=== PATIENT | female | born 1935 | race Caucasian/White ===

== ENCOUNTER 2016-05-31 05:04 | Inpatient (IN) | payer OTHER ==
[2016-05-11 15:13] VITALS: BMI 39.0
--- NOTE | 2016-05-11 15:44 | PAT Medication Instructions ---
Service Date May 11, 2016. Current Home Medication List Allopurinol (Zyloprim), 300 MG PO NOON Ascorbic Acid (Ascorbic Acid), 500 MG PO NOON Aspirin (Aspirin Chewable), 81 MG PO NOON Atenolol (Tenormin), 50 MG PO NOON Celecoxib (CeleBREX), 200 MG PO NOON Cyanocobalamin (Vitamin B12 100 Mcg), 100 MCG PO NOON Diltiazem Hcl Coated Beads (Cardizem Cd), 240 MG PO NOON Furosemide (Furosemide), 40 MG PO NOON Glimepiride (Amaryl), 1 MG PO NOON Ketoconazole (Topical) (Nizoral), 1 APPLN TOP UD PRN for PRN Levothyroxine Sodium (Synthroid), 150 MCG PO NOON Losartan Potassium (Cozaar), 100 MG PO NOON Potassium Chloride (Micro-K Ext Rel), 20 MEQ PO NOON Vitamin E (Vitamin E 400 Iu), 400 INTER.UNIT PO NOON Medication Instructions For Your Scheduled Surgery - Hold the following medications 2 weeks prior to surgery: Vitamin E (Vitamin E 400 Iu), 400 INTER.UNIT PO NOON - Hold the following medications 5 days prior to surgery per surgeon instructions: Celecoxib (CeleBREX), 200 MG PO NOON - Hold the following medications 24 hours prior to surgery: Ketoconazole (Topical) (Nizoral), 1 APPLN TOP UD PRN for PRN - Take the following medications the morning of surgery with a sip of water ( only if surgery is scheduled for after 10:00AM: Diltiazem Hcl Coated Beads (Cardizem Cd), 240 MG PO NOON Levothyroxine Sodium (Synthroid), 150 MCG PO NOON Atenolol (Tenormin), 50 MG PO NOON Allopurinol (Zyloprim), 300 MG PO NOON Aspirin (Aspirin Chewable), 81 MG PO NOON - Take the following medications as scheduled the afternoon/night before surgery : Losartan Potassium (Cozaar), 100 MG PO NOON Potassium Chloride (Micro-K Ext Rel), 20 MEQ PO NOON Glimepiride (Amaryl), 1 MG PO NOON Furosemide (Furosemide), 40 MG PO NOON Cyanocobalamin (Vitamin B12 100 Mcg), 100 MCG PO NOON Ascorbic Acid (Ascorbic Acid), 500 MG PO NOON If you have any questions please call us at [phone] or [phone] ( Bertha) or [phone]
[2016-05-11 16:11] LABS: BASO % 0.6 %; BASO ABS # 0.04 K/uL (0-0.2); COMPLETE YES; IG% 0.1 %; LYMPH % 26.5 %; LYMPH ABS # 1.91 K/uL (1.2-3.4); MEAN CELL VOLUME 89.7 fL (80-100); MEAN CORPUSCULAR HEMOGLOBIN 29.4 pg (25-34); MEAN CORPUSCULAR HGB CONC 32.8 g/dl (32-36); MONO % 7.5 %; NEUT % 61.3 %; PLATELET COUNT 306 K/uL (130-400); RED BLOOD COUNT 4.35 M/uL (4.2-5.4); WHITE BLOOD COUNT 7.21 K/uL (4.8-10.8)
[2016-05-11 16:20] LABS: URINE APPEARANCE CLEAR (CLEAR); URINE BILIRUBIN NEG (NEG); URINE COLOR YELLOW; URINE EPITHELIAL CELL AUTO >30 /lpf (0-5); URINE NITRITE NEG (NEG); URINE PH 6.5 (4.5-7.5); URINE SPECIFIC GRAVITY 1.008 (1.000-1.030); UROBILINOGEN NEG (NEG)
[2016-05-11 16:21] LABS: MANUAL MICROSCOPIC REQUIRED? NO; PROTHROMBIN TIME (PATIENT) 10.3 SECONDS (9.0-12.0); REVIEW REQ? YES
[2016-05-11 16:46] LABS: BUN/CREATININE RATIO 18.2 (10-20); CALCIUM 8.5 mg/dl (8.5-10.1); CREATININE 1.2 mg/dl (0.60-1.20); POTASSIUM 4.1 mmol/L (3.5-5.1)
--- NOTE | 2016-05-15 17:26 | HISTORY & PHYSICAL EXAMINATION ---
DATE OF ADMISSION: 06/07/2016 CHIEF COMPLAINT: Right knee pain. HISTORY OF PRESENT ILLNESS: This 80-year-old white female presents to the office for evaluation of her right knee. She has had right knee pain for several years. She has been doing viscosupplementation injections with moderate improvement in her discomfort. Over the last several months they have stopped working as well. She has also tried oral anti-inflammatories as well as activity modification without success. No specific injury. Pain is primarily anterior and medial, but also posterior. It is worse with weightbearing. It is affecting her ADLs. X-rays have been obtained. She elects to proceed with right total knee arthroplasty in hopes of alleviating her pain. PAST MEDICAL HISTORY: Significant for hypertension, diabetes, hypothyroidism, rheumatoid arthritis, GERD, hiatal hernia, obesity, kidney stones, and history of thyroid cancer. PREVIOUS SURGERIES: Thyroidectomy for thyroid cancer, hysterectomy, cholecystectomy, carpal tunnel release, and knee arthroscopy. ALLERGIES: KNOWN ALLERGIES TO AMPICILLIN, WHICH CAUSES DIARRHEA AND YEAST INFECTIONS. CURRENT MEDICATIONS: Celebrex 200 mg daily, vitamin B12 1000 mcg daily, glimepiride 1 mg p.o. daily, Synthroid 150 mcg p.o. daily, ketaconazole topical 2% cream applied daily, potassium 10 mEq p.o. b.i.d., aspirin 81 mg daily, Cozaar 100 mg p.o. daily, vitamin E 400 units daily, allopurinol 300 mg p.o. daily, furosemide 20 mg p.o. b.i.d., atenolol 50 mg p.o. daily, diltiazem 240 mg p.o. daily. SOCIAL HISTORY: The patient is . Retired. No tobacco use, no ETOH use. FAMILY HISTORY: Significant for diabetes, otherwise unremarkable. REVIEW OF SYSTEMS: Significant for above stated conditions, otherwise unremarkable. PHYSICAL EXAMINATION: GENERAL: Well-developed, well-nourished elderly white female in no acute distress. Sitting on a chair. Alert and oriented. SKIN: Warm and dry with good turgor. No rashes or lesions. No ecchymosis or erythema. HEENT: Normocephalic, atraumatic. Eyes, PERRLA, EOMI. Nares patent bilaterally without turbinate enlargement. Oropharynx without erythema or exudate. No lesions noted. Uvula midline. Oral mucosa moist. Poor dentition. Multiple missing teeth. Fillings are noted. Ears, right TM was occluded with cerumen. Left TM is intact with good light reflex. HEART: RRR. No MGR. LUNGS: Clear to auscultation bilaterally. No crackles, rhonchi or wheezing. Good air movement. ABDOMEN: Obese. Bowel sounds present x4, soft, nontender. No organomegaly. MUSCULOSKELETAL: Right knee has no obvious asymmetry or deformity. She has no intraarticular effusion. There is focal discomfort with palpation over the medial joint line as well as the anterior joint line. No significant pain laterally. She does have discomfort in the popliteal fossa. Small Morelos cyst is palpable. She lacks just a few degrees of terminal extension. Flexion to greater than 100 degrees. No crepitus is palpable. Stable collateral ligaments. Strength is 5/5 for resisted flexion and extension. No defect in the patellar tendon or quadriceps tendon. Ambulatory with a mild limp. NEUROLOGIC: Gross sensation is intact across the lower extremities by soft touch. Peripheral pulses are 2+. Cranial nerves II through XII are intact. DATA: Radiographic images previously obtained show a varus stance. She has tricompartmental osteoarthritis with joint space narrowing, subchondral sclerosis, and periarticular osteophytes. IMPRESSION: Right knee degenerative joint disease. PLAN: Informed written consent was obtained to proceed with right total knee arthroplasty. Postoperative prescriptions for Percocet and Coumadin will be provided at discharge from the hospital. Preoperative lab work, EKG, and chest x-ray have been ordered. Medical clearance has been requested from Dr. Valles. Anticipate discharge to home with 2 weeks of home health services.
[~2016-05-31] VITALS: Ht 157.5 cm; Wt 96.6 kg
[2016-05-31] VITALS (9 sets, daily range): BP systolic 120–184; BP diastolic 66–83; PULSE 52–93; TEMP 36.5–36.9; O2SAT 92–99; Ht 157.5 cm; Wt 96.6 kg
[~2016-05-31 05:04] MED LIST: ALLO300T2 PO; ASCO500T16 PO; ASPCH81X PO; ATEN50TA PO; CLB/200 PO; CYAN100T6 PO; DILT240C57 PO; GLIM1TAB PO; KETO2SHA5 TOP; LOSA1TAB38 PO; LSX20 PO; POTA10CA28 PO; SYN150 PO; VITA400C3 PO
[2016-05-31] MEDS ORDERED: LACTATED RINGER'S 1000ML 1,000 ML IV SCH (06:00)
[2016-05-31] MEDS ORDERED: TRANEXAMIC ACID INJ 1,000 MG in SODIUM CHLORIDE 0.9% 100ML 100 ML IV SCH ×2 (06:00→14:30)
[2016-05-31] MEDS ORDERED: CEFAZOLIN 2000 MG/60 ML D5W 60 ML IV SCH (06:00)
[2016-05-31] MEDS ORDERED: LACTATED RINGER'S 1000ML IV SCH (06:00)
[2016-05-31] MEDS ORDERED: ROPIVACAINE 5MG/ML 30 ML 150 MG, BUPIVACAINE/EPINEPHR 0.5% MPF 30 ML, KETOROLAC TROMETH... INFIL SCH ×7 (06:00)
--- NOTE | 2016-05-31 06:25 | History & Physical Bridge Note ---
H&P Re-Evaluation Bridge Note: I have examined the patient, reviewed the History & Physical and in the interval since the performance of the History & Physical I have noted the following changes of clinical significance: No changes noted
[2016-05-31] MEDS ORDERED: BUPIVACAINE 0.25% 30 ML VIAL ONE (06:33)
[2016-05-31] MEDS ORDERED: BUPIVACAINE 0.5 % 5 MG/1 ML PF 10ML VIAL ONE (06:33)
[2016-05-31] MEDS ORDERED: ORTHO JOINT ANESTHETIC ONE (06:36)
[2016-05-31] MEDS ORDERED: POVIDONE-IODINE OP SOLN 30 ML BTL ONE (06:37)
[2016-05-31] MEDS ORDERED: MIDAZOLAM HCL 1 MG/ML 2ML VIAL ONE ×3 (06:38→07:01)
[2016-05-31] MEDS ORDERED: FENTANYL CITRATE INJ 50 MCG/1 ML 2 ML VIAL ONE (06:38)
[2016-05-31] MEDS ORDERED: PROPOFOL IV EMULSION 10 MG/ML 20 ML VIAL IV ONE (07:57)
[2016-05-31] MEDS ORDERED: ONDANSETRON INJ 2 MG/ML 2 ML VIAL IV PRN ×2 (08:00→08:30)
[2016-05-31] MEDS ORDERED: EpHEDrine SULFATE INJ 50 MG/ML AMP IV PRN (08:00)
[2016-05-31] MEDS ORDERED: ATROPINE SULFATE 0.1 MG/ML 5ML SYR IV PRN (08:00)
[2016-05-31] MEDS ORDERED: FENTANYL CITRATE INJ 50 MCG/1 ML 2 ML VIAL IV PRN (08:00)
--- NOTE | 2016-05-31 08:15 | [facility] Post Operative Brief Note ---
Immediate Operative Summary Operative Date May 31, 2016. Pre-Operative Diagnosis Right knee degenerative joint disease Post-Operative Diagnosis Right knee degenerative joint disease. Procedure(s) Performed Right knee total arthroplasty Surgeon Dr. Jeevan Lowe [employer] Surgeon(s) Rick Mendoza PA-C Estimated Blood Loss 50ML Findings severe djd/varus deformity Fluids (cc crystalloids) 1250cc Specimens A: Right knee bone and tissue Drains none Anesthesia spinal/block Complication(s) None Disposition Recovery Room / PACU
[2016-05-31] MEDS ORDERED: DiphenhydrAMINE HCL 50 MG/ML VIAL IV PRN (08:30)
[2016-05-31] MEDS ORDERED: METOCLOPRAMIDE HCL INJ 5 MG/ML 2 ML VIAL IV PRN (08:30)
[2016-05-31] MEDS ORDERED: ACETAMINOPHEN IV 100 ML IV PRN (08:30)
[2016-05-31] MEDS ORDERED: MAGNESIUM HYDROXIDE SUSP 30 ML UDC PO PRN (08:30)
[2016-05-31] MEDS ORDERED: ACETAMINOPHEN 325 MG TAB PO PRN (08:30)
[2016-05-31] MEDS ORDERED: OXYCODONE HCL IR 5 MG TAB (IMMEDIATE RELEASE) PO PRN (08:30)
[2016-05-31] MEDS ORDERED: ALUMINUM/MAGNESIUM/SIMETH (MAALOX MAX) 30 ML UDC PO PRN (08:30)
[2016-05-31] MEDS ORDERED: BISACODYL 10 MG SUPP PR PRN (08:30)
[2016-05-31] MEDS ORDERED: MoRPHine SULFATE 2 MG/ML CARP IV PRN (08:30)
--- NOTE | 2016-05-31 08:31 | Medical Student: [facility] ---
Immediate Operative Summary Operative Date May 31, 2016. Pre-Operative Diagnosis Degenerative Joint Disease of Right Knee Post-Operative Diagnosis Degenerative Joint Disease of Right Knee Procedure(s) Performed Right Total Knee Arthroplasty Surgeon Dr. Lowe Commercial [employer] Surgeon(s) Jeremy Mendoza PA-C Estimated Blood Loss 50cc Findings Osteoarthritic changes of the right knee, varus deformity Specimens None Complication(s) None Disposition Recovery Room / PACU
--- NOTE | 2016-05-31 08:44 | OPERATIVE REPORT ---
DATE OF OPERATION: 05/31/2016 PREOPERATIVE DIAGNOSIS: Osteoarthritis right knee with varus deformity. POSTOPERATIVE DIAGNOSIS: Same. PROCEDURE: Cemented right total knee replacement. SURGEON: Dr. Lowe. MEDICAL EXAMINER: Jeremy Mendoza PA-C., med student [employer]. SUMMARY OF IMPLANTS: Size 2.5 right posterior cruciate substituting femur, size 2.5 rotating tibial tray, oval domed 3 pegged patella size 35, tibial insert size 2.5, 12.5 mm thick, 2 bags of Palacos G cement. ESTIMATED BLOOD LOSS: 50 mL. ESTIMATED FLUID: 1250 mL IV. OPERATION AND FINDINGS: PROCEDURE: The patient appropriately identified, site verified, consent verified, 2 grams of Ancef confirmed as being given. The right lower extremity was prepped and draped in usual routine fashion. An anterior approach to the knee was then made. A parapatellar arthrotomy was performed. Synovectomy completed. Soft tissue release performed medially. Osteophytes resected. Distal femur entered and resected 12 mm, proximal tibia subluxated. All remaining menisci were removed. The tibia was resected 4 mm. It should be mentioned that there was grade 4 disease in the complete medical compartment and the trochlea of the femur. The patella had grade 2-3 changes in the lateral compartment and grade 1-2 changes. Once the soft tissue correction was made and the distal femoral and proximal tibial cuts made the extension gap was excellent. The femur was sized to a 2.5 as well as the tibia. A 2.5 cutting block was then placed on the femur and the anterior and posterior condylar and chamfer cuts. The flexion gap was checked, it was excellent. The box cut was then made and the size 2.5 femur fit well. The tibia was then broached and reamed to a 2.5 and trial spacer with 10 and 12.5 was made. The 12.5 eliminated some mid range flexion instability so that was elected. It did not alter the extension. The patella was sized to a 35, resected leaving 15 mm. Drill holes were made and trial seated, it tracked well. All remaining trial implants were then removed. The wound was irrigated with Pulsavac with Betadine with Pulsavac. Orthomix then injected and the permanent cemented into position. After 12 minutes, the tourniquet deflated. After 14 minutes the knee flexed. Minor cement removal took place. The wound was irrigated again with Betadine and Pulsavac and then the permanent spacer seated, the knee reduced and closed with #1 Ethibond, #1 Vicryl, 2-0 Vicryl and stainless steel clips. Appropriate dressing was applied. The patient transferred to recovery room in satisfactory condition having tolerated the procedure well. DVT prophylaxis per protocol. I attest to the content of the Intraoperative Record and any orders documented therein. Any exceptio ns are noted below.
--- NOTE | 2016-05-31 08:57 | Anesthesiology Progress Note ---
Anesthesia Post Op Note Date & Time May 31, 2016 at 08:57 Vital Signs Pain Intensity: 0 Vital Signs Past 12 Hours Date Time Temp Pulse Resp B/P Pulse Ox O2 Delivery O2 Flow Rate FiO2 05/31/16 08:42 61 19 05/31/16 08:42 61 19 92 05/31/16 08:38 127/63 05/31/16 08:37 61 18 93 05/31/16 08:37 60 18 05/31/16 08:33 129/60 05/31/16 08:32 59 18 95 05/31/16 08:32 59 18 05/31/16 08:28 127/57 05/31/16 08:27 66 21 05/31/16 08:27 66 21 95 05/31/16 08:27 36.7 67 12 115/58 95 Nasal Cannula 2 05/31/16 05:46 36.9 56 20 184/81 93 Room Air Notes Mental Status: alert / awake / arousable, participated in evaluation Pt Amnestic to Procedure: Yes Nausea / Vomiting: adequately controlled Pain: adequately controlled Airway Patency, RR, SpO2: stable & adequate BP & HR: stable & adequate Hydration State: stable & adequate Neuraxial Anesthesia: was administered, sensory block is resolving Anesthetic Complications: no major complications apparent
[2016-05-31] MEDS ORDERED: FUROSEMIDE 40 MG TAB PO SCH (09:00)
[2016-05-31] MEDS ORDERED: LOSARTAN POTASSIUM 50 MG TAB PO SCH (09:00)
[2016-05-31] MEDS: DILTIAZEM HCL 240 MG CAPCR PO SCH (09:00)
[2016-05-31] MEDS: DOCUSATE SODIUM 100 MG CAP PO SCH ×2 (09:00→21:00)
--- NOTE | 2016-05-31 09:00 | DIAGNOSTIC IMAGING REPORT ---
TWO VIEWS RIGHT KNEE CLINICAL HISTORY: Postoperative examination. FINDINGS: AP and crosstable lateral portable views of the right knee are obtained. A right knee arthroplasty is in near anatomic alignment. There has been undersurface remodeling of the patella. There is a longitudinal lucency seen in the distal femoral metaphysis only on the frontal view. There are expected postoperative changes around the knee including skin clips, soft tissue edema, and subcutaneous gas. IMPRESSION: 1. Expected postoperative changes status post right knee arthroplasty as above. 2. There is a questionable lucency in the distal femoral metaphysis, only seen on the frontal view. This is indeterminant, and a nondistracted fracture is not excluded. Electronically signed by: Moshe William M.D. 05/31/2016 8:59 AM Dictated Date/Time: 05/31/2016 8:58 AM
[2016-05-31] MEDS ORDERED: GLUCOSE 10 TABS/TUBE PO PRN (10:30)
[2016-05-31] MEDS ORDERED: DEXTROSE 50% 50 ML SYR IV PRN (10:30)
[2016-05-31] MEDS ORDERED: GLUCAGON FOR INJ 1 MG VIAL SQ PRN (10:30)
[2016-05-31] MEDS ORDERED: GLUCOSE 40% GEL 15 GM TUBE PO PRN (10:30)
[2016-05-31] MEDS ORDERED: MoRPHine SULFATE 4 MG/ML 1 ML CARP\\VIAL IV PRN (10:45)
[2016-05-31] MEDS: SODIUM CHLORIDE 0.9% 1000ML 1,000 ML IV SCH ×2 (11:14→19:03)
--- NOTE | 2016-05-31 11:18 | PROGRESS NOTE ---
DATE: 05/31/2016 SUBJECTIVE: Postop right total knee replacement. The patient is resting comfortably in bed. Denies chest pain, shortness of breath, fever, chills, headache, nausea or vomiting. OBJECTIVE: Vital signs are stable. She is afebrile. Neurovascular check reveals intact functioning of the peroneal and femoral nerves, still has a little bit of weakness. Dressing clean, dry and intact. X-RAYS: Two obliques did not reveal any hardware complication; however, radiologist questioning a lucency in the distal metaphyseal femur which cannot exclude any fracture. I think that this is air based on the location of the suprapatellar pouch air. There were no untoward issues during the procedure and there was no excessive force applied to implanting the materials. ASSESSMENT AND PLAN: Status post right total knee replacement. Continue with care pathway. If any issues arise, she will repeat x-rays, but I do not expect them to based on what is seen on the present films.
[2016-05-31] MEDS: PANTOprazole SOD 40 MG TAB PO SCH (11:19)
[2016-05-31] MEDS: ALLOPURINOL 300 MG TAB PO SCH (11:19)
[2016-05-31] MEDS: LEVOTHYROXINE 150 MCG TAB PO SCH (11:19)
[2016-05-31] MEDS: MULTIVITAMIN TAB PO SCH (11:20)
[2016-05-31] MEDS: POTASSIUM CHLORIDE 20 MEQ TABCR PO SCH (11:20)
[2016-05-31] MEDS: KETOROLAC TROMETHAMINE 15 MG/ML VIAL IV. SCH ×2 (11:20→19:03)
[2016-05-31] MEDS ORDERED: HydrALAZINE HCL 20 MG/ML VIAL IV. PRN (12:15)
--- NOTE | 2016-05-31 12:34 | Medical Consult ---
Consultation Date of Consultation: May 31, 2016. Attending Physician: Jeevan Lowe M.D. Reason for Consultation: Medical management History of Present Illness This is a 80 y/o female with a history of anemia, CKD stage III, DM II, gout, HTN, and h/o thyroid cancer s/p thyroidectomy who presents s/p right TKA with Dr. Lowe on 05/31 for medical management. The patient reports feeling well post operatively. She currently denies any pain and states that her legs are still numb. She was able to eat without any difficulties. She has not yet urinated, passed gas, or had a bowel movement. The patient denies fevers, chills, sweats, chest pain, palpitations, claudication, cough, wheezing, shortness of breath, nausea, vomiting, abdominal pain, dysuria, hematuria, urinary retention, paralysis, and weakness. Past Medical/Surgical History Medical Problems: (1) Shortness of breath Status: Acute Family History Diabetes mellitus Gallbladder disease Heart disease Hypertension Kidney disease Kidney stones Social History Smoking Status: Never Smoker Smokeless Tobacco Use: No Alcohol Use: none Marital Status: Housing Status: lives with significant other Occupation Status: retired Allergies Coded Allergies: Amlodipine (Verified Allergy, Unknown, per PCP note , 05/31/16) Hydrochlorothiazide (Verified Allergy, Unknown, per PCP note , 05/31/16) Moxifloxacin (Verified Allergy, Unknown, per PCP note , 05/31/16) Erythromycin (Verified Adverse Reaction, Mild, YEAST INFECTION, 05/31/16) Current Inpatient Medications Current Inpatient Medications Medications (Trade) Dose Ordered Sig/Munira Route Start Time Stop Time Status Last Admin Dose Admin Lactated Ringer's 1,000 ml @ 60 mls/hr [id number] IV 05/31/16 06:00 05/31/16 22:39 Cefazolin Sodium 60 ml @ 100 mls/hr PREOP IV 05/31/16 06:00 05/31/16 18:00 Lactated Ringer's (Lr 1000ml) 1,000 ml @ 15 mls/hr Q24H IV 05/31/16 06:00 06/01/16 05:59 05/31/16 06:30 15 MLS/HR Fentanyl Citrate (Fentanyl Inj) 25 mcg Q5M PRN IV 05/31/16 08:00 05/31/16 13:00 Ondansetron HCl (Zofran Inj) 4 mg ONE PRN IV 05/31/16 08:00 05/31/16 13:00 Ephedrine Sulfate (EpHEDrine SULFATE INJ) 5 mg Q5M PRN IV 05/31/16 08:00 05/31/16 13:00 Atropine Sulfate 0.5 mg 0.5 mg Q1M PRN IV 05/31/16 08:00 05/31/16 13:00 Sodium Chloride 1,000 ml @ 100 mls/hr Q10H IV 05/31/16 08:27 06/01/16 08:26 05/31/16 11:14 100 MLS/HR Cefazolin Sodium/ Dextrose (Ancef Iv/D5 50ml) 60 ml @ 100 mls/hr Q8H IV 05/31/16 14:00 05/31/16 22:35 Ketorolac Tromethamine (Toradol Inj) 15 mg Q6H IV. 05/31/16 12:00 06/01/16 06:01 05/31/16 11:20 15 MG Oxycodone HCl (Roxicodone Immediate Rel Tab) 1 TABLET FOR PAIN RATING... Q4H PRN PO 05/31/16 08:30 06/14/16 08:29 Morphine Sulfate (MoRPHine SULFATE INJ) 2 mg Q1H PRN IV 05/31/16 08:30 06/14/16 08:29 Acetaminophen (Tylenol Tab) 650 mg Q6H PRN PO 05/31/16 08:30 06/30/16 08:29 Magnesium Hydroxide (Milk Of Magnesia Susp) 30 ml Q6H PRN PO 05/31/16 08:30 06/30/16 08:29 Bisacodyl (Dulcolax Supp) 10 mg DAILY PRN UT 05/31/16 08:30 06/30/16 08:29 Docusate Sodium (coLACE CAP) 100 mg BID PO 05/31/16 09:00 06/30/16 08:59 Diphenhydramine HCl (Benadryl Inj) 25 mg Q8H PRN IV 05/31/16 08:30 06/30/16 08:29 Al Hydrox/Mg Hydrox/Simethicone (Maalox Max Susp) 15 ml Q4H PRN PO 05/31/16 08:30 06/30/16 08:29 Multivitamins (Multivitamin Tab) 1 tab QAM PO 05/31/16 09:00 06/30/16 08:59 05/31/16 11:20 1 TAB Ondansetron HCl (Zofran Inj) 4 mg Q6H PRN IV 05/31/16 08:30 06/30/16 08:29 Metoclopramide HCl (Reglan Inj) 10 mg Q6H PRN IV 05/31/16 08:30 06/30/16 08:29 Ferrous Gluconate (Ferrous Gluconate Tab) 324 mg TIDM PO 05/31/16 12:30 06/30/16 12:29 Pantoprazole Sodium 40 mg 40 mg QAM PO 05/31/16 09:00 06/30/16 08:59 05/31/16 11:19 40 MG Tranexamic Acid 1000 mg/Sodium Chloride 110 ml @ 660 mls/hr Q6H IV 05/31/16 14:30 05/31/16 14:39 Dexamethasone Sodium Phosphate/ Syringe (Decadron Inj/ Syringe) 2.5 ml @ 1 mls/min 0730 IV 06/01/16 07:30 06/01/16 10:00 Allopurinol (Zyloprim Tab) 300 mg DAILY PO 05/31/16 09:00 06/30/16 08:59 05/31/16 11:19 300 MG Aspirin (Ecotrin Tab) 81 mg DAILY PO 06/01/16 09:00 07/01/16 08:59 Atenolol (Tenormin Tab) 50 mg DAILY PO 05/31/16 09:00 06/30/16 08:59 Diltiazem HCl (Cardizem Cd Cap) 240 mg DAILY PO 05/31/16 09:00 06/30/16 08:59 Furosemide (Lasix Tab) 40 mg DAILY PO 05/31/16 09:00 06/30/16 08:59 05/31/16 11:20 40 MG Levothyroxine Sodium (Synthroid Tab) 150 mcg DAILYBB PO 05/31/16 09:00 06/30/16 08:59 05/31/16 11:19 150 MCG Losartan Potassium (coZAAR TAB) 100 mg DAILY PO 05/31/16 09:00 06/30/16 08:59 05/31/16 11:21 100 MG Potassium Chloride 20 meq 20 meq DAILY PO 05/31/16 09:00 06/30/16 08:59 05/31/16 11:20 20 MEQ Acetaminophen (Ofirmev Iv) 100 ml @ 400 mls/hr Q8H PRN IV 05/31/16 08:30 06/01/16 09:00 Insulin Aspart (novoLOG ASPART) SLIDING SCALE G... ACHS SC 05/31/16 12:00 06/30/16 11:59 Glucose (Glucose 40% Gel) 15-30 GRAMS 15 GRAMS... UD PRN PO 05/31/16 10:30 06/30/16 10:29 Glucose (Glucose Chew Tab) 4-8 Tablets 4 Tabl... UD PRN PO 05/31/16 10:30 06/30/16 10:29 Dextrose (Dextrose 50% 50ML Syringe) 25-50ML OF 50% DW IV FOR... UD PRN IV 05/31/16 10:30 06/30/16 10:29 Glucagon (Glucagon Inj) 1 mg UD PRN SQ 05/31/16 10:30 06/30/16 10:29 Morphine Sulfate (MoRPHine SULFATE INJ) 4 mg Q1H PRN IV 05/31/16 10:45 06/14/16 10:44 Review of Systems See HPI for pertinent positives and negatives. All other systems reviewed and negative. Physical Exam Date Time Temp Pulse Resp B/P Pulse Ox O2 Delivery O2 Flow Rate FiO2 05/31/16 11:30 76 16 120/66 97 Nasal Cannula 2.0 05/31/16 10:30 58 16 134/81 99 Nasal Cannula 2.0 05/31/16 10:00 52 16 157/83 96 Nasal Cannula 2.0 05/31/16 09:30 36.5 61 16 139/74 98 Ambu-Bag 2.0 05/31/16 09:30 36.5 62 16 139/74 98 Nasal Cannula 2.0 05/31/16 09:30 98 Nasal Cannula 2.0 05/31/16 09:30 Room Air 05/31/16 09:15 69 19 95 05/31/16 09:15 66 19 05/31/16 09:13 150/78 05/31/16 09:10 58 15 93 05/31/16 09:10 58 15 05/31/16 09:08 149/71 05/31/16 09:05 65 19 93 05/31/16 09:05 65 19 05/31/16 09:04 60 18 95 05/31/16 09:04 58 18 05/31/16 09:03 133/70 05/31/16 09:00 36.9 05/31/16 08:59 62 21 92 05/31/16 08:59 59 21 05/31/16 08:58 141/72 05/31/16 08:54 63 18 05/31/16 08:54 65 18 95 05/31/16 08:53 59 19 05/31/16 08:53 56 19 139/66 94 05/31/16 08:48 62 17 05/31/16 08:48 60 17 126/66 93 05/31/16 08:43 65 19 05/31/16 08:43 66 19 133/66 92 05/31/16 08:42 61 19 05/31/16 08:42 61 19 92 05/31/16 08:38 127/63 05/31/16 08:37 61 18 93 05/31/16 08:37 60 18 05/31/16 08:33 129/60 05/31/16 08:32 59 18 95 05/31/16 08:32 59 18 05/31/16 08:28 127/57 05/31/16 08:27 66 21 05/31/16 08:27 66 21 95 05/31/16 08:27 36.7 67 12 115/58 95 Nasal Cannula 2 05/31/16 05:46 36.9 56 20 184/81 93 Room Air General Appearance: WD/WN, no apparent distress Head: normocephalic, atraumatic Eyes: normal inspection, PERRL, EOMI ENT: normal ENT inspection, hearing grossly normal, pharynx normal Neck: supple, no JVD, trachea midline Respiratory/Chest: normal breath sounds, no respiratory distress, + crackles ( mild crackles in bases bilaterally) Cardiovascular: regular rate, rhythm, no gallop, no murmur Abdomen/GI: normal bowel sounds, non tender, soft Extremities/Musculoskelatal: normal inspection, no calf tenderness, normal capillary refill, no pedal edema Neurologic/Psych: alert, normal mood/affect, oriented x 3 Skin: normal color, warm/dry, no rash Laboratory Results Last 24 Hours Test 05/31/16 05:45 05/31/16 08:37 05/31/16 12:01 Bedside Glucose 145 mg/dl 133 mg/dl 361 mg/dl Assessment & Plan 80 y/o female with a history of CKD stage III, DM II, gout, HTN, and h/o thyroid cancer s/p thyroidectomy who presents s/p right TKA with Dr. Lowe on 05/31 for medical management. -Pain management, DVT prophylaxis, and PT/OT as per primary team CKD stage III--stable. Baseline creatinine around 1.2 -Will check PRP, continue to monitor Diabetes mellitus type 2--Last HgbA1c checked 01/03/16 was 6.2 -Hold glimepiride -Insulin sliding scale -Check BSGs q ac and qhs -Recheck HgbA1c Gout -Continue allopurinol 300 mg PO qd HTN--stable -Continue atenolol 50 mg PO qd. Pt has been bradycardic with HR in 50s, will continue to monitor. Hold atenolol if SBP <90 or HR <60 -Continue diltiazem 240 mg PO qd -Hold losartan until renal function checked/stable -Hold Lasix while on IVF -Cover with hydralazine 10 mg IV q6h prn SBP >180 Iatrogenic hypothyroidism secondary to thyroidectomy and h/o thyroid cancer -Continue Synthroid 150 mcg PO qd Code Status -Level I, FULL RESUSCITATION STATUS Thank you for this consultation. We will continue to follow. Attending Attestation: Pt seen/examined, chart reviewed, care plan d/w SARAH Wei. I agree with the bailey components of her consult documentation. 80yo female with h/o anemia, CKD stage III, DM II, gout, HTN, and h/o thyroid cancer s/p thyroidectomy who presented today for elective right TKR. I saw her post-op on the ortho floor and she apparently had nausea w/ emesis after lunch but was able to tolerate dinner tonight w/o incident. Denied any sob, chest pain or abd pain since her surgery. PMH, PSH, allergies, meds, sochx, famhx, ros - reviewed VSS, afebrile gen - obese, nad mouth - MMM neck - no JVD heart - RRR, s1, s2 lungs - CTA b/l abd - soft, NT, ND, BS+ ext - right knee wrapped in large DORYS; pulses 2+ b/l feet FSBS -- variable since surgery - 150-360 range A/P: 1. T2DM - agree w/ novolog sliding scale; use correction factor of 25 with carb ratio of 8. She is receiving steroids; may need to titrate the novolog and/or add lantus. 2. HTN - agree w/ holding ARB and diuretic; repeat BMP am. 3. hypothyroidism - cont synthroid. 4. CKD 3 - repeat BMP in am for stability. DVT proph, pain control - per yasmeen GARZA MD
[2016-05-31 13:05] LABS: BASO % 0.2 %; BASO ABS # 0.02 K/uL (0-0.2); COMPLETE YES; EOS % 0.2 %; HEMATOCRIT 36.7 % (37-47); IG% 0.3 %; LYMPH % 5.8 %; LYMPH ABS # 0.68 K/uL (1.2-3.4); MEAN CELL VOLUME 87.8 fL (80-100); MEAN CORPUSCULAR HEMOGLOBIN 28.7 pg (25-34); MEAN CORPUSCULAR HGB CONC 32.7 g/dl (32-36); MONO % 3.6 %; NEUT % 89.9 %; PLATELET COUNT 270 K/uL (130-400); RED BLOOD COUNT 4.18 M/uL (4.2-5.4); WHITE BLOOD COUNT 11.79 K/uL (4.8-10.8)
[2016-05-31] MEDS: FERROUS GLUCONATE 324 MG TAB PO SCH ×2 (13:05→17:19)
[2016-05-31] MEDS: INSULIN ASPART 100 UNITS/ML 3 ML PEN SC SCH ×3 (13:09→21:36)
[2016-05-31 13:27] LABS: BUN/CREATININE RATIO 16.4 (10-20); CALCIUM 8.1 mg/dl (8.5-10.1); CREATININE 1.2 mg/dl (0.60-1.20); ESTIMATED AVERAGE GLUCOSE 126 mg/dl; HA1C FLAG Normal (Normal); POTASSIUM 3.5 mmol/L (3.5-5.1)
[2016-05-31] MEDS: CEFAZOLIN IV 2,000 MG in DEXTROSE 5% 50ML 50 ML IV SCH ×2 (14:01→21:38)
[2016-05-31] MEDS ORDERED: WARFARIN SOD 5 MG TAB PO SCH (16:00)
[2016-05-31] MEDS ORDERED: NURSING VERBAL MED ORDER ONE (23:30)
[2016-06-01] MEDS: KETOROLAC TROMETHAMINE 15 MG/ML VIAL IV. SCH ×2 (00:45→05:38)
[2016-06-01 03:20] VITALS: BP 123/68; PULSE 74; TEMP 36.8; O2SAT 97
[2016-06-01] MEDS: LEVOTHYROXINE 150 MCG TAB PO SCH (05:37)
--- NOTE | 2016-06-01 07:05 | PROGRESS NOTE ---
DATE: 06/01/2016 Postop check status post right total knee replacement. At this point in time, the patient has no significant complaints of pain. She notes no nausea, vomiting, chest pain, shortness of breath, fever, chills or headache. OBJECTIVE: VITAL SIGNS: Stable. She is afebrile. ABDOMEN: Soft, nontender. EXTREMITIES: Calves nontender. Neurovascular check, femoral sciatic nerve bilaterally normal. Weightbears on the right leg with no significant pain. A.m. labs are pending. ASSESSMENT: Overall, doing well. We will discharge today after PT/OT. Coumadin per nomogram today. Discharge on 4 mg Coumadin if INR less than 1.8. Check INR on Sunday. She is desiring home health and home PT.
[2016-06-01 07:08] LABS: HEMATOCRIT 35.2 % (37-47); MEAN CELL VOLUME 88.4 fL (80-100); MEAN CORPUSCULAR HEMOGLOBIN 29.1 pg (25-34); PLATELET COUNT 282 K/uL (130-400); RED BLOOD COUNT 3.98 M/uL (4.2-5.4)
[2016-06-01 07:15] VITALS: BP 184/77; PULSE 62; TEMP 36.4; O2SAT 98
[2016-06-01 07:27] LABS: PROTHROMBIN TIME (PATIENT) 11.1 SECONDS (9.0-12.0)
[2016-06-01] MEDS ORDERED: DEXAMETHASONE INJ 10 MG in SYRINGE 0 ML IV SCH (07:30)
[2016-06-01 07:38] LABS: BUN/CREATININE RATIO 19.6 (10-20); CALCIUM 7.8 mg/dl (8.5-10.1); CREATININE 1.2 mg/dl (0.60-1.20); POTASSIUM 3.4 mmol/L (3.5-5.1)
--- NOTE | 2016-06-01 07:45 | DISCHARGE SUMMARY ---
CHIEF COMPLAINT: Right knee pain. HISTORY OF PRESENT ILLNESS: A 80-year-old female admitted for elective right total knee replacement. At this point in time, she has done extremely well and is desiring to go home so she can sleep better. She notes no chest pain, shortness of breath, fever or chills. She is weightbearing with pain. PAST MEDICAL HISTORY: Remarkable for hypertension, diabetes, hypothyroidism, rheumatoid arthritis, GERD, hiatal hernia, obesity, kidney stones, and history of thyroid cancer. PAST SURGICAL HISTORY: Include thyroidectomy for thyroid cancer, hysterectomy, cholecystectomy, carpal tunnel release and knee arthroscopies. ALLERGIES: AMPICILLIN, WHICH CAUSES DIARRHEA AND YEAST INFECTIONS. PREADMISSION MEDICATIONS: Include Celebrex, vitamin D, glimepiride, Synthroid, ketaconazole cream, potassium, aspirin, Cozaar, allopurinol, furosemide, atenolol, and diltiazem. She will continue all her medications and add Coumadin 4 mg daily to keep INR 1.8-2.2. SOCIAL HISTORY: Reveals she is , retired. No tobacco or alcohol use. PHYSICAL EXAMINATION: Reveals no major discomfort, can do a straight leg raise, can weightbear to leg with no femur pain. Dressing clean, dry and intact and will be changed later today. LABORATORY DATA: A.m. labs are pending. ASSESSMENT: Doing well and discharged to home today after physical therapy, occupational therapy. Coumadin 4 mg today unless nomogram indicates otherwise. If INR is less than 1.8, discharge on 4 mg Coumadin. Check INR on Sunday.
[2016-06-01] MEDS ORDERED: POTASSIUM CHLORIDE 20 MEQ TABCR PO ONE (08:30)
[2016-06-01] MEDS ORDERED: WARF2TAB PO (08:36)
[2016-06-01] MEDS ORDERED: OXYC-57 PO (08:36)
--- NOTE | 2016-06-01 08:37 | Discharge Instructions ---
Discharge Instructions Admission Reason for Admission: Right Knee Degenerative Joint Disease Discharge Discharge Diagnosis / Problem: Right knee s/p total knee replacement Discharge Goals Goal(s): Decrease discomfort, Improve function, Increase independence Activity Recommendations Activity Limitations: as noted below Lifting Limitations: gradually increase as tolerated Exercise/Sports Limitations: until after follow-up appointment Shower/Bathe: keep incision dry Driving or Machine Use: No driving until cleared by Dr. Lowe Weightbearing Status: Right weightbearing (as tolerated) . Instructions / Follow-Up Instructions / Follow-Up New Medicine: * You will likely be taking one or more of these medications: 1. Percocet - Take, as directed, when you need it, every four to six hours to control your pain. 2. Iron Sulfate - Take three times each day for the month after surgery to help you replace the blood lost during surgery. 3. Coumadin - Thins your blood to lessen the chance of forming a blood clot. The dose of this is different for each person and is based on your blood tests that are done twice a week. * The most common side effects of pain medicine and iron are nausea and constipation. If nausea or constipation is too much of a problem or if you have any questions about your new medicines or doses, call [facility] at . We will try to help you manage these issues. VERY IMPORTANT TO READ AND REVIEW" Blood Clots and Blood Thinning Medicine: * You are given Coumadin during the immediate post-operative period to lessen the risk of blood clots forming in your legs and/or lungs. Coumadin is usually given for six weeks after surgery. * The prescription is for 2 mg tablets. At discharge, you should understand your dose and take it all at the same time every day, preferably after dinner. * You need to get your blood checked 1 - 2 times per week for six weeks or as directed. * If your dose needs to change, we will call you. Do not take your medication on the day of the blood test until we call you. Pain: * The immediate post-operative period after knee replacement surgery is often quite painful. * You are given a prescription for pain medicine. You should take it, as directed, when you need it, especially before physical therapy and before going to bed. Pain that interferes with sleep is very common and can last several months. * You will likely need pain medicine for the first four to six weeks. It will not stop all of the pain. The pain will lessen and as you feel better, you may change to milder pain medicine such as Tylenol. * The most common side effects of pain medicine are nausea and constipation, so don't take more than you need. Physical Therapy: * You will have physical therapy two or three times each week for four to six weeks after your surgery in order to regain your knee range of motion and to retrain your knee to work properly. * It is just as important to make sure you are getting your knee perfectly straight as it is to regain your knee bend. * Taking a pain pill an hour before therapy can help you have a more productive and comfortable therapy session if needed. Home Exercise: * You were shown a series of exercises (heel props, heel slides, etc.) in the hospital. Do these exercises three to four times each day including the exercises you were shown in physical therapy. Walking: * Get up and walk several times each day. For the first four weeks, try not to stand or walk for more than one hour at a time. If you do stand or walk for more than one hour, you will not hurt anything, but your knee and leg will likely swell. * As you feel comfortable, you may change from the walker or crutches to a cane and then to independent walking. SELF CARE INSTRUCTIONS AFTER TOTAL KNEE REPLACEMENT A. You may need to continue a physical therapy program after discharge from the hospital. There are several options available to you. Your doctor will assist you in selecting the best one for you. 1. An out-patient facility 2 to 3 times a week for therapy or home therapy. 2. Continue working on all exercises taught to you in the hospital. Your goals should be to increase bending of your knee to 90 degrees and beyond and to fully straighten your knee. B. You may progress at your own pace from walking with a walker or crutches to a cane; then to no assistive devices. C. Make walking a part of your daily routine. Be up as much as comfortable with rest periods throughout the day. Rest with leg elevation is very important. Use the ice wrap frequently for the first 3-4 weeks. D. There are no restrictions on activities. You may ride in a car, shop, participate in revenue accountant and all social activities. E. Wear the long elastic stockings (ANTHONY hose) 20 hours a day for six weeks after surgery. They can be removed several times a day for laundering and for a shower. F. Do not place a pillow behind your knee when resting. A pillow at your ankle is okay. VERY IMPORTANT TO READ AND REVIEW A. Take Coumadin, Aspirin or Lovenox (blood thinning medications) as directed by your doctor. If on Coumadin, have a pro-time (blood test) drawn according to your doctor's instructions. This will tell the doctor how well the Coumadin is thinning your blood. 1. YOU WILL BE GIVEN AN ORDER AT DISCHARGE FOR PT/INR (BLOOD WORK). PLEASE HAVE THIS DONE INSTRUCTED. PLEASE CALL OUR OFFICE AFTER YOUR BLOODWORK IS COMPLETE SO WE CAN TRACK YOUR RESULTS. IF YOU ARE GOING TO OUTPATIENT PHYSICAL THERAPY, YOU WILL NEED TO GO TO OUTPATIENT TESTING TO HAVE IT DRAWN. B. There are a few signs you need to watch for after you are home. Call [facility] if you notice any of the followin. Increased severe knee pain. Some pain is expected especially when you exercise. 2. Increased swelling in your leg or knee; pain or swelling of the calf muscle in either lower leg. 3. Any fluid drainage from the incision. 4. Shortness of breath or chest pain. C. Please call [facility] at if you have any concerns or questions about your operation or recovery. The doctor or his nurse will return your call promptly. D. You must take antibiotics before dental work, bladder, bowel or other surgery. Call the office to obtain a prescription at least 2 days prior to your appointment. * CALL IF INCREASED PAIN, REDNESS, DRAINAGE OR FEVER GREATER THAT 101. * Sutures should be removed 12-14 days after surgery unless you are on chronic steriods, then it will be 14-18 days after surgery. Call your doctor if: * Temperature above 101 degrees F. * Pain not relieved by pain medicine ordered. * Increased drainage or redness from incision. * Notify your doctor with any questions or concerns. Current Hospital Diet Patient's current hospital diet: Diabetes Type 2 Diet Discharge Diet Recommended Diet: Diabetes Type 2 Diet Procedures Procedures Performed: Right knee total arthroplasty Pending Studies Studies pending at discharge: no Medical Emergencies . Who to Call and When: Medical Emergencies: If at any time you feel your situation is an emergency, please call 911 immediately. . Non-Emergent Contact Non-Emergency issues call your: Primary Care Provider, Surgeon Call Non-Emergent contact if: temperature is above 100.5, wound has increased drainage, wound has increased redness, wound has increased pain, you have any medication questions . "Provider Documentation" section prepared by Jeremy Mendoza PA-C. VTE Core Measure Inpt VTE Proph given/why not?: Warfarin (Coumadin), Howard Gutierrez, SCD's [place] Drug Monitoring Program Search Results: no issues identified
--- NOTE | 2016-06-01 08:41 | Orthopedic Progress Note ---
Orthopedic Progress Note Date of Service Jun 01, 2016. Subjective Post OP Day: 1 Reports: feeling well, Denies: SOB, calf pain, chest pain, complaints, light headedness, nausea / vomiting Additional Notes: states she did not sleep well due to interruptions. Objective wound looks very good. Minimal drainage overnight. Date Time Temp Pulse Resp B/P Pulse Ox O2 Delivery O2 Flow Rate FiO2 06/01/16 07:20 Room Air 06/01/16 07:15 36.4 62 16 184/77 98 Room Air 06/01/16 03:20 36.8 74 18 123/68 97 Room Air 06/01/16 00:50 Room Air 05/31/16 22:58 36.5 80 16 153/75 93 Room Air 05/31/16 18:58 36.8 93 16 161/82 92 Room Air 05/31/16 17:30 Room Air 05/31/16 15:05 36.8 79 16 164/77 94 Room Air 05/31/16 12:30 69 16 145/73 96 Room Air 05/31/16 11:30 76 16 120/66 97 Nasal Cannula 2.0 05/31/16 10:30 58 16 134/81 99 Nasal Cannula 2.0 05/31/16 10:00 52 16 157/83 96 Nasal Cannula 2.0 05/31/16 09:30 36.5 61 16 139/74 98 Ambu-Bag 2.0 05/31/16 09:30 36.5 62 16 139/74 98 Nasal Cannula 2.0 05/31/16 09:30 98 Nasal Cannula 2.0 05/31/16 09:30 Room Air 05/31/16 09:15 69 19 95 05/31/16 09:15 66 19 05/31/16 09:13 150/78 05/31/16 09:10 58 15 93 05/31/16 09:10 58 15 05/31/16 09:08 149/71 05/31/16 09:05 65 19 93 05/31/16 09:05 65 19 05/31/16 09:04 60 18 95 05/31/16 09:04 58 18 05/31/16 09:03 133/70 05/31/16 09:00 36.9 05/31/16 08:59 62 21 92 05/31/16 08:59 59 21 05/31/16 08:58 141/72 05/31/16 08:54 63 18 05/31/16 08:54 65 18 95 05/31/16 08:53 59 19 05/31/16 08:53 56 19 139/66 94 05/31/16 08:48 62 17 05/31/16 08:48 60 17 126/66 93 05/31/16 08:43 65 19 05/31/16 08:43 66 19 133/66 92 05/31/16 08:42 61 19 05/31/16 08:42 61 19 92 Laboratory Results 24 Hours: Test 05/31/16 12:52 06/01/16 06:30 White Blood Count 11.79 K/uL Red Blood Count 4.18 M/uL Hemoglobin 12.0 g/dL 11.6 g/dL Hematocrit 36.7 % 35.2 % Mean Corpuscular Volume 87.8 fL Mean Corpuscular Hemoglobin 28.7 pg Mean Corpuscular Hemoglobin Concent 32.7 g/dl Platelet Count 270 K/uL Mean Platelet Volume 9.0 fL Neutrophils (%) (Auto) 89.9 % Lymphocytes (%) (Auto) 5.8 % Monocytes (%) (Auto) 3.6 % Eosinophils (%) (Auto) 0.2 % Basophils (%) (Auto) 0.2 % Neutrophils # (Auto) 10.60 K/uL Lymphocytes # (Auto) 0.68 K/uL Monocytes # (Auto) 0.43 K/uL Eosinophils # (Auto) 0.02 K/uL Basophils # (Auto) 0.02 K/uL Prothromb Time International Ratio 1.0 Prothrombin Time 11.1 SECONDS Assessment & Plan Assessment: Right knee s/p TKA, post op day 1 Plan: Dressing changed today-wound looks very good PT/OT today D/C to home today with home health Labs are stable coumadin per nomogram today. She will receive dose today prior to D/C continue on coumadin 4mg daily over the weekend and recheck on Sunday Discharge Planning Discharge Planning: home with home health DVT Prophylaxis: TEDs, SCDs, Coumadin
[2016-06-01] MEDS ORDERED: ASPIRIN 81 MG ECTAB PO SCH (09:00)
--- NOTE | 2016-06-01 09:04 | OPERATIVE REPORT ---
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 POSTOPERATIVE DIAGNOSIS: Right knee same. PROCEDURE: Right knee total knee arthroplasty using DePuy implants. SURGEON: Dr. Lowe. HOUSE MOVER: Jeremy Mendoza PA-C. HISTORY OF PRESENT ILLNESS: This 80-year-old white female presented to the office with complaints of intractable right knee pain. She had tried conservative care measures including viscosupplementation without success. She elected to proceed with surgical intervention after being educated about potential risks and outcomes. OPERATION AND FINDINGS: The patient was administered spinal anesthetic and then taken to the operating room where she was given sedation. She was prepped and draped in the usual sterile fashion. Please see Dr. Lowe's operative report for specifics of the procedure. I was present for the entire case from initial patient positioning through final wound closure. Assistance was provided in tissue retraction, hemostasis, trial implant placement, final implant placement, and final wound closure. The patient was taken to the recovery room in satisfactory condition. IMPLANTS: Size 2.5 right femoral implant, size 2.5 rotating tibial tray, size 2.5 tibial spacer 12.5 mm thick, and size 35 3-pegged oval dome patella. I attest to the content of the Intraoperative Record and any orders documented therein. Any exceptio ns are noted below.
[2016-06-01] MEDS: DOCUSATE SODIUM 100 MG CAP PO SCH (09:14)
[2016-06-01] MEDS: FERROUS GLUCONATE 324 MG TAB PO SCH ×2 (09:14→12:28)
[2016-06-01] MEDS: ALLOPURINOL 300 MG TAB PO SCH (09:14)
[2016-06-01] MEDS: PANTOprazole SOD 40 MG TAB PO SCH (09:15)
[2016-06-01] MEDS: DILTIAZEM HCL 240 MG CAPCR PO SCH (09:15)
[2016-06-01] MEDS: MULTIVITAMIN TAB PO SCH (09:16)
[2016-06-01] MEDS: INSULIN ASPART 100 UNITS/ML 3 ML PEN SC SCH ×2 (09:28→12:00)
[2016-06-01] MEDS: POTASSIUM CHLORIDE 20 MEQ TABCR PO SCH (09:38)
[2016-06-01] MEDS ORDERED: DEXAMETHASONE 4 MG TAB PO ONE (09:39)
[2016-06-01 09:45] VITALS: BP 114/80
[2016-06-01] MEDS ORDERED: WARFARIN SOD 5 MG TAB PO SCH (10:00)
--- NOTE | 2016-06-01 10:09 | Hospitalist Progress Note ---
Hospitalist Progress Note Date of Service Jun 01, 2016. (Kortney Wei ., PA-C) Subjective Pt evaluation today including: conversation w/ patient, physical exam, chart review, lab review, review of inpatient medication list Pain: Controlled with oral meds PO Intake: Tolerating PO diet Voiding: no voiding problems Patient reports feeling well. She states that her right knee pain is well controlled with oral pain medication. She has been tolerating a PO diet well. She did have one episode of nausea/vomiting yesterday after lunch, but she has not had any more symptoms since then and was able to eat her dinner and breakfast this morning without difficulty. She is urinating without difficulty. She has not passed any gas, but she did have a bowel movement yesterday. The patient denies fevers, chills, sweats, chest pain, palpitations , claudication, cough, wheezing, shortness of breath, nausea, vomiting, abdominal pain, dysuria, hematuria, urinary retention, paralysis, weakness, numbness and tingling. Additional Comments: See HPI for pertinent positives and negatives. All other systems reviewed and negative. (Kortney Wei ., PA-C) Objective Vital Signs Date Time Temp Pulse Resp B/P Pulse Ox O2 Delivery O2 Flow Rate FiO2 06/01/16 07:20 Room Air 06/01/16 07:15 36.4 62 16 184/77 98 Room Air 06/01/16 03:20 36.8 74 18 123/68 97 Room Air 06/01/16 00:50 Room Air 05/31/16 22:58 36.5 80 16 153/75 93 Room Air 05/31/16 18:58 36.8 93 16 161/82 92 Room Air 05/31/16 17:30 Room Air 05/31/16 15:05 36.8 79 16 164/77 94 Room Air 05/31/16 12:30 69 16 145/73 96 Room Air 05/31/16 11:30 76 16 120/66 97 Nasal Cannula 2.0 05/31/16 10:30 58 16 134/81 99 Nasal Cannula 2.0 (Kortney Wei ., PA-C) Physical Exam General Appearance: WD/WN, no apparent distress, + obese Eyes: normal inspection, PERRL, EOMI ENT: normal ENT inspection, hearing grossly normal, pharynx normal Neck: supple, no JVD, trachea midline Respiratory/Chest: lungs clear, normal breath sounds, no respiratory distress, + decreased breath sounds Cardiovascular: regular rate, rhythm, no gallop, + systolic murmur Abdomen: normal bowel sounds, non tender, soft Extremities: non-tender, normal inspection (RLE wrapped), no pedal edema Neurologic/Psychiatric: alert, normal mood/affect, oriented x 3 Skin: normal color, warm/dry, no rash (Kortney Wei ., LEWIS) Laboratory Results Last 24 Hours Test 05/31/16 12:01 05/31/16 12:52 05/31/16 16:48 05/31/16 20:46 Bedside Glucose 361 mg/dl 128 mg/dl 180 mg/dl White Blood Count 11.79 K/uL Red Blood Count 4.18 M/uL Hemoglobin 12.0 g/dL Hematocrit 36.7 % Mean Corpuscular Volume 87.8 fL Mean Corpuscular Hemoglobin 28.7 pg Mean Corpuscular Hemoglobin Concent 32.7 g/dl Platelet Count 270 K/uL Mean Platelet Volume 9.0 fL Neutrophils (%) (Auto) 89.9 % Lymphocytes (%) (Auto) 5.8 % Monocytes (%) (Auto) 3.6 % Eosinophils (%) (Auto) 0.2 % Basophils (%) (Auto) 0.2 % Neutrophils # (Auto) 10.60 K/uL Lymphocytes # (Auto) 0.68 K/uL Monocytes # (Auto) 0.43 K/uL Eosinophils # (Auto) 0.02 K/uL Basophils # (Auto) 0.02 K/uL RDW Standard Deviation 48.4 fL RDW Coefficient of Variation 15.1 % Immature Granulocyte % (Auto) 0.3 % Immature Granulocyte # (Auto) 0.04 K/uL Sodium Level 142 mmol/L Potassium Level 3.5 mmol/L Chloride Level 109 mmol/L Carbon Dioxide Level 23 mmol/L Anion Gap 10.0 mmol/L Blood Urea Nitrogen 20 mg/dl Creatinine 1.20 mg/dl Est Creatinine Clear Calc Drug Dose 41.9 ml/min Estimated GFR () 50.1 Estimated GFR (Non- 43.3 BUN/Creatinine Ratio 16.4 Random Glucose 214 mg/dl Estimated Average Glucose 126 mg/dl Hemoglobin A1c 6.0 % Calcium Level 8.1 mg/dl Test 06/01/16 06:30 06/01/16 08:19 White Blood Count 11.90 K/uL Red Blood Count 3.98 M/uL Hemoglobin 11.6 g/dL Hematocrit 35.2 % Mean Corpuscular Volume 88.4 fL Mean Corpuscular Hemoglobin 29.1 pg Mean Corpuscular Hemoglobin Concent 33.0 g/dl RDW Standard Deviation 48.2 fL RDW Coefficient of Variation 14.9 % Platelet Count 282 K/uL Mean Platelet Volume 10.0 fL Prothrombin Time 11.1 SECONDS Prothromb Time International Ratio 1.0 Sodium Level 145 mmol/L Potassium Level 3.4 mmol/L Chloride Level 109 mmol/L Carbon Dioxide Level 27 mmol/L Anion Gap 9.0 mmol/L Blood Urea Nitrogen 23 mg/dl Creatinine 1.20 mg/dl Est Creatinine Clear Calc Drug Dose 41.9 ml/min Estimated GFR () 50.1 Estimated GFR (Non- 43.3 BUN/Creatinine Ratio 19.6 Random Glucose 138 mg/dl Calcium Level 7.8 mg/dl Bedside Glucose 148 mg/dl (Kortney Wei ., PA-C) Assessment and Plan 80 y/o female with a history of CKD stage III, DM II, gout, HTN, and h/o thyroid cancer s/p thyroidectomy who presents s/p right TKA with Dr. Lowe on 05/31 for medical management. -Pain management, DVT prophylaxis, and PT/OT as per primary team CKD stage III--stable. Baseline creatinine around 1.2 -Creatinine at baseline at 1.2 Diabetes mellitus type 2--Last HgbA1c checked 01/03/16 was 6.2 -Hold glimepiride, may resume upon discharge -Insulin sliding scale -Check BSGs q ac and qhs -Rechecked HgbA1c on 05/31 was 6.0 Gout -Continue allopurinol 300 mg PO qd HTN--stable -Continue atenolol 50 mg PO qd. Pt has been bradycardic with HR in 50s, will continue to monitor. Hold atenolol if SBP <90 or HR <60 -Continue diltiazem 240 mg PO qd -Resume losartan as renal function stable -Resume Lasix as no longer on IVF -Cover with hydralazine 10 mg IV q6h prn SBP >180 Iatrogenic hypothyroidism secondary to thyroidectomy and h/o thyroid cancer -Continue Synthroid 150 mcg PO qd Code Status -Level I, FULL RESUSCITATION STATUS Pt. is stable from a medical standpoint, we will sign off. Clear for discharge as per primary team. (Kortney Wei ., PA-C) Attending Attestation: Pt seen/examined, chart reviewed, care plan d/w PA Kortney Wei. I agree with the bailey components of her documentation. +BM yesterday no nausea/emesis today right knee pain controlled denies sob/armijo VSS, o2 sats nl gen - nad heart - RRR lungs - CTA b/l abd - soft, NT, ND, BS+ ext - no edema either ankle labs - Cr 1.2 hb 11.6 A/P: 1. CKD stage 3 - Cr at baseline/stable. 2. HTN - controlled; resume all outpatient meds. 3. T2DM - controlled; resume oral agents. 4. nausea post-op - 2nd to anesthesia/narcs - resolved. 5. mild acute blood loss anemia - stable, mild. ok for d/c from medical standpoint Cesar REAL MD (Art Real MD)
[2016-06-01 11:19] VITALS: BP 145/72; PULSE 56; TEMP 37; O2SAT 96
--- NOTE | 2016-06-01 13:36 | Anesthesiology Progress Note ---
Anesthesia Post Op Note Date & Time Jun 01, 2016 at 13:35 Vital Signs Vital Signs Past 12 Hours Date Time Temp Pulse Resp B/P Pulse Ox O2 Delivery O2 Flow Rate FiO2 06/01/16 11:19 37.0 56 16 145/72 96 Room Air 06/01/16 10:44 36.4 62 16 98 Room Air 06/01/16 09:45 114/80 06/01/16 07:20 Room Air 06/01/16 07:15 36.4 62 16 184/77 98 Room Air 06/01/16 03:20 36.8 74 18 123/68 97 Room Air Notes Mental Status: alert / awake / arousable, participated in evaluation Pt Amnestic to Procedure: Yes Nausea / Vomiting: adequately controlled Pain: adequately controlled Airway Patency, RR, SpO2: stable & adequate BP & HR: stable & adequate Hydration State: stable & adequate Neuraxial Anesthesia: was administered, sensory block resolved Anesthetic Complications: no major complications apparent
== END 2016-06-01 13:43 | disposition home health service (06) | DRG 470 ==
LOC: ENRESERVTM → ENRESERVDT → C.ACU 05:04 → C.3E 06:10
PROVIDERS: ADMIT Physical Medicine & Rehabilitation Sports Medicine; ATTEND Physical Medicine & Rehabilitation Sports Medicine
PROC: 0SRC0J9 Replacement of Right Knee Joint with Synthetic Substitute, Cemented, Open Approach (ICD-10-PCS; principal; 2016-05-31 07:00)
DX: M17.11 Unilateral primary osteoarthritis, right knee (principal); D62 Acute posthemorrhagic anemia; M06.9 Rheumatoid arthritis, unspecified; E66.9 Obesity, unspecified; K44.9 Diaphragmatic hernia without obstruction or gangrene; N18.3 Chronic kidney disease, stage 3 (moderate); M10.9 Gout, unspecified; K21.9 Gastro-esophageal reflux disease without esophagitis; E11.22 Type 2 diabetes mellitus with diabetic chronic kidney disease; I12.9 Hypertensive chronic kidney disease with stage 1 through stage 4 chronic kidney disease, or unspecified chronic kidney disease; R00.1 Bradycardia, unspecified; E89.0 Postprocedural hypothyroidism; M21.161 Varus deformity, not elsewhere classified, right knee; R91.1 Solitary pulmonary nodule; R11.0 Nausea; Z87.442 Personal history of urinary calculi; Z68.39 Body mass index [BMI] 39.0-39.9, adult; Z79.82 Long term (current) use of aspirin; Z85.850 Personal history of malignant neoplasm of thyroid; Z79.1 Long term (current) use of non-steroidal anti-inflammatories (NSAID); Z79.899 Other long term (current) drug therapy; Z79.84 Long term (current) use of oral hypoglycemic drugs

== ENCOUNTER → 2016-07-07 | Outpatient (CLI) | payer OTHER ==
[~2016-07-07] MED LIST changes: -CLB/200 PO; +OXYC-57 PO; +WARF2TAB PO
[2016-07-07 12:14] LABS: ESTIMATED AVERAGE GLUCOSE 126 mg/dl; HA1C FLAG Normal (Normal)
[2016-07-07 12:18] LABS: ALT/SGPT 20 U/L (12-78); AST/SGOT 12 U/L (15-37); BLOOD UREA NITROGEN 15 mg/dl (7-18); BUN/CREATININE RATIO 12.8 (10-20); CARBON DIOXIDE 29 mmol/L (21-32); CHLORIDE 106 mmol/L (98-107); GLUCOSE 170 mg/dl (70-99); POTASSIUM 3.9 mmol/L (3.5-5.1); SODIUM 143 mmol/L (136-145)
[2016-07-07 12:29] LABS: ALKALINE PHOSPHATASE 89 U/L (45-117); CHOLESTEROL 144 mg/dl (0-200); HDL CHOLESTEROL 36 mg/dl; LDL CHOLESTEROL CALCULATED 72 mg/dl; TRIGLYCERIDES 180 mg/dl (0-150); VERY LOW DENSITY LIPOPROT CALC 36 mg/dl
== END | disposition home or self-care (01) ==
LOC: C.LABBFT 09:26
PROVIDERS: ATTEND Internal Medicine
DX: E11.29 Type 2 diabetes mellitus with other diabetic kidney complication (principal); E03.9 Hypothyroidism, unspecified; M17.11 Unilateral primary osteoarthritis, right knee; Z96.651 Presence of right artificial knee joint; Z79.01 Long term (current) use of anticoagulants

== ENCOUNTER → 2016-07-10 | Outpatient (CLI) | payer OTHER | END | disposition home or self-care (01) | LOC: C.RDSM 13:45 | PROVIDERS: ATTEND Physical Medicine & Rehabilitation Sports Medicine | DX: M25.561 Pain in right knee (principal) ==

== ENCOUNTER → 2016-07-19 | Outpatient (CLI) | payer OTHER ==
[~2016-07-19] MED LIST changes: +CLB/200 PO; +CMD/25 PO; +CRFUDL PO; +PANT1TAB48 PO; +TRAM-10 PO; +WARF2TAB8 PO; +WARF4TAB8 PO
[2016-07-19 13:10] LABS: RATIO 8.1 mcg/mg (0-30.0)
== END | disposition home or self-care (01) ==
LOC: C.LABSPEC 11:57
PROVIDERS: ATTEND Internal Medicine
DX: E11.29 Type 2 diabetes mellitus with other diabetic kidney complication (principal)

== ENCOUNTER → 2016-09-20 | Outpatient (CLI) | payer OTHER ==
--- NOTE | 2016-09-20 13:11 | MAMMOGRAPHY REPORT ---
BILATERAL DIGITAL SCREENING MAMMOGRAM WITH CAD: 09/20/2016 CLINICAL HISTORY: Routine screening. Patient has no complaints. TECHNIQUE: CC and MLO, with repeat left CC and bilateral MLO views were obtained. Current study was also evaluated with a Computer Aided Detection (CAD) system. COMPARISON: Comparison is made to exams dated: 09/16/2015 mammogram, 09/10/2014 mammogram, 09/09/2013 ma mmogram, 09/02/2012 mammogram, 06/17/2012 ultrasound, and 06/17/2012 mammogram - [facility] ter. BREAST COMPOSITION: There are scattered areas of fibroglandular density in both breasts. FINDINGS: There are benign-appearing calcifications in the right breast. Stable nodularity in the ri ght upper outer quadrant. No suspicious mass, architectural distortion or cluster of microcalcificat ions is seen. IMPRESSION: ACR BI-RADS CATEGORY 1: NEGATIVE There is no mammographic evidence of malignancy. A 1 year screening mammogram is recommended. The pa tient will receive written notification of the results. Approximately 10% of breast cancers are not detected with mammography. A negative mammographic report should not delay biopsy if a clinically suggestive mass is present. Leda Bolton M.D. ay/:09/20/2016 08:06:21 Auto Locator: Risa MICHAELR, M, [facility] letter sent: Normal 1/2 BI-RADS Code: ACR BI-RADS Category 1: Negative
== END | disposition home or self-care (01) ==
LOC: C.MAMM 07:38
PROVIDERS: ATTEND Obstetrics & Gynecology
DX: Z12.31 Encounter for screening mammogram for malignant neoplasm of breast (principal)

== ENCOUNTER → 2016-10-09 | Outpatient (CLI) | payer OTHER | END | disposition home or self-care (01) | LOC: C.RDSM 13:50 | PROVIDERS: ATTEND Physical Medicine & Rehabilitation Sports Medicine | DX: Z47.1 Aftercare following joint replacement surgery (principal); Z96.651 Presence of right artificial knee joint ==

== ENCOUNTER → 2017-01-08 | Outpatient (CLI) | payer OTHER ==
[~2017-01-08] MED LIST changes: -CLB/200 PO; -CMD/25 PO; -CRFUDL PO; -OXYC-57 PO; -PANT1TAB48 PO; -TRAM-10 PO; -WARF2TAB PO; -WARF2TAB8 PO; -WARF4TAB8 PO
== END | disposition home or self-care (01) ==
LOC: C.RDSM 15:15
PROVIDERS: ATTEND Physical Medicine & Rehabilitation Sports Medicine
DX: Z96.651 Presence of right artificial knee joint (principal)

== ENCOUNTER → 2017-01-22 | Outpatient (CLI) | payer OTHER ==
--- NOTE | 2017-01-22 10:28 | DIAGNOSTIC IMAGING REPORT ---
CHEST 2 VIEWS ROUTINE CLINICAL HISTORY: Preoperative chest COMPARISON STUDY: 06/15/2015 FINDINGS: The cardiac and mediastinal contours remain stable. There is stable prominence of the right pulmonary artery. There is no failure. There is no focal pulmonary consolidation. There are no pleural effusions. Degenerative changes are present within the dorsal spine.[ IMPRESSION: No active disease in the chest. Electronically signed by: Jus Rosales M.D. 01/22/2017 10:26 AM Dictated Date/Time: 01/22/2017 10:25 AM
== END | disposition home or self-care (01) ==
LOC: C.RDSM 12:49
PROVIDERS: ATTEND Physician Assistant
DX: Z01.818 Encounter for other preprocedural examination (principal)

== ENCOUNTER → 2017-02-01 | Outpatient (CLI) | payer OTHER ==
[~2017-02-01] MED LIST changes: +CLB/200 PO
[2017-02-01 12:32] LABS: BASO % 0.5 %; BASO ABS # 0.03 K/uL (0-0.2); COMPLETE YES; EOS % 5.4 %; HEMATOCRIT 40.1 % (37-47); IG% 0.2 %; LYMPH % 24.1 %; LYMPH ABS # 1.43 K/uL (1.2-3.4); MEAN CELL VOLUME 89.9 fL (80-100); MEAN CORPUSCULAR HEMOGLOBIN 28.9 pg (25-34); MEAN CORPUSCULAR HGB CONC 32.2 g/dl (32-36); MEAN PLATELET VOLUME 10.6 fL (7.4-10.4); MONO % 6.4 %; NEUT % 63.4 %; PLATELET COUNT 311 K/uL (130-400); RED BLOOD COUNT 4.46 M/uL (4.2-5.4); WHITE BLOOD COUNT 5.93 K/uL (4.8-10.8)
[2017-02-01 12:33] LABS: URINE APPEARANCE CLEAR (CLEAR); URINE BILIRUBIN NEG (NEG); URINE COLOR YELLOW; URINE EPITHELIAL CELL AUTO >30 /lpf (0-5); URINE NITRITE NEG (NEG); URINE PH 5.5 (4.5-7.5); URINE SPECIFIC GRAVITY 1.017 (1.000-1.030); UROBILINOGEN NEG (NEG)
[2017-02-01 12:36] LABS: MANUAL MICROSCOPIC REQUIRED? NO; REVIEW REQ? NO
[2017-02-01 12:46] LABS: PARTIAL THROMBOPLASTIN RATIO 1.1; PROTHROMBIN TIME (PATIENT) 10.2 SECONDS (9.0-12.0)
[2017-02-01 12:46] LABS: ESTIMATED AVERAGE GLUCOSE 126 mg/dl; HA1C FLAG Normal (Normal)
[2017-02-01 12:52] LABS: BLOOD UREA NITROGEN 18 mg/dl (7-18); CALCIUM 8.6 mg/dl (8.5-10.1); CARBON DIOXIDE 24 mmol/L (21-32); CHLORIDE 109 mmol/L (98-107); CREATININE 1.11 mg/dl (0.60-1.20); GLUCOSE 141 mg/dl (70-99); POTASSIUM 3.5 mmol/L (3.5-5.1); SODIUM 141 mmol/L (136-145)
[2017-02-01 13:03] LABS: ALB/GLOB RATIO 0.9 (0.9-2); ALKALINE PHOSPHATASE 88 U/L (45-117); ALT/SGPT 19 U/L (12-78); AST/SGOT 17 U/L (15-37); CHOLESTEROL 147 mg/dl (0-200); CHOLESTEROL/HDL RATIO 3.8; HDL CHOLESTEROL 39 mg/dl; LDL CHOLESTEROL CALCULATED 65 mg/dl; THYROID STIMULATING HORMONE 0.449 uIu/ml (0.300-4.500); TRIGLYCERIDES 215 mg/dl (0-150); VERY LOW DENSITY LIPOPROT CALC 43 mg/dl
== END | disposition home or self-care (01) ==
LOC: C.LABBFT 08:11
PROVIDERS: ATTEND Internal Medicine
DX: Z01.818 Encounter for other preprocedural examination (principal); M17.12 Unilateral primary osteoarthritis, left knee; E11.29 Type 2 diabetes mellitus with other diabetic kidney complication

== ENCOUNTER 2017-02-28 06:05 | Inpatient (IN) | payer OTHER ==
--- NOTE | 2017-01-26 18:34 | HISTORY & PHYSICAL EXAMINATION ---
DATE OF ADMISSION: 02/28/2017 PREOPERATIVE HISTORY AND PHYSICAL CHIEF COMPLAINT: Left knee pain. HISTORY OF PRESENT ILLNESS: This 81-year-old white female presents to the office with complaints of left knee pain that has been ongoing for over a year. Pain has become worse with time. She previously had a right total knee arthroplasty 05/31/2016 with good results. She has had no issues with that knee. She elects to proceed with the same on her left in hopes of alleviating her discomfort. Pain is worse with weightbearing. It is affecting her ADLs. She notes most pain medially, but there is also pain laterally. No specific injury. She has tried activity modification as well as oral anti-inflammatories and use of a cane without success. PAST MEDICAL HISTORY: Significant for hypertension, diabetes, hypothyroidism, rheumatoid arthritis, GERD, hiatal hernia, obesity, kidney stones, and history of thyroid cancer. PREVIOUS SURGERIES: Thyroidectomy for her thyroid cancer, hysterectomy, cholecystectomy, carpal tunnel release, knee arthroscopy, and a right total knee arthroplasty 05/31/2016. ALLERGIES: KNOWN ALLERGY TO AMPICILLIN, WHICH CAUSES DIARRHEA AND YEAST INFECTIONS. CURRENT MEDICATIONS: Celebrex 200 mg daily, vitamin B12 1000 mcg daily, aspirin 81 mg p.o. daily, allopurinol 300 mg p.o. daily, Cozaar 100 mg p.o. daily, diltiazem 240 mg extended release p.o. daily, furosemide 20 mg p.o. b.i.d., glimepiride 1 mg p.o. daily, ketaconazole topical 2% cream applied daily p.r.n., Synthroid 150 mcg p.o. daily, potassium 10 mEq p.o. b.i.d., vitamin C daily, and vitamin E daily. SOCIAL HISTORY: The patient is retired. No tobacco use, no ETOH use. The patient is . FAMILY HISTORY: Significant for diabetes, otherwise unremarkable. REVIEW OF SYSTEMS: Significant for above-stated conditions, otherwise unremarkable. PHYSICAL EXAMINATION: GENERAL: Well-developed, well-nourished elderly white female in no acute distress. Sitting in a chair. Alert and oriented. Obese. SKIN: Warm and dry with good turgor. No rashes or lesions. No ecchymosis or erythema. HEENT: Normocephalic, atraumatic. Eyes: PERRLA, EOMI. NOSE: Nares patent bilaterally without turbinate enlargement. MOUTH: Oropharynx without erythema or exudate. No lesions noted. Uvula midline. Oral mucosa moist. Poor dentition. Multiple missing teeth. Fillings are noted. HEART: RRR. No MGR. LUNGS: Clear to auscultation bilaterally. No crackles, rhonchi or wheezing. Good air movement. ABDOMEN: Obese. Bowel sounds present x4, soft, nontender. No organomegaly. No masses. MUSCULOSKELETAL: Left knee has no obvious asymmetry or deformity. She is ambulatory with a mild limp. Slight varus stance. She has focal discomfort with palpation over the medial joint line. There is lateral joint line discomfort as well. No pain with palpation in the popliteal fossa. She lacks just a few degrees of terminal extension. Flexion to greater than 100 degrees. No crepitus with motion. No defect in the patellar tendon or quadriceps tendon. Stable collateral ligaments. Strength is 5/5 for resisted flexion and extension. NEUROLOGIC: Gross sensation is intact across the lower extremities by soft touch. Peripheral pulses are 2+. DATA: Radiographic images previously obtained show a varus stance. There is tricompartmental arthritis with significant patellofemoral narrowing. Periarticular osteophytes, subchondral sclerosis, and joint space narrowing are all present. IMPRESSION: Left knee end-stage degenerative joint disease. PLAN: Informed written consent has been obtained to proceed with left total knee arthroplasty. Postoperative prescriptions for Percocet and Coumadin will be provided at discharge from the hospital. She intends to do home health for 2 weeks and then outpatient PT. Preoperative lab work has been ordered. EKG is up to date from her previous surgery. New chest x-ray was obtained today. Medical clearance has been requested from Dr. Valles. The patient already has a walker.
[2017-01-30 14:08] VITALS: BMI 35.0
[~2017-02-28] VITALS: Ht 157.5 cm; Wt 88.6 kg
[2017-02-28] VITALS (8 sets, daily range): BP systolic 130–197; BP diastolic 67–89; PULSE 58–72; TEMP 36.5–36.8; O2SAT 91–98; Ht 157.5 cm; Wt 88.6 kg
[~2017-02-28 06:05] MED LIST changes: +CEFAZOLIN 2000MG IV PUSH 10 ML IV SCH; +LACTATED RINGER'S 1000ML 1,000 ML IV SCH; +LACTATED RINGER'S 1000ML 500 ML IV ONE; +LACTATED RINGER'S 1000ML IV SCH; +ROPIVACAINE 5MG/ML 30 ML 150 MG, BUPIVACAINE/EPINEPHR 0.5% MPF 30 ML, KETOROLAC TROMETH... INFIL SCH; +TRANEXAMIC ACID INJ 1,000 MG in SYRINGE 0 ML IV SCH
[2017-02-28] MEDS ORDERED: BUPIVACAINE 0.5 % 5 MG/1 ML PF 10ML VIAL ONE (06:28)
[2017-02-28] MEDS ORDERED: BUPIVACAINE 0.25% 30 ML VIAL ONE (06:29)
--- NOTE | 2017-02-28 06:36 | History & Physical Bridge Note ---
H&P Re-Evaluation Bridge Note: I have examined the patient, reviewed the History & Physical and in the interval since the performance of the History & Physical I have noted the following changes of clinical significance:consent reviewed. No changes noted
[2017-02-28] MEDS ORDERED: MIDAZOLAM HCL 1 MG/ML 2ML VIAL ONE ×3 (07:26→09:31)
[2017-02-28] MEDS ORDERED: PROPOFOL IV EMULSION 10 MG/ML 20 ML VIAL IV ONE ×2 (07:26→09:53)
[2017-02-28] MEDS ORDERED: LIDOCAINE HCL 2% 2 ML VIAL (20MG/ML) ONE (07:26)
[2017-02-28] MEDS ORDERED: ATROPINE SULFATE 0.1 MG/ML 5ML SYR IV PRN (07:45)
[2017-02-28] MEDS ORDERED: PHENYLEPHRINE 100MCG/ML 5ML SYR IV PRN (07:45)
[2017-02-28] MEDS ORDERED: EpHEDrine SULFATE INJ 50 MG/ML AMP IV PRN (07:45)
[2017-02-28] MEDS ORDERED: HYDROmorphone INJ 1 MG/ML SYR IV PRN (07:45)
[2017-02-28] MEDS ORDERED: LABETALOL HCL IV 5 MG/ML 20ML IV PRN (07:45)
[2017-02-28] MEDS ORDERED: FENTANYL CITRATE INJ 50 MCG/1 ML 2 ML VIAL IV PRN (07:45)
[2017-02-28] MEDS ORDERED: ONDANSETRON INJ 2 MG/ML 2 ML VIAL IV PRN ×2 (07:45→10:30)
[2017-02-28] MEDS ORDERED: FENTANYL CITRATE INJ 50 MCG/1 ML 2 ML VIAL ONE (08:12)
[2017-02-28] MEDS ORDERED: POVIDONE-IODINE OP SOLN 30 ML BTL ONE (08:37)
[2017-02-28] MEDS ORDERED: ORTHO JOINT ANESTHETIC ONE (08:37)
--- NOTE | 2017-02-28 10:18 | [facility] Post Operative Brief Note ---
Immediate Operative Summary Operative Date Feb 28, 2017. Pre-Operative Diagnosis Left Knee End-Stage Degnerative Joint Disease Post-Operative Diagnosis Left Knee End-Stage Degnerative Joint Disease Procedure(s) Performed Left Total Knee Arthroplasty Surgeon Dr. Lowe Pinmaker Surgeon(s) SARAH Berg Estimated Blood Loss 75 ml Findings tricompartmental djd Fluids (cc crystalloids) 1500cc Specimens A. Left Knee Bone and Tissue Drains none Anesthesia spinal/block Complication(s) None Disposition Recovery Room / PACU
[2017-02-28] MEDS ORDERED: ALUMINUM/MAGNESIUM/SIMETH (MAALOX MAX) 30 ML UDC PO PRN (10:30)
[2017-02-28] MEDS ORDERED: BISACODYL 10 MG SUPP PR PRN (10:30)
[2017-02-28] MEDS ORDERED: ACETAMINOPHEN 325 MG TAB PO PRN (10:30)
[2017-02-28] MEDS ORDERED: DiphenhydrAMINE HCL 50 MG/ML VIAL IV PRN (10:30)
[2017-02-28] MEDS ORDERED: OXYCODONE HCL IR 5 MG TAB (IMMEDIATE RELEASE) PO PRN (10:30)
[2017-02-28] MEDS ORDERED: ACETAMINOPHEN IV 100 ML IV PRN (10:30)
[2017-02-28] MEDS ORDERED: MAGNESIUM HYDROXIDE SUSP 30 ML UDC PO PRN (10:30)
[2017-02-28] MEDS ORDERED: MoRPHine SULFATE 2 MG/ML CARP IV PRN (10:30)
[2017-02-28] MEDS ORDERED: METOCLOPRAMIDE HCL INJ 5 MG/ML 2 ML VIAL IV PRN (10:30)
--- NOTE | 2017-02-28 10:46 | OPERATIVE REPORT ---
DATE OF OPERATION: 02/28/2017 SURGEON: Dr. Lowe. BELLY DANCER: Jeremy Mendoza PA-C. No resident or fellow available. PREOPERATIVE DIAGNOSIS: Osteoarthritis left knee, varus deformity. POSTOPERATIVE DIAGNOSIS: Same. OPERATION PERFORMED: Cemented left total knee replacement. PERIOPERATIVE SITUATION: Medically cleared female with intractable knee pain, had her right knee done several years ago, wants to proceed with this one. At this point in time, was advised concerning all the risks and complications, see consent. PROCEDURE: The patient was properly identified, site verified, consent verified, antibiotic confirmed as being given. The left lower extremity was prepped and draped in usual routine fashion. Tourniquet inflated to 300 mmHg after exsanguination of limb with a rubber Esmarch bandage for a total of approximately 47 minutes. Midline exposure utilized. Parapatellar arthrotomy performed. Synovectomy completed. Extensor mechanism rebalanced. Osteophytes resected. Distal femur then entered and resected 12 mm, proximal tibia resected 4 mm, the extension gap was excellent. Femur was sized to 2.5, appropriate cutting block applied, the anterior and posterior condylar and chamfer cuts made. Flexion gap was excellent. The posterior Orthomix was then injected, 2 syringes full in the posterior capsule. Box cut was then made and a 2.5 trial fit well. Tibia was then broached and reamed to 2.5. Spacers with 12.5 provided the most mid range flexion stability without loss of extension. The patella was sized to a 35, it was resected leaving 14 mm and appropriate trial holes seated and trial placed and it tracked well. All implants were then removed. The wound was irrigated with Betadine, Pulsavac, injected with Orthomix, and the permanent cemented implants placed, and after 12 minutes, the tourniquet deflated. After 14 minutes, the knee flexed. Minor cement removal was required. The knee was then irrigated with Betadine and Pulsavac. Permanent liner seated. The knee reduced and closed with #1 Ethibond, #1 Vicryl, 2-0 Vicryl and stainless steel clips. The patient tolerated the procedure well, was transferred to the recovery room in satisfactory condition. DVT prophylaxis per protocol. SUMMARY OF IMPLANTS: Size 2.5 posterior cruciate substituting femur, size 2.5 rotating tibial keel tray, oval domed 3 pegged patella size 35, tibial insert 2.5 size 12.5 mm thick, posterior cruciate substituting rotating platform. Two bags of Palacos G cement. ESTIMATED BLOOD LOSS: 75 mL CRYSTALLOID: 1500 mL I attest to the content of the Intraoperative Record and any orders documented therein. Any exception s are noted below.
--- NOTE | 2017-02-28 11:02 | DIAGNOSTIC IMAGING REPORT ---
L KNEE 2 VIEWS ROUTINE CLINICAL HISTORY: Degenerative arthritis. Postsurgical study. COMPARISON: 01/08/2017 DISCUSSION: There are postsurgical changes of a total left knee arthroplasty and patellar resurfacing. Overlying skin river are evident. The femoral tibial components appear well seated. There is air within the soft tissues consistent with history of recent surgery. IMPRESSION: Postsurgical changes of a total left knee arthroplasty. Electronically signed by: Jus Rosales M.D. 02/28/2017 11:00 AM Dictated Date/Time: 02/28/2017 10:59 AM
--- NOTE | 2017-02-28 11:57 | Anesthesiology Progress Note ---
Anesthesia Post Op Note Date & Time Feb 28, 2017 at 11:56 Vital Signs Pain Intensity: 0 Vital Signs Past 12 Hours Date Time Temp Pulse Resp B/P (MAP) Pulse Ox O2 Delivery O2 Flow Rate FiO2 02/28/17 11:46 125/61 02/28/17 11:44 57 15 92 02/28/17 11:44 54 15 02/28/17 11:41 129/67 02/28/17 11:39 59 15 92 02/28/17 11:39 61 15 02/28/17 11:36 135/69 02/28/17 11:34 55 15 02/28/17 11:34 55 15 92 02/28/17 11:31 142/65 02/28/17 11:29 56 13 02/28/17 11:29 55 13 93 02/28/17 11:25 143/67 02/28/17 11:24 63 17 02/28/17 11:24 63 17 95 02/28/17 11:21 141/60 02/28/17 11:19 57 14 91 02/28/17 11:19 57 14 02/28/17 11:18 36.6 62 16 141/60 (90) 94 Room Air 2 Nasal Cannula 02/28/17 11:15 118/70 02/28/17 11:14 58 17 93 02/28/17 11:14 58 17 02/28/17 11:13 59 15 93 02/28/17 11:13 61 15 02/28/17 11:11 130/78 02/28/17 11:08 61 16 94 02/28/17 11:08 59 16 02/28/17 11:07 60 16 02/28/17 11:07 60 16 93 02/28/17 11:06 126/59 02/28/17 11:02 63 20 02/28/17 11:02 62 20 92 02/28/17 11:01 127/71 02/28/17 10:57 55 15 02/28/17 10:57 57 15 93 02/28/17 10:56 124/66 02/28/17 10:52 56 19 02/28/17 10:52 57 19 94 02/28/17 10:51 131/59 02/28/17 10:47 55 16 02/28/17 10:47 55 16 96 02/28/17 10:46 61 19 92 02/28/17 10:46 62 19 02/28/17 10:45 128/63 02/28/17 10:41 62 20 02/28/17 10:41 62 20 91 02/28/17 10:40 122/47 02/28/17 10:37 36.6 63 21 123/46 91 Room Air 02/28/17 10:36 63 11 105/51 94 02/28/17 10:36 61 11 02/28/17 10:31 64 17 02/28/17 10:31 64 17 93 02/28/17 10:27 123/46 02/28/17 10:26 65 19 02/28/17 10:26 66 19 91 02/28/17 06:41 36.7 65 18 197/76 (116) 98 Room Air Notes Mental Status: alert / awake / arousable, participated in evaluation Pt Amnestic to Procedure: Yes Nausea / Vomiting: adequately controlled Pain: adequately controlled Airway Patency, RR, SpO2: stable & adequate BP & HR: stable & adequate Hydration State: stable & adequate Neuraxial Anesthesia: was administered, sensory block is resolving Anesthetic Complications: no major complications apparent Doing well. Pain controlled. VSS.
[2017-02-28] MEDS ORDERED: MoRPHine SULFATE 4 MG/ML 1 ML CARP\\VIAL IV PRN (13:00)
[2017-02-28] MEDS ORDERED: SODIUM CHLORIDE 0.9% 1000ML 1,000 ML IV SCH (13:00)
[2017-02-28] MEDS ORDERED: DEXTROSE 50% 50 ML SYR IV PRN (13:15)
[2017-02-28] MEDS ORDERED: GLUCAGON FOR INJ 1 MG VIAL SQ PRN (13:15)
[2017-02-28] MEDS ORDERED: GLUCOSE 40% GEL 15 GM TUBE PO PRN (13:15)
[2017-02-28] MEDS ORDERED: GLUCOSE 10 TABS/TUBE PO PRN (13:15)
--- NOTE | 2017-02-28 13:35 | PROGRESS NOTE ---
DATE: 02/28/2017 Postop left total knee replacement is doing well with no major issues. Denies chest pain, shortness of breath, fever, chills, nausea, vomiting or headache. Neurovascular check is wearing off from the spinal. Wound dressing clean, dry and intact. Postop x-rays look excellent. ASSESSMENT: Doing well. Continue care pathway. Follow up daily. Coumadin this evening per nomogram.
[2017-02-28] MEDS ORDERED: TRAM-10 PO (13:37)
[2017-02-28] MEDS ORDERED: WARF2TAB PO (13:37)
[2017-02-28] MEDS: KETOROLAC TROMETHAMINE 15 MG/ML VIAL IV. SCH ×2 (14:07→20:42)
[2017-02-28 14:48] LABS: PROTHROMBIN TIME (PATIENT) 10.4 SECONDS (9.0-12.0)
[2017-02-28] MEDS ORDERED: TRANEXAMIC ACID INJ 1,000 MG in SODIUM CHLORIDE 0.9% 100ML 100 ML IV SCH (16:00)
[2017-02-28] MEDS ORDERED: WARFARIN SOD 5 MG TAB PO SCH (16:00)
[2017-02-28] MEDS: LEVOTHYROXINE 150 MCG TAB PO SCH (16:45)
[2017-02-28] MEDS: LOSARTAN POTASSIUM 50 MG TAB PO SCH (16:46)
[2017-02-28] MEDS: FERROUS GLUCONATE 324 MG TAB PO SCH (17:31)
[2017-02-28] MEDS: CEFAZOLIN IV 2,000 MG in SYRINGE 0 ML IV SCH (17:33)
[2017-02-28] MEDS: INSULIN ASPART 100 UNITS/ML 3 ML PEN SC SCH ×2 (17:43→20:46)
[2017-02-28] MEDS: DOCUSATE SODIUM 100 MG CAP PO SCH (20:42)
[2017-03-01] MEDS: CEFAZOLIN IV 2,000 MG in SYRINGE 0 ML IV SCH (02:05)
[2017-03-01] MEDS: KETOROLAC TROMETHAMINE 15 MG/ML VIAL IV. SCH ×2 (02:05→08:50)
[2017-03-01 03:38] VITALS: BP 133/78; PULSE 67; TEMP 36.4; O2SAT 94
[2017-03-01] MEDS: LEVOTHYROXINE 150 MCG TAB PO SCH (05:56)
--- NOTE | 2017-03-01 06:47 | PROGRESS NOTE ---
DATE: 03/01/2017 SUBJECTIVE: Postop day #1 status post left total knee replacement. She is doing well. She denies chest pain, shortness of breath, fever, chills, nausea, vomiting or headache. OBJECTIVE: Vital signs are stable. She is afebrile. Neurovascular check femoral sciatic nerve is normal. Can do a straight leg raise. Her pain is well managed. Calves are nontender. Abdomen soft, nontender. LABORATORY WORK: Pending. ASSESSMENT: Doing well, will discharge later today after PT, OT. Discharge on 4 mg Coumadin if INR is less than 1.5, discharge on 2 mg if INR is greater than 1.5. Check INR on Sunday.
--- NOTE | 2017-03-01 06:57 | DISCHARGE SUMMARY ---
CHIEF COMPLAINT: Left knee pain. HISTORY OF PRESENT ILLNESS: A 81-year-old female underwent elective left total knee replacement. She has done well. She has no major issues. At this point in time is requesting to be discharged. PAST MEDICAL HISTORY: Remarkable for hypertension, diabetes, hypothyroidism, rheumatoid arthritis, GERD, hiatal hernia, obesity, kidney stones and history of thyroid cancer. PAST SURGICAL HISTORY: Include thyroidectomy for thyroid cancer, hysterectomy, cholecystectomy, carpal tunnel release, knee arthroscopy and right total knee replacement in May 2016. ALLERGIES: AMPICILLIN WHICH CAUSES DIARRHEA AND YEAST INFECTIONS. PREADMISSION MEDICATIONS: Includes Celebrex, vitamin B12, baby aspirin, allopurinol, Cozaar, diltiazem, furosemide, glimepiride, ketaconazole topical cream, Synthroid, potassium, vitamin C and vitamin E. She will continue all of her medications with the exception of the Celebrex. She will stop that when she is on Coumadin. For her pain, prescription for pain medication, see script. SOCIAL HISTORY: Reveals that she is retired. No tobacco or alcohol use. She is . REVIEW OF SYSTEMS: At this time is as noted above or noncontributory. FAMILY HISTORY: Remarkable for diabetes. ASSESSMENT: Overall, doing well status post left total knee replacement. PLAN: Is to discharge after PT, OT today. Home health. She is requesting that her blood work be done at an outside lab not by [facility]. She will go to [facility] for that.
[2017-03-01] MEDS: DEXAMETHASONE INJ 10 MG in SYRINGE 0 ML IV ONE ×2 (07:12→08:48)
[2017-03-01 07:19] LABS: HEMATOCRIT 35.2 % (37-47); MEAN CELL VOLUME 89.1 fL (80-100); MEAN CORPUSCULAR HEMOGLOBIN 28.4 pg (25-34); MEAN CORPUSCULAR HGB CONC 31.8 g/dl (32-36); PLATELET COUNT 274 K/uL (130-400); RED BLOOD COUNT 3.95 M/uL (4.2-5.4); WHITE BLOOD COUNT 13.36 K/uL (4.8-10.8)
[2017-03-01 07:20] VITALS: BP 148/82; PULSE 59; TEMP 36.6; O2SAT 94
[2017-03-01 07:29] LABS: PROTHROMBIN TIME (PATIENT) 10.7 SECONDS (9.0-12.0)
[2017-03-01 07:46] LABS: BUN/CREATININE RATIO 16.3 (10-20); CALCIUM 7.8 mg/dl (8.5-10.1); CREATININE 1.18 mg/dl (0.60-1.20); POTASSIUM 3.6 mmol/L (3.5-5.1)
--- NOTE | 2017-03-01 08:35 | Discharge Instructions ---
Discharge Instructions Date of Service Feb 28, 2017. Admission Reason for Admission: Left Knee Degenerative Joint Disease Discharge Discharge Diagnosis / Problem: left knee s/p total knee replacement Discharge Goals Goal(s): Decrease discomfort, Improve function, Increase independence Activity Recommendations Activity Limitations: as noted below Lifting Limitations: gradually increase as tolerated Exercise/Sports Limitations: until after follow-up appointment Shower/Bathe: keep incision dry Driving or Machine Use: No driving until cleared by Dr. Lowe Weightbearing Status: Left weightbearing (as tolerated) . Instructions / Follow-Up Instructions / Follow-Up New Medicine: * You will likely be taking one or more of these medications: 1. Tramadol - Take, as directed, when you need it, every six hours to control your pain. 2. Coumadin - Thins your blood to lessen the chance of forming a blood clot. The dose of this is different for each person and is based on your blood tests that are done twice a week. * The most common side effects of pain medicine and iron are nausea and constipation. If nausea or constipation is too much of a problem or if you have any questions about your new medicines or doses, call [facility] at . We will try to help you manage these issues. VERY IMPORTANT TO READ AND REVIEW" Blood Clots and Blood Thinning Medicine: * You are given Coumadin during the immediate post-operative period to lessen the risk of blood clots forming in your legs and/or lungs. Coumadin is usually given for six weeks after surgery. * The prescription is for 2 mg tablets. At discharge, you should understand your dose and take it all at the same time every day, preferably after dinner. * You need to get your blood checked 1 - 2 times per week for six weeks or as directed. * If your dose needs to change, we will call you. Do not take your medication on the day of the blood test until we call you. Pain: * The immediate post-operative period after knee replacement surgery is often quite painful. * You are given a prescription for pain medicine. You should take it, as directed, when you need it, especially before physical therapy and before going to bed. Pain that interferes with sleep is very common and can last several months. * You will likely need pain medicine for the first four to six weeks. It will not stop all of the pain. The pain will lessen and as you feel better, you may change to milder pain medicine such as Tylenol. * The most common side effects of pain medicine are nausea and constipation, so don't take more than you need. Physical Therapy: * You will have physical therapy two or three times each week for four to six weeks after your surgery in order to regain your knee range of motion and to retrain your knee to work properly. * It is just as important to make sure you are getting your knee perfectly straight as it is to regain your knee bend. * Taking a pain pill an hour before therapy can help you have a more productive and comfortable therapy session if needed. Home Exercise: * You were shown a series of exercises (heel props, heel slides, etc.) in the hospital. Do these exercises three to four times each day including the exercises you were shown in physical therapy. Walking: * Get up and walk several times each day. For the first four weeks, try not to stand or walk for more than one hour at a time. If you do stand or walk for more than one hour, you will not hurt anything, but your knee and leg will likely swell. * As you feel comfortable, you may change from the walker or crutches to a cane and then to independent walking. SELF CARE INSTRUCTIONS AFTER TOTAL KNEE REPLACEMENT A. You may need to continue a physical therapy program after discharge from the hospital. There are several options available to you. Your doctor will assist you in selecting the best one for you. 1. An out-patient facility 2 to 3 times a week for therapy or home therapy. 2. Continue working on all exercises taught to you in the hospital. Your goals should be to increase bending of your knee to 90 degrees and beyond and to fully straighten your knee. B. You may progress at your own pace from walking with a walker or crutches to a cane; then to no assistive devices. C. Make walking a part of your daily routine. Be up as much as comfortable with rest periods throughout the day. Rest with leg elevation is very important. Use the ice wrap frequently for the first 3-4 weeks. D. There are no restrictions on activities. You may ride in a car, shop, participate in sanforizing machine operator and all social activities. E. Wear the long elastic stockings (ANTHONY hose) 20 hours a day for six weeks after surgery. They can be removed several times a day for laundering and for a shower. F. Do not place a pillow behind your knee when resting. A pillow at your ankle is okay. VERY IMPORTANT TO READ AND REVIEW A. Take Coumadin, Aspirin or Lovenox (blood thinning medications) as directed by your doctor. If on Coumadin, have a pro-time (blood test) drawn according to your doctor's instructions. This will tell the doctor how well the Coumadin is thinning your blood. 1. YOU WILL BE GIVEN AN ORDER AT DISCHARGE FOR PT/INR (BLOOD WORK). PLEASE HAVE THIS DONE INSTRUCTED. PLEASE CALL OUR OFFICE AFTER YOUR BLOODWORK IS COMPLETE SO WE CAN TRACK YOUR RESULTS. IF YOU ARE GOING TO OUTPATIENT PHYSICAL THERAPY, YOU WILL NEED TO GO TO OUTPATIENT TESTING TO HAVE IT DRAWN. B. There are a few signs you need to watch for after you are home. Call [facility] if you notice any of the followin. Increased severe knee pain. Some pain is expected especially when you exercise. 2. Increased swelling in your leg or knee; pain or swelling of the calf muscle in either lower leg. 3. Any fluid drainage from the incision. 4. Shortness of breath or chest pain. C. Please call [facility] at if you have any concerns or questions about your operation or recovery. The doctor or his nurse will return your call promptly. D. You must take antibiotics before dental work, bladder, bowel or other surgery. Call the office to obtain a prescription at least 2 days prior to your appointment. * CALL IF INCREASED PAIN, REDNESS, DRAINAGE OR FEVER GREATER THAT 101. * Sutures should be removed 12-14 days after surgery unless you are on chronic steriods, then it will be 14-18 days after surgery. Call your doctor if: * Temperature above 101 degrees F. * Pain not relieved by pain medicine ordered. * Increased drainage or redness from incision. * Notify your doctor with any questions or concerns. Current Hospital Diet Patient's current hospital diet: Diabetes Type 2 Diet Discharge Diet Recommended Diet: Diabetes Type 2 Diet Procedures Procedures Performed: Left Total Knee Arthroplasty Pending Studies Studies pending at discharge: no Laboratory Results Hemoglobin A1c Test 02/01/17 08:22 Range/Units Estimated Average Glucose 126 mg/dl Hemoglobin A1c 6.0 H 4.5-5.6 % Lipid Panel Test 02/01/17 08:22 Range/Units Triglycerides Level 215 H 0-150 mg/dl Cholesterol Level 147 0-200 mg/dl HDL Cholesterol 39 mg/dl Cholesterol/HDL Ratio 3.8 LDL Cholesterol, Calculated 65 mg/dl Medical Emergencies . Who to Call and When: Medical Emergencies: If at any time you feel your situation is an emergency, please call 911 immediately. . Non-Emergent Contact Non-Emergency issues call your: Primary Care Provider, Surgeon Call Non-Emergent contact if: temperature is above 101, wound has increased drainage, wound has increased redness, wound has increased pain, you have any medication questions . "Provider Documentation" section prepared by Jeremy Mendoza PA-C. . VTE Core Measure Inpt VTE Proph given/why not?: Warfarin (Coumadin), T.E.DAnish Stockings, SCD's [place] Drug Monitoring Program Search Results: no issues identified
[2017-03-01] MEDS: DOCUSATE SODIUM 100 MG CAP PO SCH (08:50)
[2017-03-01] MEDS: FERROUS GLUCONATE 324 MG TAB PO SCH (08:51)
[2017-03-01] MEDS: LOSARTAN POTASSIUM 50 MG TAB PO SCH (08:52)
[2017-03-01] MEDS: INSULIN ASPART 100 UNITS/ML 3 ML PEN SC SCH (08:57)
[2017-03-01] MEDS ORDERED: PANTOprazole SOD 40 MG TAB PO SCH (09:00)
[2017-03-01] MEDS ORDERED: FUROSEMIDE 20 MG TAB PO SCH (09:00)
[2017-03-01] MEDS ORDERED: DILTIAZEM HCL 240 MG CAPCR PO SCH (09:00)
[2017-03-01] MEDS ORDERED: POTASSIUM CHLORIDE 10 MEQ TABCR PO SCH (09:00)
[2017-03-01] MEDS ORDERED: MULTIVITAMIN TAB PO SCH (09:00)
--- NOTE | 2017-03-01 09:02 | Anesthesiology Progress Note ---
Anesthesia Post Op Note Date & Time Mar 01, 2017 at 09:01 Vital Signs Pain Intensity: 0.0 Vital Signs Past 12 Hours Date Time Temp Pulse Resp B/P (MAP) Pulse Ox O2 Delivery O2 Flow Rate FiO2 03/01/17 07:20 36.6 59 16 148/82 (104) 94 Room Air 03/01/17 03:38 36.4 67 18 133/78 (96) 94 Room Air 02/28/17 22:43 36.8 60 16 130/67 (88) 94 Room Air Notes Mental Status: alert / awake / arousable, participated in evaluation Pt Amnestic to Procedure: Yes Nausea / Vomiting: adequately controlled Pain: adequately controlled Airway Patency, RR, SpO2: stable & adequate BP & HR: stable & adequate Hydration State: stable & adequate Neuraxial Anesthesia: sensory block resolved Anesthetic Complications: no major complications apparent
[2017-03-01] MEDS ORDERED: WARFARIN SOD 5 MG TAB PO SCH (10:00)
[2017-03-01 10:42] VITALS: BP 148/82; PULSE 59; TEMP 36.6; O2SAT 94
[2017-03-01] MEDS ORDERED: ASPIRIN 81 MG CHEW PO SCH (12:00)
[2017-03-01] MEDS ORDERED: ALLOPURINOL 300 MG TAB PO SCH (12:00)
--- NOTE | 2017-03-01 13:54 | [facility] Operative Report ---
Operative Report Operative Date Feb 28, 2017. Pre-Operative Diagnosis Left Knee End-Stage Degnerative Joint Disease Post-Operative Diagnosis Left Knee End-Stage Degnerative Joint Disease Procedure(s) Performed Left Total Knee Arthroplasty Surgeon Dr. Lowe Practice Coordinator Surgeon(s) SARAH Mackenzie Estimated Blood Loss 75 ml Findings Left knee DJD Fluids 1500cc Specimens A. Left Knee Bone and Tissue Drains none Anesthesia spinal/block Complication(s) None Disposition Recovery Room / PACU Indications This 81 year old white female presented to the office with complaints of Left knee pain that persisted despite activity modification, use of oral pain medication, and physical therapy. She had a previous Right knee TKA and did well with that. She elected to proceed with the same on the left knee. Preop imaging has been obtained. Description of Procedure Patient was administered a regional block and then taken to the operating room where she was given sedation. She was prepped and draped in usual sterile fashion. Please see Dr. Lowe's operative report for specifics of the procedure. I was present for the entire case from initial patient positioning through final wound closure. Assistance was provided in tissue traction, hemostasis, trial implant placement, final implant placement, and final wound closure. Patient was taken to the recovery room in satisfactory condition. I attest to the content of the Intraoperative Record and any orders documented therein. Any exceptions are noted below.
== END 2017-03-01 12:58 | disposition home health service (06) | DRG 470 ==
LOC: C.ACU 06:05 → C.3E 06:30 → ENRESERV 11:55
PROVIDERS: ADMIT Physical Medicine & Rehabilitation Sports Medicine; ATTEND Physical Medicine & Rehabilitation Sports Medicine
PROC: 0SRU0J9 Replacement of Left Knee Joint, Femoral Surface with Synthetic Substitute, Cemented, Open Approach (ICD-10-PCS; principal; 2017-02-28 09:00)
DX: M17.12 Unilateral primary osteoarthritis, left knee (principal); I10 Essential (primary) hypertension; E11.9 Type 2 diabetes mellitus without complications; E03.9 Hypothyroidism, unspecified; K21.9 Gastro-esophageal reflux disease without esophagitis; Z96.651 Presence of right artificial knee joint; Z79.82 Long term (current) use of aspirin; Z85.850 Personal history of malignant neoplasm of thyroid; Z90.710 Acquired absence of both cervix and uterus; Z90.49 Acquired absence of other specified parts of digestive tract

== ENCOUNTER 2017-03-15 13:38 | Inpatient (IN) | payer OTHER ==
[2017-03-15] VITALS (12 sets, daily range): BP systolic 115–153; BP diastolic 57–84; PULSE 59–64; TEMP 36.3–37; O2SAT 95–98; Ht 157.5 cm; Wt 88.0 kg
[~2017-03-15] VITALS: Ht 157.5 cm; Wt 88.0 kg
[~2017-03-15 13:38] MED LIST changes: -CEFAZOLIN 2000MG IV PUSH 10 ML IV SCH; -CLB/200 PO; -LACTATED RINGER'S 1000ML 1,000 ML IV SCH; -LACTATED RINGER'S 1000ML 500 ML IV ONE; -LACTATED RINGER'S 1000ML IV SCH; -ROPIVACAINE 5MG/ML 30 ML 150 MG, BUPIVACAINE/EPINEPHR 0.5% MPF 30 ML, KETOROLAC TROMETH... INFIL SCH; +TRAM-10 PO; -TRANEXAMIC ACID INJ 1,000 MG in SYRINGE 0 ML IV SCH; +WARF2TAB PO
[2017-03-15] MEDS ORDERED: SODIUM CHLORIDE 0.9% 500ML 500 ML IV STA (13:59)
--- NOTE | 2017-03-15 14:00 | EMERGENCY ROOM VISIT NOTE ---
History Report prepared by Jazmyn: Henry Phillips Under the Supervision of: Dr. Moshe Teresa M.D. First contact with patient: 13:48 Chief Complaint: SHORTNESS OF BREATH Stated Complaint: HARD TIME BREATHING-REFERRED BY History of Present Illness The patient is a 81 year old female who presents to the Emergency Room with complaints of shortness of breath for the last 2 days. The shortness of breath is exertional. She also has noticed some palpitations. No chest pain. No cough or congestion, no fever. The patient did have left knee surgery, her left knee was replaced, 15 days ago. Today at orthopedics, she mentioned the shortness of breath and was referred here. The left knee was felt to be healing well and without infection. The river were removed today. Of note, the patient is on Coumadin. She has been on this since the knee surgery. The patient states that she has noticed some black stools for about 2 weeks, she thought this was from the Colace though that she has been taking. She has not had any abdominal pain, vomiting or diarrhea. Source of History: patient Onset: 2 days ago Position: other (Respiratory system) Symptom Intensity: moderate Quality: other (Shortness of breath) Timing: worsening Modifying Factors (Worsening): exertion Associated Symptoms: + melena, No fevers, No cough, No vomiting, No abdominal pain, No diarrhea Note: She has been having some heart palpitations. Review of Systems See HPI for pertinent positives & negatives. A total of 10 systems reviewed and were otherwise negative. 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 (14) Thyroid cancer Surgical Problems: (1) History of cholecystectomy (2) History of hysterectomy Family History Diabetes mellitus Gallbladder disease Heart disease Hypertension Kidney disease Kidney stones Social History Smoking Status: Never Smoker Alcohol Use: occasionally Marital Status: Housing Status: lives with significant other Occupation Status: retired Current/Historical Medications Scheduled Allopurinol (Zyloprim), 300 MG PO NOON Ascorbic Acid (Ascorbic Acid), 500 MG PO NOON Aspirin (Aspirin Chewable), 81 MG PO NOON Atenolol (Tenormin), 50 MG PO NOON Cyanocobalamin (Vitamin B12 100 Mcg), 100 MCG PO NOON Diltiazem Hcl Coated Beads (Cardizem Cd), 240 MG PO NOON Furosemide (Furosemide), 40 MG PO NOON Glimepiride (Amaryl), 1 MG PO NOON Levothyroxine Sodium (Synthroid), 150 MCG PO NOON Losartan Potassium (Cozaar), 100 MG PO NOON Potassium Chloride (Micro-K Ext Rel), 20 MEQ PO NOON Vitamin E (Vitamin E 400 Iu), 400 INTER.UNIT PO NOON Warfarin Sod (Jantoven), 4 MG PO Q2D Warfarin Sod (Jantoven), 2 MG PO Q2D Scheduled PRN Ketoconazole (Topical) (Nizoral), 1 APPLN TOP UD PRN for PRN Tramadol (Ultram), 1-2 TAB PO Q6 PRN for Pain Allergies Coded Allergies: Amlodipine (Verified Allergy, Unknown, per PCP note , 03/15/17) Ampicillin (Verified Allergy, Unknown, UNKNOWN, 03/15/17) Hydrochlorothiazide (Verified Allergy, Unknown, per PCP note , 03/15/17) Moxifloxacin (Verified Allergy, Unknown, per PCP note , 03/15/17) Erythromycin (Verified Adverse Reaction, Mild, YEAST INFECTION, 03/15/17) Physical Exam Vital Signs Date Time Temp Pulse Resp B/P (MAP) Pulse Ox O2 Delivery O2 Flow Rate FiO2 03/15/17 15:03 65 03/15/17 14:48 66 20 121/54 95 Room Air 03/15/17 14:16 Room Air 03/15/17 14:16 Room Air 03/15/17 13:45 36.4 73 22 137/62 99 Room Air Physical Exam GENERAL: Patient is in no acute distress. HEENT: No acute trauma, normocephalic atraumatic, mucous membranes moist, no nasal congestion, no scleral icterus. NECK: No stridor, no adenopathy, no meningismus, trachea is midline. LUNGS: Clear to auscultation bilaterally, no wheeze, no rhonchi, breath sounds equal. HEART: Without murmurs gallops or rubs, regular rate and rhythm. ABDOMEN: Soft, nontender, bowel sounds positive, no hernias, no peritonitis. EXTREMITIES: The left knee looks to be healing well. The wound is without signs of infection. Steri-Strips are in place. There is some mild edema of the left leg compared to the right. NEUROLOGIC: Oriented x 3, no acute motor or sensory deficits, no focal weakness. SKIN: No rash, no jaundice, no diaphoresis. Slightly pale. Rectal: Black stool, heme positive. Medical Decision & Procedures ER Provider Diagnostic Interpretation: Radiology results as stated below per my review and radiologist interpretation: CHEST ONE VIEW PORTABLE CLINICAL HISTORY: 81 years-old Female presenting with EVALUATE RESPIRATORY DISTRESS.DYSPNEA. TECHNIQUE: Portable upright AP view of the chest was obtained. COMPARISON: 01/22/2017. FINDINGS: Cardiomediastinal silhouette normal. Linear opacity in the left base. Lungs and pleural spaces otherwise clear. Degenerative changes of the thoracic spine. Upper abdomen normal. IMPRESSION: 1. Minimal left basilar atelectasis or scarring. Otherwise no acute cardiopulmonary disease. Electronically signed by: Anam Ma M.D. 03/15/2017 2:40 PM Dictated Date/Time: 03/15/2017 2:37 PM Laboratory Results 03/15/17 14:16 Red Blood Count 2.93, Mean Corpuscular Volume 90.8, Mean Corpuscular Hemoglobin 28.3, Mean Corpuscular Hemoglobin Concent 31.2, Mean Platelet Volume 8.6, Neutrophils (%) (Auto) 79.7, Lymphocytes (%) (Auto) 15.0, Monocytes (%) (Auto) 3.8, Eosinophils (%) (Auto) 0.8, Basophils (%) (Auto) 0.2, Neutrophils # (Auto) 10.60, Lymphocytes # (Auto) 2.00, Monocytes # (Auto) 0.50, Eosinophils # (Auto) 0.11, Basophils # (Auto) 0.03 03/15/17 14:16 Test 03/15/17 14:16 White Blood Count 13.31 K/uL (4.8-10.8) Red Blood Count 2.93 M/uL (4.2-5.4) Hemoglobin 8.3 g/dL (12.0-16.0) Hematocrit 26.6 % (37-47) Mean Corpuscular Volume 90.8 fL (80-100) Mean Corpuscular Hemoglobin 28.3 pg (25-34) Mean Corpuscular Hemoglobin Concent 31.2 g/dl (32-36) Platelet Count 310 K/uL (130-400) Mean Platelet Volume 8.6 fL (7.4-10.4) Neutrophils (%) (Auto) 79.7 % Lymphocytes (%) (Auto) 15.0 % Monocytes (%) (Auto) 3.8 % Eosinophils (%) (Auto) 0.8 % Basophils (%) (Auto) 0.2 % Neutrophils # (Auto) 10.60 K/uL (1.4-6.5) Lymphocytes # (Auto) 2.00 K/uL (1.2-3.4) Monocytes # (Auto) 0.50 K/uL (0.11-0.59) Eosinophils # (Auto) 0.11 K/uL (0-0.5) Basophils # (Auto) 0.03 K/uL (0-0.2) RDW Standard Deviation 50.9 fL (36.4-46.3) RDW Coefficient of Variation 16.1 % (11.5-14.5) Immature Granulocyte % (Auto) 0.5 % Immature Granulocyte # (Auto) 0.07 K/uL (0.00-0.02) Prothrombin Time 33.4 SECONDS (9.0-12.0) Prothromb Time International Ratio 3.0 (0.9-1.1) Activated Partial Thromboplast Time 46.5 SECONDS (21.0-31.0) Partial Thromboplastin Ratio 1.8 Anion Gap 7.0 mmol/L (3-11) Est Creatinine Clear Calc Drug Dose 37.6 ml/min Estimated GFR () 47.4 Estimated GFR (Non- 40.9 BUN/Creatinine Ratio 33.7 (10-20) Calcium Level 8.5 mg/dl (8.5-10.1) Magnesium Level 2.0 mg/dl (1.8-2.4) Total Bilirubin 0.7 mg/dl (0.2-1) Aspartate Amino Transf (AST/SGOT) 15 U/L (15-37) Alanine Aminotransferase (ALT/SGPT) 23 U/L (12-78) Alkaline Phosphatase 78 U/L (45-117) Troponin I < 0.015 ng/ml (0-0.045) Total Protein 6.4 gm/dl (6.4-8.2) Albumin 3.0 gm/dl (3.4-5.0) Globulin 3.4 gm/dl (2.5-4.0) Albumin/Globulin Ratio 0.9 (0.9-2) Thyroid Stimulating Hormone (TSH) 10.800 uIu/ml (0.300-4.500) Free Thyroxine 1.04 ng/dl (0.80-1.60) Laboratory results reviewed by me. Medications Administered Medications (Trade) Dose Ordered Sig/Munira Route Start Time Stop Time Status Last Admin Dose Admin Sodium Chloride 500 ml @ 999 mls/hr Q31M STAT IV 03/15/17 13:59 03/15/17 14:29 DC 03/15/17 15:09 999 MLS/HR Pantoprazole Sodium 80 mg/ Dextrose 120 ml @ 480 mls/hr 1415 ONCE IV 03/15/17 14:15 03/15/17 14:29 DC 03/15/17 14:46 480 MLS/HR Pantoprazole Sodium 40 mg/ Dextrose 100 ml @ 20 mls/hr Q5H IV 03/15/17 14:30 03/15/17 19:29 03/15/17 14:25 20 MLS/HR Phytonadione 5 mg/ Sodium Chloride 50.5 ml @ 101 mls/hr ONE ONCE IV 03/15/17 15:15 03/15/17 15:44 DC 03/15/17 15:18 101 MLS/HR ECG Indication: SOB/dyspnea Rate (beats per minute): 72 Rhythm: sinus rhythm Findings: 1st degree AV block, no acute ischemic change, no ectopy, other (Old inferior infarct, LVH) ED Course 1348: The patient was evaluated in room B11B. A complete history and physical exam was performed. 1359: Ordered Sodium Chloride 500 ml @ 99 mls/hr IV 1415: Ordered Pantoprazole Sodium 80 mg/Dextrose 120 ml @ 480 mls/hr IV 1430: Ordered Pantoprazole Sodium 40 mg/Dextrose 100 ml @ 20 mls/hr IV 1506: Upon reexamination the patient is resting. I discussed results and treatment plan with the patient. She verbalizes agreement and understanding. I spoke with Dr. Peñaloza of the [facility] [place]. We discussed the patient's results and findings. The patient will be evaluated by him for further management. 1515: Ordered Phytonadione 5 mg/Sodium Chloride 50.5 ml @ 101 mls/hr Protocol IV Medical Decision Differential diagnosis includes but is not limited to dysrhythmia, anemia, GI bleeding, coagulopathy, PE, electrolyte imbalance, pneumonia, CHF or ND. There is a mild leukocytosis, this could be consistent with infection or possibly just the stress of her current situation. She is anemic with a hemoglobin around 8. Rectal exam shows black stool that is heme positive. There is no significant electrolyte abnormality, kidney failure or hepatitis. INR is elevated consistent with her Coumadin use, the INR value is 3. Thyroid testing suggests the use of thyroid medications. Chest film does not show pneumonia or CHF. There is no pneumothorax. EKG shows a sinus rhythm, no acute ischemia. Cardiac enzyme testing times one is not consistent with acute cardiac injury. Urinalysis does not suggest infection. Given the anemia and black heme positive stool, given her dyspnea, given the coagulopathy, admission/observation was warranted. The patient was given an IV Protonix bolus and then placed an IV Protonix drip. She received IV vitamin K and was given IV saline. A type and screen was ordered. The patient requires hospitalization. She is short of breath because of her anemia. She is anticoagulated and suffering from a GI bleed. The GI bleed is likely upper. I spoke to the patient and to the case management assistant. The on-call hospitalist was consulted. Medication Reconcilliation Current Medication List: was personally reviewed by me Blood Pressure Screening Patient's blood pressure: Elevated blood pressure Blood pressure disposition: Elevated BP felt to be situational Consults Time Called: 1500 Consulting Physician: Dr. Peñaloza - [facility] [place] Returned Call: [phone] Discussed the patient's case. The patient will be evaluated for further management. Impression Primary Impression: SOB (shortness of breath) Additional Impressions: Anemia GI bleed Supratherapeutic INR Critical Care I have personally spent greater than 30 minutes of critical care time in the direct management of this patient. This includes bedside care, interpretation of diagnostic studies and testing, discussion with consultants, the patient, and family members, and other required patient management activities. This 30 minutes is in excess of all separately billable procedures. Scribe Attestation The scribe's documentation has been prepared under my direction and personally reviewed by me in its entirety. I confirm that the note above accurately reflects all work, treatment, procedures, and medical decision making performed by me. Departure Information Dispostion Being Evaluated By Hospitalist Referrals Nile Valles M.D. (PCP) Patient Instructions My [facility] Problem Qualifiers
[2017-03-15] MEDS ORDERED: PANTOprazole INJ 80 MG in DEXTROSE 5% 100ML IV ONE (14:15)
[2017-03-15 14:26] LABS: BASO % 0.2 %; BASO ABS # 0.03 K/uL (0-0.2); EOS % 0.8 %; HEMATOCRIT 26.6 % (37-47); IG% 0.5 %; MEAN CELL VOLUME 90.8 fL (80-100); MEAN CORPUSCULAR HEMOGLOBIN 28.3 pg (25-34); MEAN CORPUSCULAR HGB CONC 31.2 g/dl (32-36); MEAN PLATELET VOLUME 8.6 fL (7.4-10.4); MONO % 3.8 %; NEUT % 79.7 %; PLATELET COUNT 310 K/uL (130-400); RED BLOOD COUNT 2.93 M/uL (4.2-5.4); WHITE BLOOD COUNT 13.31 K/uL (4.8-10.8)
[2017-03-15] MEDS ORDERED: PANTOprazole INJ 40 MG in DEXTROSE 5% 100ML IV SCH (14:30)
[2017-03-15 14:42] LABS: PARTIAL THROMBOPLASTIN RATIO 1.8; PROTHROMBIN TIME (PATIENT) 33.4 SECONDS (9.0-12.0)
--- NOTE | 2017-03-15 14:42 | DIAGNOSTIC IMAGING REPORT ---
CHEST ONE VIEW PORTABLE CLINICAL HISTORY: 81 years-old Female presenting with EVALUATE RESPIRATORY DISTRESS.DYSPNEA. TECHNIQUE: Portable upright AP view of the chest was obtained. COMPARISON: 01/22/2017. FINDINGS: Cardiomediastinal silhouette normal. Linear opacity in the left base. Lungs and pleural spaces otherwise clear. Degenerative changes of the thoracic spine. Upper abdomen normal. IMPRESSION: 1. Minimal left basilar atelectasis or scarring. Otherwise no acute cardiopulmonary disease. Electronically signed by: Anam Ma M.D. 03/15/2017 2:40 PM Dictated Date/Time: 03/15/2017 2:37 PM
[2017-03-15 14:44] LABS: ALT/SGPT 23 U/L (12-78); AST/SGOT 15 U/L (15-37); BLOOD UREA NITROGEN 42 mg/dl (7-18); BUN/CREATININE RATIO 33.7 (10-20); CALCIUM 8.5 mg/dl (8.5-10.1); CARBON DIOXIDE 25 mmol/L (21-32); CHLORIDE 107 mmol/L (98-107); CREATININE 1.25 mg/dl (0.60-1.20); GLUCOSE 123 mg/dl (70-99); POTASSIUM 3.5 mmol/L (3.5-5.1); SODIUM 139 mmol/L (136-145)
[2017-03-15 14:50] LABS: COMPLETE YES
[2017-03-15 14:55] LABS: ALB/GLOB RATIO 0.9 (0.9-2); ALKALINE PHOSPHATASE 78 U/L (45-117)
[2017-03-15] MEDS ORDERED: WARF2TAB8 PO (15:01)
[2017-03-15] MEDS ORDERED: WARF4TAB8 PO (15:01)
[2017-03-15] MEDS ORDERED: PHYTONADIONE INJ 5 MG in SODIUM CHLORIDE 0.9% 50ML 50 ML IV ONE (15:15)
[2017-03-15] MEDS ORDERED: TRAMADOL HCL 50 MG TAB PO PRN (15:30)
[2017-03-15] MEDS ORDERED: ONDANSETRON INJ 2 MG/ML 2 ML VIAL IV PRN (15:30)
[2017-03-15] MEDS ORDERED: GLUCAGON FOR INJ 1 MG VIAL SQ PRN (15:45)
[2017-03-15] MEDS ORDERED: GLUCOSE 40% GEL 15 GM TUBE PO PRN (15:45)
[2017-03-15] MEDS ORDERED: DEXTROSE 50% 50 ML SYR IV PRN (15:45)
[2017-03-15] MEDS ORDERED: GLUCOSE 10 TABS/TUBE PO PRN (15:45)
--- NOTE | 2017-03-15 16:01 | History and Physical ---
History & Physical Date & Time of Service: Mar 15, 2017 at 15:36 Chief Complaint: Hard Time Breathing-Referred By Primary Care Physician: Nile Valles M.D. History of Present Illness Source: patient 81 y/o F Hx DM, HTN, gout, RA, hypothyroidism. Pt underwent a TKR 02/28 and was placed on Coumadin for DVT prophylaxis following. She describes developing dark stool a few days after but did not address this as she attributed the change in her bowels to initiation of colace. Over the past 2 days she has developed exertional dyspnea and lightheadedness and presented to the hospital therefore. Initial labs conformed a Hb of 8, down from 12.9 prior to her surgery. She denies any abdominal pain. She dose develop nausea when she takes pain medication, namely Tramadol. She has not had any CP and denies palpitations. Past Medical/Surgical History 1) HTN 2) RA 3) Gout 4) DM 5) Obesity 6) Thyroid CA 7) Renal calculi 8) DJD 9) Hypothyroidism Surgical Problems: 1) History of cholecystectomy 2) History of hysterectomy 3) TKR 01/30/17 Family History Diabetes mellitus Gallbladder disease Heart disease Hypertension Kidney disease Kidney stones Social History Smoking Status: Never Smoker Marital Status: Housing status: lives with family Occupational Status: retired Immunizations History of Tetanus Vaccine?: Yes History of Pneumococcal: Yes History of Hepatitis B Vaccine: No Multi-Drug Resistant Organisms History of MDRO: No Allergies Coded Allergies: Amlodipine (Verified Allergy, Unknown, per PCP note , 03/15/17) Ampicillin (Verified Allergy, Unknown, UNKNOWN, 03/15/17) Hydrochlorothiazide (Verified Allergy, Unknown, per PCP note , 03/15/17) Moxifloxacin (Verified Allergy, Unknown, per PCP note , 03/15/17) Erythromycin (Verified Adverse Reaction, Mild, YEAST INFECTION, 03/15/17) Home Medications Scheduled Allopurinol (Zyloprim), 300 MG PO NOON Ascorbic Acid (Ascorbic Acid), 500 MG PO NOON Aspirin (Aspirin Chewable), 81 MG PO NOON Atenolol (Tenormin), 50 MG PO NOON Cyanocobalamin (Vitamin B12 100 Mcg), 100 MCG PO NOON Diltiazem Hcl Coated Beads (Cardizem Cd), 240 MG PO NOON Furosemide (Furosemide), 40 MG PO NOON Glimepiride (Amaryl), 1 MG PO NOON Levothyroxine Sodium (Synthroid), 150 MCG PO NOON Losartan Potassium (Cozaar), 100 MG PO NOON Potassium Chloride (Micro-K Ext Rel), 20 MEQ PO NOON Vitamin E (Vitamin E 400 Iu), 400 INTER.UNIT PO NOON Warfarin Sod (Jantoven), 4 MG PO Q2D Warfarin Sod (Jantoven), 2 MG PO Q2D Scheduled PRN Ketoconazole (Topical) (Nizoral), 1 APPLN TOP UD PRN for PRN Tramadol (Ultram), 1-2 TAB PO Q6 PRN for Pain Review of Systems Constitutional: No fever, No chills, No sweats Eyes: No worsening of vision ENT: No hearing loss, No unusual epistaxis, No nasal symptoms Respiratory: + problem reported (exertional dyspnea), No cough, No wheezing Cardiovascular: No chest pain, No orthopnea, No PND Abdomen: No pain, No vomiting Musculoskeletal: No joint pain Genitourinary - Female: No dysuria, No hematuria Neurologic: + problem reported (lightheadedness reported), No memory loss, No weakness Psychiatric: No depression symptoms Endocrine: + fatigue Integumentary: No rash Allergic / Immunologic: No environmental allergies Physical Exam Vital Signs Date Time Temp Pulse Resp B/P (MAP) Pulse Ox O2 Delivery O2 Flow Rate FiO2 03/15/17 15:03 65 03/15/17 14:16 Room Air 03/15/17 14:16 Room Air 03/15/17 13:45 36.4 73 22 137/62 99 Room Air General Appearance: WD/WN, no apparent distress Head: normocephalic Eyes: normal inspection ENT: normal ENT inspection, pharynx normal Neck: supple, no JVD Respiratory/Chest: chest non-tender, lungs clear, normal breath sounds Cardiovascular: regular rate, rhythm, no edema, no gallop Abdomen/GI: normal bowel sounds, non tender, soft Back: normal inspection, no CVA tenderness Extremities/Musculoskelatal: normal inspection, no calf tenderness, normal capillary refill, no pedal edema, normal range of motion Neurologic/Psych: continuous wave operator II-XII nml as tested, no motor/sensory deficits, normal mood/affect, normal reflexes, oriented x 3 Skin: normal color, warm/dry Diagnostics Laboratory Results Results Past 24 Hours Test 03/15/17 14:16 Range/Units White Blood Count 13.31 4.8-10.8 K/uL Red Blood Count 2.93 4.2-5.4 M/uL Hemoglobin 8.3 12.0-16.0 g/dL Hematocrit 26.6 37-47 % Mean Corpuscular Volume 90.8 80-100 fL Mean Corpuscular Hemoglobin 28.3 25-34 pg Mean Corpuscular Hemoglobin Concent 31.2 32-36 g/dl Platelet Count 310 130-400 K/uL Mean Platelet Volume 8.6 7.4-10.4 fL Neutrophils (%) (Auto) 79.7 % Lymphocytes (%) (Auto) 15.0 % Monocytes (%) (Auto) 3.8 % Eosinophils (%) (Auto) 0.8 % Basophils (%) (Auto) 0.2 % Neutrophils # (Auto) 10.60 1.4-6.5 K/uL Lymphocytes # (Auto) 2.00 1.2-3.4 K/uL Monocytes # (Auto) 0.50 0.11-0.59 K/uL Eosinophils # (Auto) 0.11 0-0.5 K/uL Basophils # (Auto) 0.03 0-0.2 K/uL RDW Standard Deviation 50.9 36.4-46.3 fL RDW Coefficient of Variation 16.1 11.5-14.5 % Immature Granulocyte % (Auto) 0.5 % Immature Granulocyte # (Auto) 0.07 0.00-0.02 K/uL Prothrombin Time 33.4 9.0-12.0 SECONDS Prothromb Time International Ratio 3.0 0.9-1.1 Activated Partial Thromboplast Time 46.5 21.0-31.0 SECONDS Partial Thromboplastin Ratio 1.8 Sodium Level 139 136-145 mmol/L Potassium Level 3.5 3.5-5.1 mmol/L Chloride Level 107 98-107 mmol/L Carbon Dioxide Level 25 21-32 mmol/L Anion Gap 7.0 3-11 mmol/L Blood Urea Nitrogen 42 7-18 mg/dl Creatinine 1.25 0.60-1.20 mg/dl Est Creatinine Clear Calc Drug Dose 37.6 ml/min Estimated GFR () 47.4 Estimated GFR (Non- 40.9 BUN/Creatinine Ratio 33.7 10-20 Random Glucose 123 70-99 mg/dl Calcium Level 8.5 8.5-10.1 mg/dl Magnesium Level 2.0 1.8-2.4 mg/dl Total Bilirubin 0.7 0.2-1 mg/dl Aspartate Amino Transf (AST/SGOT) 15 15-37 U/L Alanine Aminotransferase (ALT/SGPT) 23 12-78 U/L Alkaline Phosphatase 78 45-117 U/L Troponin I < 0.015 0-0.045 ng/ml Total Protein 6.4 6.4-8.2 gm/dl Albumin 3.0 3.4-5.0 gm/dl Globulin 3.4 2.5-4.0 gm/dl Albumin/Globulin Ratio 0.9 0.9-2 Thyroid Stimulating Hormone (TSH) 10.800 0.300-4.500 uIu/ml Free Thyroxine 1.04 0.80-1.60 ng/dl Impression Assessment and Plan 81 y/o F Hx DM, HTN, gout, RA, hypothyroidism. Pt underwent a TKR 02/28 and was placed on Coumadin for DVT prophylaxis following. She describes developing dark stool a few days after but did not address this as she attributed the change in her bowels to initiation of Colace. Over the past 2 days she has developed exertional dyspnea and lightheadedness and presented to the hospital therefore. Initial labs conformed a Hb of 8, down from 12.9 prior to her surgery. She denies any abdominal pain. She dose develop nausea when she takes pain medication, namely Tramadol. She has not had any CP and denies palpitations. 1) GI bleed - likely upper - placed on PPi drip - Hb will be trended - GI consult requested. She is symptomatic and the bleed is ongoing so that we have opted to transfuse in the interim. Pt is NPO aside from essential meds. She was provided with vitamin K in the ER due to her elevated INR. 2) DM - placed on a SS Q6H - oral meds held 3) Hypothyroidism - TSH is elevated - T4 within normal limits - would recheck in outpt setting 4) Gout - cont Allopurinol 5) HTN - cont ARB - Lasix is held pending AM reevaluation Full code SCDs - total time for this admit including review of labs, meds, imaging - discussion with pt and ER attending 35 min Level of Care Med/Surg Resuscitation Status FULL RESUSCITATION VTE Prophylaxis VTE Risk Assessment Done? Y/N: Yes Risk Level: Moderate
[2017-03-15 16:11] LABS: URINE APPEARANCE CLEAR (CLEAR); URINE BILIRUBIN NEG (NEG); URINE COLOR YELLOW; URINE EPITHELIAL CELL AUTO >30 /lpf (0-5); URINE NITRITE NEG (NEG); URINE PH 5.5 (4.5-7.5); URINE SPECIFIC GRAVITY 1.013 (1.000-1.030); UROBILINOGEN NEG (NEG); ZZUR CULT IF INDIC CLEAN CATCH NO
[2017-03-15 16:14] LABS: MANUAL MICROSCOPIC REQUIRED? NO; REVIEW REQ? NO
--- NOTE | 2017-03-15 17:29 | ORTHOPEDIC CONSULTATION ---
DATE OF CONSULTATION: 03/15/2017 SUBJECTIVE: The patient well known to me from recent left total knee replacement. Was seen in the office earlier today and was complaining of feeling fatigued. She denied any chest pain. She denied any coughing up blood. Remotely, did recognize that she had darker stools but attributed that to the Colace. In the office, her vital signs were stable, her oxygenation was good. We contacted her primary care physician to assess her; he was not available, so patient was sent to the ER. ER workup was remarkable for tarry stools, anemia. At this point in time, she is admitted for GI bleed. Her Coumadin was reversed. I asked that we do not forget about DVT risk in an acute patient postop knee replacement. She will need mechanical devices and then reinstitute somatic coagulation of choice whether it is subQ heparin, whatever they feel is most appropriate, which she could be discharged on. She will need DVT prophylaxis for at least an additional 4 weeks. She is 2 weeks postop. Mobilize to tolerance. Orders placed for mechanical devices and for PT. Keep clean, dry dressing on the wound.
[2017-03-15] MEDS ORDERED: NSS + 20MEQ KCL 1000ML 1,000 ML IV SCH (17:30)
[2017-03-15] MEDS: INSULIN ASPART 100 UNITS/ML 3 ML PEN SC SCH (18:35)
[2017-03-15] MEDS: PANTOprazole INJ 40 MG in DEXTROSE 5% 100ML IV SCH (19:56)
[2017-03-15] MEDS ORDERED: FUROSEMIDE INJ 20 MG in SYRINGE 0 ML IV SCH (20:30)
[2017-03-16] MEDS: PANTOprazole INJ 40 MG in DEXTROSE 5% 100ML IV SCH ×5 (00:02→20:18)
[2017-03-16 00:48] VITALS: BP 138/65; PULSE 64; TEMP 36.8; O2SAT 94
[2017-03-16] MEDS: LEVOTHYROXINE 150 MCG TAB PO SCH (05:45)
[2017-03-16] MEDS: INSULIN ASPART 100 UNITS/ML 3 ML PEN SC SCH ×5 (05:53→21:00)
[2017-03-16 07:01] LABS: BUN/CREATININE RATIO 28.3 (10-20); CALCIUM 7.9 mg/dl (8.5-10.1); CREATININE 1.3 mg/dl (0.60-1.20); MAGNESIUM 1.9 mg/dl (1.8-2.4); POTASSIUM 3.1 mmol/L (3.5-5.1)
--- NOTE | 2017-03-16 07:26 | PROGRESS NOTE ---
DATE: 03/16/2017 SUBJECTIVE: The patient did well overnight. Denies any chest pain, shortness of breath, fever, chills, nausea, vomiting or headache. She states she had 1 bowel movement which was dark. This is the first time she has gone since yesterday. OBJECTIVE: VITAL SIGNS: Stable. Pulse is in the 60s, BP 130/60 range, temperature is 36.8. Calves are nontender. Wound is clean and dry. For some reason, ABD pads were removed. There were reapplied. SCD stockings not in place. I have reemphasized the need for those. ASSESSMENT: Status post total knee replacement a little over 2 weeks ago and has apparent upper gastrointestinal bleed, is now stable. Her Coumadin has been stopped. She needs to have compressive devices applied. She is to continue to wear [place] TEDs and when appropriate will be placed on a prophylatic DVT dose based on findings at the time of EGD if she has that. She cannot take aspirin at this point in time, would suggest subcutaneous heparin or Lovenox low dose. Discharge plans per medicine. At this point in time, the patient is hemodynamically stable.
[2017-03-16 08:00] VITALS: O2SAT 94
[2017-03-16 08:04] VITALS: BP 135/73; PULSE 60; TEMP 36.9; O2SAT 96
[2017-03-16] MEDS ORDERED: POTASSIUM CHLORIDE PWD 20 MEQ PACK PO SCH (09:00)
--- NOTE | 2017-03-16 09:26 | Gastrointestinal Consultation ---
Gastrointestinal Consultation Date of Consultation: Mar 16, 2017 Attending Physician: Dr. Peñaloza Consulting Physician: Minna Gee PA-C Reason for Consultation: Anemia, melena, possible UGI bleed History of Present Illness Patient is a 81 year old female with a past medical history of diabetes mellitus 2, HTN, gout, RA, hypothyroidism & DJD. The patient underwent a total knee replacement on 02/[address] Lowe. Postoperatively, she was on Coumadin. She reports she was recovering well from her knee replacement, however she noticed she developed dark stools. She reports she tried to ignore this and blamed it on being constipated. She then reports she started to feel unwell. She reports that developed shortness of breath and was feeling dizzy. She decided to present to the ER. Her labs on admission indicated a hemoglobin of 8. Her baseline preoperatively was 12.9. She reports a history of GERD, but reports that she only takes Maalox occasionally as her symptoms are sporadic. She reports daily baby Aspirin use, but denies other NSAID use. She denies epigastric pain, heartburn, acid reflux, nausea or vomiting. She reports that she has not had a bowel movement since yesterday. She reports that yesterday there was dark stools. Her INR was supratherapeutic. A repeat is pending. Hemoglobin is 10 this morning. Past Medical/Surgical History Medical Problems: (1) Anemia Status: Acute (2) Shortness of breath Status: Acute (3) SOB (shortness of breath) Status: Acute (4) Supratherapeutic INR Status: Acute Past Medical History: HTN, gout, DM2, Obesity, thyroid cancer, kidney stones, DJD, hypothyroidism Past Surgical History: cholecystectomy, hysterectomy, TKR Family History Diabetes mellitus Gallbladder disease Heart disease Hypertension Kidney disease Kidney stones Social History Smoking Status: Never Smoker Alcohol Use: occasionally Marital Status: Housing Status: lives with significant other Occupation Status: retired Allergies Coded Allergies: Amlodipine (Verified Allergy, Unknown, per PCP note , 03/15/17) Ampicillin (Verified Allergy, Unknown, UNKNOWN, 03/15/17) Hydrochlorothiazide (Verified Allergy, Unknown, per PCP note , 03/15/17) Moxifloxacin (Verified Allergy, Unknown, per PCP note , 03/15/17) Erythromycin (Verified Adverse Reaction, Mild, YEAST INFECTION, 03/15/17) Current Medications Home Meds and Scripts Medications Dose Route/Sig Max Daily Dose Days Date Category Jantoven (Warfarin Sodium) 2 Mg Tab 2 Mg PO Q2D 03/15/17 Reported Jantoven (Warfarin Sodium) 4 Mg Tab 4 Mg PO Q2D 03/15/17 Reported Ultram (Tramadol HCl) 50 Mg Tab 1-2 Tab PO Q6 PRN 02/28/17 Rx Nizoral (Ketoconazole (Topical)) 2 % Sha 1 Appln TOP UD PRN 30 05/11/16 Reported Synthroid (Levothyroxine Sodium) 150 Mcg Tab 150 Mcg PO NOON 12/20/15 Reported Vitamin B12 100 Mcg (Cyanocobalamin) 100 Mcg Tab 100 Mcg PO NOON 06/15/15 Reported Furosemide 20 Mg Tab 40 Mg PO NOON 06/15/15 Reported Amaryl (Glimepiride) 1 Mg Tab 1 Mg PO NOON 06/15/15 Reported Zyloprim (Allopurinol) 300 Mg Tab 300 Mg PO NOON 09/27/13 Reported Aspirin Chewable (Aspirin) 81 Mg Chew 81 Mg PO NOON 09/27/13 Reported Tenormin (Atenolol) 50 Mg Tab 50 Mg PO NOON 09/27/13 Reported Cardizem Cd (Diltiazem Hcl Coated Beads) 240 Mg Cap 240 Mg PO NOON 09/27/13 Reported Cozaar (Losartan Potassium) 100 Mg Tab 100 Mg PO NOON 09/27/13 Reported Vitamin E 400 Iu (Vitamin E) 400 Unit Cap 400 Inter.unit PO NOON 09/27/13 Reported Ascorbic Acid 500 Mg Tab 500 Mg PO NOON 09/27/13 Reported Micro-K Ext Rel (Potassium Chloride) 10 Meq Capcr 20 Meq PO NOON 09/27/13 Reported Review of Systems Constitutional: No problem reported Eyes: No problem reported Respiratory: + dyspnea on exertion Cardiac: No chest pain Abdomen: No pain, No nausea, No vomiting, No diarrhea, No constipation Musculoskeletal: No joint pain Psych: No problem reported Skin: No problem reported Physical Exam Date Time Temp Pulse Resp B/P (MAP) Pulse Ox O2 Delivery O2 Flow Rate FiO2 03/16/17 08:04 36.9 60 18 135/73 (93) 96 Room Air 03/16/17 00:48 36.8 64 18 138/65 94 03/16/17 00:00 Room Air 03/15/17 23:25 36.8 60 14 131/61 97 03/15/17 22:25 36.7 63 14 132/57 95 03/15/17 21:55 37.0 63 16 117/58 98 03/15/17 21:25 36.3 63 16 132/72 96 03/15/17 21:10 36.6 61 14 122/84 96 03/15/17 20:54 36.8 61 18 122/73 96 03/15/17 19:05 36.6 64 18 130/71 97 03/15/17 18:30 Room Air 03/15/17 18:05 36.6 62 18 153/77 96 03/15/17 17:25 36.7 59 18 115/70 95 03/15/17 17:15 Room Air 03/15/17 16:47 36.8 63 20 136/66 96 0.0 03/15/17 16:31 36.8 61 20 124/60 96 0.0 03/15/17 16:18 36.8 61 20 134/64 98 03/15/17 15:30 63 144/66 98 Room Air 03/15/17 15:03 65 03/15/17 14:48 66 20 121/54 95 Room Air 03/15/17 14:16 Room Air 03/15/17 14:16 Room Air 03/15/17 13:45 36.4 73 22 137/62 99 Room Air General Appearance: WD/WN, no apparent distress Eyes: normal inspection, PERRL Respiratory/Chest: lungs clear, normal breath sounds Cardiovascular: regular rate, rhythm Abdomen: normal bowel sounds, non tender, soft Extremities: non-tender Neurologic/Psych: alert, oriented x 3 Skin: normal color Laboratory Results Last 24 Hours Test 03/15/17 14:16 03/15/17 15:50 03/15/17 18:09 03/15/17 20:11 White Blood Count 13.31 K/uL Red Blood Count 2.93 M/uL Hemoglobin 8.3 g/dL Hematocrit 26.6 % Mean Corpuscular Volume 90.8 fL Mean Corpuscular Hemoglobin 28.3 pg Mean Corpuscular Hemoglobin Concent 31.2 g/dl Platelet Count 310 K/uL Mean Platelet Volume 8.6 fL Neutrophils (%) (Auto) 79.7 % Lymphocytes (%) (Auto) 15.0 % Monocytes (%) (Auto) 3.8 % Eosinophils (%) (Auto) 0.8 % Basophils (%) (Auto) 0.2 % Neutrophils # (Auto) 10.60 K/uL Lymphocytes # (Auto) 2.00 K/uL Monocytes # (Auto) 0.50 K/uL Eosinophils # (Auto) 0.11 K/uL Basophils # (Auto) 0.03 K/uL RDW Standard Deviation 50.9 fL RDW Coefficient of Variation 16.1 % Immature Granulocyte % (Auto) 0.5 % Immature Granulocyte # (Auto) 0.07 K/uL Prothrombin Time 33.4 SECONDS Prothromb Time International Ratio 3.0 Activated Partial Thromboplast Time 46.5 SECONDS Partial Thromboplastin Ratio 1.8 Sodium Level 139 mmol/L Potassium Level 3.5 mmol/L Chloride Level 107 mmol/L Carbon Dioxide Level 25 mmol/L Anion Gap 7.0 mmol/L Blood Urea Nitrogen 42 mg/dl Creatinine 1.25 mg/dl Est Creatinine Clear Calc Drug Dose 37.6 ml/min Estimated GFR () 47.4 Estimated GFR (Non- 40.9 BUN/Creatinine Ratio 33.7 Random Glucose 123 mg/dl Calcium Level 8.5 mg/dl Magnesium Level 2.0 mg/dl Total Bilirubin 0.7 mg/dl Aspartate Amino Transf (AST/SGOT) 15 U/L Alanine Aminotransferase (ALT/SGPT) 23 U/L Alkaline Phosphatase 78 U/L Troponin I < 0.015 ng/ml Total Protein 6.4 gm/dl Albumin 3.0 gm/dl Globulin 3.4 gm/dl Albumin/Globulin Ratio 0.9 Thyroid Stimulating Hormone (TSH) 10.800 uIu/ml Free Thyroxine 1.04 ng/dl Urine Color YELLOW Urine Appearance CLEAR Urine pH 5.5 Urine Specific [facility] 1.013 Urine Protein NEG Urine Glucose (UA) NEG Urine Ketones NEG Urine Occult Blood NEG Urine Nitrite NEG Urine Bilirubin NEG Urine Urobilinogen NEG Urine Leukocyte Esterase SMALL Urine WBC (Auto) 1-5 /hpf Urine RBC (Auto) 0-4 /hpf Urine Hyaline Casts (Auto) 1-5 /lpf Urine Epithelial Cells (Auto) >30 /lpf Urine Bacteria (Auto) NEG Bedside Glucose 136 mg/dl 132 mg/dl Test 03/15/17 23:59 03/16/17 01:04 03/16/17 05:52 03/16/17 06:00 Bedside Glucose 125 mg/dl 144 mg/dl Hemoglobin 9.8 g/dL 10.0 g/dL Sodium Level 143 mmol/L Potassium Level 3.1 mmol/L Chloride Level 108 mmol/L Carbon Dioxide Level 25 mmol/L Anion Gap 9.0 mmol/L Blood Urea Nitrogen 37 mg/dl Creatinine 1.30 mg/dl Est Creatinine Clear Calc Drug Dose 36.2 ml/min Estimated GFR () 45.2 Estimated GFR (Non- 39.0 BUN/Creatinine Ratio 28.3 Random Glucose 138 mg/dl Calcium Level 7.9 mg/dl Magnesium Level 1.9 mg/dl Test 03/16/17 08:47 Impression Patient is a 81 year old female with melena & anemia after recent TKR after which she was anticoagulated with Coumadin. Plan 1) NPO for EGD today for further evaluation. Repeat INR is pending. 2) Continue Protonix drip at present. 3) Continue to monitor H/H and monitor for signs of further bleeding. 4) Supportive care per primary team. Thank you for allowing us to participate in the care of this patient. If you should have any further questions or concerns, do not hesitate to contact us. Agree with CHEKO Mcguire as above Abd: Soft, NT, ND, +BS Proceed with EGD now Continue current therapy
[2017-03-16 10:00] LABS: INR 1.2 (0.9-1.1); PROTHROMBIN TIME (PATIENT) 12.7 SECONDS (9.0-12.0)
[2017-03-16] MEDS ORDERED: MoRPHine SULFATE 2 MG/ML CARP IV ONE (11:45)
[2017-03-16] MEDS ORDERED: KETOROLAC TROMETHAMINE 15 MG/ML VIAL IV. ONE (11:45)
[2017-03-16 13:20] VITALS: BP 135/73; TEMP 36.9; O2SAT 96
[2017-03-16] MEDS ORDERED: LIDOCAINE HCL 2% 2 ML VIAL (20MG/ML) ONE (14:51)
[2017-03-16] MEDS ORDERED: PROPOFOL IV EMULSION 10 MG/ML 20 ML VIAL IV ONE (14:51)
[2017-03-16] MEDS ORDERED: MIDAZOLAM HCL 1 MG/ML 2ML VIAL ONE (14:51)
--- NOTE | 2017-03-16 15:25 | GI REPORT ---
Procedure Date: 03/16/2017 2:26 PM Procedure: Upper GI endoscopy Indications: Melena Medicines: Monitored Anesthesia Care Complications: No immediate complications. Estimated Blood Loss: Estimated blood loss: none. Procedure: Pre-Anesthesia Assessment: - Prior to the procedure, a History and Physical was performed, and patient medications and allergies were reviewed. The patient's tolerance of previous anesthesia was also reviewed. The risks and benefits of the procedure and the sedation options and risks were discussed with the patient. All questions were answered, and informed consent was obtained. Prior Anticoagulants: The patient last took aspirin 1 day and Coumadin (warfarin) 2 days prior to the procedure. ASA Grade Assessment: III - A patient with severe systemic disease. After reviewing the risks and benefits, the patient was deemed in satisfactory condition to undergo the procedure. After obtaining informed consent, the endoscope was passed under direct vision. Throughout the procedure, the patient's blood pressure, pulse, and oxygen saturations were monitored continuously. The Scope was introduced through the mouth, and advanced to the second part of duodenum. The upper GI endoscopy was accomplished without difficulty. The patient tolerated the procedure well. Findings: A non-obstructing Schatzki ring (acquired) was found at the gastroesophageal junction. A small hiatus hernia was present. Four non-bleeding cratered gastric ulcers with a visible vessel were found in the gastric antrum. The largest lesion was 8 mm in largest dimension. Area was successfully injected with 2 mL of a 1:10,000 solution of epinephrine for improved access (by lifting the lesion prior to destruction). Fulguration to ablate the lesion to prevent bleeding by heater probe was successful. The examined duodenum was normal. Impression: - Non-obstructing Schatzki ring. - Small hiatus hernia. - Non-bleeding gastric ulcers with a visible vessel. Injected. Treated with a heater probe. - Normal examined duodenum. - No specimens collected. Recommendation: - Return patient to [facility] for [facility] care. - Advance diet as tolerated. - Give Protonix (pantoprazole): initiate therapy with 80 mg IV bolus, then 8 mg/hr IV by continuous infusion for 3 days. Jama Carlisle DO 03/16/2017 3:24:57 PM This report has been signed electronically. Note Initiated On: 03/16/2017 2:26 PM I attest to the content of the Intraoperative Record and orders documented therein, exceptions below
--- NOTE | 2017-03-16 15:47 | Progress Note ---
Subjective Date of Service: Mar 16, 2017. Subjective Pt evaluation today including: conversation w/ patient, physical exam, lab review, conversation w/ merchandising consultant, review of inpatient medication list Pain: mild pain in knee PO Intake: NPO for EGD Voiding: no voiding problems patient feeling well except for some knee pain, relieved with Toradol she wanted to eat, knew she had to wait for EGD reviewed labs, Hb stable at 10 after transfusion EGD showed ring, shallow based gastric ulcers, one with vessel that was visible injected and heat probe applied appreciate GI recommendations Problem List Medical Problems: (1) Anemia Status: Acute (2) Shortness of breath Status: Acute (3) SOB (shortness of breath) Status: Acute (4) Supratherapeutic INR Status: Acute Review of Systems Constitutional: + weakness, + fatigue Musculoskeletal: + joint pain (knee) All Other Systems: Reviewed and Negative Medications Current Inpatient Medications Medications (Trade) Dose Ordered Sig/Munira Route Start Time Stop Time Status Last Admin Dose Admin Allopurinol (Zyloprim Tab) 300 mg Q24H PO 03/16/17 12:00 04/15/17 11:59 Atenolol (Tenormin Tab) 50 mg Q24H PO 03/16/17 12:00 04/15/17 11:59 Diltiazem HCl (Cardizem Cd Cap) 240 mg Q24H PO 03/16/17 12:00 04/15/17 11:59 Levothyroxine Sodium (Synthroid Tab) 150 mcg DAILYBB PO 03/16/17 06:30 04/15/17 06:59 03/16/17 05:45 150 MCG Losartan Potassium (coZAAR TAB) 100 mg Q24H PO 03/16/17 12:00 04/15/17 11:59 Tramadol HCl (Ultram Tab) 50 mg Q6H PRN PO 03/15/17 15:30 04/14/17 15:29 Ondansetron HCl (Zofran Inj) 4 mg Q6H PRN IV 03/15/17 15:30 04/14/17 15:29 Insulin Aspart (novoLOG ASPART) SLIDING SCALE G... Q6 SC 03/15/17 18:00 04/14/17 17:59 Glucose (Glucose 40% Gel) 15-30 GRAMS 15 GRAMS... UD PRN PO 03/15/17 15:45 04/14/17 15:44 Glucose (Glucose Chew Tab) 4-8 Tablets 4 Tabl... UD PRN PO 03/15/17 15:45 04/14/17 15:44 Dextrose (Dextrose 50% 50ML Syringe) 25-50ML OF 50% DW IV FOR... UD PRN IV 03/15/17 15:45 04/14/17 15:44 Glucagon (Glucagon Inj) 1 mg UD PRN SQ 03/15/17 15:45 04/14/17 15:44 Pantoprazole Sodium 40 mg/ Dextrose 100 ml @ 20 mls/hr Q5H IV 03/15/17 19:30 04/14/17 19:29 03/16/17 10:54 20 MLS/HR Objective Vital Signs Date Time Temp Pulse Resp B/P (MAP) Pulse Ox O2 Delivery O2 Flow Rate FiO2 03/16/17 15:30 69 20 149/79 (102) 98 Room Air 03/16/17 15:14 66 20 111/75 (87) 96 Room Air 03/16/17 13:52 37.3 71 20 142/70 (94) 95 Room Air 03/16/17 13:20 36.9 18 135/73 96 Room Air 0.0 03/16/17 08:04 36.9 60 18 135/73 (93) 96 Room Air 03/16/17 08:00 94 Room Air 0.0 03/16/17 00:48 36.8 64 18 138/65 94 03/16/17 00:00 Room Air 03/15/17 23:25 36.8 60 14 131/61 97 03/15/17 22:25 36.7 63 14 132/57 95 03/15/17 21:55 37.0 63 16 117/58 98 03/15/17 21:25 36.3 63 16 132/72 96 03/15/17 21:10 36.6 61 14 122/84 96 03/15/17 20:54 36.8 61 18 122/73 96 03/15/17 19:05 36.6 64 18 130/71 97 03/15/17 18:30 Room Air 03/15/17 18:05 36.6 62 18 153/77 96 03/15/17 17:25 36.7 59 18 115/70 95 03/15/17 17:15 Room Air 03/15/17 16:47 36.8 63 20 136/66 96 0.0 03/15/17 16:31 36.8 61 20 124/60 96 0.0 03/15/17 16:18 36.8 61 20 134/64 98 Physical Exam General Appearance: WD/WN, no apparent distress Eyes: normal inspection, EOMI, sclerae normal ENT: normal ENT inspection, hearing grossly normal, pharynx normal Neck: supple, no adenopathy, no JVD, trachea midline Respiratory/Chest: chest non-tender, lungs clear, normal breath sounds, no respiratory distress, no accessory muscle use Cardiovascular: regular rate, rhythm, no edema, no gallop, no JVD, no murmur Abdomen: normal bowel sounds, non tender, soft, no organomegaly Extremities: normal range of motion, non-tender, normal inspection, no pedal edema, no calf tenderness, pelvis stable 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, no motor/sensory deficits, alert, normal mood/affect, oriented x 3 Skin: normal color, warm/dry, no rash Lymphatic: no adenopathy Laboratory Results Last 24 Hours Test 03/15/17 15:50 03/15/17 18:09 03/15/17 20:11 03/15/17 23:59 Urine Color YELLOW Urine Appearance CLEAR Urine pH 5.5 Urine Specific [place] 1.013 Urine Protein NEG Urine Glucose (UA) NEG Urine Ketones NEG Urine Occult Blood NEG Urine Nitrite NEG Urine Bilirubin NEG Urine Urobilinogen NEG Urine Leukocyte Esterase SMALL Urine WBC (Auto) 1-5 /hpf Urine RBC (Auto) 0-4 /hpf Urine Hyaline Casts (Auto) 1-5 /lpf Urine Epithelial Cells (Auto) >30 /lpf Urine Bacteria (Auto) NEG Bedside Glucose 136 mg/dl 132 mg/dl 125 mg/dl Test 03/16/17 01:04 03/16/17 05:52 03/16/17 06:00 03/16/17 09:42 Hemoglobin 9.8 g/dL 10.0 g/dL Bedside Glucose 144 mg/dl Sodium Level 143 mmol/L Potassium Level 3.1 mmol/L Chloride Level 108 mmol/L Carbon Dioxide Level 25 mmol/L Anion Gap 9.0 mmol/L Blood Urea Nitrogen 37 mg/dl Creatinine 1.30 mg/dl Est Creatinine Clear Calc Drug Dose 36.2 ml/min Estimated GFR () 45.2 Estimated GFR (Non- 39.0 BUN/Creatinine Ratio 28.3 Random Glucose 138 mg/dl Calcium Level 7.9 mg/dl Magnesium Level 1.9 mg/dl Prothrombin Time 12.7 SECONDS Prothromb Time International Ratio 1.2 Test 03/16/17 11:52 Bedside Glucose 136 mg/dl Assessment and Plan 81 y/o F Hx DM, HTN, gout, RA, hypothyroidism. Pt underwent a TKR 02/28 and was placed on Coumadin for DVT prophylaxis following. She describes developing dark stool a few days after but did not address this as she attributed the change in her bowels to initiation of Colace. Over the past 2 days she has developed exertional dyspnea and lightheadedness and presented to the hospital therefore. Initial labs conformed a Hb of 8, down from 12.9 prior to her surgery. She denies any abdominal pain. She dose develop nausea when she takes pain medication, namely Tramadol. She has not had any CP and denies palpitations. 1) GI bleed with blood loss anemia transfused two units, Hb up to 10, feeling better, more energy, not dizzy EGD today showed gastric ulcers, shallow, no bleeding, one with visible vessel that was treated with heat probe Protonix drip for three days clear liquids tonight 2) DM - placed on a SS Q6H - sugars stable, hold oral meds until discharge 3) Hypothyroidism - TSH is elevated - T4 within normal limits - would recheck in outpt setting 4) Gout - cont Allopurinol 5) HTN - cont ARB - Lasix is held pending AM reevaluation 6) Recent TKA: Toradol for pain, worked well no further Coumadin for DVT prophylaxis Full code SCDs
--- NOTE | 2017-03-16 16:07 | Anesthesiology Progress Note ---
Anesthesia Post Op Note Date & Time Mar 16, 2017 at 16:07 Vital Signs Pain Intensity: 0 Vital Signs Past 12 Hours Date Time Temp Pulse Resp B/P (MAP) Pulse Ox O2 Delivery O2 Flow Rate FiO2 03/16/17 15:45 72 20 153/84 (107) 94 Room Air 03/16/17 15:30 69 20 149/79 (102) 98 Room Air 03/16/17 15:14 66 20 111/75 (87) 96 Room Air 03/16/17 13:52 37.3 71 20 142/70 (94) 95 Room Air 03/16/17 13:20 36.9 18 135/73 96 Room Air 0.0 03/16/17 08:04 36.9 60 18 135/73 (93) 96 Room Air 03/16/17 08:00 94 Room Air 0.0 Notes Mental Status: alert / awake / arousable, participated in evaluation Pt Amnestic to Procedure: Yes Nausea / Vomiting: adequately controlled Pain: adequately controlled Airway Patency, RR, SpO2: stable & adequate BP & HR: stable & adequate Hydration State: stable & adequate Anesthetic Complications: no major complications apparent
[2017-03-16 16:44] VITALS: BP 156/77; PULSE 65; TEMP 36.5; O2SAT 96
[2017-03-16] MEDS: ALLOPURINOL 300 MG TAB PO SCH (20:16)
[2017-03-16] MEDS: LOSARTAN POTASSIUM 50 MG TAB PO SCH (20:16)
[2017-03-16] MEDS: DILTIAZEM HCL 240 MG CAPCR PO SCH (20:17)
[2017-03-16] MEDS ORDERED: NURSING VERBAL MED ORDER ONE (20:45)
[2017-03-16 23:52] VITALS: BP 144/67; PULSE 69; TEMP 36.9; O2SAT 96
[2017-03-17] MEDS: PANTOprazole INJ 40 MG in DEXTROSE 5% 100ML IV SCH ×5 (01:34→20:39)
[2017-03-17] MEDS: LEVOTHYROXINE 150 MCG TAB PO SCH (06:28)
[2017-03-17 07:50] VITALS: BP 152/74; PULSE 59; TEMP 36.5; O2SAT 94
[2017-03-17] MEDS: INSULIN ASPART 100 UNITS/ML 3 ML PEN SC SCH ×4 (09:08→20:37)
[2017-03-17] MEDS: SUCRALFATE 1 GM/10 ML UDC PO SCH ×4 (09:08→20:37)
--- NOTE | 2017-03-17 10:05 | PROGRESS NOTE ---
DATE: 03/17/2017 The patient is doing reasonably well. She has had no further episodes of melena. Underwent procedure yesterday, found gastric ulcers. Likely based on NSAID use in the past. At this point in time she remains without any official oral or parenteral anticoagulation.She anticoagulation. is up and ambulatory well. She is wearing her stockings. She has SCDs ordered at present. They need to be applied as ordered. Calves are nontender. Wound clean and dry. ASSESSMENT: Doing well from an orthopedic perspective. Continue mobilization, DVT, PE prophylaxis for another 2-3 weeks per medicine's choice based on medical comorbidity of ulcer disease. Follow up with me already arranged from previous office visit on the day of admission when she was sent to the Emergency Department from our office based on her complaints. RED
[2017-03-17 10:49] LABS: HEMATOCRIT 31.6 % (37-47)
[2017-03-17] MEDS ORDERED: NURSING VERBAL MED ORDER ONE (11:00)
[2017-03-17 11:10] LABS: BUN/CREATININE RATIO 17.7 (10-20); CALCIUM 7.5 mg/dl (8.5-10.1); CREATININE 1.15 mg/dl (0.60-1.20)
--- NOTE | 2017-03-17 11:25 | Gastroenterology Progress Note ---
Progress Note Date of Service: Mar 17, 2017 Subjective Pt evaluation today including: conversation w/ patient, physical exam 81 year old female patient with comorbids of HTN, RA, Gout, DM, obesity, s/p TKR last month, takes daily NSAIDs and Coumadin for DVT prophylaxis, admitted with GIB, s/p EGD, found to have PUD with visible vessel treated with cautary. Today feels fine, no abdominal pain, hematemesis or rectal bleeding. Review of Systems Constitutional: No fever, No chills Respiratory: No cough, No sputum Cardiac: No chest pain, No orthopnea Abdomen: No pain, No nausea, No vomiting, No diarrhea Medications Current Inpatient Medications Medications (Trade) Dose Ordered Sig/Munira Route Start Time Stop Time Status Last Admin Dose Admin Allopurinol (Zyloprim Tab) 300 mg Q24H PO 03/16/17 12:00 04/15/17 11:59 03/16/17 20:16 300 MG Atenolol (Tenormin Tab) 50 mg Q24H PO 03/16/17 12:00 04/15/17 11:59 03/16/17 20:16 50 MG Diltiazem HCl (Cardizem Cd Cap) 240 mg Q24H PO 03/16/17 12:00 04/15/17 11:59 03/16/17 20:17 240 MG Levothyroxine Sodium (Synthroid Tab) 150 mcg DAILYBB PO 03/16/17 06:30 04/15/17 06:59 03/17/17 06:28 150 MCG Losartan Potassium (coZAAR TAB) 100 mg Q24H PO 03/16/17 12:00 04/15/17 11:59 03/16/17 20:16 100 MG Tramadol HCl (Ultram Tab) 50 mg Q6H PRN PO 03/15/17 15:30 04/14/17 15:29 Ondansetron HCl (Zofran Inj) 4 mg Q6H PRN IV 03/15/17 15:30 04/14/17 15:29 Glucose (Glucose 40% Gel) 15-30 GRAMS 15 GRAMS... UD PRN PO 03/15/17 15:45 04/14/17 15:44 Glucose (Glucose Chew Tab) 4-8 Tablets 4 Tabl... UD PRN PO 03/15/17 15:45 04/14/17 15:44 Dextrose (Dextrose 50% 50ML Syringe) 25-50ML OF 50% DW IV FOR... UD PRN IV 03/15/17 15:45 04/14/17 15:44 Glucagon (Glucagon Inj) 1 mg UD PRN SQ 03/15/17 15:45 04/14/17 15:44 Pantoprazole Sodium 40 mg/ Dextrose 100 ml @ 20 mls/hr Q5H IV 03/15/17 19:30 04/14/17 19:29 03/17/17 11:02 20 MLS/HR Insulin Aspart (novoLOG ASPART) SLIDING SCALE G... ACHS SC 03/16/17 21:00 04/15/17 20:59 Sucralfate (Carafate Susp) 1 gm QID PO 03/17/17 09:00 04/16/17 08:59 03/17/17 09:08 1 GM Polyethylene (Miralax Powder Packet) 17 gm QAM PO 03/18/17 09:00 04/17/17 08:59 Polyethylene (Miralax Powder Packet) 17 gm 1130 ONCE PO 03/17/17 11:30 03/17/17 11:31 Objective Vital Signs Date Time Temp Pulse Resp B/P (MAP) Pulse Ox O2 Delivery O2 Flow Rate FiO2 03/17/17 08:30 Room Air 0.0 03/17/17 07:50 36.5 59 16 152/74 (100) 94 Room Air 03/17/17 00:00 Room Air 03/16/17 23:52 36.9 69 16 144/67 (92) 96 Room Air 03/16/17 16:44 36.5 65 18 156/77 (103) 96 Room Air 03/16/17 15:45 72 20 153/84 (107) 94 Room Air 03/16/17 15:40 Room Air 03/16/17 15:30 69 20 149/79 (102) 98 Room Air 03/16/17 15:14 66 20 111/75 (87) 96 Room Air 03/16/17 13:52 37.3 71 20 142/70 (94) 95 Room Air 03/16/17 13:20 36.9 18 135/73 96 Room Air 0.0 Physical Exam General Appearance: no apparent distress Eyes: PERRL Neck: supple, trachea midline Respiratory/Chest: chest non-tender, lungs clear Cardiovascular: regular rate, rhythm, no edema Abdomen: normal bowel sounds, non tender, soft Skin: no rash Laboratory Results Last 24 Hours Test 03/16/17 11:52 03/16/17 17:12 03/16/17 20:24 03/17/17 07:26 Bedside Glucose 136 mg/dl 121 mg/dl 103 mg/dl 110 mg/dl Test 03/17/17 10:34 Hemoglobin 10.0 g/dL Hematocrit 31.6 % Sodium Level 143 mmol/L Potassium Level 3.0 mmol/L Chloride Level 110 mmol/L Carbon Dioxide Level 25 mmol/L Anion Gap 8.0 mmol/L Blood Urea Nitrogen 20 mg/dl Creatinine 1.15 mg/dl Est Creatinine Clear Calc Drug Dose 40.9 ml/min Estimated GFR () 52.4 Estimated GFR (Non- 45.2 BUN/Creatinine Ratio 17.7 Random Glucose 104 mg/dl Calcium Level 7.5 mg/dl Assessment and Plan Patient with PUD likely secondary to NSAIDs, s/p GI bleeding in the setting of Coumadin use. Bleeding controlled with endoscopy. H/H stable today. No signs of rebleeding. Recommendations: Advance diet as tolerated. Continue PPI drip to complete 3 days then change to PO BID for 3 months. Avoid NSAIDs. Needs repeat EGD in 3 months to check for healing of the ulcer. No contraindication from GI point to resume AC tomorrow if patient takes PPI as instructed and avoids NSAIDs but will defer decision to primary team and consider risk of bleeding Vs benefit of AC. Please recall GI if any evidence of rebleeding or any concerns.
[2017-03-17] MEDS ORDERED: POLYETHYLENE (MIRALAX) 17 GM PACK PO ONE (11:30)
--- NOTE | 2017-03-17 12:23 | Hospitalist Progress Note ---
Hospitalist Progress Note Date of Service Mar 17, 2017. Subjective Pt evaluation today including: conversation w/ patient, conversation w/ family , physical exam, lab review, review of studies, review of inpatient medication list Voiding: no voiding problems Patient sitting up in bed, feeling well. Tolerated full lunch. +dark BM this AM. Discussed anticoagulation w/ patient- would like to discuss w/ Dr. Vargas first. Patient denies any fever, chills, sweats, lightheadedness, dizziness, vision changes, CP, palpitations, edema, SOB, wheezing, cough, abdominal pain, nausea, vomiting, diarrhea, urinary symptoms, melena, numbness/tingling, weakness, muscle/joint pain, anxiety/depression, active bleeding, or new skin discoloration/changes. Medications Current Inpatient Medications Medications (Trade) Dose Ordered Sig/Munira Route Start Time Stop Time Status Last Admin Dose Admin Allopurinol (Zyloprim Tab) 300 mg Q24H PO 03/16/17 12:00 04/15/17 11:59 03/16/17 20:16 300 MG Atenolol (Tenormin Tab) 50 mg Q24H PO 03/16/17 12:00 04/15/17 11:59 03/16/17 20:16 50 MG Diltiazem HCl (Cardizem Cd Cap) 240 mg Q24H PO 03/16/17 12:00 04/15/17 11:59 03/16/17 20:17 240 MG Levothyroxine Sodium (Synthroid Tab) 150 mcg DAILYBB PO 03/16/17 06:30 04/15/17 06:59 03/17/17 06:28 150 MCG Losartan Potassium (coZAAR TAB) 100 mg Q24H PO 03/16/17 12:00 04/15/17 11:59 03/16/17 20:16 100 MG Tramadol HCl (Ultram Tab) 50 mg Q6H PRN PO 03/15/17 15:30 04/14/17 15:29 Ondansetron HCl (Zofran Inj) 4 mg Q6H PRN IV 03/15/17 15:30 04/14/17 15:29 Glucose (Glucose 40% Gel) 15-30 GRAMS 15 GRAMS... UD PRN PO 03/15/17 15:45 04/14/17 15:44 Glucose (Glucose Chew Tab) 4-8 Tablets 4 Tabl... UD PRN PO 03/15/17 15:45 04/14/17 15:44 Dextrose (Dextrose 50% 50ML Syringe) 25-50ML OF 50% DW IV FOR... UD PRN IV 03/15/17 15:45 04/14/17 15:44 Glucagon (Glucagon Inj) 1 mg UD PRN SQ 03/15/17 15:45 04/14/17 15:44 Pantoprazole Sodium 40 mg/ Dextrose 100 ml @ 20 mls/hr Q5H IV 03/15/17 19:30 04/14/17 19:29 03/17/17 11:02 20 MLS/HR Insulin Aspart (novoLOG ASPART) SLIDING SCALE G... ACHS SC 03/16/17 21:00 04/15/17 20:59 Sucralfate (Carafate Susp) 1 gm QID PO 03/17/17 09:00 04/16/17 08:59 03/17/17 09:08 1 GM Polyethylene (Miralax Powder Packet) 17 gm QAM PO 03/18/17 09:00 04/17/17 08:59 Potassium Chloride (Klor-Con Tab) 40 meq ONE PO 03/17/17 11:45 04/16/17 11:44 UNV Objective Vital Signs Date Time Temp Pulse Resp B/P (MAP) Pulse Ox O2 Delivery O2 Flow Rate FiO2 03/17/17 08:30 Room Air 0.0 03/17/17 07:50 36.5 59 16 152/74 (100) 94 Room Air 03/17/17 00:00 Room Air 03/16/17 23:52 36.9 69 16 144/67 (92) 96 Room Air 03/16/17 16:44 36.5 65 18 156/77 (103) 96 Room Air 03/16/17 15:45 72 20 153/84 (107) 94 Room Air 03/16/17 15:40 Room Air 03/16/17 15:30 69 20 149/79 (102) 98 Room Air 03/16/17 15:14 66 20 111/75 (87) 96 Room Air 03/16/17 13:52 37.3 71 20 142/70 (94) 95 Room Air 03/16/17 13:20 36.9 18 135/73 96 Room Air 0.0 Physical Exam General Appearance: no apparent distress Eyes: normal inspection, PERRL ENT: hearing grossly normal Neck: supple Respiratory/Chest: lungs clear, no respiratory distress, no accessory muscle use Cardiovascular: regular rate, rhythm, + systolic murmur Abdomen: normal bowel sounds, non tender, soft Extremities: no pedal edema, no calf tenderness Neurologic/Psychiatric: alert, normal mood/affect, oriented x 3 Skin: normal color, warm/dry, no rash Laboratory Results Last 24 Hours Test 03/16/17 11:52 03/16/17 17:12 03/16/17 20:24 03/17/17 07:26 Bedside Glucose 136 mg/dl 121 mg/dl 103 mg/dl 110 mg/dl Test 03/17/17 10:34 Hemoglobin 10.0 g/dL Hematocrit 31.6 % Sodium Level 143 mmol/L Potassium Level 3.0 mmol/L Chloride Level 110 mmol/L Carbon Dioxide Level 25 mmol/L Anion Gap 8.0 mmol/L Blood Urea Nitrogen 20 mg/dl Creatinine 1.15 mg/dl Est Creatinine Clear Calc Drug Dose 40.9 ml/min Estimated GFR () 52.4 Estimated GFR (Non- 45.2 BUN/Creatinine Ratio 17.7 Random Glucose 104 mg/dl Calcium Level 7.5 mg/dl Assessment and Plan 81 y/o F Hx DM, HTN, gout, RA, hypothyroidism. Pt underwent a TKR 02/28 and was placed on Coumadin for DVT prophylaxis following. She describes developing dark stool a few days after but did not address this as she attributed the change in her bowels to initiation of Colace. Over the past 2 days she has developed exertional dyspnea and lightheadedness and presented to the hospital therefore. Initial labs conformed a Hb of 8, down from 12.9 prior to her surgery. She denies any abdominal pain. She dose develop nausea when she takes pain medication, namely Tramadol. She has not had any CP and denies palpitations. GI bleed w/ acute blood loss anemia- transfused 2 u PRBC on 03/15: - IV Protonix gtt x3 days, then PO BID x3 months + Carafate QID - Advance diet as tolerated - H&H- STABLE- continue to follow - Warfarin held - GI consulted, appreciate recommendations -- EGD on 03/16- gastric ulcers, shallow, no bleeding, one with visible vessel that was treated with heat probe -- Repeat EGD in 3 months -- Avoid NSAID use Hypokalemia: Replace w/ 40 mEq KCL supplement, follow PRP and replace PRN T2DM: - Hold Glimepiride 1 mg afternoon while inpatient - BSG ACHS and ISS Hypothyroidism- TSH is elevated, T4 within normal limits: - Continue Synthroid 150 mcg daily - Recommend outpatient f/u Gout: Allopurinol 300 mg daily HTN: Atenolol 50 mg daily, Diltazem 240 mg daily, Losartan 100 mg daily L TKA on 02/[address] Lowe: - Tramadol PRN - Outpatient ortho f/u as scheduled - Warfarin for DVT prophylaxis held- recommending possibly another 2-3 weeks of treatment DVT prophylaxis: SCDs Code Status: LEVEL I, FULL Dispo: Discharge to home once medically stable- PT consulted
[2017-03-17] MEDS ORDERED: POTASSIUM CHLORIDE 20 MEQ TABCR PO ONE (12:45)
[2017-03-17 13:05] VITALS: BP 127/66; PULSE 68
[2017-03-17] MEDS: DILTIAZEM HCL 240 MG CAPCR PO SCH (13:12)
[2017-03-17] MEDS: LOSARTAN POTASSIUM 50 MG TAB PO SCH (13:12)
[2017-03-17] MEDS: ALLOPURINOL 300 MG TAB PO SCH (13:13)
[2017-03-17 15:12] VITALS: BP 137/70; PULSE 64; TEMP 36.4; O2SAT 94
[2017-03-17 16:00] VITALS: O2SAT 94
[2017-03-17 23:36] VITALS: BP 117/61; PULSE 67; TEMP 36.5; O2SAT 97
[2017-03-18] VITALS: O2SAT 94
[2017-03-18] MEDS: INSULIN ASPART 100 UNITS/ML 3 ML PEN SC SCH ×2 (06:30→11:00)
[2017-03-18] MEDS: LEVOTHYROXINE 150 MCG TAB PO SCH (06:51)
[2017-03-18] MEDS: PANTOprazole INJ 40 MG in DEXTROSE 5% 100ML IV SCH (06:53)
[2017-03-18 07:21] VITALS: BP 130/66; PULSE 55; TEMP 37; O2SAT 98
[2017-03-18] MEDS: SUCRALFATE 1 GM/10 ML UDC PO SCH (07:41)
[2017-03-18 08:00] VITALS: O2SAT 94
[2017-03-18 08:30] LABS: HEMATOCRIT 32.1 % (37-47)
[2017-03-18] MEDS ORDERED: POLYETHYLENE (MIRALAX) 17 GM PACK PO SCH (09:00)
[2017-03-18] MEDS ORDERED: PANT1TAB3 PO (09:03)
[2017-03-18] MEDS ORDERED: CMD/25 PO (09:03)
[2017-03-18 09:04] LABS: CALCIUM 7.6 mg/dl (8.5-10.1); CREATININE 1.16 mg/dl (0.60-1.20); POTASSIUM 3.2 mmol/L (3.5-5.1)
--- NOTE | 2017-03-18 09:19 | Discharge Summary ---
Discharge Summary Date of Service Mar 18, 2017. Discharge Summary Admission Date: Mar 15, 2017 at 15:24 Discharge Date: Mar 18, 2017 Discharge Disposition: Home Principal Diagnosis: Gastric ulcer, GI bleed Problems/Secondary Diagnoses: GI bleed w/ acute blood loss anemia- transfused 2 u PRBC on 03/15 Hypokalemia T2DM Hypothyroidism Gout HTN L TKA on 02/[address] Lowe Immunizations: History of Tetanus Vaccine?: Yes History of Pneumococcal: Yes History of Hepatitis B Vaccine: No Procedures: CHEST ONE VIEW PORTABLE CLINICAL HISTORY: 81 years-old Female presenting with EVALUATE RESPIRATORY DISTRESS.DYSPNEA. TECHNIQUE: Portable upright AP view of the chest was obtained. COMPARISON: 01/22/2017. FINDINGS: Cardiomediastinal silhouette normal. Linear opacity in the left base. Lungs and pleural spaces otherwise clear. Degenerative changes of the thoracic spine. Upper abdomen normal. IMPRESSION: 1. Minimal left basilar atelectasis or scarring. Otherwise no acute cardiopulmonary disease. Electronically signed by: Anam Ma M.D. 03/15/2017 2:40 PM Dictated Date/Time: 03/15/2017 2:37 PM The status of this report is Signed. Draft = Not yet reviewed or approved by Radiologist. Signed = Reviewed and approved by Radiologist. EGD: Findings: A non-obstructing Schatzki ring (acquired) was found at the gastroesophageal junction. A small hiatus hernia was present. Four non-bleeding cratered gastric ulcers with a visible vessel were found in the gastric antrum. The largest lesion was 8 mm in largest dimension. Area was successfully injected with 2 mL of a 1:10,000 solution of epinephrine for improved access (by lifting the lesion prior to destruction). Fulguration to ablate the lesion to prevent bleeding by heater probe was successful. The examined duodenum was normal. Impression: - Non-obstructing Schatzki ring. - Small hiatus hernia. - Non-bleeding gastric ulcers with a visible vessel. Injected. Treated with a heater probe. - Normal examined duodenum. - No specimens collected. Recommendation: - [facility]. - Advance diet as tolerated. - Give Protonix (pantoprazole): initiate therapy with 80 mg IV bolus, then 8 mg/hr IV by continuous infusion for 3 days. Consultations: GI Orthopedics Medication Reconciliation New Medications: Pantoprazole (Protonix) 40 Mg Tab 1 TAB PO BID for 90 Days, #180 TAB 3 Refills Warfarin Sod (Coumadin) 2.5 Mg Tab 1 TAB PO DAILY for 30 Days, #30 TAB 3 Refills Continued Medications: Allopurinol (Zyloprim) 300 Mg Tab 300 MG PO NOON, TAB Ascorbic Acid (Ascorbic Acid) 500 Mg Tab 500 MG PO NOON, TAB Atenolol (Tenormin) 50 Mg Tab 50 MG PO NOON, TAB Cyanocobalamin (Vitamin B12 100 Mcg) 100 Mcg Tab 100 MCG PO NOON Diltiazem Hcl Coated Beads (Cardizem Cd) 240 Mg Cap 240 MG PO NOON, CAP Furosemide (Furosemide) 20 Mg Tab 40 MG PO NOON Glimepiride (Amaryl) 1 Mg Tab 1 MG PO NOON Ketoconazole (Topical) (Nizoral) 2 % Sha 1 APPLN TOP UD PRN for PRN for 30 Days, #120 ML 1 Refill Levothyroxine Sodium (Synthroid) 150 Mcg Tab 150 MCG PO NOON Losartan Potassium (Cozaar) 100 Mg Tab 100 MG PO NOON, TAB Potassium Chloride (Micro-K Ext Rel) 10 Meq Capcr 20 MEQ PO NOON, CAP Tramadol (Ultram) 50 Mg Tab 1-2 TAB PO Q6 PRN for Pain, #24 TAB Vitamin E (Vitamin E 400 Iu) 400 Unit Cap 400 INTER.UNIT PO NOON, CAP Discontinued Medications: Aspirin (Aspirin Chewable) 81 Mg Chew 81 MG PO NOON, TAB Warfarin Sod (Jantoven) 4 Mg Tab 4 MG PO Q2D, TAB Warfarin Sod (Jantoven) 2 Mg Tab 2 MG PO Q2D, TAB Referrals At Discharge Follow up Referrals: Family Practice Referral - Within 1-2 Weeks with Nile Valles M.D. Engineer Exhauster Referral - Within a Month with Jama Carlisle D.O. Discharge Exam Review of Systems: Constitutional: No fever, No chills, No sweats, No weakness, No fatigue Respiratory: No cough, No shortness of breath, No hemoptysis Cardiovascular: No chest pain, No edema, No palpitations Abdomen: No pain, No nausea, No vomiting, No diarrhea, No constipation Musculoskeletal: No joint pain, No muscle pain, No swelling, No calf pain Genitourinary - Female: No dysuria, No hematuria Neurologic: No weakness, No numbness/tingling Psychiatric: No depression symptoms, No anxiety Endocrine: No fatigue Hematologic / Lymphatic: No abnormal bleeding/bruising, No clotting problems , No swollen lymph nodes Integumentary: No rash, No itch, No new/changing skin lesions Physical Exam: General Appearance: no apparent distress Eyes: normal inspection, PERRL ENT: hearing grossly normal Neck: supple Respiratory/Chest: lungs clear, no respiratory distress, no accessory muscle use Cardiovascular: regular rate, rhythm Abdomen / GI: normal bowel sounds, non tender, soft Extremities: no calf tenderness, no pedal edema Neurologic/Psychiatric: alert, normal mood/affect, oriented x 3 Skin: normal color, warm/dry, no rash Hospital Course Admission H&P: 81 y/o F Hx DM, HTN, gout, RA, hypothyroidism. Pt underwent a TKR 02/28 and was placed on Coumadin for DVT prophylaxis following. She describes developing dark stool a few days after but did not address this as she attributed the change in her bowels to initiation of colace. Over the past 2 days she has developed exertional dyspnea and lightheadedness and presented to the hospital therefore. Initial labs conformed a Hb of 8, down from 12.9 prior to her surgery. She denies any abdominal pain. She dose develop nausea when she takes pain medication, namely Tramadol. She has not had any CP and denies palpitations. Physical Exam Vital Signs Date Time Temp Pulse Resp B/P (MAP) Pulse Ox O2 Delivery O2 Flow Rate FiO2 03/15/17 15:03 65 03/15/17 14:16 Room Air 03/15/17 14:16 Room Air 03/15/17 13:45 36.4 73 22 137/62 99 Room Air General Appearance: WD/WN, no apparent distress Head: normocephalic Eyes: normal inspection ENT: normal ENT inspection, pharynx normal Neck: supple, no JVD Respiratory/Chest: chest non-tender, lungs clear, normal breath sounds Cardiovascular: regular rate, rhythm, no edema, no gallop Abdomen/GI: normal bowel sounds, non tender, soft Back: normal inspection, no CVA tenderness Extremities/Musculoskelatal: normal inspection, no calf tenderness, normal capillary refill, no pedal edema, normal range of motion Neurologic/Psych: coning machine operator II-XII nml as tested, no motor/sensory deficits, normal mood/affect, normal reflexes, oriented x 3 Skin: normal color, warm/dry Hospital Course: GI bleed w/ acute blood loss anemia- transfused 2 u PRBC on 03/15: - IV Protonix gtt x3 days + Carafate QID, then PO BID x3 months - Advance diet as tolerated- tolerating full diet - H&H- STABLE - Warfarin held- discussed risk/benefits w/ patient, resume at discharge w/ INR check on 03/22 - GI consulted, appreciate recommendations -- EGD on 03/16- gastric ulcers, shallow, no bleeding, one with visible vessel that was treated with heat probe -- Repeat EGD in 3 months -- Avoid NSAID use Hypokalemia: Replace w/ 40 mEq KCL supplement, follow PRP and replace PRN T2DM: - Hold Glimepiride 1 mg afternoon while inpatient- resume at discharge - BSG ACHS and ISS Hypothyroidism- TSH is elevated, T4 within normal limits: - Continue Synthroid 150 mcg daily - Recommend outpatient f/u Gout: Allopurinol 300 mg daily HTN: Atenolol 50 mg daily, Diltazem 240 mg daily, Losartan 100 mg daily L TKA on 02/[address] Lowe: - Tramadol PRN - Outpatient ortho f/u as scheduled - Warfarin for DVT prophylaxis held- recommending another 2-3 weeks of treatment at discharge DVT prophylaxis: SCDs Code Status: LEVEL I, FULL Dispo: Discharge to home Total Time Spent: Greater than 30 minutes This includes examination of the patient, discharge planning, medication reconciliation, and communication with other providers. Discharge Instructions Please refer to the electronic Patient Visit Report (Discharge Instructions) for additional information. Follow-Up Please follow-up with your PCP within 5-7 days Please follow-up with GI within 1-2 months Follow-up with ortho as instructed/scheduled Please follow-up/keep all of your subspecialty appointments Additional Copies To Nile Valles M.D.
--- NOTE | 2017-03-18 09:20 | Discharge Instructions ---
Discharge Instructions Date of Service Mar 18, 2017. Admission Reason for Admission: Gi Bleed Discharge Discharge Diagnosis / Problem: Gastric ulcer, GI bleed Discharge Goals Goal(s): Decrease discomfort, Improve function, Improve disease control, Diagnostic testing, Therapeutic intervention, Prevent Disease Progression Activity Recommendations Activity Limitations: resume your previous activity . Instructions / Follow-Up Instructions / Follow-Up Gastric ulcer, GI bleed: Protonix 40 mg twice daily x3 months AVOID NSAIDs- ex: Aspirin, Motrin, Naprosyn, Ibuprofen GI is recommending a repeat EGD in 3 months Resume Warfarin 2.5 mg daily on 03/19 Get INR checked on 03/22 Watch for signs/symptoms of bleeding- lightheadedness/dizziness, fatigue, weakness, paleness, shortness of breath, palpitations, bright red/dark stools If you experience any of these symptoms, please seek medical attention KAREN FOLLOW-UPS: Please follow-up with your PCP within 5-7 days Please follow-up with GI within 1-2 month Follow-up with Ortho as instructed Please follow-up/keep all of your subspecialty appointments Current Hospital Diet Patient's current hospital diet: Diabetes Type 2 Diet Discharge Diet Recommended Diet: Diabetes Type 2 Diet Procedures Procedures Performed: EGD, HEMOSTASIS Pending Studies Studies pending at discharge: no Laboratory Results Hemoglobin A1c Test 02/01/17 08:22 Range/Units Estimated Average Glucose 126 mg/dl Hemoglobin A1c 6.0 H 4.5-5.6 % Lipid Panel Test 02/01/17 08:22 Range/Units Triglycerides Level 215 H 0-150 mg/dl Cholesterol Level 147 0-200 mg/dl HDL Cholesterol 39 mg/dl Cholesterol/HDL Ratio 3.8 LDL Cholesterol, Calculated 65 mg/dl Medical Emergencies . Who to Call and When: Medical Emergencies: If at any time you feel your situation is an emergency, please call 911 immediately. . Non-Emergent Contact Non-Emergency issues call your: Primary Care Provider . . "Provider Documentation" section prepared by Stephanie Lange. . VTE Core Measure Inpt VTE Proph given/why not?: Howard Gutierrez, NA's
[2017-03-18] MEDS ORDERED: POTASSIUM CHLORIDE 20 MEQ TABCR PO ONE (09:45)
[2017-03-18] MEDS ORDERED: CRFUDL PO (11:27)
[2017-03-18] MEDS: DILTIAZEM HCL 240 MG CAPCR PO SCH (11:39)
[2017-03-18] MEDS: ALLOPURINOL 300 MG TAB PO SCH (11:40)
[2017-03-18] MEDS: LOSARTAN POTASSIUM 50 MG TAB PO SCH (11:40)
[2017-03-18 11:48] VITALS: BP 130/66; PULSE 55; TEMP 37; O2SAT 94
--- NOTE | 2017-03-20 12:14 | EDITING REQUIRED CODING QUERY ---
CODING QUERY To promote full compliance with coding requirements relating to patient care, provider participation is requested in all cases of commercial plumber uncertainty. Please assist us with the question(s) below: Coding Question(s): There is documentation of GI Bleeding in the setting of Coumadin use. Please clarify below, in your clinical opinion. ( ) GI Bleeding was likely due to the Coumadin use (x ) GI Bleeding was not likely due to the Coumadin use Physician's Response(s): Thank you Cynthia Rees Principal Diagnosis: "_that condition established after study, to be chiefly responsible for occasioning the admission of the patient to the hospital for care." Co-Existing Principal Diagnosis: "_when two or more diagnoses equally meet the criteria for principal diagnosis as determined by the circumstances of admission, diagnostic work up, and/or therapy provided, and the Alphabetic Index, Tabular List, or another coding guideline does not provide sequencing direction, any one of the diagnoses may be sequenced first." "When the physician has documented what appears to be a current diagnosis in the body of the record, but has not included the diagnosis in the final diagnostic statement, the physician should be asked whether the diagnosis should be added." ([facility] 2 QTR90. p3-4)
--- NOTE | 2017-03-20 12:20 | EDITING REQUIRED CODING QUERY ---
CODING QUERY To promote full compliance with coding requirements relating to patient care, provider participation is requested in all cases of packager hand uncertainty. Please assist us with the question(s) below: Coding Question(s): There is documentation of Gastric Ulcers and GI Bleeding. The patient was admitted 03/15/17 and had an EGD on 03/16/17 with documentation of non-bleeding ulcers with visible vessel. Injected. Treated with heater probe. Please clarify below, in your clinical opinion, regarding the likely source site of the GI Bleeding. (x ) GI Bleeding was likely from the Gastric Ulcers ( ) GI Bleeding was from unknown likely source Physician's Response(s): Thank you Cynthia Rees Principal Diagnosis: "_that condition established after study, to be chiefly responsible for occasioning the admission of the patient to the hospital for care." Co-Existing Principal Diagnosis: "_when two or more diagnoses equally meet the criteria for principal diagnosis as determined by the circumstances of admission, diagnostic work up, and/or therapy provided, and the Alphabetic Index, Tabular List, or another coding guideline does not provide sequencing direction, any one of the diagnoses may be sequenced first." "When the physician has documented what appears to be a current diagnosis in the body of the record, but has not included the diagnosis in the final diagnostic statement, the physician should be asked whether the diagnosis should be added." ([facility] 2 QTR90. p3-4)
== END 2017-03-18 13:45 | disposition home or self-care (01) | DRG 811 ==
LOC: C.EDB 13:40 → C.MS2W 15:24 → ENRESERV 15:57
PROVIDERS: ADMIT Internal Medicine; ATTEND Internal Medicine
PROC: 0W3P8ZZ Control Bleeding in Gastrointestinal Tract, Via Natural or Artificial Opening Endoscopic (ICD-10-PCS; principal; 2017-03-16 13:41)
DX: D62 Acute posthemorrhagic anemia (principal); K25.4 Chronic or unspecified gastric ulcer with hemorrhage; T39.395A Adverse effect of other nonsteroidal anti-inflammatory drugs [NSAID], initial encounter; R79.1 Abnormal coagulation profile; E87.6 Hypokalemia; K22.2 Esophageal obstruction; K44.9 Diaphragmatic hernia without obstruction or gangrene; M10.9 Gout, unspecified; E11.9 Type 2 diabetes mellitus without complications; E89.0 Postprocedural hypothyroidism; I10 Essential (primary) hypertension; E66.9 Obesity, unspecified; Z79.899 Other long term (current) drug therapy; Z79.01 Long term (current) use of anticoagulants; Z79.84 Long term (current) use of oral hypoglycemic drugs; Z79.82 Long term (current) use of aspirin; Z96.652 Presence of left artificial knee joint; Z85.850 Personal history of malignant neoplasm of thyroid; Z68.35 Body mass index [BMI] 35.0-35.9, adult; Z83.3 Family history of diabetes mellitus; Z82.49 Family history of ischemic heart disease and other diseases of the circulatory system; Z84.1 Family history of disorders of kidney and ureter

== ENCOUNTER → 2017-03-22 | Outpatient (CLI) | payer OTHER ==
[~2017-03-22] MED LIST changes: -ASPCH81X PO; +CMD/25 PO; +CRFUDL PO; +PANT1TAB48 PO; -WARF2TAB PO
[2017-03-22 12:15] LABS: MEAN CELL VOLUME 95.1 fL (80-100); MEAN CORPUSCULAR HEMOGLOBIN 29.3 pg (25-34); MEAN CORPUSCULAR HGB CONC 30.9 g/dl (32-36); MEAN PLATELET VOLUME 9.7 fL (7.4-10.4); PLATELET COUNT 367 K/uL (130-400); RED BLOOD COUNT 3.68 M/uL (4.2-5.4); WHITE BLOOD COUNT 6.37 K/uL (4.8-10.8)
[2017-03-22 12:33] LABS: BLOOD UREA NITROGEN 18 mg/dl (7-18); BUN/CREATININE RATIO 13.2 (10-20); CALCIUM 8.2 mg/dl (8.5-10.1); CARBON DIOXIDE 25 mmol/L (21-32); CHLORIDE 108 mmol/L (98-107); CREATININE 1.33 mg/dl (0.60-1.20); GLUCOSE 133 mg/dl (70-99); POTASSIUM 3.8 mmol/L (3.5-5.1); SODIUM 138 mmol/L (136-145)
== END | disposition home or self-care (01) ==
LOC: C.LABBFT 09:03
PROVIDERS: ATTEND Internal Medicine
DX: D50.0 Iron deficiency anemia secondary to blood loss (chronic) (principal); K92.2 Gastrointestinal hemorrhage, unspecified

== ENCOUNTER → 2017-04-23 | Outpatient (CLI) | payer OTHER ==
[~2017-04-23] MED LIST changes: +PANT1TAB3 PO; -PANT1TAB48 PO
== END | disposition home or self-care (01) ==
LOC: C.RDSM 10:00
PROVIDERS: ATTEND Physical Medicine & Rehabilitation Sports Medicine
DX: Z47.1 Aftercare following joint replacement surgery (principal); Z96.652 Presence of left artificial knee joint; Z96.651 Presence of right artificial knee joint

== ENCOUNTER → 2017-05-15 | Day surgery (SDC) | payer OTHER ==
[2017-04-27 10:10] VITALS: BMI 36.0
[~2017-05-15] VITALS: Ht 160 cm; Wt 93.6 kg
[~2017-05-15] MED LIST changes: -CMD/25 PO; -CRFUDL PO; +LIDOCAINE HCL 2% 2 ML VIAL (20MG/ML) ONE; +PROPOFOL IV EMULSION 10 MG/ML 20 ML VIAL IV ONE; +SODIUM CHLORIDE 0.9% 500ML 500 ML IV ONE; -TRAM-10 PO
[2017-05-15 10:56] VITALS: Ht 160 cm; Wt 93.6 kg
--- NOTE | 2017-05-15 11:10 | Endo History and Physical ---
History & Physical Date of Service: May 15, 2017. Chief Complaint: GASTRIC ULCER Referring Physician: DR. FAGAN History of Present Illness 81 yo CF who presents for colonoscopy secondary to gastric ulcer. Past Surgical History Hx Cardiac Surgery: No Hx Internal Defibrillator: No Hx Pacemaker: No Hx Abdominal Surgery: Yes (HYSTERECTOMY, LY) Hx of Implantable Prosthesis: No Hx Post-Op Nausea and Vomiting: No Hx Cancer Surgery: Yes (TOTAL THYROIDECTOMY, SKIN REMOVAL) Hx Thoracic Surgery: No Hx Orthopedic: Yes (RT/LEFT TKA) Hx Urinary Tract Surgery: No Family History None Social History Smoking Status: Never Smoker Hx Substance Use: No Hx Alcohol Use: No Allergies Coded Allergies: Amlodipine (Verified Allergy, Unknown, per PCP note , 04/27/17) Ampicillin (Verified Allergy, Unknown, UNKNOWN, 04/27/17) Hydrochlorothiazide (Verified Allergy, Unknown, per PCP note , 04/27/17) Moxifloxacin (Verified Allergy, Unknown, per PCP note , 04/27/17) Erythromycin (Verified Adverse Reaction, Mild, YEAST INFECTION, 04/27/17) Current Medications Reported Home Medications Medications Dose Route/Sig Max Daily Dose Days Date Category Protonix (Pantoprazole) 40 Mg Tab 1 Tab PO BID 90 03/18/17 Rx Nizoral (Ketoconazole (Topical)) 2 % Sha 1 Appln TOP UD PRN 30 05/11/16 Reported Synthroid (Levothyroxine Sodium) 150 Mcg Tab 150 Mcg PO NOON 12/20/15 Reported Vitamin B12 100 Mcg (Cyanocobalamin) 100 Mcg Tab 100 Mcg PO NOON 06/15/15 Reported Furosemide 20 Mg Tab 40 Mg PO NOON 06/15/15 Reported Amaryl (Glimepiride) 1 Mg Tab 1 Mg PO NOON 06/15/15 Reported Zyloprim (Allopurinol) 300 Mg Tab 300 Mg PO NOON 09/27/13 Reported Tenormin (Atenolol) 50 Mg Tab 50 Mg PO NOON 09/27/13 Reported Cardizem Cd (Diltiazem Hcl Coated Beads) 240 Mg Cap 240 Mg PO NOON 09/27/13 Reported Cozaar (Losartan Potassium) 100 Mg Tab 100 Mg PO NOON 09/27/13 Reported Vitamin E 400 Iu (Vitamin E) 400 Unit Cap 400 Inter.unit PO NOON 09/27/13 Reported Ascorbic Acid 500 Mg Tab 500 Mg PO NOON 09/27/13 Reported Micro-K Ext Rel (Potassium Chloride) 10 Meq Capcr 20 Meq PO NOON 09/27/13 Reported Vital Signs Weight (Kilograms): 93.64 Height (Feet): 5 Height (Inches): 3 Physical Exam General Appearance: WD/WN, no apparent distress Respiratory/Chest: Auscultation: breath sounds normal Cardiovascular: Heart Auscultation: RRR Abdomen: Bowel Sounds: normal Inspection & Palpation: soft, non-distended, no tenderness, guarding & rebound Assessment and Plan Assessment: 81 yo CF who presents for EGD secondary to gastric ulcer. Plan: Proceed with EGD.
--- NOTE | 2017-05-15 12:07 | Discharge Instructions ---
Endoscopy Patient Instructions Date / Procedure(s) Performed May 15, 2017. EGD Allergy Information Coded Allergies: Amlodipine (Verified Allergy, Unknown, per PCP note , 04/27/17) Ampicillin (Verified Allergy, Unknown, UNKNOWN, 04/27/17) Hydrochlorothiazide (Verified Allergy, Unknown, per PCP note , 04/27/17) Moxifloxacin (Verified Allergy, Unknown, per PCP note , 04/27/17) Erythromycin (Verified Adverse Reaction, Mild, YEAST INFECTION, 04/27/17) Discharge Date / Findings May 15, 2017. Schatzki's Ring s/p dilation and biopsies Hiatal hernia Medication Instructions OK to resume all medications today as prescribed Reported Home Medications Medications Dose Route/Sig Max Daily Dose Days Date Category Protonix (Pantoprazole) 40 Mg Tab 1 Tab PO BID 90 03/18/17 Rx Nizoral (Ketoconazole (Topical)) 2 % Sha 1 Appln TOP UD PRN 30 05/11/16 Reported Synthroid (Levothyroxine Sodium) 150 Mcg Tab 150 Mcg PO NOON 12/20/15 Reported Vitamin B12 100 Mcg (Cyanocobalamin) 100 Mcg Tab 100 Mcg PO NOON 06/15/15 Reported Furosemide 20 Mg Tab 40 Mg PO NOON 06/15/15 Reported Amaryl (Glimepiride) 1 Mg Tab 1 Mg PO NOON 06/15/15 Reported Zyloprim (Allopurinol) 300 Mg Tab 300 Mg PO NOON 09/27/13 Reported Tenormin (Atenolol) 50 Mg Tab 50 Mg PO NOON 09/27/13 Reported Cardizem Cd (Diltiazem Hcl Coated Beads) 240 Mg Cap 240 Mg PO NOON 09/27/13 Reported Cozaar (Losartan Potassium) 100 Mg Tab 100 Mg PO NOON 09/27/13 Reported Vitamin E 400 Iu (Vitamin E) 400 Unit Cap 400 Inter.unit PO NOON 09/27/13 Reported Ascorbic Acid 500 Mg Tab 500 Mg PO NOON 09/27/13 Reported Micro-K Ext Rel (Potassium Chloride) 10 Meq Capcr 20 Meq PO NOON 09/27/13 Reported Provider Instructions Activity Restrictions - No exercising or heavy lifting for 24 hours. - Do not drink alcohol the day of the procedure. - Do not drive a car or operate machinery until the day after the procedure. - Do not make any important decisions or sign important papers in 24 hours after the procedure. Following Day: - Return to full activity which may include returning to work/school. Diet Start your diet with liquids and light foods (jello, soup, juice, toast). Then eat your usual diet if not nauseated. Treatment For Common After Affects For mild abdominal pain, bloating, or excessive gas: - Rest - Eat lightly - Lie on right side Follow-Up Information Follow-up with DR. FAGAN as scheduled Anesthesia Information What You Should Know You have had a procedure that required some medicine to reduce anxiety and discomfort. This treatment is called moderate sedation. After receiving the treatment, you may be sleepy, but you will be able to breathe on your own. The effects of the treatment may last for several hours. Follow these instructions along with Activity/Diet recommendations noted above: * Do NOT do anything where dizziness or clumsiness would be dangerous. * Rest quietly at home today, then you can be up and about tomorrow. * Have a responsible person stay with you the rest of today. * You may have had an I.V. today. If so, you may take the dressing off later today. Recommendations Call your doctor if: * Trouble breathing * Continuous vomiting for more than 24 hours * Temperature above 101 degrees * Severe abdominal pain or bloating * Pain not relieved by pain medicine ordered * There is increased drainage or redness from any incision * A large amount of rectal bleeding greater than 2-3 tablespoons. (If you had a polyp/s removed or have hemorrhoids, a small amount of blood - from the rectum is to be expected.) * You have any unanswered questions or concerns. IN THE EVENT OF A SERIOUS EMERGENCY, GO TO THE NEAREST EMERGENCY ROOM Your discharge instructions were prepared by provider Jama Carlisle. Patient Instructions Signature Page Mallika Weaver Patient (or Guardian) Signature/Date: I have read and understand the instructions given to me by my caregivers. Caregiver/RN/Doctor Signature/Date: The above-named patient and/or guardian has received patient instructions on this date. + Original Patient Signature Page (only) stays with chart. Please make copy for patient.
[2017-05-15 12:36] VITALS: BP 146/79; PULSE 59; O2SAT 97
--- NOTE | 2017-05-15 12:42 | GI REPORT ---
Procedure Date: 05/15/2017 11:34 AM Procedure: Upper GI endoscopy Indications: Follow-up of acute gastric ulcer Medicines: Monitored Anesthesia Care Complications: No immediate complications. Estimated Blood Loss: Estimated blood loss: none. Procedure: Pre-Anesthesia Assessment: - Prior to the procedure, a History and Physical was performed, and patient medications and allergies were reviewed. The patient's tolerance of previous anesthesia was also reviewed. The risks and benefits of the procedure and the sedation options and risks were discussed with the patient. All questions were answered, and informed consent was obtained. Prior Anticoagulants: The patient has taken no previous anticoagulant or antiplatelet agents. ASA Grade Assessment: III - A patient with severe systemic disease. After reviewing the risks and benefits, the patient was deemed in satisfactory condition to undergo the procedure. After obtaining informed consent, the endoscope was passed under direct vision. Throughout the procedure, the patient's blood pressure, pulse, and oxygen saturations were monitored continuously. The On-site loaner was introduced through the mouth, and advanced to the second part of duodenum. The upper GI endoscopy was accomplished without difficulty. The patient tolerated the procedure well. Findings: A mild Schatzki ring (acquired) was found at the gastroesophageal junction. A TTS dilator was passed through the scope. Dilation with a 15-16.5-18 mm balloon dilator was performed to 18 mm. The dilation site was examined and showed no change. Biopsies were taken with a cold forceps for histology. A small hiatal hernia was present. The examined duodenum was normal. Impression: - Mild Schatzki ring. Dilated. Biopsied. - Small hiatal hernia. - Normal examined duodenum. Recommendation: - Resume previous diet. - Continue present medications, but decrease Protonix to 40mg by mouth each morning 1/2 hour prior to breakfast. - Await pathology results. - Return to primary care physician as previously scheduled. Jama Carlisle DO 05/15/2017 12:41:26 PM This report has been signed electronically. Note Initiated On: 05/15/2017 11:34 AM I attest to the content of the Intraoperative Record and orders documented therein, exceptions below
--- NOTE | 2017-05-15 12:54 | Anesthesiology Progress Note ---
Anesthesia Post Op Note Date & Time May 15, 2017 at 12:54 Vital Signs Pain Intensity: 0 Vital Signs Past 12 Hours Date Time Temp Pulse Resp B/P (MAP) Pulse Ox O2 Delivery O2 Flow Rate FiO2 05/15/17 12:36 59 20 146/79 (101) 97 Room Air 05/15/17 12:23 56 20 138/80 (99) 96 Room Air 05/15/17 12:08 65 20 133/74 (93) 95 Room Air 05/15/17 11:08 36.7 67 18 177/94 (121) 95 Room Air Notes Mental Status: alert / awake / arousable, participated in evaluation Pt Amnestic to Procedure: Yes Nausea / Vomiting: adequately controlled Pain: adequately controlled Airway Patency, RR, SpO2: stable & adequate BP & HR: stable & adequate Hydration State: stable & adequate Anesthetic Complications: no major complications apparent
== END | disposition home or self-care (01) ==
LOC: C.GI 10:30
PROVIDERS: ATTEND Internal Medicine
DX: K25.9 Gastric ulcer, unspecified as acute or chronic, without hemorrhage or perforation (principal); Z79.899 Other long term (current) drug therapy; K22.2 Esophageal obstruction; K44.9 Diaphragmatic hernia without obstruction or gangrene

== ENCOUNTER 2022-10-03 07:11 | Observation (INO) ==
--- NOTE | 2022-10-03 07:28 | Emergency Department Note ---
Impression & Plan Acute right-sided muscle weakness, TIA (transient ischemic attack), Hypokalemia ED Provider Note NAME: BENSON LAGUNAS AGE: 86 SEX: F : 1935 ARRIVES VIA: Walk-In INFORMANT: Patient ED PROVIDER(S): Dr. Randolph Woodard CHIEF COMPLAINT: Right-sided weakness HPI: Patient is an 86-year-old female with a past medical history of diabetes, gastritis and hypertension who presents to the ER for right arm and leg weakness. This started this morning when she woke up around 615. It lasted for 30 to 45 minutes. Has completely resolved. She notes she feels a little nauseated. She went to bed last night around 10 PM and had no complaints at that time. She currently denies any headache or change in vision. No chest pain or shortness of breath. No vomiting or diarrhea but does have some nausea. No dysuria, urgency, or frequency. No other exacerbating or remitting factors. PAST MEDICAL HISTORY:See Below PAST SURGICAL HISTORY:See Below FAMILY HISTORY:See Below SOCIAL HISTORY:See Below HOME MEDICATIONS:See Below ALLERGIES:See Below VITALS:See Below PHYSICAL EXAMINATION: GENERAL: Sitting up in bed, alert, well appearing, well nourished, no distress, non-toxic EYE EXAM: normal conjunctiva. PERRL and EOM's intact. OROPHARYNX: no exudate, no erythema, lips, buccal mucosa, and tongue normal and mucous membranes are moist NECK: supple, no nuchal rigidity, no adenopathy, non-tender LUNGS: Clear to auscultation. Normal chest wall mechanics HEART: no murmurs, S1 normal and S2 normal ABDOMEN: abdomen soft, non-tender, normo-active bowel sounds, no masses, no rebound or guarding. UPPER EXTREMITIES: upper extremities are grossly normal. LOWER EXTREMITIES: No pitting edema. NEURO EXAM: Normal sensorium, cranial nerves II-XII intact, normal speech, no weakness of arms, no weakness of legs. No drift. Finger to nose intact. Gross sensation intact. MEDICAL DECISION MAKING: Patient is an 86-year-old female who presents ER for right-sided weakness which is resolved upon presentation. IV was established blood work was obtained. External records reviewed. Labs show no significant leukocytosis or anemia. INR unremarkable. BMP with mild hypokalemia 3.2. LFTs bilirubin was unremarkable. Troponin was negative. COVID-negative. CT as well as angios of the head and neck were remarkable for left NESS severe stenosis versus occlusion. This was discussed with Elviasofi roberts and they elected to see the patient. Upon their evaluation they noted no additional changes in management other than admission, aspirin, Plavix, Lipitor and fluids. Patient was updated in regards to her findings. Again she was back to her baseline. She was admitted for further work-up and management. No other additional interventions at this time. Triage Nursing notes reviewed. Limited review of prior medical records performed Vital Signs: reviewed and remarkable for no significant abnormalities Differential diagnosis: Differential Diagnosis includes but is not limited to ischemic Stroke, hemorrhagic stroke, bells palsy, mass, neoplasm, migraine headache, seizure, subarachnoid hemorrhage, TIA, and transient global amnesia. ER treatment provided: See below Diagnostics interpreted by me include EKG and cardiac monitoring as listed below: -Cardiac Monitoring: An order was placed for continuous cardiac monitoring. The monitor shows a rate of 80 with sinus rhythm. -ECG: Sinus bradycardia rate of 54 Normal axis No PVCs QTc 428 -Laboratory studies:Interpreted by me as stated above in MDM and shown below. Imaging studies: Xrays: As interpreted by me: Portable AP upright 1 view of the chest shows no new infiltrate CTs show: CTs of the head and neck as described above Consultation(s): Discussed with Elvia roberts who evaluated the patient as well as the hospitalist Dr. Art Tovar for further evaluation management treatment Procedures:none Critical Care: None Past Med/Surg History Medical History (Updated 10/03/22 @ 12:33 by Randolph Woodard DO) Anemia Diabetes mellitus, type 2 Difficulty swallowing Glaucoma Gout History of anesthesia reaction difficulty waking History of esophageal dilatation History of kidney stones History of radioactive iodine thyroid ablation 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 Hypertension Hypothyroidism Left knee DJD Left-sided chest wall pain Osteoporosis Schatzki's ring Thyroid cancer diagnosed 2000--sx/radioactive iodine tx Uncontrolled type II diabetes mellitus Surgical History (Updated 07/27/22 @ 09:57 by Bess Heredia) H/O hand surgery History of arthroscopy of right knee History of carpal tunnel surgery of left wrist History of cholecystectomy History of colonoscopy History of dilation and curettage History of esophagogastroduodenoscopy (EGD) History of lymph node excision right side of neck d/t TB (1953) History of thyroidectomy History of tonsillectomy History of total abdominal hysterectomy and bilateral salpingo-oophorectomy History of total left knee replacement (TKR) History of total right knee replacement (TKR) History of wisdom tooth extraction Status post biopsy of thyroid gland malignant Family History (Updated 07/27/22 @ 09:58 by Bess Heredia) Mother Rheumatoid arthritis Type 2 diabetes mellitus Hypertension Father Type 2 diabetes mellitus Hypertension Brother Venous embolism and thrombosis of deep vessels of lower extremity Other No family history of adverse response to anesthesia Denies family history of Ovarian cancer Prostate cancer Myocardial infarction Breast cancer Colorectal cancer Social History (Updated 07/27/22 @ 09:59 by Bess Heredia) Smoking Status: Never smoker Second Hand Exposure: No; Do You Dip or Chew Tobacco: No; Hx Alcohol Use: No Hx Substance Use: No Preferred Language: Croatian Communication Ability: Effective Visual Impairment: No Limitations Hearing Ability: Normal Upset Operator Required: No Beliefs That Will Affect Care: None marital status: Current Living Situation: Spouse and Family current occupational status: retired 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 Feels Safe at Home: Yes Childhood Exposure to Second-Hand Smoke: Yes Diet: diabetic caffeine: Yes (Iced Tea ) Dental Care, Regularly: Yes Physical Activity Frequency: Does not Exercise Seatbelt Use: always Sunscreen Use: No Assistive Devices: Denture - Lower and Glasses Allergies Allergies Allergy/AdvReac Type Severity Reaction Status Date / Time hydrochlorothiazide Allergy Unknown Unknown Verified 10/03/22 09:38 ampicillin AdvReac Intermediate UTIs Verified 10/03/22 09:38 amlodipine AdvReac Mild Cough Verified 10/03/22 09:38 erythromycin base AdvReac Mild YEAST Verified 10/03/22 09:38 INFECTION moxifloxacin AdvReac Mild sick to Verified 10/03/22 09:38 stomach Home Meds Home Medications Medication Instructions Recorded Confirmed cyanocobalamin (vitamin B-12) 100 100 mcg PO QDL 02/08/18 10/03/22 mcg tablet (Vitamin B-12) ascorbic acid (vitamin C) 500 mg 500 mg PO QDL 11/19/18 10/03/22 tablet blood-glucose meter (Moxieuch #1 ea 11/19/18 09/28/22 UltraMini kit) lancets 33 gauge (OneTouch Delica #100 ea 11/19/18 09/28/22 Lancets) meclizine 12.5 mg tablet 12.5 mg PO Q6H PRN Dizziness #30 11/19/18 10/03/22 tabs vitamin E (dl, acetate) 180 mg 400 units PO QDL 11/19/18 10/03/22 (400 unit) capsule cholecalciferol (vitamin D3) 25 25 mcg PO QDL 08/26/21 10/03/22 mcg (1,000 unit) capsule (Vitamin D3) esomeprazole magnesium 20 mg 20 mg PO QDL PRN Heartburn 08/26/21 10/03/22 capsule,delayed release Previous Rx's Medication Instructions Recorded levothyroxine 150 mcg tablet 150 mcg PO QDL #90 tabs 12/20/21 insulin glargine 100 unit/mL (3 30 unit (0.3 mL) subcut QAM #18 mL 02/08/22 mL) subcutaneous pen (Lantus Solostar U-100 Insulin) diltiazem HCl 240 mg 240 mg PO QDL #90 caps 03/06/22 capsule,extended release 24 hr losartan 100 mg tablet 100 mg PO QDL #90 tabs 03/06/22 blood sugar diagnostic #100 ea 03/29/22 potassium chloride 10 mEq 20 meq PO BID #360 tabs 07/27/22 tablet,extended release allopurinol 300 mg tablet 300 mg PO QDL #90 tabs 08/31/22 atenolol 50 mg tablet 50 mg PO QDL #90 tabs 08/31/22 furosemide 20 mg tablet 40 mg PO QDB #180 tabs 09/13/22 pen needle, diabetic 32 gauge x #100 ea 09/14/22" (BD Ultra-Fine Anais Pen Needle) Results & Data (ED) Vital Signs Vital Signs - 24 hr 10/03/22 07:13 10/03/22 07:39 10/03/22 08:15 Temperature 36.8 C Temperature Source Temporal Artery Scan Pulse Rate 60 61 Pulse Rate [Apical] 59 L Respiratory Rate 20 18 Respiratory Effort / Characteristics Non-Labored Spontaneous Non-Labored Respiratory Depth Normal Normal Respiratory Pattern Regular Regular Blood Pressure 187/91 H Blood Pressure [Left Arm] 221/87 H Blood Pressure Mean 123 Blood Pressure Mean [Left Arm] 131 Blood Pressure Position Sitting Pulse Oximetry 96 96 Oxygen Delivery Method Room Air Room Air Sepsis Recent Fever Within 48 Hours No Sepsis New/Unexplained Change in Mental Status No Sepsis Action Taken by Nursing No Action Required 10/03/22 08:44 Temperature Temperature Source Pulse Rate Pulse Rate [Apical] Respiratory Rate Respiratory Effort / Characteristics Respiratory Depth Respiratory Pattern Blood Pressure Blood Pressure [Left Arm] 163/95 H Blood Pressure Mean Blood Pressure Mean [Left Arm] 117 Blood Pressure Position Pulse Oximetry Oxygen Delivery Method Sepsis Recent Fever Within 48 Hours Sepsis New/Unexplained Change in Mental Status Sepsis Action Taken by Nursing Laboratory Data 10/03/22 07:35 10/03/22 07:35 Lab Results 10/03/22 10/03/22 10/03/22 Range/Units 07:26 07:35 07:35 WBC 7.39 (4.8-10.8) K/ul RBC 4.53 (4.20-5.40) M/uL Hgb 13.2 (12.0-16.0) g/dl Hct 39.7 (37.0-47.0) % MCV 87.6 (80.0-100.0) fL MCH 29.1 (25.0-34.0) pg MCHC 33.2 (32.0-36.0) g/dL RDW Std Deviation 46.8 H (36.4-46.3) fL RDW Coeff of Jaja 14.7 H (11.5-14.5) % Plt Count 298 (130-400) K/uL MPV 10.3 (9.4-12.4) fL Immature Gran % (Auto) 0.4 % Neut % (Auto) 56.3 % Lymph % (Auto) 31.0 % Sharp % (Auto) 7.7 % Eos % (Auto) 3.9 % Baso % (Auto) 0.7 % Neut # (Auto) 4.16 (1.40-6.50) K/uL Lymph # (Auto) 2.29 (1.2-3.4) K/uL Sharp # (Auto) 0.57 (0.11-0.59) K/uL Eos # (Auto) 0.29 (0-0.50) K/uL Baso # (Auto) 0.05 (0-0.2) K/uL Immature Gran # (Auto) 0.03 (0.01-0.20) K/uL PT 10.7 (9.0-12.0) Seconds INR 1.0 (0.9-1.1) APTT 25.7 (21.0-31.0) Seconds PTT Ratio 0.9 Sodium (136-145) mmol/L Potassium (3.5-5.1) mmol/L Chloride (98-107) mmol/L Carbon Dioxide (21-32) mmol/L Anion Gap (3-11) BUN (6-23) mg/dl Creatinine (0.6-1.2) mg/dl Est Cr Clr Drug Dosing ml/min Est GFR ( Amer) ml/min Est GFR (Non-Af Amer) ml/min BUN/Creatinine Ratio (10-20) Glucose (70-99(Fasting)) mg/dl POC Glucose 166 H (70-99) mg/dl Calcium (8.6-10.3) mg/dl Magnesium (1.7-2.4) mg/dl Total Bilirubin (0.2-1.0) mg/dl AST (13-39) U/L ALT (7-52) U/L Alkaline Phosphatase (34-104) U/L Troponin I High Sens (0-14) pg/ml Total Protein (6.0-8.3) gm/dl Albumin (3.4-5.0) gm/dl Globulin (2.5-4.0) gm/dl Albumin/Globulin Ratio (0.9-2) SARS-CoV-2, RNA, NAAT (NEGATIVE) 10/03/22 10/03/22 Range/Units 07:35 08:45 WBC (4.8-10.8) K/ul RBC (4.20-5.40) M/uL Hgb (12.0-16.0) g/dl Hct (37.0-47.0) % MCV (80.0-100.0) fL MCH (25.0-34.0) pg MCHC (32.0-36.0) g/dL RDW Std Deviation (36.4-46.3) fL RDW Coeff of Jaja (11.5-14.5) % Plt Count (130-400) K/uL MPV (9.4-12.4) fL Immature Gran % (Auto) % Neut % (Auto) % Lymph % (Auto) % Sharp % (Auto) % Eos % (Auto) % Baso % (Auto) % Neut # (Auto) (1.40-6.50) K/uL Lymph # (Auto) (1.2-3.4) K/uL Sharp # (Auto) (0.11-0.59) K/uL Eos # (Auto) (0-0.50) K/uL Baso # (Auto) (0-0.2) K/uL Immature Gran # (Auto) (0.01-0.20) K/uL PT (9.0-12.0) Seconds INR (0.9-1.1) APTT (21.0-31.0) Seconds PTT Ratio Sodium 139 (136-145) mmol/L Potassium 3.2 L (3.5-5.1) mmol/L Chloride 106 (98-107) mmol/L Carbon Dioxide 25 (21-32) mmol/L Anion Gap 8 (3-11) BUN 24 H (6-23) mg/dl Creatinine 1.06 (0.6-1.2) mg/dl Est Cr Clr Drug Dosing 43.8 ml/min Est GFR ( Amer) 55.8 ml/min Est GFR (Non-Af Amer) 48.2 ml/min BUN/Creatinine Ratio 22.6 H (10-20) Glucose 160 H (70-99(Fasting)) mg/dl POC Glucose (70-99) mg/dl Calcium 8.8 (8.6-10.3) mg/dl Magnesium 1.7 (1.7-2.4) mg/dl Total Bilirubin 1.1 H (0.2-1.0) mg/dl AST 15 (13-39) U/L ALT 11 (7-52) U/L Alkaline Phosphatase 77 (34-104) U/L Troponin I High Sens 9.5 (0-14) pg/ml Total Protein 6.6 (6.0-8.3) gm/dl Albumin 3.7 (3.4-5.0) gm/dl Globulin 2.9 (2.5-4.0) gm/dl Albumin/Globulin Ratio 1.3 (0.9-2) SARS-CoV-2, RNA, NAAT NEGATIVE (NEGATIVE) Administered Medications Discontinued Medications Aspirin (Aspirin Chew 324 Mg) 81 mg PO NOW STA Stop: 10/03/22 09:26 Last Admin: 10/03/22 09:31 Dose: 81 mg Documented By: MEHNAZ Clopidogrel Bisulfate (Clopidogrel Bisulfate 300 Mg Tab) 300 mg PO NOW STA Stop: 10/03/22 09:26 Last Admin: 10/03/22 09:31 Dose: 300 mg Documented By: MEHNAZ Ioversol (Optiray 320 125ml) 120 ml IV ONCE ONE Stop: 10/03/22 07:59 Last Admin: 10/03/22 07:51 Dose: 120 ml Documented By: IFRAH Ondansetron HCl (Ondansetron Inj 2 Mg/Ml 2 Ml Vial) 4 mg IV NOW STA Stop: 10/03/22 07:44 Last Admin: 10/03/22 07:46 Dose: 4 mg Documented By: MEHNAZ Imaging Data Radiologist's Impression: Chest X-Ray 10/03/22 07:25 XR chest 1V portable CLINICAL HISTORY: neuro deficit, acute stroke suspected COMPARISON STUDY: Chest radiograph April 05, 2021. Chest CT June 15, 2015. FINDINGS: No pneumothorax or pleural effusion is present. There is no consolidation. No evidence for pulmonary edema. Right hilar prominence is unchanged and due to pulmonary vessels. Cardiomediastinal silhouette is stable. IMPRESSION: No acute cardiopulmonary findings. No change in appearance of the chest. ACT 112: Negative or not required by law. Electronically signed by: Doni Danielson M.D. 10/03/2022 7:[address] 10/03/22 07:25 CT OF THE HEAD WITHOUT CONTRAST CLINICAL HISTORY: neuro deficit, acute stroke suspected . Right-sided weakness. COMPARISON STUDY: Head CT April 15, 2010. TECHNIQUE: Helical axial images of the head were obtained without IV contrast. A utomated exposure control was utilized for the study. A dose lowering technique was utilized adhering to the principles of ALARA. FINDINGS: No acute intracranial hemorrhage, midline shift or mass effect is present. The ventricular system is unremarkable. Basal cisterns are patent. There are no extra axial collections. A subtle 5 mm round extra-axial hyperde nsity along the right aspect of the falx on axial image 13 of 28 favors a small meningioma. There is an additional 1.1 cm partially calcified superior parafalcine meningioma. White matter hypodensity suggests small vessel disease. IMPRESSION: 1. No acute intracranial findings. 2. Two small parafalcine meningiomas. ACT 112: Negative or not required by law. Electronically signed by: Doni Danielson M.D. 10/03/2022 8:20 AM Head CTA 10/03/22 07:25 CT ANGIOGRAM OF THE BRAIN CLINICAL HISTORY: Neurological deficit. Stroke like symptoms. COMPARISON STUDY: Unenhanced CT of the brain performed concurrently on 10/03/2022. TECHNIQUE: Unenhanced axial CT scan of the brain is performed. Subsequently, following the IV administration of 120 cc of Optiray 320, CT angiogram of the brain was performed from the skull base to the vertex. Images are reviewed in the axial, sagittal, and coronal planes. 3-D MIPS images are created and assessed. IV contrast was administered without complication. A dose lowering technique was utilized adhering to the principles of ALARA. FINDINGS: Brain parenchyma: There is age-related involutional change noting mild to moderate subcortical and periventricular microangiopathic disease. There is no evidence of hemorrhage, mass effect, or acute territorial ischemia noting angiographic phase technique. A 12 mm calcified meningioma is seen along the midline falx at the vertex. No additional enhancing lesion is suggested On the angiogram phase images. No extra-axial fluid collection is seen. Peng-white matter differentiation is preserved. Ventricles, sulci, and cisterns: Prominent secondary to involutional change. CT angiogram of the brain: There is atherosclerotic calcification of the cavernous carotid and vertebral arteries. The internal carotid arteries are widely patent, as are the anterior and middle cerebral arteries. The vertebrobasilar system and posterior cerebral arteries are widely patent. The left vertebral artery is dominant. 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 Question focal high-grade stenosis versus focal vessel occlusion of the distal left anterior cerebral artery on axial image #168. No aneurysm is seen. Dural sinuses: Clear as visualized. Orbits: The bony orbits are intact. The orbital contents are normal as visualized. Sinuses and mastoids: The visualized paranasal sinuses are clear. The mastoid air cells are well pneumatized. Calvarium: The skeletal structures are osteopenic. The calvarium appears intact. IMPRESSION: 1. There is no evidence of hemorrhage, mass effect, or acute territorial ischemia noting angiographic phase technique. 2. Question severe focal stenosis versus cut off of the distal left anterior cerebral artery. Correlate clinically. 3. 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 ACT 112: Negative or not required by law. Electronically signed by: Moshe William M.D. 10/03/2022 8:10 AM Neck CTA 10/03/22 07:25 CT ANGIOGRAPHY OF THE NECK WITH CONTRAST CLINICAL HISTORY: neuro deficit, acute stroke suspected COMPARISON STUDY: No previous studies for comparison. Technique: CT angiography of the carotid and vertebral arteries was obtained usi ng Optiray and 3D reconstruction on an independent workstation. NASCET criteria was utilized. Automated exposure control was utilized for the study. A dose lowering technique was utilized adhering to the principles of ALARA. CT DOSE: 986.97 mGy.cm Findings: Visualized portions of the lung apices are unremarkable. There is no cervical lymphadenopathy. No cervical spine fracture is present. Linear right upper lobe density favors atelectasis or scarring. The bilateral common carotid, cervical internal carotid and vertebral arteries are patent. There is moderate atherosclerotic plaque within the proximal left internal carotid artery without stenosis. There is no stenosis or dissection within these vessels. The left vertebral artery is dominant. No aneurysm within the neck. Please note that the CTA of the head will be reported separately. IMPRESSION: 1. Moderate atherosclerotic plaque within the proximal left internal carotid artery without stenosis. 2. No stenoses or dissection within the bilateral common carotid, cervical internal carotid or vertebral arteries. ACT 112: Negative or not required by law. Electronically signed by: Doni Danielson M.D. 10/03/2022 8:28 AM Discharge Plan Visit Data Chief Complaint: Stroke/CVA Symptoms Stated Complaint: FELT LIKE HAVING STROKE,RT SIDE-COULDN'T MOVE ED Provider: Randolph Woodard Discharge Problem: Acute right-sided muscle weakness, TIA (transient ischemic attack), Hypokalemia Patient Disposition: Admitted As Inpatient Discharge Instructions Interventions: ED Discharge Assessment Last Done: 10/03/22 11:15
[2022-10-03] MEDS ORDERED: ONDANSETRON INJ 2 MG/ML 2 ML VIAL IV STA (07:43)
--- NOTE | 2022-10-03 07:52 | XRay Report ---
XR chest 1V portable CLINICAL HISTORY: neuro deficit, acute stroke suspected COMPARISON STUDY: Chest radiograph April 05, 2021. Chest CT June 15, 2015. FINDINGS: No pneumothorax or pleural effusion is present. There is no consolidation. No evidence for pulmonary edema. Right hilar prominence is unchanged and due to pulmonary vessels. Cardiomediastinal silhouette is stable. IMPRESSION: No acute cardiopulmonary findings. No change in appearance of the chest. ACT 112: Negative or not required by law. Electronically signed by: Doni Danielson M.D. 10/03/2022 7:51 AM
[2022-10-03] MEDS ORDERED: OPTIRAY 320 125ml IV ONE (07:58)
[2022-10-03 08:04] LABS: Basophils # (auto) 0.05 K/uL (0-0.2); Basophils % (auto) 0.7 %; Eosinophils # (auto) 0.29 K/uL (0-0.50); Eosinophils % (auto) 3.9 %; Hematocrit (blood only) 39.7 % (37.0-47.0); Hemoglobin 13.2 g/dl (12.0-16.0); Immature Granulocytes # (auto) 0.03 K/uL (0.01-0.20); Immature Granulocytes % (auto) 0.4 %; Lymphocytes # (auto) 2.29 K/uL (1.2-3.4); Mean Corpuscular Hemoglobin 29.1 pg (25.0-34.0); Mean Corpuscular Hgb Conc 33.2 g/dL (32.0-36.0); Mean Corpuscular Volume 87.6 fL (80.0-100.0); Mean Platelet Volume 10.3 fL (9.4-12.4); Monocytes # (auto) 0.57 K/uL (0.11-0.59); Monocytes % (auto) 7.7 %; Neutrophils # (auto) 4.16 K/uL (1.40-6.50); Neutrophils % (auto) 56.3 %; Platelet Count 298 K/uL (130-400); RDW Coefficient of Variation 14.7 % (11.5-14.5); RDW Standard Deviation 46.8 fL (36.4-46.3); Red Blood Count 4.53 M/uL (4.20-5.40); White Blood Count 7.39 K/ul (4.8-10.8)
--- NOTE | 2022-10-03 08:13 | CT Scan Report ---
CT ANGIOGRAM OF THE BRAIN CLINICAL HISTORY: Neurological deficit. Stroke like symptoms. COMPARISON STUDY: Unenhanced CT of the brain performed concurrently on 10/03/2022. TECHNIQUE: Unenhanced axial CT scan of the brain is performed. Subsequently, following the IV adminis tration of 120 cc of Optiray 320, CT angiogram of the brain was performed from the skull base to the vertex. Images are reviewed in the axial, sagittal, and coronal planes. 3-D MIPS images are created a nd assessed. IV contrast was administered without complication. A dose lowering technique was utiliz ed adhering to the principles of ALARA. FINDINGS: Brain parenchyma: There is age-related involutional change noting mild to moderate subcortical and pe riventricular microangiopathic disease. There is no evidence of hemorrhage, mass effect, or acute ter ritorial ischemia noting angiographic phase technique. A 12 mm calcified meningioma is seen along the midline falx at the vertex. No additional enhancing lesion is suggested On the angiogram phase image s. No extra-axial fluid collection is seen. Peng-white matter differentiation is preserved. Ventricles, sulci, and cisterns: Prominent secondary to involutional change. CT angiogram of the brain: There is atherosclerotic calcification of the cavernous carotid and verteb ral arteries. The internal carotid arteries are widely patent, as are the anterior and middle cerebra l arteries. The vertebrobasilar system and posterior cerebral arteries are widely patent. The left ve rtebral artery is dominant. 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 Question focal high-grade stenosis versus focal vessel occlusion of the distal left ant erior cerebral artery on axial image #168. No aneurysm is seen. Dural sinuses: Clear as visualized. Orbits: The bony orbits are intact. The orbital contents are normal as visualized. Sinuses and mastoids: The visualized paranasal sinuses are clear. The mastoid air cells are well pneu matized. Calvarium: The skeletal structures are osteopenic. The calvarium appears intact. IMPRESSION: 1. There is no evidence of hemorrhage, mass effect, or acute territorial ischemia noting angiographic phase technique. 2. Question severe focal stenosis versus cut off of the distal left anterior cerebral artery. Correla te clinically. 3. 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 ACT 112: Negative or not required by law. Electronically signed by: Moshe William M.D. 10/03/2022 8:10 AM
[2022-10-03 08:15] LABS: Albumin Globulin Ratio 1.3 (0.9-2); Albumin Level 3.7 gm/dl (3.4-5.0); BUN Creatinine Ratio 22.6 (10-20); Bilirubin,Total 1.1 mg/dl (0.2-1.0); Calcium 8.8 mg/dl (8.6-10.3); Creatinine Clr Calc Pharmacy 43.8 ml/min; Est GFR (African American) 55.8 ml/min; Est GFR (Non-African American) 48.2 ml/min; Globulin 2.9 gm/dl (2.5-4.0); Magnesium 1.7 mg/dl (1.7-2.4); Potassium 3.2 mmol/L (3.5-5.1); Total Protein 6.6 gm/dl (6.0-8.3)
[2022-10-03 08:19] LABS: Troponin I High Sensitivity 9.5 pg/ml (0-14)
--- NOTE | 2022-10-03 08:22 | CT Scan Report ---
CT OF THE HEAD WITHOUT CONTRAST CLINICAL HISTORY: neuro deficit, acute stroke suspected . Right-sided weakness. COMPARISON STUDY: Head CT April 15, 2010. TECHNIQUE: Helical axial images of the head were obtained without IV contrast. Automated exposure con trol was utilized for the study. A dose lowering technique was utilized adhering to the principles o f ALARA. FINDINGS: No acute intracranial hemorrhage, midline shift or mass effect is present. The ventricular system is unremarkable. Basal cisterns are patent. There are no extra axial collections. A subtle 5 m m round extra-axial hyperdensity along the right aspect of the falx on axial image 13 of 28 favors a small meningioma. There is an additional 1.1 cm partially calcified superior parafalcine meningioma. White matter hypodensity suggests small vessel disease. IMPRESSION: 1. No acute intracranial findings. 2. Two small parafalcine meningiomas. ACT 112: Negative or not required by law. Electronically signed by: Doni Danielson M.D. 10/03/2022 8:20 AM
[2022-10-03 08:23] LABS: Partial Thromboplastin Ratio 0.9; Partial Thromboplastin Time 25.7 Seconds (21.0-31.0); Prothrombin Time 10.7 Seconds (9.0-12.0)
--- NOTE | 2022-10-03 08:30 | CT Scan Report ---
CT ANGIOGRAPHY OF THE NECK WITH CONTRAST CLINICAL HISTORY: neuro deficit, acute stroke suspected COMPARISON STUDY: No previous studies for comparison. Technique: CT angiography of the carotid and vertebral arteries was obtained using Optiray and 3D rec onstruction on an independent workstation. NASCET criteria was utilized. Automated exposure control was utilized for the study. A dose lowering technique was utilized adhering to the principles of ALA RA. CT DOSE: 986.97 mGy.cm Findings: Visualized portions of the lung apices are unremarkable. There is no cervical lymphadenopat hy. No cervical spine fracture is present. Linear right upper lobe density favors atelectasis or scar ring. The bilateral common carotid, cervical internal carotid and vertebral arteries are patent. Ther e is moderate atherosclerotic plaque within the proximal left internal carotid artery without stenosi s. There is no stenosis or dissection within these vessels. The left vertebral artery is dominant. No aneurysm within the neck. Please note that the CTA of the head will be reported separately. IMPRESSION: 1. Moderate atherosclerotic plaque within the proximal left internal carotid artery without stenosis. 2. No stenoses or dissection within the bilateral common carotid, cervical internal carotid or verteb ral arteries. ACT 112: Negative or not required by law. Electronically signed by: Doni Danielson M.D. 10/03/2022 8:28 AM
[2022-10-03] MEDS ORDERED: CLOPIDOGREL BISULFATE 300 MG TAB PO STA (09:25)
[2022-10-03] MEDS ORDERED: ASPIRIN CHEW 324 MG PO STA (09:25)
--- NOTE | 2022-10-03 10:33 | History & Physical Report ---
Date of Service October 03, 2022 Assessment & Plan (1) Stroke-like symptoms: Plan: Symptoms now completely resolved TTE Brain MRI w/wo IV contrast due to mass seen on CT (suspected to be meningioma) If no stroke on Brain MRI will continue on her usual anti-hypertensives otherwise allow permissive hypertension Lipid panel and HbA1C with AM labs ASA 81mg PO daily + clopidogrel 75mg PO daily Consult neurology (2) Controlled type 2 diabetes mellitus with insulin therapy: Plan: HbA1C 7.7 in July, repeat with AM labs Continue Lantus 30 units QAM Novolog based on basal dosing: --Goal BSG Range: Low 110 mg/dL, High 140 mg/dL --Correction Factor: 25 mg/dL/unit --Carbohydrate ratio = 9 g/unit --BSGs ACHS if eating, q6h if npo Plan VTE Prophylaxis - deferred on admission pending further workup Diet - heart healthy, T2DM Disposition - observation to med/tele Admission and Anticipated Discharge Date Admission Date: October 03, 2022 History of Present Illness Chief Complaint: Right sided weakness Primary Care Provider: ROYAL Davison Mallika Weaver is an 86 year old female who presents to the ER with right sided wea kness. She reports equal upper and lower extremity limb weakness when she woke up this morning around 6:30am. Symptoms lasted just less than an hour and are now completely resolved. No change in speech, vision or hearing. No facial droop noticed by family members. She went to the bathroom around 4am and felt fine at that time. No prior strokes. No atrial fibrillation. She does have diabetes and treated high blood pressure. Allergies Allergy/AdvReac Type Severity Reaction Status Date / Time hydrochlorothiazide Allergy Unknown Unknown Verified 10/03/22 09:38 ampicillin AdvReac Intermediate UTIs Verified 10/03/22 09:38 amlodipine AdvReac Mild Cough Verified 10/03/22 09:38 erythromycin base AdvReac Mild YEAST Verified 10/03/22 09:38 INFECTION moxifloxacin AdvReac Mild sick to Verified 10/03/22 09:38 stomach Home Medications Medication Instructions Recorded Confirmed Type cyanocobalamin (vitamin B-12) 100 100 mcg PO QDL 02/08/18 10/03/22 History mcg tablet (Vitamin B-12) ascorbic acid (vitamin C) 500 mg 500 mg PO QDL 11/19/18 10/03/22 History tablet blood-glucose meter (OneTouch #1 ea 11/19/18 09/28/22 History UltraMini kit) lancets 33 gauge (OneTouch Delica #100 ea 11/19/18 09/28/22 History Lancets) meclizine 12.5 mg tablet 12.5 mg PO Q6H PRN Dizziness #30 11/19/18 10/03/22 History tabs vitamin E (dl, acetate) 180 mg 400 units PO QDL 11/19/18 10/03/22 History (400 unit) capsule cholecalciferol (vitamin D3) 25 25 mcg PO QDL 08/26/21 10/03/22 History mcg (1,000 unit) capsule (Vitamin D3) esomeprazole magnesium 20 mg 20 mg PO QDL PRN Heartburn 08/26/21 10/03/22 History capsule,delayed release levothyroxine 150 mcg tablet 150 mcg PO QDL #90 tabs 12/20/21 10/03/22 Rx insulin glargine 100 unit/mL (3 30 unit (0.3 mL) subcut QAM #18 mL 02/08/22 10/03/22 Rx mL) subcutaneous pen (Lantus Solostar U-100 Insulin) diltiazem HCl 240 mg 240 mg PO QDL #90 caps 03/06/22 10/03/22 Rx capsule,extended release 24 hr losartan 100 mg tablet 100 mg PO QDL #90 tabs 03/06/22 10/03/22 Rx blood sugar diagnostic #100 ea 03/29/22 09/28/22 Rx potassium chloride 10 mEq 20 meq PO BID #360 tabs 07/27/22 10/03/22 Rx tablet,extended release allopurinol 300 mg tablet 300 mg PO QDL #90 tabs 08/31/22 10/03/22 Rx atenolol 50 mg tablet 50 mg PO QDL #90 tabs 08/31/22 10/03/22 Rx furosemide 20 mg tablet 40 mg PO QDB #180 tabs 09/13/22 10/03/22 Rx pen needle, diabetic 32 gauge x #100 ea 09/14/22 09/28/22 Rx 5/32" (BD Ultra-Fine Anais Pen Needle) Past Med/Surg History Medical History (Updated 10/03/22 @ 16:36 by Ruel Antunez MD) Anemia Diabetes mellitus, type 2 Difficulty swallowing Glaucoma Gout History of anesthesia reaction difficulty waking History of esophageal dilatation History of kidney stones History of radioactive iodine thyroid ablation 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 Hypertension Hypothyroidism Left knee DJD Left-sided chest wall pain Osteoporosis Schatzki's ring Thyroid cancer diagnosed 2000--sx/radioactive iodine tx Uncontrolled type II diabetes mellitus Surgical History (Updated 07/27/22 @ 09:57 by Bess Heredia) H/O hand surgery History of arthroscopy of right knee History of carpal tunnel surgery of left wrist History of cholecystectomy History of colonoscopy History of dilation and curettage History of esophagogastroduodenoscopy (EGD) History of lymph node excision right side of neck d/t TB (1953) History of thyroidectomy History of tonsillectomy History of total abdominal hysterectomy and bilateral salpingo-oophorectomy History of total left knee replacement (TKR) History of total right knee replacement (TKR) History of wisdom tooth extraction Status post biopsy of thyroid gland malignant Family History (Updated 07/27/22 @ 09:58 by Bess Heredia) Mother Rheumatoid arthritis Type 2 diabetes mellitus Hypertension Father Type 2 diabetes mellitus Hypertension Brother Venous embolism and thrombosis of deep vessels of lower extremity Other No family history of adverse response to anesthesia Denies family history of Ovarian cancer Prostate cancer Myocardial infarction Breast cancer Colorectal cancer Social History (Updated 07/27/22 @ 09:59 by Bess Heredia) Smoking Status: Never smoker Second Hand Exposure: No; Do You Dip or Chew Tobacco: No; Hx Alcohol Use: No Hx Substance Use: No Preferred Language: Turkish Communication Ability: Effective Visual Impairment: No Limitations Hearing Ability: Normal Learning And Development Specialist Required: No Beliefs That Will Affect Care: None marital status: Current Living Situation: Spouse and Family current occupational status: retired 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 Feels Safe at Home: Yes Childhood Exposure to Second-Hand Smoke: Yes Diet: diabetic caffeine: Yes (Iced Tea ) Dental Care, Regularly: Yes Physical Activity Frequency: Does not Exercise Seatbelt Use: always Sunscreen Use: No Assistive Devices: Denture - Lower and Glasses Review of Systems Review of Systems: All systems reviewed & are unremarkable except as noted in HPI & below Physical Exam Constitutional: WD/WN, vitals as above Eyes: PERRL, conjunctivae normal, anicteric sclerae ENMT: external ear and nose normal, oropharynx normal Respiratory: normal respiratory effort, lungs clear to auscultation Cardiovascular: RRR, no murmur, no edema Gastrointestinal (Abdomen): normal bowel sounds, soft, nontender, no hepatosplenomegaly Musculoskeletal: no cyanosis or clubbing, extremities motor strength 5/5 Skin: no rashes, warm and dry Neurologic: moves all extremities and awake; no focal motor deficits and not confused Speech / Cognition: normal speech Motor/Sensory: no tremor and no pronator drift Cranial Nerves: PERRL, EOM intact bilaterally, normal facial strength, tongue midline, able to rotate head bilaterally, able to elevate shoulders bilaterally, no nystagmus and symmetric palate elevation Coordination: normal [id number] test Psychiatric: A+Ox3, euthymic affect Results & Data Results & Data Vital Signs (Past 12 Hours) Vital Signs Temp Pulse Pulse Resp BP BP Pulse Ox 10/03/22 08:44 163/95 H 10/03/22 08:15 61 10/03/22 07:39 59 L 18 221/87 H 96 10/03/22 07:13 36.8 C 60 20 187/91 H 96 O2 Del Method 10/03/22 08:44 10/03/22 08:15 10/03/22 07:39 Room Air 10/03/22 07:13 Room Air Laboratory Results Abnormal lab results 10/03/22 10/03/22 10/03/22 Range/Units 07:26 07:35 07:35 RDW Std Deviation 46.8 H (36.4-46.3) fL RDW Coeff of Jaja 14.7 H (11.5-14.5) % Potassium 3.2 L (3.5-5.1) mmol/L BUN 24 H (6-23) mg/dl BUN/Creatinine Ratio 22.6 H (10-20) Glucose 160 H (70-99(Fasting)) mg/dl POC Glucose 166 H (70-99) mg/dl Total Bilirubin 1.1 H (0.2-1.0) mg/dl Diagnostic Findings CT OF THE HEAD WITHOUT CONTRAST CLINICAL HISTORY: neuro deficit, acute stroke suspected . Right-sided weakness. COMPARISON STUDY: Head CT April 15, 2010. TECHNIQUE: Helical axial images of the head were obtained without IV contrast. Automated exposure control was utilized for the study. A dose lowering technique was utilized adhering to the principles of ALARA. FINDINGS: No acute intracranial hemorrhage, midline shift or mass effect is present. The ventricular system is unremarkable. Basal cisterns are patent. There are no extra axial collections. A subtle 5 mm round extra-axial hyperdensity along the right aspect of the falx on axial image 13 of 28 favors a small meningioma. There is an additional 1.1 cm partially calcified superior parafalcine meningioma. White matter hypodensity suggests small vessel disease. IMPRESSION: 1. No acute intracranial findings. 2. Two small parafalcine meningiomas. Medications Administered ER Medications Given: Ondansetron 4mg IV Aspirin 81mg PO Clopidogrel 300mg ECG Rate (beats per minute): 54 Rhythm: sinus bradycardia Findings: + nonspecific-ST abn Comparison ECG Date: from (August 25, 2021) Change: no significant change Code Status & VTE Plan Code Status Full VTE Prophylaxis Plan VTE Prophylaxis will be ordered: No PG Care Time/CCT Total # of Minutes Spent Total Time Spent with Patient: Total time spent is greater than 50% in coordination of care (as documented) at patient's floor/unit and/or counseling patient: Coding Level of Care Code 46253 INT INP/OBS CARE 3/75MIN Diagnoses Stroke-like symptoms R29.90 Controlled type 2 diabetes mellitus with insulin therapy E11.9; Z79.4
--- NOTE | 2022-10-03 11:57 | XCELERA ---
[id number]
[2022-10-03] MEDS ORDERED: ACETAMINOPHEN 325 MG TAB PO PRN (12:03)
[2022-10-03] MEDS ORDERED: GLUCOSE 40% GEL 15 GM TUBE PO PRN (12:03)
[2022-10-03] MEDS ORDERED: DEXTROSE 50% 50 ML SYRINGE IV PRN (12:03)
[2022-10-03] MEDS ORDERED: ONDANSETRON INJ 2 MG/ML 2 ML VIAL IV PRN (12:03)
[2022-10-03] MEDS ORDERED: PHARMACIST DISCHARGE MED REC CONSULT PRN (12:03)
[2022-10-03] MEDS ORDERED: GLUCOSE 10 TAB/TUBE PO PRN (12:03)
[2022-10-03] MEDS ORDERED: CARBOHYDRATES FOR HYPOGLYCEMIA PO PRN (12:03)
[2022-10-03] MEDS ORDERED: GLUCAGON FOR INJ 1 MG VIAL SQ PRN (12:03)
[2022-10-03] MEDS ORDERED: PANTOprazole 40 MG TAB PO PRN (12:06)
[2022-10-03] MEDS ORDERED: ASPIRIN 81 MG ECTAB PO STA (12:10)
--- NOTE | 2022-10-03 12:27 | Electrocardiogram Report ---
Test Reason : Blood Pressure : / mmHG Vent. Rate : 054 BPM Atrial Rate : 054 BPM P-R Int : 274 ms QRS Dur : 072 ms QT Int : 452 ms P-R-T Axes : 088 -03 016 degrees QTc Int : 428 ms Sinus bradycardia with 1st degree A-V block Minimal voltage criteria for LVH, may be normal variant ( R in aVL ) Nonspecific ST and T wave abnormality Abnormal ECG When compared with ECG of 09-NOV-2020 20:34, QRS duration has decreased Confirmed by Jefe Sharif ([id number]) on 10/03/2022 12:26:56 PM Referred By: Confirmed By:Jefe Sharif
[2022-10-03] MEDS: LEVOTHYROXINE SODIUM 150 MCG TABLET PO SCH (12:52)
[2022-10-03] MEDS: allopurinoL 300 MG TAB PO SCH (12:52)
[2022-10-03] MEDS: POTASSIUM CHLORIDE CRTAB 20 MEQ TABCR PO SCH ×2 (12:52→20:36)
[2022-10-03] MEDS: INSULIN ASPART PER UNIT CHARGE SC SCH ×3 (12:57→20:34)
[2022-10-03] MEDS ORDERED: GADOBUTROL 65ML VIAL IV ONE (14:12)
--- NOTE | 2022-10-03 15:14 | Magnetic Resonance Report ---
MRI OF THE BRAIN COMBO CLINICAL HISTORY: Right-sided upper and lower extremity weakness. COMPARISON STUDY: CT of the brain dated 10/03/2022. TECHNIQUE: MRI of the brain was performed utilizing various T1 and T2-weighted sequences in the axial , sagittal, and coronal planes. Contrast-enhanced sequences were acquired following the administratio n of 9.5 cc of Gadavist. FINDINGS: Brain parenchyma: There is a small region of restricted diffusion identified in the parafalcine left frontal cortex as well as within the left anterior corpus callosum. This corresponds to a small left NESS territory infarct as suspected by CT. No additional foci of restricted diffusion are identified. A 12 mm enhancing meningioma is seen on the right aspect of the falx at the vertex. A second 7 mm men ingioma seen on the right anterior falx, and an 8 mm meningioma seen along the right frontal convexit y on image #45 over the high-resolution postcontrast series. There is no hemorrhage or mass effect. T here is age-related involutional change noting mild subcortical and periventricular microangiopathic disease. No extra-axial fluid collection is seen. The cerebellar tonsils are normal in configuration. Ventricles, sulci, and cisterns: Prominent secondary conclusions no change. Pituitary and sella: Unremarkable. Intracranial vasculature: Normal flow voids are maintained at the skull base. Orbits: The bony orbits are grossly intact. Orbital contents are normal in appearance. Sinuses and mastoids: There are trace mastoid effusions. The paranasal sinuses are clear. Calvarium: Unremarkable. Cervical cord: Partially visualized cervical spinal cord is normal in morphology and signal intensity . IMPRESSION: 1. Small acute to subacute left NESS territory infarct as above. This corresponds to the findings on jaycob mcbride's CT angiogram of the brain. 2. No additional foci of acute ischemia are identified. 3. There is no hemorrhage or mass effect. 4. There are 3 small meningiomas as above. ACT 112: Negative or not required by law. Electronically signed by: Moshe William M.D. 10/03/2022 3:13 PM
--- NOTE | 2022-10-03 16:09 | Neurology Consultation ---
Date of Consultation October 03, 2022 Assessment & Plan (1) Stroke with cerebral ischemia: Patient presents with R leg and arm weakness found to have a L frontal stroke likely secondary to large artery atherosclerotic disease from her carotid plaque. Agree with dual antiplatelet therapy, plavix 75mg daily and aspirin 81mg daily for 21 days, then plavix monotherapy. Lipitor 40mg daily. Would discharge with zio patch though cardioembolism is less likely. -- Aspirin and plavix for 21 days, then plavix 75mg monotherapy -- Lipitor 40mg daily -- Does not need permissive HTN -- Therapy evals -- Zio patch at discharge -- Neuro follow-up 6-8 weeks. Telehealth Consultation Telehealth Information Telehealth Information: I performed this visit using a real-time telehealth connection between my location and the patients location ([facility]). After connecting through interactive tele-video, patient was identified by name and date of and/or wristband check.Patient (or authorized healthcare site safety representative) was informed that this was a telemedicine visit and it was being conducted confidentially over secure lines. My office door was closed and no one else was present in the room with me.Patient (or authorized healthcare site safety representative) provided consent to proceed with the visit, expressed an understanding of privacy and security of the telemedicine visit, and gave permission to have a hospital site safety representative in the room in order to assist with the visit and to conduct portions of the visit, as needed. I informed the patient (or authorized healthcare site safety representative) that I reviewed their record and presented the opportunity for them to ask any questions regarding the visit today. The patient agreed to participate. History of Present Illness Reason for Consultation: R sided weakness Requesting Physician: Dr. Tovar Attending Physician: Art Tovar MD History of Present Illness Mallika Weaver is an 86 yo F presenting with R sided weakness noticed when she woke up this morning. The patient reports she had equal difficulty lifting the blankets off her arm and leg but was able to walk. Since arrival her weakness has resolved and she feels back to normal. She denies any history of stroke in the past. Has not been on antiplatelets over the past 5 years after a bleeding stomach ulcer. Otherwise denies any headache, vision changes and word finding difficulties. Allergies Allergy/AdvReac Type Severity Reaction Status Date / Time hydrochlorothiazide Allergy Unknown Unknown Verified 10/03/22 09:38 ampicillin AdvReac Intermediate UTIs Verified 10/03/22 09:38 amlodipine AdvReac Mild Cough Verified 10/03/22 09:38 erythromycin base AdvReac Mild YEAST Verified 10/03/22 09:38 INFECTION moxifloxacin AdvReac Mild sick to Verified 10/03/22 09:38 stomach Home Medications Medication Instructions Recorded Confirmed Type cyanocobalamin (vitamin B-12) 100 100 mcg PO QDL 02/08/18 10/03/22 History mcg tablet (Vitamin B-12) ascorbic acid (vitamin C) 500 mg 500 mg PO QDL 11/19/18 10/03/22 History tablet blood-glucose meter (PayoneerTouch #1 ea 11/19/18 09/28/22 History UltraMini kit) lancets 33 gauge (OneTouch Delica #100 ea 11/19/18 09/28/22 History Lancets) meclizine 12.5 mg tablet 12.5 mg PO Q6H PRN Dizziness #30 11/19/18 10/03/22 History tabs vitamin E (dl, acetate) 180 mg 400 units PO QDL 11/19/18 10/03/22 History (400 unit) capsule cholecalciferol (vitamin D3) 25 25 mcg PO QDL 08/26/21 10/03/22 History mcg (1,000 unit) capsule (Vitamin D3) esomeprazole magnesium 20 mg 20 mg PO QDL PRN Heartburn 08/26/21 10/03/22 History capsule,delayed release levothyroxine 150 mcg tablet 150 mcg PO QDL #90 tabs 12/20/21 10/03/22 Rx insulin glargine 100 unit/mL (3 30 unit (0.3 mL) subcut QAM #18 mL 02/08/22 10/03/22 Rx mL) subcutaneous pen (Lantus Solostar U-100 Insulin) diltiazem HCl 240 mg 240 mg PO QDL #90 caps 03/06/22 10/03/22 Rx capsule,extended release 24 hr losartan 100 mg tablet 100 mg PO QDL #90 tabs 03/06/22 10/03/22 Rx blood sugar diagnostic #100 ea 03/29/22 09/28/22 Rx potassium chloride 10 mEq 20 meq PO BID #360 tabs 07/27/22 10/03/22 Rx tablet,extended release allopurinol 300 mg tablet 300 mg PO QDL #90 tabs 08/31/22 10/03/22 Rx atenolol 50 mg tablet 50 mg PO QDL #90 tabs 08/31/22 10/03/22 Rx furosemide 20 mg tablet 40 mg PO QDB #180 tabs 09/13/22 10/03/22 Rx pen needle, diabetic 32 gauge x #100 ea 09/14/22 09/28/22 Rx 32" (BD Ultra-Fine Anais Pen Needle) Patient History Medical History (Updated 10/03/22 @ 16:36 by Ruel Antunez MD) Anemia Diabetes mellitus, type 2 Difficulty swallowing Glaucoma Gout History of anesthesia reaction difficulty waking History of esophageal dilatation History of kidney stones History of radioactive iodine thyroid ablation 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 Hypertension Hypothyroidism Left knee DJD Left-sided chest wall pain Osteoporosis Schatzki's ring Thyroid cancer diagnosed 2000--sx/radioactive iodine tx Uncontrolled type II diabetes mellitus Surgical History (Updated 07/27/22 @ 09:57 by Bess Heredia) H/O hand surgery History of arthroscopy of right knee History of carpal tunnel surgery of left wrist History of cholecystectomy History of colonoscopy History of dilation and curettage History of esophagogastroduodenoscopy (EGD) History of lymph node excision right side of neck d/t TB (1953) History of thyroidectomy History of tonsillectomy History of total abdominal hysterectomy and bilateral salpingo-oophorectomy History of total left knee replacement (TKR) History of total right knee replacement (TKR) History of wisdom tooth extraction Status post biopsy of thyroid gland malignant Family History (Updated 07/27/22 @ 09:58 by Bess Heredia) Mother Rheumatoid arthritis Type 2 diabetes mellitus Hypertension Father Type 2 diabetes mellitus Hypertension Brother Venous embolism and thrombosis of deep vessels of lower extremity Other No family history of adverse response to anesthesia Denies family history of Ovarian cancer Prostate cancer Myocardial infarction Breast cancer Colorectal cancer Social History (Updated 07/27/22 @ 09:59 by Bess Heredia) Smoking Status: Never smoker Second Hand Exposure: No; Do You Dip or Chew Tobacco: No; Hx Alcohol Use: No Hx Substance Use: No Preferred Language: Sinhala Communication Ability: Effective Visual Impairment: No Limitations Hearing Ability: Normal Carbon Sequestration Plant Operator Required: No Beliefs That Will Affect Care: None marital status: Current Living Situation: Spouse and Family current occupational status: retired 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 Oriented to person, place, and time. Fluent. Comprehension intact. Affect appropriate. Cranial Nerves: II: Reads NIHSS cards, pupils 3/3 to 2/2, rodriguez grossly intact. III/IV/: Versions intact without nystagmus, no gaze preference. V: Facial sensation symmetric to light touch VII: Facial expression symmetric Motor: Strength was symmetric and antigravity throughout. Pronator drift was absent. There were no abnormal movements. Coordination: Movements were non-ataxic Reflexes: Unable to assess over telemedicine Results & Data Vital Signs (Past 12 Hours) Vital Signs Temp Pulse Pulse Resp BP BP Pulse Ox 10/03/22 15:35 70 196/94 H 10/03/22 12:03 10/03/22 12:11 36.5 C 60 18 199/77 H 95 10/03/22 12:09 36.6 C 58 L 18 108/71 98 10/03/22 08:44 163/95 H 10/03/22 08:15 61 10/03/22 07:39 59 L 18 221/87 H 96 10/03/22 07:13 36.8 C 60 20 187/91 H 96 Pulse Ox O2 Del Method O2 Del Method O2 Flow Rate 10/03/22 15:35 10/03/22 12:03 95 Room Air 10/03/22 12:11 Room Air 10/03/22 12:09 Nasal Cannula 2 10/03/22 08:44 10/03/22 08:15 10/03/22 07:39 Room Air 10/03/22 07:13 Room Air Laboratory Results Abnormal lab results 10/03/22 10/03/22 10/03/22 Range/Units 07:26 07:35 07:35 RDW Std Deviation 46.8 H (36.4-46.3) fL RDW Coeff of Jaja 14.7 H (11.5-14.5) % Potassium 3.2 L (3.5-5.1) mmol/L BUN 24 H (6-23) mg/dl BUN/Creatinine Ratio 22.6 H (10-20) Glucose 160 H (70-99(Fasting)) mg/dl POC Glucose 166 H (70-99) mg/dl Total Bilirubin 1.1 H (0.2-1.0) mg/dl 10/03/22 10/03/22 Range/Units 12:04 16:20 RDW Std Deviation (36.4-46.3) fL RDW Coeff of Jaja (11.5-14.5) % Potassium (3.5-5.1) mmol/L BUN (6-23) mg/dl BUN/Creatinine Ratio (10-20) Glucose (70-99(Fasting)) mg/dl POC Glucose 162 H 141 H (70-99) mg/dl Total Bilirubin (0.2-1.0) mg/dl Diagnostic Findings MRI brain - small L frontal stroke CTA head and neck - L A2 stenosis, L ICA plaque, not flow limiting
[2022-10-03] MEDS: ATENOLOL 50 MG TABLET PO SCH (16:40)
[2022-10-03] MEDS: dilTIAZem HCL 240 MG CAPCR PO SCH (16:40)
[2022-10-03] MEDS ORDERED: ATORVASTATIN 40 MG TAB PO SCH (21:00)
[2022-10-03] MEDS ORDERED: POTASSIUM CHLORIDE CRTAB 20 MEQ TABCR PO STA (22:01)
[2022-10-04 06:42] LABS: Basophils # (auto) 0.05 K/uL (0-0.2); Basophils % (auto) 0.7 %; Eosinophils # (auto) 0.29 K/uL (0-0.50); Eosinophils % (auto) 4.1 %; Hematocrit (blood only) 38.7 % (37.0-47.0); Hemoglobin 12.5 g/dl (12.0-16.0); Immature Granulocytes # (auto) 0.02 K/uL (0.01-0.20); Immature Granulocytes % (auto) 0.3 %; Lymphocytes # (auto) 1.98 K/uL (1.2-3.4); Mean Corpuscular Hemoglobin 28.7 pg (25.0-34.0); Mean Corpuscular Hgb Conc 32.3 g/dL (32.0-36.0); Mean Platelet Volume 10.3 fL (9.4-12.4); Monocytes # (auto) 0.64 K/uL (0.11-0.59); Neutrophils % (auto) 57.9 %; Platelet Count 263 K/uL (130-400); RDW Coefficient of Variation 14.6 % (11.5-14.5); RDW Standard Deviation 47.3 fL (36.4-46.3); Red Blood Count 4.35 M/uL (4.20-5.40); White Blood Count 7.08 K/ul (4.8-10.8)
[2022-10-04 06:53] LABS: BUN Creatinine Ratio 19.8 (10-20); Calcium 8.7 mg/dl (8.6-10.3); Chol HDL Ratio 4.5 (0-5); Creatinine Clr Calc Pharmacy 43.1 ml/min; Est GFR (African American) 55.8 ml/min; Est GFR (Non-African American) 48.2 ml/min; Potassium 3.6 mmol/L (3.5-5.1)
[2022-10-04 07:08] LABS: Estimated Average Glucose 160 mg/dl; Hemoglobin A1C 7.2 % (4.5-5.6)
[2022-10-04] MEDS: POTASSIUM CHLORIDE CRTAB 20 MEQ TABCR PO SCH (08:26)
[2022-10-04] MEDS: INSULIN ASPART PER UNIT CHARGE SC SCH ×2 (08:33→11:57)
[2022-10-04] MEDS ORDERED: CLOPIDOGREL BISULFATE 75 MG TAB PO SCH (09:00)
[2022-10-04] MEDS ORDERED: LANTUS PER UNIT CHARGE SC SCH (09:00)
[2022-10-04] MEDS ORDERED: LOSARTAN POTASSIUM 50 MG TAB PO SCH (09:00)
[2022-10-04] MEDS ORDERED: ASPIRIN 81 MG ECTAB PO SCH (11:45)
[2022-10-04] MEDS: ATENOLOL 50 MG TABLET PO SCH (11:50)
[2022-10-04] MEDS: dilTIAZem HCL 240 MG CAPCR PO SCH (11:50)
[2022-10-04] MEDS: LEVOTHYROXINE SODIUM 150 MCG TABLET PO SCH (11:50)
[2022-10-04] MEDS: allopurinoL 300 MG TAB PO SCH (11:50)
--- NOTE | 2022-10-04 11:54 | Discharge Summary ---
Date of Service October 04, 2022 Admission HPI Per Admitting Provider Mallika Weaver is an 86 year old female who presents to the ER with right sided weakness. She reports equal upper and lower extremity limb weakness when she woke up this morning around 6:30am. Symptoms lasted just less than an hour and are now completely resolved. No change in speech, vision or hearing. No facial droop noticed by family members. She went to the bathroom around 4am and felt fine at that time. No prior strokes. No atrial fibrillation. She does have diabetes and treated high blood pressure. Principal Diagnosis Acute to subacute L CVA Discharge Exam GENERAL: 86 yo well-developed, well-nourished F. AAOx4. NAD. LUNGS: Clear to auscultation bilaterally w/o W/R/R. CARDIOVASCULAR: Regular rate and rhythm ABDOMEN: Soft, non-tender and non-distended. BS normoactive x 4 quad. EXTREMITIES: No edema. Non-tender. Peripheral pulses +2/4. NEUROLOGIC: No focal neurological deficits. CN II-XII grossly intact. Discharge Data Allergies Allergy/AdvReac Type Severity Reaction Status Date / Time hydrochlorothiazide Allergy Unknown Unknown Verified 10/03/22 09:38 ampicillin AdvReac Intermediate UTIs Verified 10/03/22 09:38 amlodipine AdvReac Mild Cough Verified 10/03/22 09:38 erythromycin base AdvReac Mild YEAST Verified 10/03/22 09:38 INFECTION moxifloxacin AdvReac Mild sick to Verified 10/03/22 09:38 stomach Consultations 10/03/22 09:32 ED Decision to Admit Stat 10/03/22 12:03 Consult Neurology Routine Ordered Studies Chest X-Ray 10/03/22 07:25 XR chest 1V portable CLINICAL HISTORY: neuro deficit, acute stroke suspected COMPARISON STUDY: Chest radiograph April 05, 2021. Chest CT June 15, 2015. FINDINGS: No pneumothorax or pleural effusion is present. There is no consolidation. No evidence for pulmonary edema. Right hilar prominence is unchanged and due to pulmonary vessels. Cardiomediastinal silhouette is stable. IMPRESSION: No acute cardiopulmonary findings. No change in appearance of the chest. ACT 112: Negative or not required by law. Electronically signed by: Doni Danielson M.D. 10/03/2022 7:[address] 10/03/22 07:25 CT OF THE HEAD WITHOUT CONTRAST CLINICAL HISTORY: neuro deficit, acute stroke suspected . Right-sided weakness. COMPARISON STUDY: Head CT April 15, 2010. TECHNIQUE: Helical axial images of the head were obtained without IV contrast. Automated exposure control was utilized for the study. A dose lowering technique was utilized adhering to the principles of ALARA. FINDINGS: No acute intracranial hemorrhage, midline shift or mass effect is present. The ventricular system is unremarkable. Basal cisterns are patent. There are no extra axial collections. A subtle 5 mm round extra-axial hyperdensity along the right aspect of the falx on axial image 13 of 28 favors a small meningioma. There is an additional 1.1 cm partially calcified superior parafalcine meningioma. White matter hypodensity suggests small vessel disease. IMPRESSION: 1. No acute intracranial findings. 2. Two small parafalcine meningiomas. ACT 112: Negative or not required by law. Electronically signed by: Doni Danielson M.D. 10/03/2022 8:20 AM Head CTA 10/03/22 07:25 CT ANGIOGRAM OF THE BRAIN CLINICAL HISTORY: Neurological deficit. Stroke like symptoms. COMPARISON STUDY: Unenhanced CT of the brain performed concurrently on 10/03/2022. TECHNIQUE: Unenhanced axial CT scan of the brain is performed. Subsequently, following the IV administration of 120 cc of Optiray 320, CT angiogram of the brain was performed from the skull base to the vertex. Images are reviewed in the axial, sagittal, and coronal planes. 3-D MIPS images are created and assessed. IV contrast was administered without complication. A dose lowering technique was utilized adhering to the principles of ALARA. FINDINGS: Brain parenchyma: There is age-related involutional change noting mild to moderate subcortical and periventricular microangiopathic disease. There is no evidence of hemorrhage, mass effect, or acute territorial ischemia noting angiographic phase technique. A 12 mm calcified meningioma is seen along the midline falx at the vertex. No additional enhancing lesion is suggested On the angiogram phase images. No extra-axial fluid collection is seen. Peng-white matter differentiation is preserved. Ventricles, sulci, and cisterns: Prominent secondary to involutional change. CT angiogram of the brain: There is atherosclerotic calcification of the cavernous carotid and vertebral arteries. The internal carotid arteries are widely patent, as are the anterior and middle cerebral arteries. The vertebrobasilar system and posterior cerebral arteries are widely patent. The left vertebral artery is dominant. 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 Question focal high-grade stenosis versus focal vessel occlusion of the distal left anterior cerebral artery on axial image #168. No aneurysm is seen. Dural sinuses: Clear as visualized. Orbits: The bony orbits are intact. The orbital contents are normal as visualized. Sinuses and mastoids: The visualized paranasal sinuses are clear. The mastoid air cells are well pneumatized. Calvarium: The skeletal structures are osteopenic. The calvarium appears intact. IMPRESSION: 1. There is no evidence of hemorrhage, mass effect, or acute territorial ischemia noting angiographic phase technique. 2. Question severe focal stenosis versus cut off of the distal left anterior cerebral artery. Correlate clinically 3. 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 ACT 112: Negative or not required by law. Electronically signed by: Moshe William M.D. 10/03/2022 8:10 AM Neck CTA 10/03/22 07:25 CT ANGIOGRAPHY OF THE NECK WITH CONTRAST CLINICAL HISTORY: neuro deficit, acute stroke suspected COMPARISON STUDY: No previous studies for comparison. Technique: CT angiography of the carotid and vertebral arteries was obtained using Optiray and 3D reconstruction on an independent workstation. NASCET criteria was utilized. Automated exposure control was utilized for the study. A dose lowering technique was utilized adhering to the principles of ALARA. CT DOSE: 986.97 mGy.cm Findings: Visualized portions of the lung apices are unremarkable. There is no cervical lymphadenopathy. No cervical spine fracture is present. Linear right upper lobe density favors atelectasis or scarring. The bilateral common carotid, cervical internal carotid and vertebral arteries are patent. There is moderate atherosclerotic plaque within the proximal left internal carotid artery without stenosis. There is no stenosis or dissection within these vessels. The left vertebral artery is dominant. No aneurysm within the neck. Please note that the CTA of the head will be reported separately. IMPRESSION: 1. Moderate atherosclerotic plaque within the proximal left internal carotid artery without stenosis. 2. No stenoses or dissection within the bilateral common carotid, cervical internal carotid or vertebral arteries. ACT 112: Negative or not required by law. Electronically signed by: Doni Danielson M.D. 10/03/2022 8:28 AM Brain MRI 10/03/22 10:38 MRI OF THE BRAIN COMBO CLINICAL HISTORY: Right-sided upper and lower extremity weakness. COMPARISON STUDY: CT of the brain dated 10/03/2022. TECHNIQUE: MRI of the brain was performed utilizing various T1 and T2-weighted sequences in the axial, sagittal, and coronal planes. Contrast-enhanced sequences were acquired following the administration of 9.5 cc of Gadavist. FINDINGS: Brain parenchyma: There is a small region of restricted diffusion identified in the parafalcine left frontal cortex as well as within the left anterior corpus callosum. This corresponds to a small left NESS territory infarct as suspected by CT. No additional foci of restricted diffusion are identified. A 12 mm enhancing meningioma is seen on the right aspect of the falx at the vertex. A second 7 mm meningioma seen on the right anterior falx, and an 8 mm meningioma seen along the right frontal convexity on image #45 over the high-resolution postcontrast series. There is no hemorrhage or mass effect. There is age-related involutional change noting mild subcortical and periventricular microangiopathic disease. No extra-axial fluid collection is seen. The cerebellar tonsils are normal in configuration. Ventricles, sulci, and cisterns: Prominent secondary conclusions no change. Pituitary and sella: Unremarkable. Intracranial vasculature: Normal flow voids are maintained at the skull base. Orbits: The bony orbits are grossly intact. Orbital contents are normal in appearance. Sinuses and mastoids: There are trace mastoid effusions. The paranasal sinuses are clear. Calvarium: Unremarkable. Cervical cord: Partially visualized cervical spinal cord is normal in morphology and signal intensity. IMPRESSION: 1. Small acute to subacute left NESS territory infarct as above. This corresponds to the findings on today's CT angiogram of the brain. 2. No additional foci of acute ischemia are identified. 3. There is no hemorrhage or mass effect. 4. There are 3 small meningiomas as above. ACT 112: Negative or not required by law. Electronically signed by: Moshe William M.D. 10/03/2022 3:13 PM Echocardiogram: 10/03/22 Left ventricular systolic function is normal. No regional wall motion abnormalities noted. There is mild concentric left ventricular hypertrophy. Ejection Fraction = 55-60% No significant valvular pathology. Injection fo contrast documented no interatrial shunt. No prior study for comparison. Hospital Course (1) Cerebrovascular accident (CVA): Acute to subacute L NESS territory infarct c/w symptoms - Brain MRI as above, 3 small meningiomas - No residual from cva, symptoms have resolved - Neuro consulted, appreciate assistance by Dr. Antunez - ASA 81mg + Plavix 75mg daily x 3 weeks, then Plavix as monotherapy - Lipitor 40mg daily - F/u with neuro in 6-8 weeks - MCOT recommended to exclude cardioembolic event as cva etiology - Echo without gross abnormalities, preserved LVEF - PT/OT evals completed - no acute needs and pt is safe to return home with her and son with whom she lives (2) Controlled type 2 diabetes mellitus with insulin therapy: Chronic/stable - HbA1C 7.7 in July, repeat this AM was 7.2% - Continue Lantus 30 units QAM - Novolog AC and HS ordered w/ CF: 25 mg/dL/unit and CR: 9 g/unit while in house - Of note, given her cva, pt would benefit from a diabetic med with proven CVD benefit such as GLP-1 agonist or SGLT2 inhibitor. - However, would defer initiation to pt's established pcp given their fam iliarity with risks/benefits plus knowledge of insurance coverage or need for prior auth (3) Hypertension: Chronic/stable - Continue Diltiazem, Losartan, and Atenolol (4) Hypothyroidism: Chronic/stable - H/o thyroid ca - Currently on Levothyroxine 150mcg daily Plan Patient is medically and hemodynamically stable for discharge. Will arrange for close f/u with neurology and cardiac event monitor upon d/c. Recommend PCP within 1 week of discharge. Above plan of care has been d/w Dr. Goff who is in agreement with aforementioned. Total Time Total Time Spent Total Time Spent (In Minutes): 35 minutes Discharge Plan Discharge Items Patient Disposition: Home - Self-Care Reason For Visit: STROKE-LIKE SYMPTOMS Discharge Diagnosis: stroke Activity: Resume your previous activity Non-emergency contact: Primary Care Provider and Neurologist Call non-emergency contact if: you have any medication questions and your symptoms worsen Follow-up/Referrals: Bertha Leigh CRNP [Primary Care Provider] - 10/09/22 2:00 pm Sammi Kim PA-C [Physician Biochemist] - 11/13/22 11:20 am Diet: Carb Consistent or DM2 and Heart Healthy Addtl Attending Provider Instructions: You were hospitalized due to stroke-like symptoms including weakness on your right side that thankfully has resolved. Your work up included a CT of your head which appeared abnormal and prompted an MRI of your brain. You were found to have had a stroke on the left side of your brain which was affecting the right side of your body. Thankfully, you do not seem to have suffered any permanent symptoms as a result of this stroke. However, for treatment moving forward, you were seen by a neurologist and it was recommended that you start taking Aspirin 81mg daily and Plavix 75mg daily. You will continue taking Aspirin daily for a total of 20 days and then you can stop. You will need to continue taking Plavix 75mg daily. You have also been started on Lipitor 40mg once a day at bedtime. It is recommended that you follow up with neurology in 6-8 weeks. A heart monitor is recommended to ensure that you did not suffer a stroke due to an abnormal heart rhythm. This will be arranged as an outpatient. It is recommended that you follow up with your family doctor within 1 week of discharge from the hospital or sooner if needed. If you have any questions or concerns after you leave the hospital, feel free to contact the nonemergency number listed on your discharge paperwork. In the event of a medical emergency, call 911. Pending Studies at Discharge: No Stand-Alone Forms: [facility], Smoking Cessation, Medications to Prevent Stroke Medications and DC Order Prescriptions: New atorvastatin 40 mg Tablet 40 mg PO HS Qty: 30 0RF clopidogrel 75 mg Tablet 75 mg PO QAM Qty: 30 0RF aspirin 81 mg Tablet,Delayed Release (Dr/Ec) 81 mg PO QAM Qty: 20 0RF Continued levothyroxine 150 mcg tablet 150 mcg PO QDL Qty: 90 3RF Rx Instructions: Take before breakfast insulin glargine [Lantus Solostar U-100 Insulin] 100 unit/mL (3 mL) insulin pen 30 unit subcut QAM Qty: 18 3RF losartan 100 mg tablet 100 mg PO QDL Qty: 90 3RF diltiazem HCl 240 mg capsule,extended release 24hr 240 mg PO QDL Qty: 90 3RF (DME) blood sugar diagnostic Strip See Dose Instructions .ROUTE .MEDSUPPLY Qty: 100 1RF Dose Instruction: As directed Rx Instructions: test once daily and PRN ( PACE ONLY ALLOWS 6 MOS ) allopurinol 300 mg tablet 300 mg PO QDL Qty: 90 3RF atenolol 50 mg tablet 50 mg PO QDL Qty: 90 3RF furosemide 20 mg tablet 40 mg PO QDB Qty: 180 3RF (DME) pen needle, diabetic [BD Ultra-Fine Anais Pen Needle] 32 gauge x 5/32" needle See Rx Instructions .ROUTE .MEDSUPPLY Qty: 100 3RF Rx Instructions: Inject insulin once daily as instructed (DME) lancets [OneTouch Delica Lancets] 33 gauge misc See Dose Instructions .ROUTE .MEDSUPPLY Qty: 100 Rx Instructions: As directed (DME) blood-glucose meter [[employer]uch UltraMini] kit See Dose Instructions .ROUTE .MEDSUPPLY Qty: 1 Patient Comments: Check blood sugar once daily Rx Instructions: As directed ascorbic acid (vitamin C) 500 mg tablet 500 mg PO QDL vitamin E (dl, acetate) 400 unit capsule 400 units PO QDL meclizine 12.5 mg tablet 12.5 mg PO Q6H PRN (Reason: Dizziness) Qty: 30 potassium chloride 10 mEq tablet extended release 20 meq PO BID Qty: 360 3RF cyanocobalamin (vitamin B-12) [Vitamin B-12] 100 mcg Tablet 100 mcg PO QDL esomeprazole magnesium 20 mg capsule,delayed release(DR/EC) 20 mg PO QDL PRN (Reason: Heartburn) cholecalciferol (vitamin D3) [Vitamin D3] 25 mcg (1,000 unit) Capsule 25 mcg PO QDL Discharge Orders: Discharge Order (Routine); Ordered 10/04/22 Ordered By: Micheline Yang/Other Patient Handouts: Discharge Instructions for Stroke Admission Data Admit Date/Time: 10/03/22 10:24 Attending Provider: Thom Goff Admit Provider: Art Tovar Primary Care Provider: Bertha Leigh Other Providers: Art Tovar Other Interventions: Discharge Summary Assessment (RN) Last Done: 10/04/22 13:59 Coding Level of Care Code 42457 INP/OBS DISCH >30 MIN Diagnoses Cerebrovascular accident (CVA) I63.9 Controlled type 2 diabetes mellitus with insulin therapy E11.9; Z79.4 Hypertension I10 Hypothyroidism E03.9
[2022-10-04] MEDS ORDERED: STROKE PATIENT DISCHARGE STA (13:57)
--- NOTE | 2022-10-04 14:07 | Pharmacy Report ---
- Date of Service October 04, 2022 - Pharmacy CVA/TIA Medication Review Medications to Prevent Stroke handout has been added to the patients discharge packet. Antiplatelet(s) * Aspirin and Plavix Cholesterol * High intensity statin: atorvastatin 40 mg daily DVT Prophylaxis * N/A Therapeutic Anticoagulation * No history of Afib/Aflutter noted Type 2 Diabetes * Patient has T2DM, but per Micheline Mahoney, a diabetes medication with proven CVD benefit will be deferred to their outpatient provider due to familiarity with risks/benefits of such therapies. "Medications to prevent stroke" handout has already been added to the patient's discharge packet, which instructs the patient to follow up with their outpatient provider to evaluate which diabetes medication with proven CVD benefit is best for them
--- NOTE | 2022-10-06 12:02 | Pharmacy Report ---
Pharmacist Stroke Counseling - Date of Service October 06, 2022 - Scope: Pharmacy has been consulted to provide medication discharge counseling for this patient admitted with [ischemic stroke] [hemorrhagic stroke] [transient ischemic attack] as per the Pharmacist Discharge Counseling for Stroke Patients Jamil bland - Medications on Discharge: Medication Instructions Recorded Confirmed cyanocobalamin (vitamin B-12) 100 100 mcg PO QDL 02/08/18 10/05/22 mcg tablet (Vitamin B-12) ascorbic acid (vitamin C) 500 mg 500 mg PO QDL 11/19/18 10/05/22 tablet blood-glucose meter (OneTouch #1 ea 11/19/18 10/05/22 UltraMini kit) lancets 33 gauge (OneTouch Delica #100 ea 11/19/18 10/05/22 Lancets) meclizine 12.5 mg tablet 12.5 mg PO Q6H PRN Dizziness #30 11/19/18 10/05/22 tabs vitamin E (dl, acetate) 180 mg 400 units PO QDL 11/19/18 10/05/22 (400 unit) capsule cholecalciferol (vitamin D3) 25 25 mcg PO QDL 08/26/21 10/05/22 mcg (1,000 unit) capsule (Vitamin D3) esomeprazole magnesium 20 mg 20 mg PO QDL PRN Heartburn 08/26/21 10/05/22 capsule,delayed release Medication Instructions Recorded levothyroxine 150 mcg tablet 150 mcg PO QDL #90 tabs 12/20/21 insulin glargine 100 unit/mL (3 30 unit (0.3 mL) subcut QAM #18 mL 02/08/22 mL) subcutaneous pen (Lantus Solostar U-100 Insulin) diltiazem HCl 240 mg 240 mg PO QDL #90 caps 03/06/22 capsule,extended release 24 hr losartan 100 mg tablet 100 mg PO QDL #90 tabs 03/06/22 blood sugar diagnostic #100 ea 03/29/22 potassium chloride 10 mEq 20 meq PO BID #360 tabs 07/27/22 tablet,extended release allopurinol 300 mg tablet 300 mg PO QDL #90 tabs 08/31/22 atenolol 50 mg tablet 50 mg PO QDL #90 tabs 08/31/22 furosemide 20 mg tablet 40 mg PO QDB #180 tabs 09/13/22 pen needle, diabetic 32 gauge x #100 ea 09/14/22" (BD Ultra-Fine Anais Pen Needle) aspirin 81 mg tablet,delayed 81 mg PO QAM #20 tabs 10/04/22 release atorvastatin 40 mg tablet 40 mg PO HS #30 tabs 10/04/22 clopidogrel 75 mg tablet 75 mg PO QAM #30 tabs 10/04/22 - Action: The above medications, specifically ones for stroke treatment/prophylaxis, have been reviewed in detail with the patient and/or patient manufacturer's representative(s) prior to discharge. This includes indication, common adverse reactions, drug interactions, and medication administration. Medication counseling has been employed using the teach-back method to ensure understanding. - Outcome: The patient and/or patient manufacturer's representative(s) have demonstrated understanding of the medications. Additional comments: Discussed with patient new medications on discharge. She is aware to only take aspirin 81 mg daily x 3 weeks then stop and that she should continue with plavix indefinitely unless otherwise directed. She reports no issues with obtaining new medications. Discussed potential drug interaction with home esomeprazole prn for heartburn and the new medication plavix. I told her that this combination may result in decreased effectiveness of plavix so its recommended using another medication called protonix. I recommended that she bring this up at her next d octors visit next week and that her provider can help assist with this change. No other pertinent positives on interview. Recommended she bring an updated medication list with her to her next doctors visit. Thank you for allowing pharmacy to be involved in the care of this patient. Please call [phone] with any additional questions
== END 2022-10-04 14:30 | disposition home or self-care (01) ==
LOC: ED 07:11 → 2N 07:11 → SUATTDRO 10:24 → 2N 11:15

== ENCOUNTER 2024-07-14 21:54 | Observation (INO) ==
[2024-07-14 23:10] LABS: Adenovirus PCR Not Detected (NotDetected); Bordetella parapertussis PCR Not Detected (NotDetected); Bordetella pertussis PCR Not Detected (NotDetected); Chlamydia pneumoniae PCR Not Detected (NotDetected); Coronavirus 229E PCR Not Detected (NotDetected); Coronavirus CoV-2 (COVID19)PCR Not Detected (NotDetected); Coronavirus HKU1 PCR Not Detected (NotDetected); Coronavirus NL63 PCR Not Detected (NotDetected); Coronavirus OC43PCR Not Detected (NotDetected); Human Metapneumovirus PCR Not Detected (NotDetected); Influenza A PCR Not Detected (NotDetected); Influenza B PCR Not Detected (NotDetected); Mycoplasma pneumoniae PCR Not Detected (NotDetected); Parainfluenza Virus 1 PCR Not Detected (NotDetected); Parainfluenza Virus 2 PCR Not Detected (NotDetected); Parainfluenza Virus 3 PCR Not Detected (NotDetected); Parainfluenza Virus 4 PCR Not Detected (NotDetected); Respiratory Syncytial VirusPCR DETECTED (NotDetected); Rhinovirus/Enterovirus PCR Not Detected (NotDetected)
[2024-07-14 23:16] LABS: Basophils # (auto) 0.03 K/uL (0.00-0.20); Basophils % (auto) 0.5 %; Eosinophils # (auto) 0.06 K/uL (0.00-0.50); Eosinophils % (auto) 0.9 %; Hematocrit (blood only) 40.3 % (37.0-47.0); Hemoglobin 13.1 g/dl (12.0-16.0); Immature Granulocytes # (auto) 0.02 K/uL (0.01-0.20); Immature Granulocytes % (auto) 0.3 %; Lymphocytes # (auto) 1.25 K/uL (1.20-3.40); Lymphocytes % (auto) 18.9 %; Mean Corpuscular Hemoglobin 28.8 pg (25.0-34.0); Mean Corpuscular Hgb Conc 32.5 g/dL (32.0-36.0); Mean Corpuscular Volume 88.6 fL (80.0-100.0); Mean Platelet Volume 10.5 fL (9.4-12.4); Monocytes % (auto) 12.1 %; Neutrophils # (auto) 4.47 K/uL (1.40-6.50); Neutrophils % (auto) 67.3 %; Platelet Count 265 K/uL (130-400); RDW Coefficient of Variation 14.8 % (11.5-14.5); RDW Standard Deviation 47.2 fL (36.4-46.3); Red Blood Count 4.55 M/uL (4.20-5.40); White Blood Count 6.63 K/ul (4.8-10.8)
[2024-07-14 23:22] LABS: Albumin Level 3.8 gm/dl (3.4-5.0); Bilirubin Direct 0.2 mg/dl (0-0.2); Bilirubin,Total 1.1 mg/dl (0.2-1.0); Calcium 8.5 mg/dl (8.6-10.3); Creatinine Clr Calc Pharmacy 39.2 ml/min; Magnesium 1.6 mg/dl (1.7-2.4); Potassium 3.4 mmol/L (3.5-5.1); Total Protein 6.9 gm/dl (6.0-8.3)
[2024-07-14 23:27] LABS: Troponin I High Sensitivity 18.9 pg/ml (0-14)
--- NOTE | 2024-07-14 23:32 | Emergency Department Note ---
History of Present Illness General Chief complaint: Cough Stated complaint: COUGH, R SIDE BACK PAIN Time Seen by Provider: 07/14/24 22:15 History of Present Illness This 88-year-old female with type 2 diabetes presents ER for flulike illness for the past few days. Patient has had subjective fever and chills but did not take her temperature. She laid in bed the majority of the day. Patient complains of cough, congestion and right upper back pain. Patient denies chest pain, abdominal pain, vomiting, diarrhea. Home Medications Medication Instructions Recorded Confirmed Type cyanocobalamin (vitamin B-12) 100 100 mcg PO QDL 02/08/18 07/14/24 History mcg tablet (Vitamin B-12) ascorbic acid (vitamin C) 500 mg 500 mg PO QDL 11/19/18 07/14/24 History tablet blood-glucose meter (App PressTouch #1 ea 11/19/18 04/14/24 History UltraMini kit) lancets 33 gauge (OneTouch Delica #100 ea 11/19/18 04/14/24 History Lancets) meclizine 12.5 mg tablet 12.5 mg PO Q6H PRN Dizziness #30 11/19/18 07/14/24 History tabs vitamin E (dl, acetate) 180 mg 400 units PO QDL 11/19/18 07/14/24 History (400 unit) capsule cholecalciferol (vitamin D3) 25 25 mcg PO QDL 08/26/21 07/14/24 History mcg (1,000 unit) capsule (Vitamin D3) potassium chloride 10 mEq 20 meq (2 x 10 mEq) PO DAILY #180 05/24/23 07/14/24 Rx tablet,extended release tabs allopurinol 300 mg tablet 300 mg PO QDL #90 tabs 08/17/23 07/14/24 Rx atenolol 50 mg tablet 50 mg PO QDL #90 tabs 08/17/23 07/14/24 Rx losartan 100 mg tablet 100 mg PO QDL #90 tabs 08/17/23 07/14/24 Rx furosemide 20 mg tablet 40 mg (2 x 20 mg) PO QDB #180 tabs 09/05/23 07/14/24 Rx atorvastatin 40 mg tablet 40 mg PO HS #90 tabs 10/09/23 07/14/24 Rx clopidogrel 75 mg tablet 75 mg PO QAM #90 tabs 10/09/23 07/14/24 Rx pen needle, diabetic 32 gauge x #100 ea 10/09/23 04/14/24 Rx 5/32" (BD Ultra-Fine Anais Pen Needle) famotidine 20 mg tablet 20 mg PO DAILY PRN heartburn #30 11/14/23 07/14/24 Rx tabs levothyroxine 150 mcg tablet 150 mcg PO DAILY #90 tabs 02/14/24 07/14/24 Rx blood sugar diagnostic #100 ea 03/18/24 04/14/24 Rx diltiazem HCl 240 mg 240 mg PO QDL #90 caps 05/14/24 07/14/24 Rx capsule,extended release 24 hr insulin glargine 100 unit/mL (3 40 - 55 unit subcut QAM 07/14/24 07/14/24 History mL) subcutaneous pen (Lantus Solostar U-100 Insulin) Allergies Allergy/AdvReac Type Severity Reaction Status Date / Time hydrochlorothiazide Allergy Unknown Unknown Verified 05/21/24 14:21 ampicillin AdvReac Intermediate UTIs Verified 05/21/24 14:21 amlodipine AdvReac Mild Cough Verified 05/21/24 14:21 erythromycin base AdvReac Mild YEAST Verified 05/21/24 14:21 INFECTION moxifloxacin AdvReac Mild sick to Verified 05/21/24 14:21 stomach Past Med/Surg History Problem List (Updated 07/14/24 @ 23:33 by Shanika Carranza PA-C) Hypomagnesemia (Acute) Hypokalemia (Acute) Elevated troponin (Acute) Respiratory syncytial virus (RSV) infection (Acute) COVID-19 History of CVA (cerebrovascular accident) Nephrolithiasis Right sided abdominal pain History of kidney stones Left-sided chest wall pain Controlled type 2 diabetes mellitus with insulin therapy Controlled type 2 diabetes mellitus with microalbuminuria Constipation Left sided abdominal pain History of kidney stones Heartburn Gastritis Dysphagia Vertigo (Acute) Abdominal pain (Acute) Flank pain (Acute) GI bleed Right knee DJD Hypothyroidism (Chronic) Hypertension (Chronic) Left knee DJD Medical History (Updated 07/14/24 @ 23:33 by Shanika Carranza PA-C) Uncontrolled type II diabetes mellitus 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 History of anesthesia reaction difficulty waking Gout History of esophageal dilatation Schatzki's ring Difficulty swallowing Diabetes mellitus, type 2 History of radioactive iodine thyroid ablation Glaucoma Osteoporosis Anemia Hypothyroidism Hypertension Surgical History History of cataract surgery H/O hand surgery History of carpal tunnel surgery of left wrist History of lymph node excision History of arthroscopy of right knee History of total right knee replacement (TKR) History of total left knee replacement (TKR) History of esophagogastroduodenoscopy (EGD) History of wisdom tooth extraction History of tonsillectomy Status post biopsy of thyroid gland History of colonoscopy History of dilation and curettage History of total abdominal hysterectomy and bilateral salpingo-oophorectomy History of thyroidectomy Family History Mother Rheumatoid arthritis Type 2 diabetes mellitus Hypertension Father Type 2 diabetes mellitus Hypertension Brother Venous embolism and thrombosis of deep vessels of lower extremity Other No family history of adverse response to anesthesia Denies family history of Ovarian cancer Prostate cancer Myocardial infarction Breast cancer Colorectal cancer Social History Smoking Status: Never smoker Second Hand Exposure: No; Do You Dip or Chew Tobacco: No; Hx Alcohol Use: No Hx Substance Use: No Preferred Language: Bur[place]ian Communication Ability: Effective Visual Impairment: No Limitations Hearing Ability: Normal Rig Superintendent Required: No Beliefs That Will Affect Care: None marital status: Current Living Situation: Spouse and Family current occupational status: retired 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 Feels Safe at Home: Yes Childhood Exposure to Second-Hand Smoke: Yes Diet: diabetic caffeine: Yes (Iced Tea ) Dental Care, Regularly: Yes Physical Activity Frequency: Does not Exercise Seatbelt Use: always Sunscreen Use: No Assistive Devices: Glasses Review of Systems A total of 10 systems reviewed and were otherwise negative Physical Exam Vital Signs Vital Signs - 24 hr 07/14/24 22:00 07/14/24 22:43 07/14/24 22:43 Temperature 37.2 C Temperature Source Oral Pulse Rate 70 Pulse Rate [Apical] 65 Pulse Rate [Exercises] Respiratory Rate 18 Respiratory Rate [Exercises] Respiratory Effort / Characteristics Non-Labored Spontaneous Respiratory Depth Normal Respiratory Pattern Regular Blood Pressure 194/89 H Blood Pressure [Left Arm] 197/99 H Blood Pressure Mean 124 Blood Pressure Mean [Left Arm] 131 Blood Pressure Position [Left Arm] Semi-fowlers Pulse Oximetry 94 95 92 Pulse Oximetry [Exercises] Oxygen Delivery Method Room Air Room Air Room Air Sepsis Recent Fever Within 48 Hours No Sepsis New/Unexplained Change in Mental Status No Sepsis Action Taken by Nursing No Action Required 07/14/24 22:47 07/14/24 23:12 07/14/24 23:45 Temperature Temperature Source Pulse Rate 64 Pulse Rate [Apical] 62 Pulse Rate [Exercises] 93 H Respiratory Rate 20 Respiratory Rate [Exercises] 18 Respiratory Effort / Characteristics Respiratory Depth Respiratory Pattern Blood Pressure Blood Pressure [Left Arm] 202/96 H Blood Pressure Mean Blood Pressure Mean [Left Arm] 131 Blood Pressure Position [Left Arm] Semi-fowlers Pulse Oximetry 91 Pulse Oximetry [Exercises] 89 L Oxygen Delivery Method Room Air Room Air Sepsis Recent Fever Within 48 Hours Sepsis New/Unexplained Change in Mental Status Sepsis Action Taken by Nursing VITALS: Vitals are noted on the nurse's note and reviewed by myself. Vital signs pulse ox 91% on room air. GENERAL: Pleasant female mildly ill-appearing, in no acute distress, nondiaphoretic, well-developed well-nourished. SKIN: The skin was without rashes, erythema, or bruising. There is no tenting of the skin. Capillary reflex less than 2 seconds. HEAD: Normocephalic atraumatic. EARS: External auditory canals clear EYES: Pupils equal round and reactive to light and accommodation. Conjunctivae without injection, sclerae without icterus. Extraocular movements intact. NOSE: Patent, no discharge. MOUTH: Mucous membranes moist. Pharynx without erythema or exudate. Uvula midline. Airway patent. Tongue does not deviate. NECK: Supple without nuchal rigidity. No lymphadenopathy. No thyromegaly. Cervical spine is nontender. No JVD. HEART: Regular rate and rhythm LUNGS: Mild diffuse end expiratory wheezes. No retractions or accessory muscle use. ABDOMEN: Positive bowel sounds x 4. Normal tympanic percussion. Soft, nontender, without masses or organomegaly. Foster sign negative. No guarding or rebound tenderness. No CVA tenderness MUSCULOSKELETAL: No muscle atrophy, erythema, noted. NEURO: Patient was alert and oriented to person place and time. Normal sensation to light and sharp touch. No focal neurological deficits. Course Administered Medications Magnesium Sulfate/Dextrose (Magnesium Sulfate / D5w) 1 gm in 100 mls @ 200 mls/hr IV Q30M ANGELLA Stop: 07/15/24 00:31 Last Admin: 07/15/24 00:21 Dose: 200 mls/hr Documented By: Infusion: 07/15/24 00:17 Dose: Infused Documented By: [facility] Admin: 07/14/24 23:47 Dose: 200 mls/hr Documented By: ANTONI Discontinued Medications Potassium Chloride (Potassium Chloride Crtab 20 Meq Tabcr) 40 meq PO NOW STA Stop: 07/14/24 23:33 Last Admin: 07/14/24 23:47 Dose: 40 meq Documented By: ANTONI Medical Decision Making Medical Records Attestation: I reviewed the patient's medical records. Home Medications Current Medication List: was personally reviewed by me Laboratory Data Attestation: I reviewed the patient's lab results. 07/14/24 22:34 07/14/24 22:34 Lab Results 07/14/24 07/14/24 07/14/24 Range/Units 22:10 22:34 23:52 WBC 6.63 (4.8-10.8) K/ul RBC 4.55 (4.20-5.40) M/uL Hgb 13.1 (12.0-16.0) g/dl Hct 40.3 (37.0-47.0) % MCV 88.6 (80.0-100.0) fL MCH 28.8 (25.0-34.0) pg MCHC 32.5 (32.0-36.0) g/dL RDW Std Deviation 47.2 H (36.4-46.3) fL RDW Coeff of [place] 14.8 H (11.5-14.5) % Plt Count 265 (130-400) K/uL MPV 10.5 (9.4-12.4) fL Immature Gran % (Auto) 0.3 % Neut % (Auto) 67.3 % Lymph % (Auto) 18.9 % [place] % (Auto) 12.1 % Eos % (Auto) 0.9 % Baso % (Auto) 0.5 % Neut # (Auto) 4.47 (1.40-6.50) K/uL Lymph # (Auto) 1.25 (1.20-3.40) K/uL [place] # (Auto) 0.80 H (0.11-0.59) K/uL Eos # (Auto) 0.06 (0.00-0.50) K/uL Baso # (Auto) 0.03 (0.00-0.20) K/uL Immature Gran # (Auto) 0.02 (0.01-0.20) K/uL Sodium 140 (136-145) mmol/L Potassium 3.4 L (3.5-5.1) mmol/L Chloride 103 (98-107) mmol/L Carbon Dioxide 28 (21-32) mmol/L Anion Gap 9 (3-11) BUN 17 (6-23) mg/dl Creatinine 1.13 (0.6-1.2) mg/dl Est Cr Clr Drug Dosing 39.2 ml/min eGFR 47.38 BUN/Creatinine Ratio 15.0 (10-20) Glucose 165 H (70-99(Fasting)) mg/dl Lactate 1.4 (0.4-2.0) mmol/L Calcium 8.5 L (8.6-10.3) mg/dl Magnesium 1.6 L (1.7-2.4) mg/dl Total Bilirubin 1.1 H (0.2-1.0) mg/dl Direct Bilirubin 0.2 (0-0.2) mg/dl AST 20 (13-39) U/L ALT 14 (7-52) U/L Alkaline Phosphatase 100 (34-104) U/L Troponin I High Sens 18.9 H (0-14) pg/ml Total Protein 6.9 (6.0-8.3) gm/dl Albumin 3.8 (3.4-5.0) gm/dl Procalcitonin 0.06 (0-0.5) ng/ml Urine Color Yellow Urine Appearance Clear (Clear) Urine pH 5.5 (4.5-7.5) Ur Specific [place] 1.020 (1.000-1.030) Urine Protein 3+ H (Negative) Urine Glucose (UA) Negative (Negative) Urine Ketones Trace H (Negative) Urine Blood Negative (Negative) Urine Nitrite Negative (Negative) Urine Bilirubin Negative (Negative) Urine Urobilinogen Negative (Negative) Ur Leukocyte Esterase 1+ H (Negative) Urine WBC (Auto) 0-5 (0-5) /hpf Urine RBC (Auto) 0-2 (0-2) /hpf U Hyaline Cast (Auto) 6-10 H (0-2) /lpf U Epithel Cells (Auto) 11-20 H (0-2) /hpf Urine Bacteria (Auto) None Seen (None Seen) Hyaline Casts Present A (None Presnt) /lpf Urine Mucus Present A (None Prsent) Adenovirus (PCR) Not Detected (NotDetected) B. pertussis DNA (PCR) Not Detected (NotDetected) B.parapertussis DNA PCR Not Detected (NotDetected) C. pneumoniae DNA (PCR) Not Detected (NotDetected) Coronavirus OC43 (PCR) Not Detected (NotDetected) Coronavirus HKU1 (PCR) Not Detected (NotDetected) Coronavirus 229E (PCR) Not Detected (NotDetected) SARS-CoV-2 (PCR) Not Detected (NotDetected) Coronavirus NL63 (PCR) Not Detected (NotDetected) Human Metapneumovir PCR Not Detected (NotDetected) Influenza Type A (PCR) Not Detected (NotDetected) Influenza Type B (PCR) Not Detected (NotDetected) M. pneumoniae (PCR) Not Detected (NotDetected) Parainfluenza 1 (PCR) Not Detected (NotDetected) Parainfluenza 2 (PCR) Not Detected (NotDetected) Parainfluenza 3 (PCR) Not Detected (NotDetected) Parainfluenza 4 (PCR) Not Detected (NotDetected) RSV (PCR) DETECTED A (NotDetected) Entero/Rhino (PCR) Not Detected (NotDetected) Imaging Data Attestation: I personally reviewed and interpreted this imaging study as follows: Radiologist's Impression: Chest X-Ray 07/14/24 22:08 Exam(s): XR CXR 1 VIEW EXAM: XR Chest, 1 View CLINICAL HISTORY: Reason for exam: cough, pain. TECHNIQUE: Frontal view of the chest. COMPARISON: October 03, 2022. FINDINGS: Lungs: Unremarkable. No acute infiltration, atelectasis or mass. Pleural space: Unremarkable. No pneumothorax or pleural fluid. Heart: Unremarkable. No cardiomegaly. Mediastinum: Unremarkable. Normal mediastinal contour. Bones/joints: No acute findings. IMPRESSION: No acute findings in the chest. Electronically signed by: Kirit Noel MD 07/15/24 00:02 AM [facility] Narrative Prior records/ancillary studies reviewed. Triage Nursing notes reviewed. Additional history obtained from family. The patient's history was concerning for fever. Differential diagnosis: Etiologies such as viral syndrome, otitis, pharyngitis, pneumonia, influenza, meningitis, urinary tract infection, sepsis, bacteremia, as well as others were entertained. Physical examination: As above ER treatment provided: An order was placed for continuous cardiac monitoring. The monitor shows a rate of 60-100 with a sinus rhythm per my interpretation. Nebulizer, magnesium On reassessment the patient felt better. Diagnostics interpreted by me: ECG: Ordered for weakness EKG: Normal sinus, first-degree block, no acute ST-T wave changes, rate of 66. Impression normal sinus rhythm first-degree AV block independently interpreted by myself The labs Independently Interpreted by myself revealed no worrisome leukocytosis, magnesium 1.6. Potassium 3.4. Troponin 18.9. Blood cultures pending Positive RSV Negative lactic Imaging studies: Imaging was reviewed and read by radiology Consultation: A consultation was placed with hospitalist. The case was discussed and diagnostics were reviewed. The patient was evaluated in the ER for further treatment. This appears to be consistent with RSV bronchitis. Patient's O2 sats were low. Walking pulse ox was 89. Troponin is slightly elevated. Repeat was ordered. Electrolytes were replaced. Medicine was consulted and the case was discussed. Patient will be admitted to the medical service. Patient is agreeable. By the evaluation outlined above emergent etiologies such as otitis, pharyngitis, pneumonia, meningitis, urinary tract infection, sepsis, bacteremia, as well as others were deemed relatively unlikely. The pt informed about the findings as listed above. All questions were answered and pleased with the treatment. The chart was completed utilizing [employer] Speech voice recognition software. Grammatical errors, random word insertions, pronoun errors, and incomplete sentences are an occassional consequence of this system due to software limitations, ambient noise, and hardware issues. Any formal questions or concerns about the content, text, or information contained within the body of this dictation should be directly addressed to the physician industrial hire sales assistant for clarification. Impression & Plan Respiratory syncytial virus (RSV) infection, Elevated troponin, Hypokalemia, Hypomagnesemia Discharge Plan Visit Data Chief Complaint: Cough Stated Complaint: COUGH, R SIDE BACK PAIN ED Provider: Olinda Daniels ED Midlevel Provider: Shanika Carranza Discharge Problem: Respiratory syncytial virus (RSV) infection, Elevated troponin, Hypokalemia, Hypomagnesemia Patient Disposition: Admitted As Inpatient Condition: Good Forms Stand Alone Forms: [facility] [employer] Prescriptions Prescriptions: No Action potassium chloride 10 mEq tablet extended release 20 meq PO DAILY Qty: 180 3RF losartan 100 mg tablet 100 mg PO QDL Qty: 90 3RF allopurinol 300 mg tablet 300 mg PO QDL Qty: 90 3RF atenolol 50 mg tablet 50 mg PO QDL Qty: 90 3RF furosemide 20 mg tablet 40 mg PO QDB Qty: 180 3RF (DME) pen needle, diabetic [BD Ultra-Fine Anais Pen Needle] 32 gauge x 5/32" needle See Rx Instructions .ROUTE .MEDSUPPLY Qty: 100 3RF Rx Instructions: Inject insulin once daily as instructed atorvastatin 40 mg tablet 40 mg PO HS Qty: 90 3RF clopidogrel 75 mg tablet 75 mg PO QAM Qty: 90 3RF famotidine 20 mg tablet 20 mg PO DAILY PRN (Reason: heartburn) Qty: 30 5RF levothyroxine 150 mcg tablet 150 mcg PO DAILY Qty: 90 3RF Rx Instructions: Take before breakfast (DME) blood sugar diagnostic Strip See Dose Instructions .ROUTE .MEDSUPPLY Qty: 100 1RF Dose Instruction: As directed Rx Instructions: test once daily and PRN ( PACE ONLY ALLOWS 6 MOS ) diltiazem HCl 240 mg capsule,extended release 24hr 240 mg PO QDL Qty: 90 3RF (DME) lancets [OneTouch Delica Lancets] 33 gauge misc See Dose Instructions .ROUTE .MEDSUPPLY Qty: 100 Rx Instructions: As directed (DME) blood-glucose meter [OneTouch UltraMini] kit See Dose Instructions .ROUTE .MEDSUPPLY Qty: 1 Patient Comments: Check blood sugar once daily Rx Instructions: As directed ascorbic acid (vitamin C) 500 mg tablet 500 mg PO QDL vitamin E (dl, acetate) 400 unit capsule 400 units PO QDL meclizine 12.5 mg tablet 12.5 mg PO Q6H PRN (Reason: Dizziness) Qty: 30 cyanocobalamin (vitamin B-12) [Vitamin B-12] 100 mcg Tablet 100 mcg PO QDL cholecalciferol (vitamin D3) [Vitamin D3] 25 mcg (1,000 unit) Capsule 25 mcg PO QDL insulin glargine [Lantus Solostar U-100 Insulin] 100 unit/mL (3 mL) insulin pen 40 - 55 unit subcut QAM Referrals Referrals: Bertha Leigh CRNP [Primary Care Provider] - Discharge Problem: Respiratory syncytial virus (RSV) infection Qualifiers: RSV infection type: acute bronchitis Qualified Code(s): J20.5 - Acute bronchitis due to respiratory syncytial virus
--- NOTE | 2024-07-14 23:45 | History & Physical Report ---
Date of Service July 14, 2024 Assessment & Plan (1) Respiratory syncytial virus (RSV) infection: (2) Elevated troponin: (3) Hypomagnesemia: (4) Hypokalemia: (5) History of CVA (cerebrovascular accident): (6) Controlled type 2 diabetes mellitus with insulin therapy: (7) Hypothyroidism: (8) Hypertension: Plan 88-year-old female with history of diabetes, hypertension, hypothyroidism presenting with several days of cough and nausea. Found to have RSV infection. Mildly elevated troponin #RSVpatient with borderline low oxygen levels at 91% on room air. No underlying lung disease. No use of home oxygen Admit to medical with telemetry Maintain isolation precautions Tylenol as needed for pain or fever Oxygen as needed Flutter valve and incentive spirometry as needed Tessalon as needed #Elevated troponin troponin = 18.9. Patient denies chest pain. No acute ischemic changes present on EKG. Do not strongly suspect ACS. Likely demand ischemia in setting of illness Continue to trend troponin Telemetry monitoring #Hypomagnesemiamagnesium = 1.6. Repletion begun in the ER with 2 g IV ordered Complete 2 g IV magnesium #HypokalemiaK = 3.4 Potassium given40 mEq in the ER BMP in the morning #History of stroke Continue Plavix 75 mg p.o. every morning Continue atorvastatin #Diabetes Patient is on 40 to 55 units of Lantus daily Lantus 15 units twice daily Insulin sliding scale Goal blood sugar [id number] #Gout Continue allopurinol #Hypertensionblood pressure elevated in the ER Continue atenolol 50 mg p.o. daily Continue diltiazem to 40 mg p.o. daily Continue losartan 100 mg p.o. daily Hydralazine 10 mg p.o. every 8 hours as needed #hyperlipidemia Continue atorvastatin #Hypothyroidism Continue Synthroid F/E/N -saline lock, electrolyte repletion as above, consistent carb diet as tolerated ProphylaxisLovenox Code DNR/DNI per discussion with patient Dispositionobservation to medical telemetry History of Present Illness Chief Complaint: Cough, SOB Primary Care Provider: ROYAL Davison Mallika Weaver is an 88-year-old female with history of diabetes, hypertension presenting with 3 days of cough, nausea, poor appetite and decreased oral intake. Symptoms have been ongoing for the last 3 days and has been progressively getting worse. She denies fever or chills. Has had dry cough as well as nausea with dry heaves. She has had some shortness of breath as well. Poor oral intake and decreased appetite. She denies chest pain or palpitations. Denies diarrhea. No sick contacts or recent travel In the ER patient is afebrile, markedly hypertensive otherwise stable. Oxygenation borderline low at 91% on room air. Patient does not use oxygen at home ER course: Magnesium Potassium Allergies Allergy/AdvReac Type Severity Reaction Status Date / Time hydrochlorothiazide Allergy Unknown Unknown Verified 05/21/24 14:21 ampicillin AdvReac Intermediate UTIs Verified 05/21/24 14:21 amlodipine AdvReac Mild Cough Verified 05/21/24 14:21 erythromycin base AdvReac Mild YEAST Verified 05/21/24 14:21 INFECTION moxifloxacin AdvReac Mild sick to Verified 05/21/24 14:21 stomach Home Medications Medication Instructions Recorded Confirmed Type cyanocobalamin (vitamin B-12) 100 100 mcg PO QDL 02/08/18 07/14/24 History mcg tablet (Vitamin B-12) ascorbic acid (vitamin C) 500 mg 500 mg PO QDL 11/19/18 07/14/24 History tablet blood-glucose meter (OneTouch #1 ea 11/19/18 04/14/24 History UltraMini kit) lancets 33 gauge (OneTouch Delica #100 ea 11/19/18 04/14/24 History Lancets) meclizine 12.5 mg tablet 12.5 mg PO Q6H PRN Dizziness #30 11/19/18 07/14/24 History tabs vitamin E (dl, acetate) 180 mg 400 units PO QDL 11/19/18 07/14/24 History (400 unit) capsule cholecalciferol (vitamin D3) 25 25 mcg PO QDL 08/26/21 07/14/24 History mcg (1,000 unit) capsule (Vitamin D3) potassium chloride 10 mEq 20 meq (2 x 10 mEq) PO DAILY #180 05/24/23 07/14/24 Rx tablet,extended release tabs allopurinol 300 mg tablet 300 mg PO QDL #90 tabs 08/17/23 07/14/24 Rx atenolol 50 mg tablet 50 mg PO QDL #90 tabs 08/17/23 07/14/24 Rx losartan 100 mg tablet 100 mg PO QDL #90 tabs 08/17/23 07/14/24 Rx furosemide 20 mg tablet 40 mg (2 x 20 mg) PO QDB #180 tabs 09/05/23 07/14/24 Rx atorvastatin 40 mg tablet 40 mg PO HS #90 tabs 10/09/23 07/14/24 Rx clopidogrel 75 mg tablet 75 mg PO QAM #90 tabs 10/09/23 07/14/24 Rx pen needle, diabetic 32 gauge x #100 ea 10/09/23 04/14/24 Rx 5/32" (BD Ultra-Fine Anais Pen Needle) famotidine 20 mg tablet 20 mg PO DAILY PRN heartburn #30 11/14/23 07/14/24 Rx tabs levothyroxine 150 mcg tablet 150 mcg PO DAILY #90 tabs 02/14/24 07/14/24 Rx blood sugar diagnostic #100 ea 03/18/24 04/14/24 Rx diltiazem HCl 240 mg 240 mg PO QDL #90 caps 05/14/24 07/14/24 Rx capsule,extended release 24 hr insulin glargine 100 unit/mL (3 40 - 55 unit subcut QAM 07/14/24 07/14/24 History mL) subcutaneous pen (Lantus Solostar U-100 Insulin) Past Med/Surg History Problem List Hypomagnesemia (Acute) Hypokalemia (Acute) Elevated troponin (Acute) Respiratory syncytial virus (RSV) infection (Acute) COVID-19 History of CVA (cerebrovascular accident) Nephrolithiasis Right sided abdominal pain History of kidney stones Left-sided chest wall pain Controlled type 2 diabetes mellitus with insulin therapy Controlled type 2 diabetes mellitus with microalbuminuria Constipation Left sided abdominal pain History of kidney stones Heartburn Gastritis Dysphagia Vertigo (Acute) Abdominal pain (Acute) Flank pain (Acute) GI bleed Right knee DJD Hypothyroidism (Chronic) Hypertension (Chronic) Left knee DJD Medical History Uncontrolled type II diabetes mellitus 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 History of anesthesia reaction difficulty waking Gout History of esophageal dilatation Schatzki's ring Difficulty swallowing Diabetes mellitus, type 2 History of radioactive iodine thyroid ablation Glaucoma Osteoporosis Anemia Hypothyroidism Hypertension Surgical History History of cataract surgery H/O hand surgery History of carpal tunnel surgery of left wrist History of lymph node excision right side of neck d/t TB (1953) History of arthroscopy of right knee History of total right knee replacement (TKR) History of total left knee replacement (TKR) History of esophagogastroduodenoscopy (EGD) History of wisdom tooth extraction History of tonsillectomy Status post biopsy of thyroid gland malignant History of colonoscopy History of dilation and curettage History of total abdominal hysterectomy and bilateral salpingo-oophorectomy History of thyroidectomy Family History Mother Rheumatoid arthritis Type 2 diabetes mellitus Hypertension Father Type 2 diabetes mellitus Hypertension Brother Venous embolism and thrombosis of deep vessels of lower extremity Other No family history of adverse response to anesthesia Denies family history of Ovarian cancer Prostate cancer Myocardial infarction Breast cancer Colorectal cancer Social History Smoking Status: Never smoker Second Hand Exposure: No; Do You Dip or Chew Tobacco: No; Hx Alcohol Use: No Hx Substance Use: No Preferred Language: Luxembourger Communication Ability: Effective Visual Impairment: No Limitations Hearing Ability: Normal Journeyman Pressman Required: No Beliefs That Will Affect Care: None marital status: Current Living Situation: Spouse and Family current occupational status: retired 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 Feels Safe at Home: Yes Childhood Exposure to Second-Hand Smoke: Yes Diet: diabetic caffeine: Yes (Iced Tea ) Dental Care, Regularly: Yes Physical Activity Frequency: Does not Exercise Seatbelt Use: always Sunscreen Use: No Assistive Devices: Glasses Review of Systems Review of Systems: All systems reviewed & are unremarkable except as noted in HPI & below Physical Exam Physical Exam: General: patient resting comfortably, NAD, non-toxic in appearance, AA&O x 4 Skin: warm, dry, intact, no rashes or lesions HEENT: NC/AT, PERRL, EOMI, anicteric sclera, conjunctiva without injection, external ear normal to inspection and nontender, nares patent, moist mucus membranes, dentition intact, no oropharyngeal lesions, neck supple, trachea midline, no LAD, no thyromegaly, no JVD Heart: +S1/S2, regular, no m/r/g Lungs: equal air entry bilaterally, no rales/rhonchi/wheezes Abd: +BS, soft, NT/ND, no masses/organomegaly/ascites Ext: warm, 2+ pulses in UE/LE bilaterally, no clubbing/cyanosis or edema Neuro: nonfocal, patient AA&O x 4, speech intact, no facial droop, moving all extremities on command with equal strength 5/5 Results & Data Results & Data Vital Signs (Past 12 Hours) Vital Signs Temp Pulse Pulse Resp BP BP Pulse Ox 07/14/24 23:12 62 20 202/96 H 91 07/14/24 22:47 64 07/14/24 22:43 65 18 197/99 H 92 07/14/24 22:43 95 07/14/24 22:00 37.2 C 70 194/89 H 94 O2 Del Method 07/14/24 23:12 Room Air 07/14/24 22:47 07/14/24 22:43 Room Air 07/14/24 22:43 Room Air 07/14/24 22:00 Room Air Laboratory Results Laboratory Results WBC 6.63 K/ul (4.8-10.8) 07/14/24 22:34 RBC 4.55 M/uL (4.20-5.40) 07/14/24 22:34 Hgb 13.1 g/dl (12.0-16.0) 07/14/24 22:34 Hct 40.3 % (37.0-47.0) 07/14/24 22:34 MCV 88.6 fL (80.0-100.0) 07/14/24 22:34 MCH 28.8 pg (25.0-34.0) 07/14/24 22:34 MCHC 32.5 g/dL (32.0-36.0) 07/14/24 22:34 RDW Std Deviation 47.2 fL (36.4-46.3) H 07/14/24 22:34 RDW Coeff of Jaja 14.8 % (11.5-14.5) H 07/14/24 22:34 Plt Count 265 K/uL (130-400) 07/14/24 22:34 MPV 10.5 fL (9.4-12.4) 07/14/24 22:34 Immature Gran % (Auto) 0.3 % 07/14/24 22:34 Neut % (Auto) 67.3 % 07/14/24 22:34 Lymph % (Auto) 18.9 % 07/14/24 22:34 Ritchie % (Auto) 12.1 % 07/14/24 22:34 Eos % (Auto) 0.9 % 07/14/24 22:34 Baso % (Auto) 0.5 % 07/14/24 22:34 Neut # (Auto) 4.47 K/uL (1.40-6.50) 07/14/24 22:34 Lymph # (Auto) 1.25 K/uL (1.20-3.40) 07/14/24 22:34 Ritchie # (Auto) 0.80 K/uL (0.11-0.59) H 07/14/24:34 Eos # (Auto) 0.06 K/uL (0.00-0.50) 07/14/24:34 Baso # (Auto) 0.03 K/uL (0.00-0.20) 07/14/24:34 Immature Gran # (Auto) 0.02 K/uL (0.01-0.20) 07/14/24 22:34 Sodium 140 mmol/L (136-145) 07/14/24 22:34 Potassium 3.4 mmol/L (3.5-5.1) L 07/14/24 22:34 Chloride 103 mmol/L (98-107) 07/14/24 22:34 Carbon Dioxide 28 mmol/L (21-32) 07/14/24 22:34 Anion Gap 9 (3-11) 07/14/24 22:34 BUN 17 mg/dl (6-23) 07/14/24: Creatinine 1.13 mg/dl (0.6-1.2) 07/14/24: Est Cr Clr Drug Dosing 39.2 ml/min 07/14/24 22:34 eGFR 47.38 07/14/24 22:34 BUN/Creatinine Ratio 15.0 (10-20) 07/14/24:34 Glucose 165 mg/dl (70-99(Fasting)) H 03/31/25 22:34 Lactate 1.4 mmol/L (0.4-2.0) 07/14/24 22:34 Calcium 8.5 mg/dl (8.6-10.3) L 07/14/24 22:34 Magnesium 1.6 mg/dl (1.7-2.4) L 07/14/24 22:34 Total Bilirubin 1.1 mg/dl (0.2-1.0) H 07/14/24 22:34 Direct Bilirubin 0.2 mg/dl (0-0.2) 07/14/24 22:34 AST 20 U/L (13-39) 07/14/24 22:34 ALT 14 U/L (7-52) 07/14/24 22:34 Alkaline Phosphatase 100 U/L (34-104) 07/14/24 22:34 Troponin I High Sens 18.9 pg/ml (0-14) H 07/14/24 22:34 Total Protein 6.9 gm/dl (6.0-8.3) 07/14/24 22:34 Albumin 3.8 gm/dl (3.4-5.0) 07/14/24 22:34 Procalcitonin 0.06 ng/ml (0-0.5) 07/14/24 22:34 Urine Color Yellow 07/14/24 23:52 Urine Appearance Clear (Clear) 07/14/24 23:52 Urine pH 5.5 (4.5-7.5) 07/14/24 23:52 Ur Specific Eugene 1.020 (1.000-1.030) 07/14/24 23:52 Urine Protein 3+ (Negative) H 07/14/24 23:52 Urine Glucose (UA) Negative (Negative) 07/14/24 23:52 Urine Ketones Trace (Negative) H 07/14/24 23:52 Urine Blood Negative (Negative) 07/14/24 23:52 Urine Nitrite Negative (Negative) 07/14/24 23:52 Urine Bilirubin Negative (Negative) 07/14/24 23:52 Urine Urobilinogen Negative (Negative) 07/14/24 23:52 Ur Leukocyte Esterase 1+ (Negative) H 07/14/24 23:52 Urine WBC (Auto) 0-5 /hpf (0-5) 07/14/24 23:52 Urine RBC (Auto) 0-2 /hpf (0-2) 07/14/24 23:52 U Hyaline Cast (Auto) 6-10 /lpf (0-2) H 07/14/24 23:52 U Epithel Cells (Auto) 11-20 /hpf (0-2) H 07/14/24 23:52 Urine Bacteria (Auto) None Seen (None Seen) 07/14/24 23:52 Hyaline Casts Present /lpf (None Presnt) A 07/14/24 23:52 Urine Mucus Present (None Prsent) A 07/14/24 23:52 Adenovirus (PCR) Not Detected (NotDetected) 07/14/24 22:10 B. pertussis DNA (PCR) Not Detected (NotDetected) 07/14/24 22:10 B.parapertussis DNA PCR Not Detected (NotDetected) 07/14/24 22:10 C. pneumoniae DNA (PCR) Not Detected (NotDetected) 07/14/24 22:10 Coronavirus OC43 (PCR) Not Detected (NotDetected) 07/14/24 22:10 Coronavirus HKU1 (PCR) Not Detected (NotDetected) 07/14/24 22:10 Coronavirus 229E (PCR) Not Detected (NotDetected) 07/14/24 22:10 SARS-CoV-2 (PCR) Not Detected (NotDetected) 07/14/24 22:10 Coronavirus NL63 (PCR) Not Detected (NotDetected) 07/14/24 22:10 Human Metapneumovir PCR Not Detected (NotDetected) 07/14/24 22:10 Influenza Type A (PCR) Not Detected (NotDetected) 07/14/24 22:10 Influenza Type B (PCR) Not Detected (NotDetected) 07/14/24 22:10 M. pneumoniae (PCR) Not Detected (NotDetected) 07/14/24 22:10 Parainfluenza 1 (PCR) Not Detected (NotDetected) 07/14/24 22:10 Parainfluenza 2 (PCR) Not Detected (NotDetected) 07/14/24 22:10 Parainfluenza 3 (PCR) Not Detected (NotDetected) 07/14/24 22:10 Parainfluenza 4 (PCR) Not Detected (NotDetected) 07/14/24 22:10 RSV (PCR) DETECTED (NotDetected) A 07/14/24 22:10 Entero/Rhino (PCR) Not Detected (NotDetected) 07/14/24 22:10 Impressions Chest X-Ray 07/14/24 22:08 Exam(s): XR CXR 1 VIEW EXAM: XR Chest, 1 View CLINICAL HISTORY: Reason for exam: cough, pain. TECHNIQUE: Frontal view of the chest. COMPARISON: October 03, 2022. FINDINGS: Lungs: Unremarkable. No acute infiltration, atelectasis or mass. Pleural space: Unremarkable. No pneumothorax or pleural fluid. Heart: Unremarkable. No cardiomegaly. Mediastinum: Unremarkable. Normal mediastinal contour. Bones/joints: No acute findings. IMPRESSION: No acute findings in the chest. Electronically signed by: Kirit Noel MD 07/15/24 00:02 AM PG Care Time/CCT Total # of Minutes Spent Total Time Spent with Patient: Total time spent is greater than 50% in coordination of care (as documented) at patient's floor/unit and/or counseling patient: Coding Level of Care Code 31830 INT INP/OBS CARE 3/75MIN Diagnoses Respiratory syncytial virus (RSV) infection J20.5 RSV infection type: acute bronchitis Elevated troponin R79.89 Hypomagnesemia E83.42 Hypokalemia E87.6 History of CVA (cerebrovascular accident) Z86.73 Controlled type 2 diabetes mellitus with insulin therapy E11.9; Z79.4 Hypothyroidism E03.9 Hypertension I10 (1) Respiratory syncytial virus (RSV) infection RSV infection type: acute bronchitis Qualified Code(s): J20.5 - Acute bronchitis due to respiratory syncytial virus
[2024-07-14] MEDS: MAGNESIUM SULFATE / D5W 1 GM/100 ML BAG IV SCH (23:47)
[2024-07-14] MEDS: POTASSIUM CHLORIDE CRTAB 20 MEQ TABCR PO STA (23:47)
--- NOTE | 2024-07-15 00:03 | XRay Report ---
Exam(s): XR CXR 1 VIEW EXAM: XR Chest, 1 View CLINICAL HISTORY: Reason for exam: cough, pain. TECHNIQUE: Frontal view of the chest. COMPARISON: October 03, 2022. FINDINGS: Lungs: Unremarkable. No acute infiltration, atelectasis or mass. Pleural space: Unremarkable. No pneumothorax or pleural fluid. Heart: Unremarkable. No cardiomegaly. Mediastinum: Unremarkable. Normal mediastinal contour. Bones/joints: No acute findings. IMPRESSION: No acute findings in the chest. Electronically signed by: Kirit Noel MD 07/15/24 00:02 AM
[2024-07-15 00:11] LABS: Appearance Urine Clear (Clear); Bacteria Urine Automated None Seen (None Seen); Bilirubin Urine Negative (Negative); Blood Urine Negative (Negative); Color Urine Yellow; Glucose Urine UA Negative (Negative); Hyaline Casts Urine Present /lpf (None Presnt); Ketones Urine Trace (Negative); Leukocyte Esterase Urine 1+ (Negative); Mucus Urine Present (None Prsent); Nitrite Urine Negative (Negative); Protein Urine 3+ (Negative); RBC Urine Automated 0-2 /hpf (0-2); Urobilinogen Urine Negative (Negative); WBC Urine Automated 0-5 /hpf (0-5); pH Urine 5.5 (4.5-7.5)
[2024-07-15] MEDS ORDERED: GLUCOSE 10 TAB/TUBE PO PRN ×2 (01:40→07:24)
[2024-07-15] MEDS ORDERED: GLUCOSE 40% GEL 15 GM TUBE PO PRN ×2 (01:40→07:24)
[2024-07-15] MEDS ORDERED: DEXTROSE 50% 50 ML SYRINGE IV PRN ×2 (01:40→07:24)
[2024-07-15] MEDS ORDERED: DOCUSATE SODIUM 100 MG CAP PO PRN (01:40)
[2024-07-15] MEDS ORDERED: CARBOHYDRATES FOR HYPOGLYCEMIA PO PRN ×2 (01:40→07:24)
[2024-07-15] MEDS ORDERED: GLUCAGON FOR INJ 1 MG VIAL SQ PRN ×2 (01:40→07:24)
[2024-07-15] MEDS ORDERED: ONDANSETRON INJ 2 MG/ML 2 ML VIAL IV PRN (01:40)
[2024-07-15] MEDS: ACETAMINOPHEN 325 MG TAB PO PRN (01:49)
[2024-07-15] MEDS: BENZONATATE 100 MG CAPSULE PO PRN (01:49)
[2024-07-15] MEDS: hydrALAZINE 10 MG TAB PO PRN (02:27)
[2024-07-15] MEDS: LEVOTHYROXINE SODIUM 150 MCG TABLET PO SCH (05:42)
[2024-07-15] MEDS ORDERED: methylPREDNISolone 10 mg/mL (For Ped Dose < 7mg) IV SCH (07:30)
[2024-07-15] MEDS ORDERED: INSULIN ASPART PER UNIT CHARGE SC SCH (07:30)
[2024-07-15] MEDS: FUROSEMIDE 40 MG TAB PO SCH (07:40)
[2024-07-15] MEDS: CLOPIDOGREL BISULFATE 75 MG TAB PO SCH (07:40)
[2024-07-15] MEDS: ENOXAPARIN INJ 40 MG/0.4 ML SYR SQ SCH (07:41)
[2024-07-15] MEDS: INSULIN ASPART PER UNIT CHARGE SC SCH (08:58)
[2024-07-15] MEDS: LANTUS PER UNIT CHARGE SQ SCH (08:59)
[2024-07-15] MEDS ORDERED: LANTUS PER UNIT CHARGE SQ SCH (09:00)
[2024-07-15] MEDS: methylPREDNISolone 40 MG in SYRINGE 0 ML IV SCH (09:00)
[2024-07-15 09:27] LABS: Hematocrit (blood only) 38.8 % (37.0-47.0); Hemoglobin 12.5 g/dl (12.0-16.0); Mean Corpuscular Hemoglobin 28.5 pg (25.0-34.0); Mean Corpuscular Hgb Conc 32.2 g/dL (32.0-36.0); Mean Corpuscular Volume 88.4 fL (80.0-100.0); Mean Platelet Volume 10.3 fL (9.4-12.4); Platelet Count 250 K/uL (130-400); RDW Coefficient of Variation 14.7 % (11.5-14.5); RDW Standard Deviation 47.4 fL (36.4-46.3); Red Blood Count 4.39 M/uL (4.20-5.40); White Blood Count 5.73 K/ul (4.8-10.8)
[2024-07-15 09:36] LABS: BUN Creatinine Ratio 16.4 (10-20); Calcium 8.3 mg/dl (8.6-10.3); Potassium 3.8 mmol/L (3.5-5.1)
--- NOTE | 2024-07-15 11:16 | Hospitalist Progress Note ---
Date of Service July 15, 2024 Assessment & Plan (1) Respiratory syncytial virus (RSV) infection: Plan: Viral illness present on admission. Parenteral steroid therapy has been ordered. Supportive care (2) Elevated troponin: Plan: Mild. No acute EKG changes. No chest pain. No evidence of acute coronary syndrome (3) Hypomagnesemia: Plan: Parenteral replacement. Serial labs (4) Hypokalemia: Plan: Oral replacement. Serial labs (5) Controlled type 2 diabetes mellitus with insulin therapy: Plan: ADA diet. Basal insulin therapy. Sliding scale coverage (6) Hypertension: Plan: Stable. Continue current medical management Plan Hopeful discharge back to home within the next day or 2 Admission and Anticipated Discharge Date Admission Date: July 14, 2024 Subjective Alert and oriented. No distress. She has an acute viral illness producing her current symptoms. She also is mildly hypokalemic and hypomagnesemic which are being corrected. Parenteral steroid therapy has been ordered along with physical therapy assessment. Steroid therapy is likely to increase her glucose levels because she is diabetic. Review of Systems 2 Review of Systems: Constitutional fever or chills. Malaise ENTno blurred vision, no double vision, no epistaxis, no sore throat Respiratoryno cough, no wheezing, no shortness of breath Cardiacno palpitations, no chest pain, no syncope Danie nausea, vomiting, diarrhea, melena, hematochezia GUno urinary retention, no urinary incontinence, no dysuria, no hematuria Musculoskeletalno joint pain, no muscle tenderness Skinno bruising, no rashes, no pruritus Neurono isolated weakness, no paresthesia. Generalized weakness Psychno depression, no anxiety Physical Exam 2 Physical Exam: General-alert and oriented x3. Generalized weakness. Intermittent fever and chills HEENT-head atraumatic and normocephalic, pupils equal and reactive to light, extraocular muscles intact Neck-no lymphadenopathy or thyromegaly, trachea midline Chest-clear to auscultation. No rales, wheezing or rhonchi Cardiac-regular rate and rhythm, normal S1 and S2 Abdomen-normal bowel sounds, no hepatosplenomegaly Extremities-no cyanosis, clubbing, or edema Neuro-cranial nerves II through XII intact, motor and sensory function within normal limits, strength symmetrical with generalized weakness, no focal deficits Psych-normal affect, normal mood Results & Data Results & Data Vital Signs (Past 12 Hours) Vital Signs Temp Pulse Pulse Pulse Pulse Resp Resp 07/15/24 07:30 36.6 C 69 18 07/15/24 07:30 07/15/24 03:41 36.8 C 62 18 07/15/24 01:33 64 07/15/24 01:30 36.8 C 86 20 07/15/24 01:30 36.8 C 86 20 07/15/24 00:23 61 16 07/14/24 23:45 93 H 18 BP Pulse Ox Pulse Ox O2 Del Method O2 Flow Rate 07/15/24 07:30 150/72 H 94 Room Air 07/15/24 07:30 Room Air 07/15/24 03:41 146/72 H 96 Nasal Cannula 2 07/15/24 01:33 07/15/24 01:30 200/74 H 95 Nasal Cannula 2 07/15/24 01:30 200/74 H 95 Nasal Cannula 2 07/15/24 00:23 178/96 H 91 Room Air 07/14/24 23:45 89 L Room Air Laboratory Results 07/15/24 08:49 07/15/24 08:49 PG Care Time/CCT Total # of Minutes Spent Total Time Spent with Patient: Total time spent is greater than 50% in coordination of care (as documented) at patient's floor/unit and/or counseling patient: Coding Level of Care Code 10197 SUB INP/OBS CARE 3/50MIN Diagnoses Respiratory syncytial virus (RSV) infection J20.5 RSV infection type: acute bronchitis Elevated troponin R79.89 Hypomagnesemia E83.42 Hypokalemia E87.6 Controlled type 2 diabetes mellitus with insulin therapy E11.9; Z79.4 Hypertension I10 (1) Respiratory syncytial virus (RSV) infection RSV infection type: acute bronchitis Qualified Code(s): J20.5 - Acute bronchitis due to respiratory syncytial virus
--- NOTE | 2024-07-15 11:27 | Electrocardiogram Report ---
Test Reason : Blood Pressure : */* mmHG Vent. Rate : 66 BPM Atrial Rate : 66 BPM P-R Int : 232 ms QRS Dur : 78 ms QT Int : 440 ms P-R-T Axes : 67 -4 11 degrees QTcB Int : 461 ms Sinus rhythm with 1st degree A-V block Otherwise normal ECG When compared with ECG of 03-Oct-2022 07:27, No significant change was found Confirmed by Ruel Nixon ([id number]) on 07/15/2024 11:27:34 AM Referred By: REFERRED SELF Confirmed By: Ruel Nixon
[2024-07-15] MEDS: dilTIAZem HCL 240 MG CAPCR PO SCH (12:09)
[2024-07-15] MEDS: LOSARTAN POTASSIUM 50 MG TAB PO SCH (12:09)
[2024-07-15] MEDS: ATENOLOL 50 MG TABLET PO SCH (12:09)
[2024-07-15] MEDS: allopurinoL 300 MG TAB PO SCH (12:09)
[2024-07-15] MEDS: ATORVASTATIN 40 MG TAB PO SCH (20:39)
[2024-07-16 07:25] LABS: Basophils # (auto) 0.01 K/uL (0.00-0.20); Basophils % (auto) 0.1 %; Hemoglobin 12.7 g/dl (12.0-16.0); Immature Granulocytes # (auto) 0.07 K/uL (0.01-0.20); Immature Granulocytes % (auto) 0.5 %; Mean Corpuscular Hemoglobin 28.4 pg (25.0-34.0); Mean Corpuscular Hgb Conc 31.8 g/dL (32.0-36.0); Mean Corpuscular Volume 89.5 fL (80.0-100.0); Mean Platelet Volume 10.3 fL (9.4-12.4); Monocytes # (auto) 0.25 K/uL (0.11-0.59); Monocytes % (auto) 1.8 %; Neutrophils # (auto) 12.28 K/uL (1.40-6.50); Neutrophils % (auto) 89.6 %; Platelet Count 244 K/uL (130-400); RDW Coefficient of Variation 14.7 % (11.5-14.5); RDW Standard Deviation 47.8 fL (36.4-46.3); Red Blood Count 4.47 M/uL (4.20-5.40); White Blood Count 13.71 K/ul (4.8-10.8)
[2024-07-16 07:40] VITALS: TEMP 97.7
[2024-07-16 07:43] LABS: BUN Creatinine Ratio 26.3 (10-20); Calcium 8.5 mg/dl (8.6-10.3); Creatinine Clr Calc Pharmacy 31.8 ml/min; Magnesium 2.3 mg/dl (1.7-2.4)
[2024-07-16] MEDS: hydrALAZINE HCL 25 MG TAB PO SCH (08:28)
[2024-07-16 11:37] VITALS: PULSE 62; RESP 16; O2SAT 93
--- NOTE | 2024-07-16 12:27 | Discharge Summary ---
Discharge Summary Date of Service July 16, 2024 Principal Dx & Hospital Course #1 = Principal Diagnosis (1) Respiratory syncytial virus (RSV) infection: Viral illness present on admission. Treated while hospitalized with parenteral steroid therapy. Supportive care (2) Elevated troponin: Mild. No acute EKG changes. No chest pain. No evidence of acute coronary syndrome (3) Hypomagnesemia: Corrected with parenteral replacement. Serial labs (4) Hypokalemia: Corrected with oral replacement. Serial labs (5) Controlled type 2 diabetes mellitus with insulin therapy: ADA diet. Basal insulin therapy. Sliding scale coverage parenteral steroid therapy caused transient hyperglycemia. Glucose levels will return to baseline since the parenteral steroids have now been discontinued. (6) Hypertension: Uncontrolled hypertension noted. Losartan has been discontinued and hydralazine started. She will continue with hydralazine at discharge. Plan Home today, July 16 Notes For Next Care Provider Medication Changes From Visit Losartan has been discontinued. Hydralazine has been started for better blood pressure control Admission HPI Per Admitting Provider Mallika Weaver is an 88-year-old female with history of diabetes, hypertension presenting with 3 days of cough, nausea, poor appetite and decreased oral intake. Symptoms have been ongoing for the last 3 days and has been progressively getting worse. She denies fever or chills. Has had dry cough as well as nausea with dry heaves. She has had some shortness of breath as well. Poor oral intake and decreased appetite. She denies chest pain or palpitations. Denies diarrhea. No sick contacts or recent travel In the ER patient is afebrile, markedly hypertensive otherwise stable. Oxygenation borderline low at 91% on room air. Patient does not use oxygen at home ER course: Magnesium Potassium Discharge Exam General-alert and oriented x3. Generalized weakness. Intermittent fever and chills HEENT-head atraumatic and normocephalic, pupils equal and reactive to light, extraocular muscles intact Neck-no lymphadenopathy or thyromegaly, trachea midline Chest-clear to auscultation. No rales, wheezing or rhonchi Cardiac-regular rate and rhythm, normal S1 and S2 Abdomen-normal bowel sounds, no hepatosplenomegaly Extremities-no cyanosis, clubbing, or edema Neuro-cranial nerves II through XII intact, motor and sensory function within normal limits, strength symmetrical with generalized weakness, no focal deficits Psych-normal affect, normal mood Discharge Plan Discharge Items Patient Disposition: Home - Self-Care Reason For Visit: COUGH, FLU-LIKE SYMPTOMS Discharge Diagnosis: Acute viral illness, hypokalemia, hypomagnesemia, uncontrolled hypertension Condition on Discharge: Good Activity: Resume your previous activity Non-emergency contact: Primary Care Provider Call non-emergency contact if: you have any medication questions Follow-up/Referrals: Bertha Leigh CRNP [Primary Care Provider] - Diet: Carb Consistent or DM2 Addtl Attending Provider Instructions: Stop losartan. Take hydralazine 25 mg 3 times a day for blood pressure control. A prescription has been sent to your pharmacy. Follow-up with primary care provider soon as possible to reevaluate blood pressure Pending Studies at Discharge: No Stand-Alone Forms: My [employer], Smoking Cessation Medications and DC Order Prescriptions: New hydralazine 25 mg Tablet 25 mg PO TID Qty: 90 0RF Continued potassium chloride 10 mEq tablet extended release 20 meq PO DAILY Qty: 180 3RF allopurinol 300 mg tablet 300 mg PO QDL Qty: 90 3RF atenolol 50 mg tablet 50 mg PO QDL Qty: 90 3RF furosemide 20 mg tablet 40 mg PO QDB Qty: 180 3RF (DME) pen needle, diabetic [BD Ultra-Fine Anais Pen Needle] 32 gauge x 5/32" needle See Rx Instructions .ROUTE .MEDSUPPLY Qty: 100 3RF Rx Instructions: Inject insulin once daily as instructed atorvastatin 40 mg tablet 40 mg PO HS Qty: 90 3RF clopidogrel 75 mg tablet 75 mg PO QAM Qty: 90 3RF famotidine 20 mg tablet 20 mg PO DAILY PRN (Reason: heartburn) Qty: 30 5RF levothyroxine 150 mcg tablet 150 mcg PO DAILY Qty: 90 3RF Rx Instructions: Take before breakfast (DME) blood sugar diagnostic Strip See Dose Instructions .ROUTE .MEDSUPPLY Qty: 100 1RF Dose Instruction: As directed Rx Instructions: test once daily and PRN ( PACE ONLY ALLOWS 6 MOS ) diltiazem HCl 240 mg capsule,extended release 24hr 240 mg PO QDL Qty: 90 3RF (DME) lancets [OneTouch Delica Lancets] 33 gauge misc See Dose Instructions .ROUTE .MEDSUPPLY Qty: 100 Rx Instructions: As directed (DME) blood-glucose meter [OneGroupFlieruch UltraMini] kit See Dose Instructions .ROUTE .MEDSUPPLY Qty: 1 Patient Comments: Check blood sugar once daily Rx Instructions: As directed ascorbic acid (vitamin C) 500 mg tablet 500 mg PO QDL vitamin E (dl, acetate) 400 unit capsule 400 units PO QDL meclizine 12.5 mg tablet 12.5 mg PO Q6H PRN (Reason: Dizziness) Qty: 30 cyanocobalamin (vitamin B-12) [Vitamin B-12] 100 mcg Tablet 100 mcg PO QDL cholecalciferol (vitamin D3) [Vitamin D3] 25 mcg (1,000 unit) Capsule 25 mcg PO QDL insulin glargine [Lantus Solostar U-100 Insulin] 100 unit/mL (3 mL) insulin pen 40 - 55 unit subcut QAM Discontinued losartan 100 mg tablet 100 mg PO QDL Qty: 90 3RF Discharge Orders: Discharge Order (Routine); Ordered 07/16/24 Ordered By: Kirit Price Admission Data Admit Date/Time: 07/14/24 23:45 Attending Provider: Kirit Price Admit Provider: Kathy Jarquin Primary Care Provider: Bertha Leigh Other Providers: Kathy Jarquin Hospital Stay Data Consultations 07/14/24 23:43 ED Decision to Admit Stat Pending Results Patient Have Any Pending Studies at Discharge: No Discharge Instructions Given to Patient (Per Discharging Provider) Stop losartan. Take hydralazine 25 mg 3 times a day for blood pressure control. A prescription has been sent to your pharmacy. Follow-up with primary care provider soon as possible to reevaluate blood pressure Total Time Total Time Spent Total Time Spent (In Minutes): 45 minutes Coding Level of Care Code 99540 INP/OBS DISCH >30 MIN Diagnoses Respiratory syncytial virus (RSV) infection J20.5 RSV infection type: acute bronchitis Elevated troponin R79.89 Hypomagnesemia E83.42 Hypokalemia E87.6 Controlled type 2 diabetes mellitus with insulin therapy E11.9; Z79.4 Hypertension I10
[2024-07-16] MEDS: INSULIN ASPART PER UNIT CHARGE SC STA (12:28)
[2024-07-16 13:24] VITALS: BP 147/69
== END 2024-07-16 13:33 | disposition home or self-care (01) ==
LOC: ED 21:54 → 2W 21:54 → SUATTDRO 23:45 → 2W 07-15 01:19

== ENCOUNTER 2024-08-09 21:27 | Observation (INO) ==
--- OUTSIDE RECORDS SUMMARY | 2024-08-09 21:31 | External Medical Summary | Summary of Care ---
Author Name Unknown Organization [facility] Address [address] [place] [address] Phone [phone] Care Team Providers Care Hide And Skin Fleshing Machine Operator Name Role Phone Bertha Leigh Primary Care Provider Encounter Details Date Type Department Care Team (Late st Contact Info) Description 08/06/2024 5:00 PM EDT Scheduled Telephone Care Coordination and Integration [address], [place] [id number] She Wagoner, Community Health [employer]her [employer] Range Feeder [address], [place] [id number] Allergies Active Allergy Reactions Criticality Noted Date Comments Colchicine 01/22/2004 Diarrhea Erythromycin 01/22/2004 Yeast inf. documented as of this encounter (statuses as of 08/06/2024) Medications ATENOLOL 50 MG OR TABS Take 1 Tablet by mouth in the morning. 30 5 01/22/20 04 Active ALLOPURINOL 300 MG OR TABS Take 1 Tablet by mouth in the morning. 30 5 01/22/20 04 Active FUROSEMIDE 20 MG PO TABS Take 2 Tablets by mouth in the morning. Active VITAMIN B-12 100 MCG PO TABS Take 1 Tablet by mouth in the morning. Active VITAMIN E 400 UNITS PO CAPS Take 1 Capsule by mouth in the morning. Active Ascorbic Acid (VITAMIN C) 500 MG CAPS Take 1 Tab by mouth daily. Active Ketoconazole 2 % creamIndications:Can didal intertrigo APPLY AT NIGHT TO SKIN FOLDS NEEDED 60 g 06/30/19 Active Additional Information Patient not taking.Reported on 11/30/2023 Cephalexin 500 MG Oral Capsule (KEFLEX)Indications: Secondary impetiginization 1 capsule twice daily for 1 week 14 Cap 03/16/20 Active Additional Information Patient not taking.Reported on 08/28/2022 Fluconazole 200 MG Oral Tablet (DIFLUCAN)Indication s:Erythema intertrigo 1 tablet weekly for 6 weeks 6 Tab 1 03/16/20 Active Additional Information Patient not taking.Reported on 08/28/2022 Lidocaine 5 % External OintmentIndications: Erythema intertrigo Apply to chest up to twice daily as needed 35.44 g 03/16/20 Active Additional Information Patient not taking.Reported on 08/28/2022 Insulin Glargine 100 UNIT/ML SC SOPN 40 Units in the morning. 09/11/19 Active Atorvastatin Calcium 40 MG Oral Tablet (Lipitor) Take 1 Tablet by mouth in the morning. Active Clopidogrel Bisulfate 75 MG Oral Tablet (Plavix) Take 1 Tablet by mouth in the morning. Active hydrALAZINE HCl 25 MG Oral Tablet (Apresoline) Take 1 Tablet by mouth in the morning and 1 Tablet at noon and 1 Tablet before bedtime. Active Potassium Chloride ER 10 MEQ Oral Capsule Extended Release Take 2 Capsules by mouth in the morning. Active Famotidine 20 MG Oral Tablet (Pepcid) Take 1 Tablet by mouth daily as needed for Heartburn. Active Levothyroxine Sodium 150 MCG Oral Tablet (Levoxyl) Take 1 Tablet by mouth daily first thing in the morning. (at least 30 min prior to breakfast or other meds) Active dilTIAZem HCl ER Coated Beads 240 MG Oral Capsule Extended Release 24 Hour (Cardizem CD) Take 1 Capsule by mouth in the morning. Active Meclizine HCl 12.5 MG Oral Tablet (Antivert) Take 1 Tablet by mouth 3 times a day as needed. Active Vitamin D3 25 MCG Oral Capsule Take 1 Capsule by mouth daily. Active documented as of this encounter (statuses as of 08/06/2024) Active Problems Problem Noted Date Diagnosed Date History of stroke 11/13/2022 Overview (06/17/2024): historical Hx of actinic keratosis 12/23/2020 History of nonmelanoma skin cancer 09/18/2012 Overview (02/27/2020): SCC R [facility] 02/2020, BCC L clavicle 11/2017, R [facility] distant past (no path) Gouty arthropathy 01/22/2004 Overview (07/20/2015): ICD-10 update of inactive term Calculus of kidney 01/22/2004 HYPERTENSION NOS 01/22/2004 documented as of this encounter (statuses as of 08/06/2024) Immunizations Name Administration Dates Next Due COVID-19 mRNA, LNP-s, No Pre serve, 2-Dose Series (Moderna) 07/01/2020,05/22/2020 COVID-19, mRNA, LNP-s, PF, B ooster, 100mcg/0.5mg (Moderna) 02/05/2021 documented as of this encounter Social History Tobacco Use Types Packs/Day Years Used Date Smoking Tobacco: Never Smokeless Tobacco: Never Alcohol Use Standard Drinks/Week Comments No 0 (1 standard drink = 0.6 oz pur e alcohol) PHQ-2 Answer Date Recorded PHQ Adult Total Score 0 07/18/2024 Hunger Vital Sign Answer Date Recorded Within the past 12 months, y ou worried that your food would run out before you got the money to buy more. Never true 07/19/19 25 Within the past 12 months, t he food you bought just didn't last and you didn't have money to get more. Never true 07/18/2024 Childcare Answer Date Recorded Do you feel overwhelmed with taking care of a child, family member or friend? No 07/18/2024 Does your family need help f inding childcare? (Household - for ages 0-17 years) Not on file 07/18/2024 Clothing Answer Date Recorded Have you been unable to get clothing when it was really needed? No 07/18/2024 Is your family able to get c lothes or diapers when needed? (Household - for ages 0-17 years) Not on file 07/18/2024 Personal Safety Answer Date Recorded Do you feel unsafe or have concerns for your saf ety? No 07/18/2024 Do you have concerns for you r family's safety? (Household - for ages 0-17 years) Not on file 07/18/2024 Utilities Answer Date Recorded Do you have trouble paying y our heating, water, or electric bill? No 07/18/2024 Is your family able to pay t he heat, water, or electric bill? (Household - for ages 0-17 years) Not on file 07/18/2024 Does your family have access to good internet? (Household - for ages 0-17 years) Not on file 07/18/2024 Employment Status Answer Date Recorded Are you unemployed or without regular income? No 07/18/2024 Does the household have a re lar source of income? (Household - for ages 0-17 years) Not on file 07/18/2024 Social Connections Answer Date Recorded How often do you feel lonely or isolated from th ose around you? Never 07/18/2024 Financial Resource Strain Answer Date R ecorded Do you have any trouble payi ng for your medications, or do you think you might in the future? No 07/18/2024 Does your family have troubl e paying for medicine? (Household - for ages 0-17 years) Not on file 07/18/2024 Transportation Needs Answer Date Record ed Do you have trouble getting a ride to medical visits or work? (Adult - for ages 18 years and over) Not on file 07/18/2024 Does your family have a hard time getting a ride to doctors visits? (Household - for ages 0-17 years) Not on file 07/18/2024 Has lack of transportation k ept you from medical appointments, meetings, work, or from getting things needed for daily living? Check all that apply. No 07/18/2024 Do you (or your family) have trouble finding or paying for a ride (transportation)? (Household - for ages 0-17 years) Not on file 07/18/2024 Housing Stability Answer Date Recorded Do you currently live in a s helter or have no steady place to sleep at night? No 07/18/2024 Do you think you are at risk of becoming homeless? (Adult - for ages 18 years and over) Not on file 07/18/2024 Does your family worry about paying for your home or becoming homeless? (Household - for ages 0-17 years) Not on file 0 07/18/2024 Are you homeless or worried that you might be in the future? No 07/18/2024 Are you (or your family) [place] or worried that you might be in the future? (Household - for ages 0-17 years) Not on file Food Insecurity Answer Date Recorded Within the past 12 months, y ou worried that your food would run out before you got the money to buy more. Never true 07/19/19 25 Within the past 12 months, t he food you bought just didn't last and you didn't have money to get more. Never true 07/18/2024 Do you need food for this week? No 07/18/2024 Comments No Sex and Gender Information Value Date Recorded Sex Assigned at Not on file Legal Sex Female 4:49 AM EST Gender Identity Not on file Sexual Orientation Not on file documented as of this encounter Progress Notes * She Wagoner, Community Health St[employer] And [employer] Feeder - 08/06/2024 12:22 PM EDT Telemedicine visit: No Community Health Worker (CHW) documentation: CHW outbound call to patient per Clifton Barney CM The Has put her back on steroids Are you experiencing any shortness of breath or other new/acute changes in your breathing? No Are you experiencing any increase in coughing over the past week? Still little cough not much. Are you experiencing any sputum production and if so, what color is it? Dry cough \Have you had any fevers or chills within the past week?No Are you feeling more weak or tired than usual? No Have you had any chest pain, palpitations or tachycardia?No Are you experiencing any increase in dizziness or lightheadedness? No Have you had any syncopal episodes or falls within the past week? No She Wagoner [facility] Community Health Worker Call or Text- [phone] Electronically signed by She Wagoner, Community Health St[employer] Feeder at 08/06/2024 12:44 PM EDT documented in this encounter Plan of Treatment Upcoming Encounters Date Type Department Care Team (Late st Contact Info) Description 08/12/2024 2:45 PM EDT Scheduled Telephone Care Coordination and Integration [address] [place] [address] She Wagoner, Community Health [employer] [address] [place] [address] 08/19/2024 1:00 PM EDT Scheduled Telephone Care Coordination and Integration [address] [place] [address] She Wagoner, Community Health [employer] [address] [place] [address] 09/12/2024 1:45 PM EDT Office Visit Dermatology Shyann Rodriguez [place] [address] [facility] [place] [address] Spike Glass MD [address] [facility] [place] [address] Health Maintenance Due Date Last Done Comments DXA Scan 1935 TSH 11[birth year]06/1953 DTap/Tdap Vaccines (1 - Tdap) 1954 COVID-19 Vaccine (2023- season) 2024 02/06/2024, 01/30/2023, 01/26/2022, Additional history exists Albumin/Creatinine Ratio 02/27/2025 02/27/2022 Depression Screening 07/18/2025 07/18/2024 Pneumococcal Vaccine: 50+ Years Completed 01/10/2016, 01/15/2004 Zoster Vaccines Completed 11/08/2018, 07/15, 10/06/2013 Influenza Vaccine (FLU shot) Completed , 01/01/2020, 01/23/2019 HPV (Gardasil) Vaccine Aged Out No lo nger eligible based on patient's age to complete this topic Hepatitis B Vaccine Aged Out No longe r eligible based on patient's age to complete this topic MENINGOCOCCAL (MENACTRA/MENVEO) Aged Out No longer eligible based on patient's age to complete this topic Meningitis B Vaccine (Bexsero/Trumemba) Aged Out No longer eligible based on patient's age to complete this topic documented as of this encounter Medical Devices Implanted Type Area Remodeler Device Identifier Shelf Expiration Date Model / Serial / Lot Lens Li61ao 13.00mm 19.50 - [id number] - [id number] Implanted:Qty: 1 on 08/14/2023 by Jonas Scott MD at OR [facility] Left: Eye BAUSCH 04/15/2028 [id number] / [id number] / [id number] Lens Li61ao 13.00mm 19.00 - [id number] - [id number] Implanted:Qty: 1 on 08/28/2023 by Jonas Scott MD at OR [facility] Right: Eye BAUSCH 02/14/2028 [id number] / [id number] / [id number] documented as of this encounter Advance Directives * Full Code (Latest Code Status on File) Date Activated Date Inactivated Comments 08/14/2023 6:46 AM 08/14/2023 12:46 PM This order reflects the patients wishes and were consensually agreed upon. Question Answer Comments Discussion of Advance Directives occurred with: Patient Does the patient have a Living Will? No Does the patient have Health Care Power of Attor alice? No Care Teams Hide And Skin Fleshing Machine Operator Relationship Specialty Start Date End Date Bertha Leigh CRNP [address] [place] [address] SARAH Ruiz [id number] PCP - General Nurse Practitioner 07/27/23 documented as of this encounter
--- NOTE | 2024-08-09 21:41 | Emergency Department Note ---
ED Visit Note I was consulted by the Advanced Practice Provider, Shanika Carranza PA-C. I performed a substantive portion of the visit. This includes aspects of: History: Patient is a 88-year-old female presenting with fever, chills, nausea and vomiting and diarrhea. Patient reports feeling generally unwell over the last few days, but worse today. Denies any chest pain. MDM: - Laboratory workup interpreted by myself showed leukocytosis (WBC 15.39) with neutrophil predominance; stable electrolytes; JOSE on CKD (Cr 1.48); hyperglycemia (glucose 240); slightly elevated troponin (!4.9); normal procalcitonin - Viral respiratory panel negative - CXR image reviewed by myself is negative for pneumonia, per my interpretation. - CTA chest negative for PE. - CT abdomen/pelvis with IV contras t showed diverticulosis without diverticulitis. No acute changes from previous CT imaging. - Patient to be admitted to hospital service for further evaluation and management. .
--- NOTE | 2024-08-09 21:49 | Emergency Department Note ---
History of Present Illness General Chief complaint: Illness Stated complaint: N/V/D, COUGH History of Present Illness This 88-year-old female with history of diabetes, hypertension, hypothyroidism presents ER complaining fever, chills, cough, congestion, nausea, vomiting, and diarrhea today. Patient states she never really covered from her last hospital admission for RSV. She finished hours last week. Symptoms got acutely worse today. Patient denies chest pain, headache. Home Medications Medication Instructions Recorded Confirmed Type cyanocobalamin (vitamin B-12) 100 100 mcg PO QDL 02/08/18 08/09/24 History mcg tablet (Vitamin B-12) ascorbic acid (vitamin C) 500 mg 500 mg PO QDL 11/19/18 08/09/24 History tablet blood-glucose meter (OneTouch #1 ea 11/19/18 07/23/24 History UltraMini kit) lancets 33 gauge (OneTouch Delica #100 ea 11/19/18 07/23/24 History Lancets) meclizine 12.5 mg tablet 12.5 mg PO Q6H PRN Dizziness #30 11/19/18 08/09/24 History tabs vitamin E (dl, acetate) 180 mg 400 units PO QDL 11/19/18 08/09/24 History (400 unit) capsule cholecalciferol (vitamin D3) 25 25 mcg PO QDL 08/26/21 08/09/24 History mcg (1,000 unit) capsule (Vitamin D3) furosemide 20 mg tablet 40 mg (2 x 20 mg) PO QDB #180 tabs 09/05/23 08/09/24 Rx atorvastatin 40 mg tablet 40 mg PO HS #90 tabs 10/09/23 08/09/24 Rx clopidogrel 75 mg tablet 75 mg PO QAM #90 tabs 10/09/23 08/09/24 Rx pen needle, diabetic 32 gauge x #100 ea 10/09/23 07/23/24 Rx 5/32" (BD Ultra-Fine Anais Pen Needle) famotidine 20 mg tablet 20 mg PO DAILY PRN heartburn #30 11/14/23 08/09/24 Rx tabs levothyroxine 150 mcg tablet 150 mcg PO DAILY #90 tabs 02/14/24 08/09/24 Rx blood sugar diagnostic #100 ea 03/18/24 07/23/24 Rx diltiazem HCl 240 mg 240 mg PO QDL #90 caps 05/14/24 08/09/24 Rx capsule,extended release 24 hr insulin glargine 100 unit/mL (3 40 - 55 unit subcut QAM 07/14/24 08/09/24 History mL) subcutaneous pen (Lantus Solostar U-100 Insulin) chlorthalidone 25 mg tablet 25 mg PO DAILY #90 tabs 07/23/24 08/09/24 Rx losartan 100 mg tablet 100 mg PO QDL #90 tabs 07/23/24 08/09/24 Rx codeine 10 mg-guaifenesin 100 mg/5 10 ml PO Q6H PRN cough #240 mL 07/29/24 08/09/24 Rx mL oral liquid prednisone 20 mg tablet See Rx Instructions PO QAM #9 tabs 07/29/24 08/09/24 Rx allopurinol 300 mg tablet 300 mg PO QDL #90 tabs 08/06/24 08/09/24 Rx atenolol 50 mg tablet 50 mg PO QDL #90 tabs 08/06/24 08/09/24 Rx potassium chloride 10 mEq 20 meq (2 x 10 mEq) PO DAILY #180 08/08/24 08/09/24 Rx tablet,extended release tabs Allergies Allergy/AdvReac Type Severity Reaction Status Date / Time hydrochlorothiazide Allergy Unknown Unknown Verified 07/29/24 10:12 ampicillin AdvReac Intermediate UTIs Verified 07/29/24 10:12 amlodipine AdvReac Mild Cough Verified 07/29/24 10:12 erythromycin base AdvReac Mild YEAST Verified 07/29/24 10:12 INFECTION moxifloxacin AdvReac Mild sick to Verified 07/29/24 10:12 stomach Past Med/Surg History Problem List (Updated 08/10/24 @ 00:12 by Shanika Carranza PA-C) Nausea, vomiting, and diarrhea (Acute) JOSE (acute kidney injury) (Acute) Hypertension Respiratory syncytial virus (RSV) infection (Acute) History of CVA (cerebrovascular accident) Nephrolithiasis Right sided abdominal pain History of kidney stones Controlled type 2 diabetes mellitus with insulin therapy Controlled type 2 diabetes mellitus with microalbuminuria Constipation History of kidney stones Heartburn Gastritis Dysphagia Vertigo (Acute) Abdominal pain (Acute) Flank pain (Acute) GI bleed Right knee DJD Hypothyroidism (Chronic) Hypertension (Chronic) Left knee DJD Medical History Uncontrolled type II diabetes mellitus 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 History of anesthesia reaction difficulty waking Gout History of esophageal dilatation Schatzki's ring Difficulty swallowing Diabetes mellitus, type 2 History of radioactive iodine thyroid ablation Glaucoma Osteoporosis Anemia Hypothyroidism Hypertension Surgical History History of cataract surgery H/O hand surgery History of carpal tunnel surgery of left wrist History of lymph node excision History of arthroscopy of right knee History of total right knee replacement (TKR) History of total left knee replacement (TKR) History of esophagogastroduodenoscopy (EGD) History of wisdom tooth extraction History of tonsillectomy Status post biopsy of thyroid gland History of colonoscopy History of dilation and curettage History of total abdominal hysterectomy and bilateral salpingo-oophorectomy History of thyroidectomy Family History Mother Rheumatoid arthritis Type 2 diabetes mellitus Hypertension Father Type 2 diabetes mellitus Hypertension Brother Venous embolism and thrombosis of deep vessels of lower extremity Other No family history of adverse response to anesthesia Denies family history of Ovarian cancer Prostate cancer Myocardial infarction Breast cancer Colorectal cancer Social History (Updated 07/29/24 @ 10:18 by RIANA Johnston) Smoking Status: Never smoker Second Hand Exposure: No; Do You Dip or Chew Tobacco: No; Hx Alcohol Use: No Hx Substance Use: No Preferred Language: Lao Communication Ability: Effective Visual Impairment: No Limitations Hearing Ability: Normal Site Safety Coordinator Required: No Beliefs That Will Affect Care: None marital status: Current Living Situation: Family Current Living Situation Comment: lives at home with and son current occupational status: retired 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 Feels Safe at Home: Yes Childhood Exposure to Second-Hand Smoke: Yes Diet: diabetic caffeine: Yes (Iced Tea ) Dental Care, Regularly: Yes Physical Activity Frequency: Does not Exercise Seatbelt Use: always Sunscreen Use: No Assistive Devices: None Review of Systems A total of 10 systems reviewed and were otherwise negative Physical Exam Vital Signs Vital Signs - 24 hr 08/09/24 21:31 08/09/24 21:31 08/09/24 21:35 Temperature 37.7 C H 37.7 C H Temperature Source Oral Oral Pulse Rate 82 82 Pulse Rate [Right Finger] 83 Pulse Rate from SpO2 Sensor Respiratory Rate 21 21 Respiratory Effort / Characteristics Non-Labored Spontaneous Non-Labored Spontaneous Respiratory Depth Normal Normal Respiratory Pattern Regular Regular Blood Pressure 149/85 H Blood Pressure [Right Arm] 149/85 H Blood Pressure Mean 106 Blood Pressure Mean [Right Arm] 106 Pulse Oximetry 91 91 Oxygen Delivery Method Room Air Room Air Oxygen Flow Rate Sepsis Recent Fever Within 48 Hours Yes Sepsis New/Unexplained Change in Mental Status No Sepsis Action Taken by Nursing No Action Required Oxygen Flow Rate - Titration Pulse Oximetry Post Tiitration 08/09/24 21:39 08/09/24 22:05 08/09/24 22:25 Temperature Temperature Source Pulse Rate 83 81 Pulse Rate [Right Finger] Pulse Rate from SpO2 Sensor Respiratory Rate 20 16 Respiratory Effort / Characteristics Respiratory Depth Respiratory Pattern Blood Pressure 179/80 H 176/81 H Blood Pressure [Right Arm] Blood Pressure Mean 129 124 Blood Pressure Mean [Right Arm] Pulse Oximetry 94 91 Oxygen Delivery Method Room Air Oxygen Flow Rate Sepsis Recent Fever Within 48 Hours Sepsis New/Unexplained Change in Mental Status Sepsis Action Taken by Nursing Oxygen Flow Rate - Titration Pulse Oximetry Post Tiitration 08/09/24 22:30 08/09/24 22:30 08/09/24 22:30 Temperature Temperature Source Pulse Rate Pulse Rate [Right Finger] Pulse Rate from SpO2 Sensor Respiratory Rate Respiratory Effort / Characteristics Respiratory Depth Respiratory Pattern Blood Pressure 165/73 H 165/73 H 165/73 H Blood Pressure [Right Arm] Blood Pressure Mean 117 117 117 Blood Pressure Mean [Right Arm] Pulse Oximetry Oxygen Delivery Method Oxygen Flow Rate Sepsis Recent Fever Within 48 Hours Sepsis New/Unexplained Change in Mental Status Sepsis Action Taken by Nursing Oxygen Flow Rate - Titration Pulse Oximetry Post Tiitration 08/09/24 22:30 08/09/24 22:33 08/09/24 22:42 Temperature Temperature Source Pulse Rate 82 Pulse Rate [Right Finger] Pulse Rate from SpO2 Sensor 82 Respiratory Rate 28 H Respiratory Effort / Characteristics Respiratory Depth Respiratory Pattern Blood Pressure 165/73 H Blood Pressure [Right Arm] Blood Pressure Mean 117 Blood Pressure Mean [Right Arm] Pulse Oximetry 90 89 L Oxygen Delivery Method Nasal Cannula Oxygen Flow Rate 0 Sepsis Recent Fever Within 48 Hours Sepsis New/Unexplained Change in Mental Status Sepsis Action Taken by Nursing Oxygen Flow Rate - Titration 2 Pulse Oximetry Post Tiitration 94 08/09/24 22:45 08/09/24 23:35 08/09/24 23:45 Temperature 36.6 C Temperature Source Oral Pulse Rate 84 Pulse Rate [Right Finger] 92 H 90 Pulse Rate from SpO2 Sensor 84 Respiratory Rate 23 18 17 Respiratory Effort / Characteristics Non-Labored Spontaneous Non-Labored Spontaneous Respiratory Depth Respiratory Pattern Regular Blood Pressure 172/80 H Blood Pressure [Right Arm] 178/92 H 161/87 H Blood Pressure Mean 110 Blood Pressure Mean [Right Arm] 120 111 Pulse Oximetry 94 91 99 Oxygen Delivery Method Nasal Cannula Nasal Cannula Nasal Cannula Oxygen Flow Rate 2 2 2 Sepsis Recent Fever Within 48 Hours Sepsis New/Unexplained Change in Mental Status Sepsis Action Taken by Nursing Oxygen Flow Rate - Titration Pulse Oximetry Post Tiitration VITALS: Vitals are noted on the nurse's note and reviewed by myself. Vital signs low-grade fever. GENERAL: Pleasant female coughing, in no acute distress, nondiaphoretic, well- developed well-nourished. SKIN: The skin was without rashes, erythema, edema, or bruising. There is no tenting of the skin. Capillary reflex less than 2 seconds. HEAD: Normocephalic atraumatic. EARS: External auditory canals clear EYES: Pupils equal round and reactive to light and accommodation. Conjunctivae without injection, sclerae without icterus. Extraocular movements intact. NOSE: Patent, no discharge. MOUTH: Mucous membranes moist. Pharynx without erythema or exudate. Uvula midline. Airway patent. Tongue does not deviate. NECK: Supple without nuchal rigidity. No lymphadenopathy. No thyromegaly. Cervical spine is nontender. No JVD. HEART: Regular rate and rhythm LUNGS: Clear to auscultation bilaterally without wheezes, rales or rhonchi. No retractions or accessory muscle use. ABDOMEN: Positive bowel sounds x 4. Normal tympanic percussion. Soft, mild diffuse tenderness, without masses or organomegaly. Foster sign negative. No guarding or rebound tenderness. No CVA tenderness MUSCULOSKELETAL: No muscle atrophy, erythema, or edema noted. NEURO: Patient was alert and oriented to person place and time. Normal sensation to light and sharp touch. No focal neurological deficits. Course Administered Medications Discontinued Medications Famotidine (Pepcid 20mg Iv Push) 20 mg in 5 mls @ 2.5 mls/min IV NOW STA Stop: 08/09/24 21:36 Last Admin: 08/09/24 21:50 Dose: 2.5 mls/min Documented By: BENITEZ Sodium Chloride (Nss) 500 mls @ 999 mls/hr IV .Q31M ONE Stop: 08/09/24 22:08 Last Infusion: 08/09/24 22:54 Dose: Infused Documented By: Admin: 08/09/24 21:51 Dose: 999 mls/hr Documented By: BENITEZ Acetaminophen (Ofirmev) 1,000 mg in 100 mls @ 400 mls/hr IV NOW STA Stop: 08/09/24 23:19 Last Infusion: 08/10/24 00:09 Dose: Infused Documented By: Admin: 08/09/24 23:39 Dose: 400 mls/hr Documented By: CARSON Sodium Chloride (Nss) 500 mls @ 999 mls/hr IV .Q31M ONE Stop: 08/09/24 23:35 Last Admin: 08/09/24 23:40 Dose: 999 mls/hr Documented By: CARSON Ioversol (Optiray 320 125ml) 119 ml IV ONCE ONE Stop: 08/09/24 22:18 Last Admin: 08/09/24 22:17 Dose: 119 ml Documented By: YINKA Medical Decision Making Medical Records Attestation: I reviewed the patient's medical records. Home Medications Current Medication List: was personally reviewed by me Laboratory Data Attestation: I reviewed the patient's lab results. 08/09/24 21:40 08/09/24 21:40 Lab Results 08/09/24 08/09/24 08/09/24 Range/Units 21:40 21:50 23:20 WBC 15.39 H (4.8-10.8) K/ul RBC 4.73 (4.20-5.40) M/uL Hgb 13.7 (12.0-16.0) g/dl POC Hgb 15.3 (12.0-16.0) g/dl Hct 41.9 (37.0-47.0) % POC Hct 45 (37-47) % MCV 88.6 (80.0-100.0) fL MCH 29.0 (25.0-34.0) pg MCHC 32.7 (32.0-36.0) g/dL RDW Std Deviation 50.8 H (36.4-46.3) fL RDW Coeff of Jaja 15.8 H (11.5-14.5) % Plt Count 279 (130-400) K/uL MPV 10.9 (9.4-12.4) fL Immature Gran % (Auto) 0.6 % Neut % (Auto) 89.8 % Lymph % (Auto) 2.3 % [place] % (Auto) 5.3 % Eos % (Auto) 1.8 % Baso % (Auto) 0.2 % Neut # (Auto) 13.84 H (1.40-6.50) K/uL Lymph # (Auto) 0.35 L (1.20-3.40) K/uL [place] # (Auto) 0.81 H (0.11-0.59) K/uL Eos # (Auto) 0.27 (0.00-0.50) K/uL Baso # (Auto) 0.03 (0.00-0.20) K/uL Immature Gran # (Auto) 0.09 (0.01-0.20) K/uL POC Sodium 139 (135-144) mmol/L Sodium 140 (136-145) mmol/L POC Potassium 3.9 (3.3-5.0) mmol/L Potassium 3.9 (3.5-5.1) mmol/L POC Chloride 96 L (101-112) mmol/L Chloride 99 (98-107) mmol/L Carbon Dioxide 34 H (21-32) mmol/L POC Total CO2 29 (24-31) mmol/L Anion Gap 7 (3-11) POC Anion Gap 19.0 (16-25) mmol/L POC BUN 47 H (7-18) mg/dl BUN 47 H (6-23) mg/dl Creatinine 1.48 H (0.6-1.2) mg/dl POC Creatinine 1.5 H (0.6-1.3) mg/dl Est Cr Clr Drug Dosing 29.9 ml/min eGFR 34.28 BUN/Creatinine Ratio 31.8 H (10-20) Glucose 240 H (70-99(Fasting)) mg/dl POC Glucose (other) 235 H (70-99) mg/dl Lactate 1.6 (0.4-2.0) mmol/L Calcium 8.9 (8.6-10.3) mg/dl POC Ioniz Calcium Noe 1.05 L (1.12-1.32) mmol/l Magnesium 2.1 (1.7-2.4) mg/dl Total Bilirubin 1.5 H (0.2-1.0) mg/dl Direct Bilirubin 0.2 (0-0.2) mg/dl AST 23 (13-39) U/L ALT 26 (7-52) U/L Alkaline Phosphatase 104 (34-104) U/L Troponin I High Sens 14.9 H (0-14) pg/ml Total Protein 7.2 (6.0-8.3) gm/dl Albumin 3.8 (3.4-5.0) gm/dl Procalcitonin 0.08 (0-0.5) ng/ml Urine Color Yellow Urine Appearance Clear (Clear) Urine pH 8.0 H (4.5-7.5) Ur Specific Tyler 1.022 (1.000-1.030) Urine Protein Trace H (Negative) Urine Glucose (UA) Negative (Negative) Urine Ketones Negative (Negative) Urine Blood Negative (Negative) Urine Nitrite Negative (Negative) Urine Bilirubin Negative (Negative) Urine Urobilinogen Negative (Negative) Ur Leukocyte Esterase Negative (Negative) Urine WBC (Auto) 0-5 (0-5) /hpf Urine RBC (Auto) 0-2 (0-2) /hpf U Hyaline Cast (Auto) 0-2 (0-2) /lpf U Epithel Cells (Auto) 0-2 (0-2) /hpf Urine Bacteria (Auto) None Seen (None Seen) Adenovirus (PCR) Not Detected (NotDetected) B. pertussis DNA (PCR) Not Detected (NotDetected) B.parapertussis DNA PCR Not Detected (NotDetected) C. pneumoniae DNA (PCR) Not Detected (NotDetected) Coronavirus OC43 (PCR) Not Detected (NotDetected) Coronavirus HKU1 (PCR) Not Detected (NotDetected) Coronavirus 229E (PCR) Not Detected (NotDetected) SARS-CoV-2 (PCR) Not Detected (NotDetected) Coronavirus NL63 (PCR) Not Detected (NotDetected) Human Metapneumovir PCR Not Detected (NotDetected) Influenza Type A (PCR) Not Detected (NotDetected) Influenza Type B (PCR) Not Detected (NotDetected) M. pneumoniae (PCR) Not Detected (NotDetected) Parainfluenza 1 (PCR) Not Detected (NotDetected) Parainfluenza 2 (PCR) Not Detected (NotDetected) Parainfluenza 3 (PCR) Not Detected (NotDetected) Parainfluenza 4 (PCR) Not Detected (NotDetected) RSV (PCR) Not Detected (NotDetected) Entero/Rhino (PCR) Not Detected (NotDetected) Imaging Data Attestation: I personally reviewed and interpreted this imaging study as follows: Radiologist's Impression: Abdomen/Pelvis CT 08/09/24 21:35 Exam(s): CT ABDOMEN + PELVIS With Contrast IV Amt: 119ML OPTIRAY 320 EXAM: CT Abdomen and Pelvis With Intravenous Contrast CLINICAL HISTORY: Reason for exam: pain, V/D. TECHNIQUE: Axial computed tomography images of the abdomen and pelvis with intravenous contrast. CTDI is 28.14 mGy and DLP is 739.95 mGy-cm. Automated exposure control was utilized for the study. A dose lowering technique was utilized adhering to the principles of ALARA. CONTRAST: Patient received 119ML OPTIRAY 320 of IV contrast COMPARISON: 12/23/2021 FINDINGS: Lung bases: No consolidation. ABDOMEN: Liver: The liver is enlarged.. Gallbladder and bile ducts: The patient is status post cholecystectomy.. No ductal dilation. Pancreas: No mass. No ductal dilation. Spleen: No splenomegaly. Adrenals: No mass. Kidneys and ureters: There are right renal calcifications. No hydronephrosis. There are rounded lucencies noted in both kidneys. Stomach and bowel: There is a small hiatal hernia. There is air and fluid within the stomach. There is air and stool noted in the colon. There are diverticula present on the colon. No significant inflammatory changes are seen. PELVIS: Appendix: Unremarkable CT scan appearance noted the appendix.. Bladder: No calculi are noted within the bladder.. Reproductive: The patient appears to be status post hysterectomy.. ABDOMEN and PELVIS: Intraperitoneal space: No free air. No significant fluid collection. Bones/joints: There are degenerative changes in the spine.. Soft tissues: Unremarkable. Vasculature: No abdominal aortic aneurysm. Lymph nodes: No enlarged lymph nodes. IMPRESSION: Diverticulosis. There are right renal calcifications without evidence of hydronephrosis. There are possible bilateral renal cysts. Hepatomegaly. There is a small hiatal hernia. Findings appears similar to previous exam Electronically signed by: Elier Cardoso MD 08/09/24 23:49 PM Chest CTA 08/09/24 21:35 Exam(s): CTA CHEST IV Amt: optiray 320 119ml EXAM: CT Angiography Chest With Intravenous Contrast CLINICAL HISTORY: Reason for exam: PE. TECHNIQUE: Axial computed tomographic angiography images of the chest with intravenous contrast. CTDI is 28.14 mGy and DLP is 1302.63 mGy-cm. Automated exposure control was utilized for the study. A dose lowering technique was utilized adhering to the principles of ALARA. MIP reconstructed images were created and reviewed. COMPARISON: 06/15/2015. FINDINGS: Pulmonary arteries: No pulmonary embolism is seen. There is dilatation of the main pulmonary artery. Aorta: No thoracic aortic aneurysm or dissection. Lungs: . No consolidation. A 5 mm nodule is again noted in the right lung (series 2, image 57). Pleural space: No significant effusion. No pneumothorax. Heart: The heart is top normal in size.. Bones/joints: There are marked degenerative changes in spine.. Soft tissues: Unremarkable. Lymph nodes: No enlarged lymph nodes. Additional: There appears to be diffuse thickening of the esophageal wall. There is a small hiatal hernia. IMPRESSION: No pulmonary embolism is seen. There is dilatation of the main pulmonary artery. This can be seen with pulmonary hypertension. There appears to be diffuse thickening of the esophageal wall. There is a small hiatal hernia. Electronically signed by: Elier Cardoso MD 08/09/24 23:42 PM Chest X-Ray 08/09/24 21:35 Exam(s): XR CXR 1 VIEW EXAM: XR Chest, 1 View CLINICAL HISTORY: Reason for exam: Sepsis. TECHNIQUE: Frontal views of the chest. COMPARISON: 07/14/2024. FINDINGS: Lungs: No consolidation. Pleural space: No pleural effusion is seen No pneumothorax. Heart: Heart is top normal in size.. Mediastinum: There is uncoiling of the thoracic aorta.. Bones/joints: There are degenerative changes in the spine. IMPRESSION: No acute pulmonary disease. Electronically signed by: Elier Cardoso MD 08/09/24 23:36 PM MDM Narrative Prior records/ancillary studies reviewed and summarized above. Nursing notes reviewed. Additional history obtained from nursing. The patient's history was concerning for fever, chills, vomiting, diarrhea. Differential diagnosis: Etiologies such as metabolic, infection, hypo/hyperglycemia, electrolyte abnormalities, cardiac sources, intracerebral event, toxicologic, neurologic, as well as others were entertained. Physical examination: As above. ER treatment provided: IV Lock An order was placed for continuous cardiac monitoring. The monitor shows a rate of 60-100 with a sinus rhythm per my interpretation. Zofran, IV fluids On reassessment the patient felt better. Diagnostics interpretation by me: ECG: Ordered for weakness EKG: Normal sinus, first-degree AV block, no acute ST-T wave changes, rate 81. Impression normal sinus rhythm independently interpreted by myself with a first- degree AV block The labs Independently Interpreted by myself revealed leukocytosis, elevated creatinine from baseline. Slightly elevated troponin. Blood cultures pending Negative BioFire. Negative lactic Hyperglycemia without DKA Urine without signs of infection Imaging studies: Imaging was reviewed and read by radiology Consultation: A consultation was placed with the hospitalist. The case was discussed and diagnostics were reviewed. The patient was evaluated in the ER for further treatment. Exam and history seem consistent with JOSE with vomiting and diarrhea and viral illness. Patient was not able to give a stool specimen prior to admission. She was hydrated as above. Medicine was consulted and case was discussed. She will be evaluated for admission. By the evaluation outlined above emergent etiologies such as electrolyte abnormalities, intracerebral event, toxologic, neurologic, metabolic, as well as others were deemed relatively unlikely. The pt informed about the findings as listed above. All questions were answered and pleased with the treatment. The chart was completed utilizing [employer] Speech voice recognition software. Grammatical errors, random word insertions, pronoun errors, and incomplete sentences are an occassional consequence of this system due to software limitations, ambient noise, and hardware issues. Any formal questions or concerns about the content, text, or information contained within the body of this dictation should be directly addressed to the physician orthodontic assistant for clarification. Impression & Plan JOSE (acute kidney injury), Nausea, vomiting, and diarrhea Discharge Plan Visit Data Chief Complaint: Illness Stated Complaint: N/V/D, COUGH ED Provider: [facility] Midlevel Provider: Shanika Carranza Discharge Problem: JOSE (acute kidney injury), Nausea, vomiting, and diarrhea Patient Disposition: Admitted As Inpatient Condition: Fair Forms Stand Alone Forms: [facility] Prescriptions Prescriptions: No Action furosemide 20 mg tablet 40 mg PO QDB Qty: 180 3RF (DME) pen needle, diabetic [BD Ultra-Fine Anais Pen Needle] 32 gauge x 5/32" needle See Rx Instructions .ROUTE .MEDSUPPLY Qty: 100 3RF Rx Instructions: Inject insulin once daily as instructed atorvastatin 40 mg tablet 40 mg PO HS Qty: 90 3RF clopidogrel 75 mg tablet 75 mg PO QAM Qty: 90 3RF famotidine 20 mg tablet 20 mg PO DAILY PRN (Reason: heartburn) Qty: 30 5RF levothyroxine 150 mcg tablet 150 mcg PO DAILY Qty: 90 3RF Rx Instructions: Take before breakfast (DME) blood sugar diagnostic Strip See Dose Instructions .ROUTE .MEDSUPPLY Qty: 100 1RF Dose Instruction: As directed Rx Instructions: test once daily and PRN ( PACE ONLY ALLOWS 6 MOS ) diltiazem HCl 240 mg capsule,extended release 24hr 240 mg PO QDL Qty: 90 3RF allopurinol 300 mg tablet 300 mg PO QDL Qty: 90 3RF atenolol 50 mg tablet 50 mg PO QDL Qty: 90 3RF potassium chloride 10 mEq tablet extended release 20 meq PO DAILY Qty: 180 3RF (DME) lancets [OneTouch Delica Lancets] 33 gauge misc See Dose Instructions .ROUTE .MEDSUPPLY Qty: 100 Rx Instructions: As directed (DME) blood-glucose meter [OneTouch UltraMini] kit See Dose Instructions .ROUTE .MEDSUPPLY Qty: 1 Patient Comments: Check blood sugar once daily Rx Instructions: As directed ascorbic acid (vitamin C) 500 mg tablet 500 mg PO QDL vitamin E (dl, acetate) 400 unit capsule 400 units PO QDL meclizine 12.5 mg tablet 12.5 mg PO Q6H PRN (Reason: Dizziness) Qty: 30 prednisone 20 mg tablet See Rx Instructions PO QAM Qty: 9 0RF Rx Instructions: Take 2 tablets daily x 3 days then 1 tablet daily x 3 days then stop. codeine-guaifenesin 10-100 mg/5 mL liquid 10 ml PO Q6H PRN (Reason: cough) Qty: 240 0RF losartan 100 mg tablet 100 mg PO QDL Qty: 90 3RF chlorthalidone 25 mg tablet 25 mg PO DAILY Qty: 90 3RF cyanocobalamin (vitamin B-12) [Vitamin B-12] 100 mcg Tablet 100 mcg PO QDL cholecalciferol (vitamin D3) [Vitamin D3] 25 mcg (1,000 unit) Capsule 25 mcg PO QDL insulin glargine [Lantus Solostar U-100 Insulin] 100 unit/mL (3 mL) insulin pen 40 - 55 unit subcut QAM Referrals Referrals: Bertha Leigh CRNP [Primary Care Provider] -
[2024-08-09] MEDS: FAMOTIDINE 20MG IV PUSH 20 MG/5 ML SYR IV STA (21:50)
[2024-08-09] MEDS: SODIUM CHLORIDE 0.9% 500 ML IV ONE ×2 (21:51→23:40)
[2024-08-09 22:00] LABS: Basophils # (auto) 0.03 K/uL (0.00-0.20); Basophils % (auto) 0.2 %; Eosinophils # (auto) 0.27 K/uL (0.00-0.50); Eosinophils % (auto) 1.8 %; Hematocrit (blood only) 41.9 % (37.0-47.0); Hemoglobin 13.7 g/dl (12.0-16.0); Immature Granulocytes # (auto) 0.09 K/uL (0.01-0.20); Immature Granulocytes % (auto) 0.6 %; Lymphocytes # (auto) 0.35 K/uL (1.20-3.40); Lymphocytes % (auto) 2.3 %; Mean Corpuscular Hgb Conc 32.7 g/dL (32.0-36.0); Mean Corpuscular Volume 88.6 fL (80.0-100.0); Mean Platelet Volume 10.9 fL (9.4-12.4); Monocytes # (auto) 0.81 K/uL (0.11-0.59); Monocytes % (auto) 5.3 %; Neutrophils # (auto) 13.84 K/uL (1.40-6.50); Neutrophils % (auto) 89.8 %; Platelet Count 279 K/uL (130-400); RDW Coefficient of Variation 15.8 % (11.5-14.5); RDW Standard Deviation 50.8 fL (36.4-46.3); Red Blood Count 4.73 M/uL (4.20-5.40); White Blood Count 15.39 K/ul (4.8-10.8)
[2024-08-09 22:02] LABS: iSTAT Creatinine 1.5 mg/dl (0.6-1.3); iSTAT Hemoglobin 15.3 g/dl (12.0-16.0); iSTAT Ionized Calcium 1.05 mmol/l (1.12-1.32); iSTAT Potassium 3.9 mmol/L (3.3-5.0)
[2024-08-09] MEDS: OPTIRAY 320 125ml IV ONE (22:17)
[2024-08-09 22:19] LABS: Albumin Level 3.8 gm/dl (3.4-5.0); BUN Creatinine Ratio 31.8 (10-20); Bilirubin Direct 0.2 mg/dl (0-0.2); Bilirubin,Total 1.5 mg/dl (0.2-1.0); Calcium 8.9 mg/dl (8.6-10.3); Creatinine Clr Calc Pharmacy 29.9 ml/min; Magnesium 2.1 mg/dl (1.7-2.4); Potassium 3.9 mmol/L (3.5-5.1); Total Protein 7.2 gm/dl (6.0-8.3)
[2024-08-09 22:24] LABS: Troponin I High Sensitivity 14.9 pg/ml (0-14)
[2024-08-09 22:42] LABS: Adenovirus PCR Not Detected (NotDetected); Bordetella parapertussis PCR Not Detected (NotDetected); Bordetella pertussis PCR Not Detected (NotDetected); Chlamydia pneumoniae PCR Not Detected (NotDetected); Coronavirus 229E PCR Not Detected (NotDetected); Coronavirus CoV-2 (COVID19)PCR Not Detected (NotDetected); Coronavirus HKU1 PCR Not Detected (NotDetected); Coronavirus NL63 PCR Not Detected (NotDetected); Coronavirus OC43PCR Not Detected (NotDetected); Human Metapneumovirus PCR Not Detected (NotDetected); Influenza A PCR Not Detected (NotDetected); Influenza B PCR Not Detected (NotDetected); Mycoplasma pneumoniae PCR Not Detected (NotDetected); Parainfluenza Virus 1 PCR Not Detected (NotDetected); Parainfluenza Virus 2 PCR Not Detected (NotDetected); Parainfluenza Virus 3 PCR Not Detected (NotDetected); Parainfluenza Virus 4 PCR Not Detected (NotDetected); Respiratory Syncytial VirusPCR Not Detected (NotDetected); Rhinovirus/Enterovirus PCR Not Detected (NotDetected)
--- NOTE | 2024-08-09 23:37 | XRay Report ---
Exam(s): XR CXR 1 VIEW EXAM: XR Chest, 1 View CLINICAL HISTORY: Reason for exam: Sepsis. TECHNIQUE: Frontal views of the chest. COMPARISON: 07/14/2024. FINDINGS: Lungs: No consolidation. Pleural space: No pleural effusion is seen No pneumothorax. Heart: Heart is top normal in size.. Mediastinum: There is uncoiling of the thoracic aorta.. Bones/joints: There are degenerative changes in the spine. IMPRESSION: No acute pulmonary disease. Electronically signed by: Elier Cardoso MD 08/09/24 23:36 PM
[2024-08-09] MEDS: ACETAMINOPHEN 1,000 MG/100 ML VIAL IV STA (23:39)
--- NOTE | 2024-08-09 23:42 | CT Scan Report ---
Exam(s): CTA CHEST IV Amt: optiray 320 119ml EXAM: CT Angiography Chest With Intravenous Contrast CLINICAL HISTORY: Reason for exam: PE. TECHNIQUE: Axial computed tomographic angiography images of the chest with intravenous contrast. CTDI is 28.14 mGy and DLP is 1302.63 mGy-cm. Automated exposure control was utilized for the study. A dose lowering technique was utilized adhering to the principles of ALARA. MIP reconstructed images were created and reviewed. COMPARISON: 06/15/2015. FINDINGS: Pulmonary arteries: No pulmonary embolism is seen. There is dilatation of the main pulmonary artery. Aorta: No thoracic aortic aneurysm or dissection. Lungs: . No consolidation. A 5 mm nodule is again noted in the right lung (series 2, image 57). Pleural space: No significant effusion. No pneumothorax. Heart: The heart is top normal in size.. Bones/joints: There are marked degenerative changes in spine.. Soft tissues: Unremarkable. Lymph nodes: No enlarged lymph nodes. Additional: There appears to be diffuse thickening of the esophageal wall. There is a small hiatal hernia. IMPRESSION: No pulmonary embolism is seen. There is dilatation of the main pulmonary artery. This can be seen with pulmonary hypertension. There appears to be diffuse thickening of the esophageal wall. There is a small hiatal hernia. Electronically signed by: Elier Cardoso MD 08/09/24 23:42 PM
--- NOTE | 2024-08-09 23:50 | CT Scan Report ---
Exam(s): CT ABDOMEN + PELVIS With Contrast IV Amt: 119ML OPTIRAY 320 EXAM: CT Abdomen and Pelvis With Intravenous Contrast CLINICAL HISTORY: Reason for exam: pain, V/D. TECHNIQUE: Axial computed tomography images of the abdomen and pelvis with intravenous contrast. CTDI is 28.14 mGy and DLP is 739.95 mGy-cm. Automated exposure control was utilized for the study. A dose lowering technique was utilized adhering to the principles of ALARA. CONTRAST: Patient received 119ML OPTIRAY 320 of IV contrast COMPARISON: 12/23/2021 FINDINGS: Lung bases: No consolidation. ABDOMEN: Liver: The liver is enlarged.. Gallbladder and bile ducts: The patient is status post cholecystectomy.. No ductal dilation. Pancreas: No mass. No ductal dilation. Spleen: No splenomegaly. Adrenals: No mass. Kidneys and ureters: There are right renal calcifications. No hydronephrosis. There are rounded lucencies noted in both kidneys. Stomach and bowel: There is a small hiatal hernia. There is air and fluid within the stomach. There is air and stool noted in the colon. There are diverticula present on the colon. No significant inflammatory changes are seen. PELVIS: Appendix: Unremarkable CT scan appearance noted the appendix.. Bladder: No calculi are noted within the bladder.. Reproductive: The patient appears to be status post hysterectomy.. ABDOMEN and PELVIS: Intraperitoneal space: No free air. No significant fluid collection. Bones/joints: There are degenerative changes in the spine.. Soft tissues: Unremarkable. Vasculature: No abdominal aortic aneurysm. Lymph nodes: No enlarged lymph nodes. IMPRESSION: Diverticulosis. There are right renal calcifications without evidence of hydronephrosis. There are possible bilateral renal cysts. Hepatomegaly. There is a small hiatal hernia. Findings appears similar to previous exam Electronically signed by: Elier Cardoso MD 08/09/24 23:49 PM
[2024-08-09 23:58] LABS: Appearance Urine Clear (Clear); Bacteria Urine Automated None Seen (None Seen); Bilirubin Urine Negative (Negative); Blood Urine Negative (Negative); Cast Urine Automated 0-2 /lpf (0-2); Color Urine Yellow; Epithelial Cell Urine Auto 0-2 /hpf (0-2); Glucose Urine UA Negative (Negative); Ketones Urine Negative (Negative); Leukocyte Esterase Urine Negative (Negative); Nitrite Urine Negative (Negative); Protein Urine Trace (Negative); RBC Urine Automated 0-2 /hpf (0-2); Specific Gravity Urine 1.022 (1.000-1.030); Urobilinogen Urine Negative (Negative); WBC Urine Automated 0-5 /hpf (0-5)
--- NOTE | 2024-08-10 00:25 | History & Physical Report ---
Date of Service August 10, 2024 Assessment & Plan (1) Cough: (2) JOSE (acute kidney injury): (3) Uncontrolled type II diabetes mellitus: (4) Hypertension: (5) History of CVA (cerebrovascular accident): (6) Hypothyroidism: Plan 88-year-old female with history of diabetes, hypertension, prior stroke presenting with persistent cough, nausea/vomiting/diarrhea today as well as generalized weakness. #Coughno evidence of pneumonia, no wheeze on exam. Patient with ongoing cough, dry. She states that she becomes nauseous while coughing which leads her to vomit. Suspect postviral cough syndrome, possible component of postnasal drip Continue codeine cough syrup as needed Albuterol nebs as needed Nasal saline spray as needed Flonase inhaled daily #Diarrheapatient reports an episode of diarrhea today. Nonbloody/nonmucoid. She was recently on a course of Bactrim. Check stool PCR and C. difficile IV fluids and electrolyte repletion as needed #AKIBUN = 47, creatinine = 1.48. Increased from baseline - LR at 80 mL/h x 2 L Holding losartan, chlorthalidone, Lasix for now Avoid nephrotoxic agents Repeat chemistry panel in the morning #Diabeteselevated blood sugar = 240 today. Patient reports her blood sugars have been markedly elevated at home since being on her steroids. Lantus 15 units twice daily Insulin sliding scale with correction factor of 18, carb ratio of 8 for now Adjust as needed Goal blood sugar 110-180 #Hypertension Continue atenolol 50 mg p.o. daily Continue diltiazem to 40 mg p.o. daily Holding chlorthalidone, Lasix and losartan in setting of JOSE # Prior stroke Continue Plavix 75 mg p.o. every morning Continue Lipitor 40 mg p.o. nightly #Hypothyroidism Continue Synthroid 150 mcg p.o. daily #Gout Continue allopurinol History of Present Illness Chief Complaint: weakness, cough Primary Care Provider: ROYAL Davison Mallika Weaver is an 88yo female with history of DM, HTN, prior CVA, gout and hypothyroidism presenting with persistent cough associated with nausea/vomiting, generalized weakness and diarrhea today. Patient was admitted to [facility] from 07/14 - 07/16/24 for RSV. She was seen by her PCP on 07/23 for persistent cough and was given codeine cough syrup with some improvement. She returned to her PCP on 07/29 with ongoing cough and was given 6 days of Prednisone therapy and continued on Codeine cough syrup. She completed her Prednisone burst approximately 1 week ago. She reports her blood sugars have been very elevated since being on the steroids - over 200's. Patient reports her cough has been ongoing and is associated with nausea and vomiting. She has had poor oral intake over the last day and had an episode of diarrhea. No chest pain, palpitations, or wheezing. She has occasional shortness of breath. No additional complaints at this time. In the ER she is afebrile, mildly hypertensive. Did have 89% on room air saturation so was placed on NC - now at 100% on 2L ER Course: Tylenol Pepcid NSS x 1L Allergies Allergy/AdvReac Type Severity Reaction Status Date / Time hydrochlorothiazide Allergy Unknown Unknown Verified 07/29/24 10:12 ampicillin AdvReac Intermediate UTIs Verified 07/29/24 10:12 amlodipine AdvReac Mild Cough Verified 07/29/24 10:12 erythromycin base AdvReac Mild YEAST Verified 07/29/24 10:12 INFECTION moxifloxacin AdvReac Mild sick to Verified 07/29/24 10:12 stomach Home Medications Medication Instructions Recorded Confirmed Type cyanocobalamin (vitamin B-12) 100 100 mcg PO QDL 02/08/18 08/09/24 History mcg tablet (Vitamin B-12) ascorbic acid (vitamin C) 500 mg 500 mg PO QDL 11/19/18 08/09/24 History tablet blood-glucose meter (OneTouch #1 ea 11/19/18 07/23/24 History UltraMini kit) lancets 33 gauge (OneTouch Delica #100 ea 11/19/18 07/23/24 History Lancets) meclizine 12.5 mg tablet 12.5 mg PO Q6H PRN Dizziness #30 11/19/18 08/09/24 History tabs vitamin E (dl, acetate) 180 mg 400 units PO QDL 11/19/18 08/09/24 History (400 unit) capsule cholecalciferol (vitamin D3) 25 25 mcg PO QDL 08/26/21 08/09/24 History mcg (1,000 unit) capsule (Vitamin D3) furosemide 20 mg tablet 40 mg (2 x 20 mg) PO QDB #180 tabs 09/05/23 08/09/24 Rx atorvastatin 40 mg tablet 40 mg PO HS #90 tabs 10/09/23 08/09/24 Rx clopidogrel 75 mg tablet 75 mg PO QAM #90 tabs 10/09/23 08/09/24 Rx pen needle, diabetic 32 gauge x #100 ea 10/09/23 07/23/24 Rx 5/32" (BD Ultra-Fine Anais Pen Needle) famotidine 20 mg tablet 20 mg PO DAILY PRN heartburn #30 11/14/23 08/09/24 Rx tabs levothyroxine 150 mcg tablet 150 mcg PO DAILY #90 tabs 02/14/24 08/09/24 Rx blood sugar diagnostic #100 ea 03/18/24 07/23/24 Rx diltiazem HCl 240 mg 240 mg PO QDL #90 caps 05/14/24 08/09/24 Rx capsule,extended release 24 hr insulin glargine 100 unit/mL (3 40 - 55 unit subcut QAM 07/14/24 08/09/24 History mL) subcutaneous pen (Lantus Solostar U-100 Insulin) chlorthalidone 25 mg tablet 25 mg PO DAILY #90 tabs 07/23/24 08/09/24 Rx losartan 100 mg tablet 100 mg PO QDL #90 tabs 07/23/24 08/09/24 Rx codeine 10 mg-guaifenesin 100 mg/5 10 ml PO Q6H PRN cough #240 mL 07/29/24 08/09/24 Rx mL oral liquid prednisone 20 mg tablet See Rx Instructions PO QAM #9 tabs 07/29/24 08/09/24 Rx allopurinol 300 mg tablet 300 mg PO QDL #90 tabs 08/06/24 08/09/24 Rx atenolol 50 mg tablet 50 mg PO QDL #90 tabs 08/06/24 08/09/24 Rx potassium chloride 10 mEq 20 meq (2 x 10 mEq) PO DAILY #180 08/08/24 08/09/24 Rx tablet,extended release tabs Past Med/Surg History Problem List (Updated 08/10/24 @ 01:20 by Kathy Jarquin DO) Cough Nausea, vomiting, and diarrhea (Acute) JOSE (acute kidney injury) (Acute) Hypertension Respiratory syncytial virus (RSV) infection (Acute) History of CVA (cerebrovascular accident) Nephrolithiasis Right sided abdominal pain History of kidney stones Controlled type 2 diabetes mellitus with insulin therapy Controlled type 2 diabetes mellitus with microalbuminuria Constipation History of kidney stones Heartburn Gastritis Dysphagia Vertigo (Acute) Abdominal pain (Acute) Flank pain (Acute) GI bleed Right knee DJD Hypothyroidism (Chronic) Hypertension (Chronic) Left knee DJD Medical History Uncontrolled type II diabetes mellitus 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 History of anesthesia reaction difficulty waking Gout History of esophageal dilatation Schatzki's ring Difficulty swallowing Diabetes mellitus, type 2 History of radioactive iodine thyroid ablation Glaucoma Osteoporosis Anemia Hypothyroidism Surgical History History of cataract surgery H/O hand surgery History of carpal tunnel surgery of left wrist History of lymph node excision right side of neck d/t TB (1953) History of arthroscopy of right knee History of total right knee replacement (TKR) History of total left knee replacement (TKR) History of esophagogastroduodenoscopy (EGD) History of wisdom tooth extraction History of tonsillectomy Status post biopsy of thyroid gland malignant History of colonoscopy History of dilation and curettage History of total abdominal hysterectomy and bilateral salpingo-oophorectomy History of thyroidectomy Family History Mother Rheumatoid arthritis Type 2 diabetes mellitus Hypertension Father Type 2 diabetes mellitus Hypertension Brother Venous embolism and thrombosis of deep vessels of lower extremity Other No family history of adverse response to anesthesia Denies family history of Ovarian cancer Prostate cancer Myocardial infarction Breast cancer Colorectal cancer Social History Smoking Status: Never smoker Second Hand Exposure: No; Do You Dip or Chew Tobacco: No; Hx Alcohol Use: No Hx Substance Use: No Preferred Language: Micronesian Communication Ability: Effective Visual Impairment: No Limitations Hearing Ability: Normal Instructional Systems Design Consultant Required: No Beliefs That Will Affect Care: None marital status: Current Living Situation: Family Current Living Situation Comment: lives at home with and son current occupational status: retired 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 Feels Safe at Home: Yes Childhood Exposure to Second-Hand Smoke: Yes Diet: diabetic caffeine: Yes (Iced Tea ) Dental Care, Regularly: Yes Physical Activity Frequency: Does not Exercise Seatbelt Use: always Sunscreen Use: No Assistive Devices: None Review of Systems Review of Systems: All systems reviewed & are unremarkable except as noted in HPI & below Physical Exam Physical Exam: General: patient resting comfortably, NAD, non-toxic in appearance, AA&O x 4 Skin: warm, dry, intact, no rashes or lesions HEENT: NC/AT, PERRL, EOMI, anicteric sclera, conjunctiva without injection, external ear normal to inspection and nontender, nares patent, moist mucus membr anes, dentition intact, no oropharyngeal lesions, neck supple, trachea midline, no LAD, no thyromegaly, no JVD Heart: +S1/S2, regular, no m/r/g Lungs: equal air entry bilaterally, no rales/rhonchi/wheezes Abd: +BS, soft, NT/ND, no masses/organomegaly/ascites Ext: warm, 2+ pulses in UE/LE bilaterally, no clubbing/cyanosis or edema Neuro: nonfocal, patient AA&O x 4, speech intact, no facial droop, moving all extremities on command with equal strength 5/5 Results & Data Results & Data Vital Signs (Past 12 Hours) Vital Signs Temp Pulse Pulse Resp BP BP Pulse Ox 08/10/24 00:00 84 21 151/71 H 100 08/09/24 23:45 90 17 161/87 H 99 08/09/24 23:35 36.6 C 92 H 18 178/92 H 91 08/09/24 22:45 84 23 172/80 H 94 08/09/24 22:42 89 L 08/09/24 22:33 82 28 H 90 08/09/24 22:30 165/73 H 08/09/24 22:30 165/73 H 08/09/24 22:30 165/73 H 08/09/24 22:30 165/73 H 08/09/24 22:25 176/81 H 08/09/24 22:05 81 16 179/80 H 91 08/09/24 21:39 83 20 94 08/09/24 21:35 82 08/09/24 21:31 37.7 C H 83 21 149/85 H 91 08/09/24 21:31 37.7 C H 82 21 149/85 H 91 O2 Del Method O2 Flow Rate 08/10/24 00:00 Nasal Cannula 2 08/09/24 23:45 Nasal Cannula 2 08/09/24 23:35 Nasal Cannula 2 08/09/24 22:45 Nasal Cannula 2 08/09/24 22:42 Nasal Cannula 0 08/09/24 22:33 08/09/24 22:30 08/09/24 22:30 08/09/24 22:30 08/09/24 22:30 08/09/24 22:25 08/09/24 22:05 08/09/24 21:39 Room Air 08/09/24 21:35 08/09/24 21:31 Room Air 08/09/24 21:31 Room Air Laboratory Results Laboratory Results WBC 15.39 K/ul (4.8-10.8) H 08/09/24 21:40 RBC 4.73 M/uL (4.20-5.40) 08/09/24 21:40 Hgb 13.7 g/dl (12.0-16.0) 08/09/24 21:40 POC Hgb 15.3 g/dl (12.0-16.0) 08/09/24 21:50 Hct 41.9 % (37.0-47.0) 08/09/24 21:40 POC Hct 45 % (37-47) 08/09/24 21:50 MCV 88.6 fL (80.0-100.0) 08/09/24 21:40 MCH 29.0 pg (25.0-34.0) 08/09/24 21:40 MCHC 32.7 g/dL (32.0-36.0) 08/09/24 21:40 RDW Std Deviation 50.8 fL (36.4-46.3) H 08/09/24 21:40 RDW Coeff of Jaja 15.8 % (11.5-14.5) H 08/09/24 21:40 Plt Count 279 K/uL (130-400) 08/09/24 21:40 MPV 10.9 fL (9.4-12.4) 08/09/24 21:40 Immature Gran % (Auto) 0.6 % 08/09/24 21:40 Neut % (Auto) 89.8 % 08/09/24 21:40 Lymph % (Auto) 2.3 % 08/09/24 21:40 [place] % (Auto) 5.3 % 08/09/24 21:40 Eos % (Auto) 1.8 % 08/09/24 21:40 Baso % (Auto) 0.2 % 08/09/24 21:40 Neut # (Auto) 13.84 K/uL (1.40-6.50) H 08/09/24 21:40 Lymph # (Auto) 0.35 K/uL (1.20-3.40) L 08/09/24 21:40 [place] # (Auto) 0.81 K/uL (0.11-0.59) H 08/09/24 21:40 Eos # (Auto) 0.27 K/uL (0.00-0.50) 08/09/24 21:40 Baso # (Auto) 0.03 K/uL (0.00-0.20) 08/09/24 21:40 Immature Gran # (Auto) 0.09 K/uL (0.01-0.20) 08/09/24 21:40 POC Sodium 139 mmol/L (135-144) 08/09/24 21:50 Sodium 140 mmol/L (136-145) 08/09/24 21:40 POC Potassium 3.9 mmol/L (3.3-5.0) 08/09/24 21:50 Potassium 3.9 mmol/L (3.5-5.1) 08/09/24 21:40 POC Chloride 96 mmol/L (101-112) L 08/09/24 21:50 Chloride 99 mmol/L (98-107) 08/09/24 21:40 Carbon Dioxide 34 mmol/L (21-32) H 08/09/24 21:40 POC Total CO2 29 mmol/L (24-31) 08/09/24 21:50 Anion Gap 7 (3-11) 08/09/24 21:40 POC Anion Gap 19.0 mmol/L (16-25) 08/09/24 21:50 POC BUN 47 mg/dl (7-18) H 08/09/24 21:50 BUN 47 mg/dl (6-23) H 08/09/24 21:40 Creatinine 1.48 mg/dl (0.6-1.2) H 08/09/24 21:40 POC Creatinine 1.5 mg/dl (0.6-1.3) H 08/09/24 21:50 Est Cr Clr Drug Dosing 29.9 ml/min 08/09/24 21:40 eGFR 34.28 08/09/24 21:40 BUN/Creatinine Ratio 31.8 (10-20) H 08/09/24 21:40 Glucose 240 mg/dl (70-99(Fasting)) H 08/09/24 21:40 POC Glucose (other) 235 mg/dl (70-99) H 08/09/24 21:50 Lactate 1.6 mmol/L (0.4-2.0) 08/09/24 21:40 Calcium 8.9 mg/dl (8.6-10.3) 08/09/24 21:40 POC Ioniz Calcium Noe 1.05 mmol/l (1.12-1.32) L 08/09/24 21:50 Magnesium 2.1 mg/dl (1.7-2.4) 08/09/24 21:40 Total Bilirubin 1.5 mg/dl (0.2-1.0) H 08/09/24 21:40 Direct Bilirubin 0.2 mg/dl (0-0.2) 08/09/24 21:40 AST 23 U/L (13-39) 08/09/24 21:40 ALT 26 U/L (7-52) 08/09/24 21:40 Alkaline Phosphatase 104 U/L (34-104) 08/09/24 21:40 Troponin I High Sens 14.9 pg/ml (0-14) H 08/09/24 21:40 Total Protein 7.2 gm/dl (6.0-8.3) 08/09/24 21:40 Albumin 3.8 gm/dl (3.4-5.0) 08/09/24 21:40 Procalcitonin 0.08 ng/ml (0-0.5) 08/09/24 21:40 Urine Color Yellow 08/09/24 23:20 Urine Appearance Clear (Clear) 08/09/24 23:20 Urine pH 8.0 (4.5-7.5) H 08/09/24 23:20 Ur Specific [place] 1.022 (1.000-1.030) 08/09/24 23:20 Urine Protein Trace (Negative) H 08/09/24 23:20 Urine Glucose (UA) Negative (Negative) 08/09/24 23:20 Urine Ketones Negative (Negative) 08/09/24 23:20 Urine Blood Negative (Negative) 08/09/24 23:20 Urine Nitrite Negative (Negative) 08/09/24 23:20 Urine Bilirubin Negative (Negative) 08/09/24 23:20 Urine Urobilinogen Negative (Negative) 08/09/24 23:20 Ur Leukocyte Esterase Negative (Negative) 08/09/24 23:20 Urine WBC (Auto) 0-5 /hpf (0-5) 08/09/24 23:20 Urine RBC (Auto) 0-2 /hpf (0-2) 08/09/24 23:20 U Hyaline Cast (Auto) 0-2 /lpf (0-2) 08/09/24 23:20 U Epithel Cells (Auto) 0-2 /hpf (0-2) 08/09/24 23:20 Urine Bacteria (Auto) None Seen (None Seen) 08/09/24 23:20 Adenovirus (PCR) Not Detected (NotDetected) 08/09/24 21:40 B. pertussis DNA (PCR) Not Detected (NotDetected) 08/09/24 21:40 B.parapertussis DNA PCR Not Detected (NotDetected) 08/09/24 21:40 C. pneumoniae DNA (PCR) Not Detected (NotDetected) 08/09/24 21:40 Coronavirus OC43 (PCR) Not Detected (NotDetected) 08/09/24 21:40 Coronavirus HKU1 (PCR) Not Detected (NotDetected) 08/09/24 21:40 Coronavirus 229E (PCR) Not Detected (NotDetected) 08/09/24 21:40 SARS-CoV-2 (PCR) Not Detected (NotDetected) 08/09/24 21:40 Coronavirus NL63 (PCR) Not Detected (NotDetected) 08/09/24 21:40 Human Metapneumovir PCR Not Detected (NotDetected) 08/09/24 21:40 Influenza Type A (PCR) Not Detected (NotDetected) 08/09/24 21:40 Influenza Type B (PCR) Not Detected (NotDetected) 08/09/24 21:40 M. pneumoniae (PCR) Not Detected (NotDetected) 08/09/24 21:40 Parainfluenza 1 (PCR) Not Detected (NotDetected) 08/09/24 21:40 Parainfluenza 2 (PCR) Not Detected (NotDetected) 08/09/24 21:40 Parainfluenza 3 (PCR) Not Detected (NotDetected) 08/09/24 21:40 Parainfluenza 4 (PCR) Not Detected (NotDetected) 08/09/24 21:40 RSV (PCR) Not Detected (NotDetected) 08/09/24 21:40 Entero/Rhino (PCR) Not Detected (NotDetected) 08/09/24 21:40 Impressions Abdomen/Pelvis CT 08/09/24 21:35 Exam(s): CT ABDOMEN + PELVIS With Contrast IV Amt: 119ML OPTIRAY 320 EXAM: CT Abdomen and Pelvis With Intravenous Contrast CLINICAL HISTORY: Reason for exam: pain, V/D. TECHNIQUE: Axial computed tomography images of the abdomen and pelvis with intravenous contrast. CTDI is 28.14 mGy and DLP is 739.95 mGy-cm. Automated exposure control was utilized for the study. A dose lowering technique was utilized adhering to the principles of ALARA. CONTRAST: Patient received 119ML OPTIRAY 320 of IV contrast COMPARISON: 12/23/2021 FINDINGS: Lung bases: No consolidation. ABDOMEN: Liver: The liver is enlarged.. Gallbladder and bile ducts: The patient is status post cholecystectomy.. No ductal dilation. Pancreas: No mass. No ductal dilation. Spleen: No splenomegaly. Adrenals: No mass. Kidneys and ureters: There are right renal calcifications. No hydronephrosis. There are rounded lucencies noted in both kidneys. Stomach and bowel: There is a small hiatal hernia. There is air and fluid within the stomach. There is air and stool noted in the colon. There are diverticula present on the colon. No significant inflammatory changes are seen. PELVIS: Appendix: Unremarkable CT scan appearance noted the appendix.. Bladder: No calculi are noted within the bladder.. Reproductive: The patient appears to be status post hysterectomy.. ABDOMEN and PELVIS: Intraperitoneal space: No free air. No significant fluid collection. Bones/joints: There are degenerative changes in the spine.. Soft tissues: Unremarkable. Vasculature: No abdominal aortic aneurysm. Lymph nodes: No enlarged lymph nodes. IMPRESSION: Diverticulosis. There are right renal calcifications without evidence of hydronephrosis. There are possible bilateral renal cysts. Hepatomegaly. There is a small hiatal hernia. Findings appears similar to previous exam Electronically signed by: Elier Cardoso MD 08/09/24 23:49 PM Chest CTA 08/09/24 21:35 Exam(s): CTA CHEST IV Amt: optiray 320 119ml EXAM: CT Angiography Chest With Intravenous Contrast CLINICAL HISTORY: Reason for exam: PE. TECHNIQUE: Axial computed tomographic angiography images of the chest with intravenous contrast. CTDI is 28.14 mGy and DLP is 1302.63 mGy-cm. Automated exposure control was utilized for the study. A dose lowering technique was utilized adhering to the principles of ALARA. MIP reconstructed images were created and reviewed. COMPARISON: 06/15/2015. FINDINGS: Pulmonary arteries: No pulmonary embolism is seen. There is dilatation of the main pulmonary artery. Aorta: No thoracic aortic aneurysm or dissection. Lungs: . No consolidation. A 5 mm nodule is again noted in the right lung (series 2, image 57). Pleural space: No significant effusion. No pneumothorax. Heart: The heart is top normal in size.. Bones/joints: There are marked degenerative changes in spine.. Soft tissues: Unremarkable. Lymph nodes: No enlarged lymph nodes. Additional: There appears to be diffuse thickening of the esophageal wall. There is a small hiatal hernia. IMPRESSION: No pulmonary embolism is seen. There is dilatation of the main pulmonary artery. This can be seen with pulmonary hypertension. There appears to be diffuse thickening of the esophageal wall. There is a small hiatal hernia. Electronically signed by: Elier Cardoso MD 08/09/24 23:42 PM Chest X-Ray 08/09/24 21:35 Exam(s): XR CXR 1 VIEW EXAM: XR Chest, 1 View CLINICAL HISTORY: Reason for exam: Sepsis. TECHNIQUE: Frontal views of the chest. COMPARISON: 07/14/2024. FINDINGS: Lungs: No consolidation. Pleural space: No pleural effusion is seen No pneumothorax. Heart: Heart is top normal in size.. Mediastinum: There is uncoiling of the thoracic aorta.. Bones/joints: There are degenerative changes in the spine. IMPRESSION: No acute pulmonary disease. Electronically signed by: Elier Cardoso MD 08/09/24 23:36 PM PG Care Time/CCT Total # of Minutes Spent Total Time Spent with Patient: Total time spent is greater than 50% in coordination of care (as documented) at patient's floor/unit and/or counseling patient: Coding Level of Care Code 40524 INT INP/OBS CARE 3/75MIN Diagnoses Cough R05.9 JOSE (acute kidney injury) N17.9 Uncontrolled type II diabetes mellitus E11.65 Hypertension I10 History of CVA (cerebrovascular accident) Z86.73 Hypothyroidism E03.9
[2024-08-10] MEDS ORDERED: ALBUTEROL 0.5% NEB SOLN 2.5 MG/0.5 ML VIAL NEB PRN (02:54)
[2024-08-10] MEDS ORDERED: GLUCOSE 40% GEL 15 GM TUBE PO PRN (02:54)
[2024-08-10] MEDS ORDERED: ACETAMINOPHEN 325 MG TAB PO PRN (02:54)
[2024-08-10] MEDS ORDERED: DEXTROSE 50% 50 ML SYRINGE IV PRN (02:54)
[2024-08-10] MEDS ORDERED: GLUCOSE 10 TAB/TUBE PO PRN (02:54)
[2024-08-10] MEDS ORDERED: CARBOHYDRATES FOR HYPOGLYCEMIA PO PRN (02:54)
[2024-08-10] MEDS ORDERED: GLUCAGON FOR INJ 1 MG VIAL SQ PRN (02:54)
[2024-08-10] MEDS ORDERED: guaiFENesin/CODEINE 100MG/10MG 5ML UDC PO PRN (02:54)
[2024-08-10] MEDS ORDERED: SODIUM CHLORIDE 0.65% NA SOLN 45 ML (OCEAN) PRN (02:54)
[2024-08-10] MEDS: LACTATED RINGER'S 1,000 ML IV SCH (03:37)
[2024-08-10] MEDS: ONDANSETRON INJ 2 MG/ML 2 ML VIAL IV PRN (03:37)
[2024-08-10] MEDS: LEVOTHYROXINE SODIUM 150 MCG TABLET PO SCH (06:21)
[2024-08-10 07:08] LABS: Adenovirus F 40/41 PCR Not Detected (NotDetected); Astrovirus PCR Not Detected (NotDetected); Campylobacter PCR Not Detected (NotDetected); Cryptosporidium PCR Not Detected (NotDetected); Cyclospora cayetanensis PCR Not Detected (NotDetected); Entamoeba histolytica PCR Not Detected (NotDetected); Enteroaggregative E.coli(EAEC) Not Detected (NotDetected); Enteropathogenic E.coli (EPEC) Not Detected (NotDetected); Enterotoxigenic E.coli (ETEC) Not Detected (NotDetected); Giardia lamblia PCR Not Detected (NotDetected); Plesiomonas shigelloides PCR Not Detected (NotDetected); Rotavirus A PCR Not Detected (NotDetected); Salmonella PCR Not Detected (NotDetected); Sapovirus PCR Not Detected (NotDetected); Shiga-like Toxin E.coli (STEC) Not Detected (NotDetected); Shigella/Enteroinvasive E.coli Not Detected (NotDetected); Vibrio cholerae PCR Not Detected (NotDetected); Vibrio species PCR Not Detected (NotDetected); Yersinia enterocolitica PCR Not Detected (NotDetected)
[2024-08-10 07:20] LABS: Norovirus GI/GII PCR DETECTED (NotDetected)
[2024-08-10] MEDS: CLOPIDOGREL BISULFATE 75 MG TAB PO SCH (07:57)
[2024-08-10] MEDS: PANTOprazole 40 MG TAB PO SCH (07:58)
[2024-08-10] MEDS: FLUTICASONE PROPIONATE NA SPR 16 GM BTL SCH (07:58)
[2024-08-10] MEDS: HEPARIN SOD 5,000 UNIT/0.5 ML VIAL SQ SCH (08:10)
[2024-08-10] MEDS: INSULIN ASPART PER UNIT CHARGE SC SCH (08:10)
[2024-08-10] MEDS: LANTUS PER UNIT CHARGE SQ SCH (08:11)
[2024-08-10] MEDS: dilTIAZem HCL 240 MG CAPCR PO SCH (12:17)
[2024-08-10] MEDS: ATENOLOL 50 MG TABLET PO SCH (12:17)
[2024-08-10] MEDS: allopurinoL 300 MG TAB PO SCH (12:17)
--- NOTE | 2024-08-10 13:19 | Electrocardiogram Report ---
Test Reason : Blood Pressure : */* mmHG Vent. Rate : 81 BPM Atrial Rate : 81 BPM P-R Int : 268 ms QRS Dur : 82 ms QT Int : 402 ms P-R-T Axes : 69 1 19 degrees QTcB Int : 466 ms Sinus rhythm with 1st degree A-V block Otherwise normal ECG When compared with ECG of 14-Jul-2024 22:51, Nonspecific T wave abnormality, improved in Anterior leads Confirmed by Samuel Stewart ([id number]) on 08/10/2024 1:19:12 PM Referred By: REFERRED SELF Confirmed By: Samuel Stewart
--- NOTE | 2024-08-10 16:32 | Hospitalist Progress Note ---
Date of Service August 10, 2024 Assessment & Plan (1) Norovirus: (2) Cough: (3) JOSE (acute kidney injury): (4) Uncontrolled type II diabetes mellitus: (5) Hypertension: (6) History of CVA (cerebrovascular accident): (7) Hypothyroidism: Plan 88-year-old female with history of diabetes, hypertension, prior stroke presenting with persistent cough, nausea/vomiting/diarrhea today as well as generalized weakness. Tested positive for norovirus on admission. Provided IV fluids on admission given JOSE likely secondary to volume depletion in setting of Norovirus. #Norovirus - nonbloody/nonmucoid diarrhea and nausea remain. No further episodes of vomiting Continue Zofran IV as needed Well-tolerating diet #Cough no evidence of pneumonia, no wheeze on exam. Patient with ongoing cough, dry. She states that she becomes nauseous while coughing which leads her to vomit. Suspect postviral cough syndrome, possible component of postnasal drip Continue codeine cough syrup as needed, Albuterol nebs as needed, Nasal saline spray as needed Flonase inhaled daily Supplemental oxygen as needed to maintain O2 sat > 90%. Wean off to room air as able #JOSE Cr elevated at 1.48, baseline Cr ~1.0 Holding losartan, chlorthalidone, Lasix for now Avoid nephrotoxic agents Repeat chemistry panel in the morning #Diabetes Patient reports her blood sugars have been markedly elevated at home since being on her steroids Lantus 15 units twice daily Insulin sliding scale with correction factor of 18, carb ratio of 8 for now Adjust as needed Goal blood sugar 110-180 #Hypertension Continue atenolol 50 mg p.o. daily Continue diltiazem to 40 mg p.o. daily Holding chlorthalidone, Lasix and losartan in setting of JOSE # Prior stroke - Continue Plavix 75 mg p.o. every morning, Lipitor 40 mg p.o. nightly #Hypothyroidism - Continue Synthroid 150 mcg p.o. daily #Gout - Continue allopurinol Updated at bedside Admission and Anticipated Discharge Date Admission Date: August 10, 2024 Subjective Patient seen and evaluated at bedside with her present. She reports ongoing diarrhea, noting 3 liquid/loose bowel movements so far today. She still has intermittent nausea but denies any vomiting today. She denies any abdominal pain. She continues to endorse dry nonproductive cough. She did not have much of an appetite for breakfast as she had some nausea at the time. She did eat her lunch and tolerated this well. We discussed her treatment plan. Anticipate discharge home tomorrow. No additional complaints or concerns at this time. Physical Exam Physical Exam: General: No acute distress, nondiaphoretic, well-developed, well-nourished. Cardiac: Regular rate and rhythm without murmurs gallops or rubs. Pulm: Diminished at bases bilaterally but otherwise clear to auscultation without wheezes, rales, or rhonchi. Normal respiratory effort. 94% on 2 L NC. Abdominal: Soft, nontender, nondistended. Bowel sounds present. Neuro: A&O x3. No focal neurological deficits. Results & Data Results & Data Vital Signs (Past 12 Hours) Vital Signs Temp Pulse Resp BP Pulse Ox O2 Del Method O2 Flow Rate 08/10/24 15:10 98.6 F 79 16 122/69 97 Room Air 08/10/24 08:00 Nasal Cannula 2 08/10/24 06:56 98.2 F 77 16 157/75 H 94 Nasal Cannula 2 Laboratory Results Reviewed CBC with differential Reviewed CMP, chemistries Reviewed UA Reviewed stool BioFire Reviewed respiratory bio fire Diagnostic Findings Reviewed CXR Reviewed chest CT Reviewed CT A/P PG Care Time/CCT Total # of Minutes Spent Total Time Spent with Patient: Total time spent is greater than 50% in coordination of care (as documented) at patient's floor/unit and/or counseling patient: Coding Level of Care Code 64023 SUB INP/OBS CARE 3/50MIN Diagnoses Norovirus A08.11 Cough R05.9 JOSE (acute kidney injury) N17.9 Uncontrolled type II diabetes mellitus E11.65 Hypertension I10 History of CVA (cerebrovascular accident) Z86.73 Hypothyroidism E03.9
[2024-08-10] MEDS: ATORVASTATIN 40 MG TAB PO SCH (20:14)
[2024-08-11 07:33] LABS: Hematocrit (blood only) 35.3 % (37.0-47.0); Hemoglobin 11.4 g/dl (12.0-16.0); Mean Corpuscular Hemoglobin 29.4 pg (25.0-34.0); Mean Corpuscular Hgb Conc 32.3 g/dL (32.0-36.0); Mean Platelet Volume 10.8 fL (9.4-12.4); Platelet Count 189 K/uL (130-400); RDW Coefficient of Variation 15.9 % (11.5-14.5); RDW Standard Deviation 52.3 fL (36.4-46.3); Red Blood Count 3.88 M/uL (4.20-5.40); White Blood Count 7.58 K/ul (4.8-10.8)
[2024-08-11 07:51] LABS: Albumin Globulin Ratio 1.3 (0.9-2); Albumin Level 2.9 gm/dl (3.4-5.0); BUN Creatinine Ratio 23.7 (10-20); Bilirubin,Total 1.1 mg/dl (0.2-1.0); Calcium 7.9 mg/dl (8.6-10.3); Creatinine Clr Calc Pharmacy 31.8 ml/min; Globulin 2.3 gm/dl (2.5-4.0); Potassium 3.3 mmol/L (3.5-5.1); Total Protein 5.2 gm/dl (6.0-8.3)
[2024-08-11] MEDS: POTASSIUM CHLORIDE CRTAB 20 MEQ TABCR PO STA (09:53)
[2024-08-11 11:08] VITALS: BP 131/74; PULSE 62; RESP 16; TEMP 97.5; O2SAT 94
--- NOTE | 2024-08-11 11:10 | Discharge Summary ---
Discharge Summary Date of Service August 11, 2024 Principal Dx & Hospital Course #1 = Principal Diagnosis (1) Norovirus: (2) Cough: (3) JOSE (acute kidney injury): (4) Uncontrolled type II diabetes mellitus: (5) Hypertension: (6) History of CVA (cerebrovascular accident): (7) Hypothyroidism: Plan 88-year-old female with history of diabetes, hypertension, prior stroke who presented with persistent cough, nausea/vomiting/nonbloody/nonmucoid diarrhea as well as generalized weakness. Tested positive for norovirus on admission. CT A/P with findings similar to previous exam, chest CTA negative for PE, CXR unremarkable. Provided IV fluids on admission given JOSE likely secondary to volume depletion in setting of Norovirus. Nausea, vomiting, diarrhea resolved by day of discharge. #Norovirus Well-tolerating diet Mild hypokalemia, likely due to GI loss - repleted with KCl 40 mEq p.o. on day of discharge Discharged with Zofran 4 mg q6h prn N/V. Recommended to drink plenty of fluids to prevent dehydration #Cough no evidence of pneumonia, no wheeze on exam. Patient with ongoing cough, dry. Suspect postviral cough syndrome, possible component of postnasal drip Started fluticasone nasal spray daily and continued on discharge. Can continue codeine cough syrup as directed as needed Initially required supplemental oxygen at 2 L NC, but weaned off and stable on room air now #JOSE Cr elevated at 1.48 on admission and improved to 1.39 on day of discharge, baseline Cr ~1.0 Holding losartan, chlorthalidone, Lasix for now Instructed to get BMP in 2 days on 08/14/24 to recheck kidney function; results sent to PCP and instructed patient to follow-up with PCP for direction of when to resume these medications #Diabetes Patient reports her blood sugars have been markedly elevated at home since being on her steroids Lantus 15 units twice daily Insulin sliding scale with correction factor of 18, carb ratio of 8 for now Goal blood sugar 110-180 #Hypertension Continue atenolol 50 mg p.o. daily Continue diltiazem to 40 mg p.o. daily Holding chlorthalidone, Lasix, losartan, potassium supplement in setting of JOSE as above #Prior stroke - Continue Plavix 75 mg p.o. every morning, Lipitor 40 mg p.o. nightly #Hypothyroidism - Continue Synthroid 150 mcg p.o. daily #Gout - Continue allopurinol Dispo: Discharged home 08/11/24 Notes For Next Care Provider Monitor results of BMP scheduled for 08/14/24 to reassess kidney function Please instruct patient on when to resume her held meds for JOSE Medication Changes From Visit Held chlorthalidone, Lasix, losartan, potassium supplement Zofran 4 mg q6h prn N/V Fluticasone nasal spray daily Admission HPI Per Admitting Provider Mallika Weaver is an 88yo female with history of DM, HTN, prior CVA, gout and hypothyroidism presenting with persistent cough associated with nausea/vomiting, generalized weakness and diarrhea today. Patient was admitted to [facility] from 07/14 - 07/16/24 for RSV. She was seen by her PCP on 07/23 for persistent cough and was given codeine cough syrup with some improvement. She returned to her PCP on 07/29 with ongoing cough and was given 6 days of Prednisone therapy and continued on Codeine cough syrup. She completed her Prednisone burst approximately 1 week ago. She reports her blood sugars have been very elevated since being on the steroids - over 200's. Patient reports her cough has been ongoing and is associated with nausea and vomiting. She has had poor oral intake over the last day and had an episode of diarrhea. No chest pain, palpitations, or wheezing. She has occasional shortness of breath. No additional complaints at this time. In the ER she is afebrile, mildly hypertensive. Did have 89% on room air saturation so was placed on NC - now at 100% on 2L ER Course: Tylenol Pepcid NSS x 1L Discharge Exam General: No acute distress, nondiaphoretic, well-developed, well-nourished. Cardiac: Regular rate and rhythm without murmurs gallops or rubs. Pulm: Diminished at bases bilaterally but otherwise clear to auscultation without wheezes, rales, or rhonchi. Normal respiratory effort. 94% on room air. Abdominal: Soft, nontender, nondistended. Bowel sounds present. Neuro: A&O x3. No focal neurological deficits. Discharge Plan Discharge Items Patient Disposition: Home - Self-Care Reason For Visit: COUGH,DIARRHEA,WEAKNESS Discharge Diagnosis: Norovirus Post-viral cough Condition on Discharge: Fair Activity: Resume your previous activity Non-emergency contact: Primary Care Provider Call non-emergency contact if: you have any medication questions and your symptoms worsen Follow-up/Referrals: Bertha Leigh CRNP [Primary Care Provider] - 08/13/24 2:00 pm (Follow-up in 1-2 weeks) Diet: Carb Consistent or DM2 Ambulatory Orders: Basic Metabolic Panel (Routine) Timeframe: [id number] Location: Determined by Patient Ordered By: Cammy Hammonds Attending Provider Instructions: Mallika, You were admitted to the hospital due to Norovirus, dehydration, and an acute kidney injury (JOSE). Norovirus is a very contagious virus that can infect the stomach and intestines. It causes diarrhea and vomiting. The virus spreads easily through contaminated foods and surfaces. You were treated with supportive measures and have improved. Some of your medications have been held because of the JOSE, and your kidney function has started to improve though not back at your baseline yet. Upon discharge from the hospital: * Take Zofran 4 mg every 6 hours as needed for nausea/vomiting. * Drink plenty of fluids to prevent dehydration. * Hold taking the following medications for now: Losartan, furosemide (Lasix), chlorthalidone, potassium supplement. * Get blood work done on Sunday08/14/24 to recheck your kidney function. These results will be sent to your PCP to review. You can call your PCP on 08/15/24 for further instruction of when to resume the medications listed above. * Take fluticasone nasal spray 2 sprays daily. You can continue using the codeine cough syrup as directed as needed. * Follow-up with your PCP in 1-2 weeks in the office. It was a pleasure taking care of you while you were in the hospital! Pending Studies at Discharge: No Stand-Alone Forms: [email or web address], Smoking Cessation Medications and DC Order Prescriptions: New fluticasone propionate 50 mcg/actuation [place],Suspension 2 spray NA DAILY Qty: 16 0RF ondansetron HCl 4 mg tablet 4 mg PO Q6H PRN (Reason: nausea and vomiting) Qty: 20 0RF Continued (DME) pen needle, diabetic [BD Ultra-Fine Anais Pen Needle] 32 gauge x 5/32" needle See Rx Instructions .ROUTE .MEDSUPPLY Qty: 100 3RF Rx Instructions: Inject insulin once daily as instructed atorvastatin 40 mg tablet 40 mg PO HS Qty: 90 3RF clopidogrel 75 mg tablet 75 mg PO QAM Qty: 90 3RF famotidine 20 mg tablet 20 mg PO DAILY PRN (Reason: heartburn) Qty: 30 5RF levothyroxine 150 mcg tablet 150 mcg PO DAILY Qty: 90 3RF Rx Instructions: Take before breakfast (DME) blood sugar diagnostic Strip See Dose Instructions .ROUTE .MEDSUPPLY Qty: 100 1RF Dose Instruction: As directed Rx Instructions: test once daily and PRN ( PACE ONLY ALLOWS 6 MOS ) diltiazem HCl 240 mg capsule,extended release 24hr 240 mg PO QDL Qty: 90 3RF allopurinol 300 mg tablet 300 mg PO QDL Qty: 90 3RF atenolol 50 mg tablet 50 mg PO QDL Qty: 90 3RF (DME) lancets [[employer] AGTouch Delica Lancets] 33 gauge misc See Dose Instructions .ROUTE .MEDSUPPLY Qty: 100 Rx Instructions: As directed (DME) blood-glucose meter [[employer] UltraMini] kit See Dose Instructions .ROUTE .MEDSUPPLY Qty: 1 Patient Comments: Check blood sugar once daily Rx Instructions: As directed ascorbic acid (vitamin C) 500 mg tablet 500 mg PO QDL vitamin E (dl, acetate) 400 unit capsule 400 units PO QDL meclizine 12.5 mg tablet 12.5 mg PO Q6H PRN (Reason: Dizziness) Qty: 30 codeine-guaifenesin 10-100 mg/5 mL liquid 10 ml PO Q6H PRN (Reason: cough) Qty: 240 0RF cyanocobalamin (vitamin B-12) [Vitamin B-12] 100 mcg Tablet 100 mcg PO QDL cholecalciferol (vitamin D3) [Vitamin D3] 25 mcg (1,000 unit) Capsule 25 mcg PO QDL insulin glargine [Lantus Solostar U-100 Insulin] 100 unit/mL (3 mL) insulin pen 40 - 55 unit subcut QAM Held furosemide 20 mg tablet 40 mg PO QDB Qty: 180 3RF Hold Instructions: Provider's Order potassium chloride 10 mEq tablet extended release 20 meq PO DAILY Qty: 180 3RF Hold Instructions: Provider's Order losartan 100 mg tablet 100 mg PO QDL Qty: 90 3RF Hold Instructions: Provider's Order chlorthalidone 25 mg tablet 25 mg PO DAILY Qty: 90 3RF Hold Instructions: Provider's Order Discontinued prednisone 20 mg tablet See Rx Instructions PO QAM Qty: 9 0RF Rx Instructions: Take 2 tablets daily x 3 days then 1 tablet daily x 3 days then stop. Discharge Orders: Discharge Order (Routine); Ordered 08/11/24 Ordered By: Cammy Yang/Other Patient Handouts: Understanding Norovirus Admission Data Admit Date/Time: 08/10/24 00:35 Attending Provider: Anam Tan Admit Provider: Kathy Jarquin Primary Care Provider: Bertha Leigh Other Providers: Kathy Jarquin Other Interventions: Discharge Summary Assessment (RN) Last Done: 08/11/24 11:38 Hospital Stay Data Consultations 08/10/24 00:09 ED Decision to Admit Stat Diagnostic Imagining Performed Abdomen/Pelvis CT 08/09/24 21:35 Exam(s): CT ABDOMEN + PELVIS With Contrast IV Amt: 119ML OPTIRAY 320 EXAM: CT Abdomen and Pelvis With Intravenous Contrast CLINICAL HISTORY: Reason for exam: pain, V/D. TECHNIQUE: Axial computed tomography images of the abdomen and pelvis with intravenous contrast. CTDI is 28.14 mGy and DLP is 739.95 mGy-cm. Automated exposure control was utilized for the study. A dose lowering technique was utilized adhering to the principles of ALARA. CONTRAST: Patient received 119ML OPTIRAY 320 of IV contrast COMPARISON: 12/23/2021 FINDINGS: Lung bases: No consolidation. ABDOMEN: Liver: The liver is enlarged.. Gallbladder and bile ducts: The patient is status post cholecystectomy.. No ductal dilation. Pancreas: No mass. No ductal dilation. Spleen: No splenomegaly. Adrenals: No mass. Kidneys and ureters: There are right renal calcifications. No hydronephrosis. There are rounded lucencies noted in both kidneys. Stomach and bowel: There is a small hiatal hernia. There is air and fluid within the stomach. There is air and stool noted in the colon. There are diverticula present on the colon. No significant inflammatory changes are seen. PELVIS: Appendix: Unremarkable CT scan appearance noted the appendix.. Bladder: No calculi are noted within the bladder.. Reproductive: The patient appears to be status post hysterectomy.. ABDOMEN and PELVIS: Intraperitoneal space: No free air. No significant fluid collection. Bones/joints: There are degenerative changes in the spine.. Soft tissues: Unremarkable. Vasculature: No abdominal aortic aneurysm. Lymph nodes: No enlarged lymph nodes. IMPRESSION: Diverticulosis. There are right renal calcifications without evidence of hydronephrosis. There are possible bilateral renal cysts. Hepatomegaly. There is a small hiatal hernia. Findings appears similar to previous exam Electronically signed by: Elier Cardoso MD 08/09/24 23:49 PM Chest CTA 08/09/24 21:35 Exam(s): CTA CHEST IV Amt: optiray 320 119ml EXAM: CT Angiography Chest With Intravenous Contrast CLINICAL HISTORY: Reason for exam: PE. TECHNIQUE: Axial computed tomographic angiography images of the chest with intravenous contrast. CTDI is 28.14 mGy and DLP is 1302.63 mGy-cm. Automated exposure control was utilized for the study. A dose lowering technique was utilized adhering to the principles of ALARA. MIP reconstructed images were created and reviewed. COMPARISON: 06/15/2015. FINDINGS: Pulmonary arteries: No pulmonary embolism is seen. There is dilatation of the main pulmonary artery. Aorta: No thoracic aortic aneurysm or dissection. Lungs: . No consolidation. A 5 mm nodule is again noted in the right lung (series 2, image 57). Pleural space: No significant effusion. No pneumothorax. Heart: The heart is top normal in size.. Bones/joints: There are marked degenerative changes in spine.. Soft tissues: Unremarkable. Lymph nodes: No enlarged lymph nodes. Additional: There appears to be diffuse thickening of the esophageal wall. There is a small hiatal hernia. IMPRESSION: No pulmonary embolism is seen. There is dilatation of the main pulmonary artery. This can be seen with pulmonary hypertension. There appears to be diffuse thickening of the esophageal wall. There is a small hiatal hernia. Electronically signed by: Elier Cardoso MD 08/09/24 23:42 PM Chest X-Ray 08/09/24 21:35 Exam(s): XR CXR 1 VIEW EXAM: XR Chest, 1 View CLINICAL HISTORY: Reason for exam: Sepsis. TECHNIQUE: Frontal views of the chest. COMPARISON: 07/14/2024. FINDINGS: Lungs: No consolidation. Pleural space: No pleural effusion is seen No pneumothorax. Heart: Heart is top normal in size.. Mediastinum: There is uncoiling of the thoracic aorta.. Bones/joints: There are degenerative changes in the spine. IMPRESSION: No acute pulmonary disease. Electronically signed by: Elier Cardoso MD 08/09/24 23:36 PM Pending Results Patient Have Any Pending Studies at Discharge: No Discharge Instructions Given to Patient (Per Discharging Provider) Vadim Tena were admitted to the hospital due to Norovirus, dehydration, and an acute kidney injury (JOSE). Norovirus is a very contagious virus that can infect the stomach and intestines. It causes diarrhea and vomiting. The virus spreads easily through contaminated foods and surfaces. You were treated with supportive measures and have improved. Some of your medications have been held because of the JOSE, and your kidney function has started to improve though not back at your baseline yet. Upon discharge from the hospital: * Take Zofran 4 mg every 6 hours as needed for nausea/vomiting. * Drink plenty of fluids to prevent dehydration. * Hold taking the following medications for now: Losartan, furosemide (Lasix), chlorthalidone, potassium supplement. * Get blood work done on Sunday08/14/24 to recheck your kidney function. These results will be sent to your PCP to review. You can call your PCP on 08/15/24 for further instruction of when to resume the medications listed above. * Take fluticasone nasal spray 2 sprays daily. You can continue using the codeine cough syrup as directed as needed. * Follow-up with your PCP in 1-2 weeks in the office. It was a pleasure taking care of you while you were in the hospital! Total Time Total Time Spent Total Time Spent (In Minutes): Greater than 30 minutes spent completing this discharge process including direct patient care, medication reconciliation, documentation, review of labs and images, and coordination of care. Coding Level of Care Code 03361 INP/OBS DISCH >30 MIN Diagnoses Norovirus A08.11 Cough R05.9 JOSE (acute kidney injury) N17.9 Uncontrolled type II diabetes mellitus E11.65 Hypertension I10 History of CVA (cerebrovascular accident) Z86.73 Hypothyroidism E03.9
== END 2024-08-11 12:36 | disposition home or self-care (01) ==
LOC: SUATTDRO → 3W 21:27 → ED 21:27 → SUATTDRO 08-10 00:35 → 3W 08-10 02:48